=== PATIENT | male | born 1950 | race Caucasian/White ===

== ENCOUNTER 2019-11-06 06:43 | Outpatient (CLI) | payer OTHER, SELFPAY ==
--- NOTE | 2019-11-06 07:15 | USCV_ITS ---
Jerrell Love Age: 68 Gender: M : 1950 Exam Date: 11/06/2019 07:26 Ordering Phys: Jem Hook MD ([email or web address]) Technologist: Pilar Jordan [place] [facility] [place] AAA HISTORY: Diameter (cm) AP x Transverse x Length Velocity (cm/s) Waveform Prox Aorta: 2.26 x 1.93 x 2.38 26.30 Mid Aorta: 2.62 x 2.67 x 2.10 21.50 Distal Aorta: 3.41 x 3.29 x 3.49 20.80 Right Iliac Prox: 0.70 x x Left Iliac Prox: 0.58 x x Stent Prox Landing x x Aneurysmal Sac Max x x Lt Lat Sac Dim Rt Lat Sac Dim Stent Dist Landing x x Right Iliac Stent x x Left Iliac Stent x x Right Renal Art Left Renal Art FINDINGS: Fusiform dilatation of the distal abdominal aorta Moderate diffuse plaques in the abdominal aorta CONCLUSIONS Small fusiform aneurysm of the distal abdominal aorta measuring 3.41 x 3.29 cm Moderate diffuse plaques in the abdominal aorta Normal proximal common iliac artery dimensions, bilaterally Dr Gene Amin MD [facility] (Electronically Signed) Final Date: 07 November 2019 16:58 S
--- NOTE | 2019-11-06 08:00 | USCV_ITS ---
Jerrell Love Age: 68 Gender: M : 1950 Exam Date: 11/06/2019 07:42 Ordering Phys: Jem Hook MD ([email or web address]) Technologist: Pilar Jordan [place] [facility] [place] PAD Risk Factors: Previous Vascular Surgery: RIGHT LEFT BP: 151.0 / BP: 148.0/ 0 0 Waveform Velocity (cm/s) Velocity (cm/s) Waveform Triphasic 179.9 Iliac Prox 134.9 Biphasic Triphasic 158.3 Iliac Mid 129.5 Biphasic Triphasic 147.5 Iliac Distal 136.7 Biphasic Triphasic 127.7 DIRECTOR [employer]CTION[employer] AGENCY 95.3 Biphasic Biphasic 106.1 SFA Prox 91.7 Biphasic Biphasic 64.8 SFA Mid 108.8 Biphasic Biphasic SFA Dist Triphasic 95.3 88.1 Biphasic 37.8 POP 36.7 Biphasic Biphasic 26.5 HEALTH AND 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
--- NOTE | 2019-11-06 08:45 | USCV_ITS ---
Jerrell Love Age: 68 Gender: M : 1950 Exam Date: 11/06/2019 07:10 Ordering Phys: Jem Hook MD ([email or web address]) Technologist: Pilar Jordan [place] [facility] [place]: CAROTID DZ Risk Factors: Previous Vascular Surgery: Right Brachial BP: / Left Brachial BP: / Right Left Velocity (cm/s) Spectral Plaque Velocity (cm/s) Spectral Plaque Syst/Diast Broadening Syst/Diast Broadening 86.00/ 16.50 Prox CCA 77.60 / 26.30 99.20/ 24.30 Mid CCA 56.50 / 30.20 86.00/ 27.60 Distal CCA 54.70 / 21.40 133.40/44.10 Prox ICA 49.60 / 20.50 130.10/47.30 Mid ICA 46.10 / 22.20 132.80/42.10 Distal ICA 94.00 / 52.10 116.90 ECA 90.60 1.34 ICA/CCA 1.21 Antegrade Vertebral Antegrade 53.90/ 13.10 cm/s 85.40/ 20.50 cm/s Tri Subclavian Tri FINDINGS Moderate to heavy heterogeneous plaques of the right bifurcation and carotid artery Delayed peaking low velocity continuous waveforms in the left internal carotid artery and common carotid artery CONCLUSIONS Moderate to heavy heterogeneous plaques of the right bifurcation and carotid artery with velocity elevation consistent with 50- 79% stenosis. Abnormal Doppler waveforms on the left side, may suggest high- grade stenosis in the proximal artery. Consider CTA, to better evaluate the aortic arch vessels/proximal segment of the common carotid artery, if clinically indicated. Compared to the study from 09/27/2014, there are features of progression of disease on both sides Dr Gene Amin MD [facility] (Electronically Signed) Final Date: 06 November 2019 21:42 S
== END 2019-11-06 06:44 | disposition home or self-care (01) ==
PROVIDERS: PCP Emergency Medicine Emergency Medical Services; Visit Provider Internal Medicine Cardiovascular Disease
DX: I73.9 Peripheral vascular disease, unspecified (principal); I71.4 Abdominal aortic aneurysm, without rupture; I65.23 Occlusion and stenosis of bilateral carotid arteries
CPT/HCPCS: 93880; 93925; 93978

== ENCOUNTER 2019-11-19 13:04 | Outpatient (CLI) | payer OTHER, SELFPAY ==
--- NOTE | 2019-11-19 13:30 | CT_ITS ---
WS: [id number] CTA NECK TECHNIQUE: Contrast enhanced CTA of the neck with coronal and sagittal reformatted images and maximum intensity projection (MIP) images. NASCET criteria utilized. CLINICAL INFORMATION: FOLLOWUP TO [facility] CAROTID DUPLEX COMPARISON: Ultrasound November 06, 2019 DLP: 1176.[address] scans at [facility] use at least one of these dose optimization techniques: automat ed exposure control; mA and/or kV adjustment per patient size (includes targeted exams where dose is matched to clinical indication); or iterative reconstruction. FINDINGS: Moderate atheromatous disease involving the aortic arch with calcification. RIGHT: Right ICA stenosis 33%. Right common carotid artery is patent. Moderate calcified atheromatous disease right carotid bulb extending into the ICA. Right ICA is patent to the skull base. Moderate c avernous carotid calcification. LEFT: Severe high-grade stenosis of the left common carotid origin. Short segment near occlusion/occl usion. No definite residual visualized lumen. Common carotid artery is patent distal to the stenosis. This may be partially filling from the left ECA. Left ICA is patent to the skull base. Mild to moder ate atheromatous disease left carotid bulb extending into the ICA. Left ICA stenosis measures 30% Numerous prominent partially visualized anterior mediastinal lymph nodes. Advanced emphysematous harden ges in the lung apices. Mild mucosal thickening in the paranasal sinuses. CT/CT angio neck [id number] IMPRESSION: 1. Right ICA stenosis 33%. 2. Severe high-grade stenosis of the left common carotid artery origin with hi gh-grade stenosis and near occlusion. No definite visualized residual lumen. Co mmon carotid artery distal to this is patent and may be partially filling from the left ECA. 3. Left ICA stenosis measures 30% 4. Codominant and patent vertebral arteries bilaterally. 5. Proximal [place] is unremarkable. 6. Partially visualized prominent anterior mediastinal lymph nodes. These are nonspecific but may be reactive. This can be further evaluated with chest CT.
[2019-11-19 13:35] LABS: Blood Urea Nitrogen 15 mg/dL (8-23)
[2019-11-19] MEDS: iodixanol 320 mg/mL 100mL Btl IV (13:47)
== END 2019-11-19 13:05 | disposition home or self-care (01) ==
LOC: RADWPI 13:07
PROVIDERS: Family Provider Emergency Medicine Emergency Medical Services; PCP Emergency Medicine Emergency Medical Services; Visit Provider Internal Medicine Cardiovascular Disease
DX: R93.89 Abnormal findings on diagnostic imaging of other specified body structures (principal); I65.23 Occlusion and stenosis of bilateral carotid arteries
CPT/HCPCS: 70498; 82565; 84520; Q9967

== ENCOUNTER 2019-12-04 14:06 | Outpatient (CLI) | payer OTHER, SELFPAY ==
--- NOTE | 2019-12-04 14:00 | CT_ITS ---
WS: [id number] CTA THORACIC AORTA WITH AND WITHOUT CONTRAST HISTORY: COMMON ARTERY STENOSIS TECHNIQUE: CT imaging of the thorax is performed with and without contrast. After noncontrast imaging is performed, CT angiogram is performed during injection of Omnipaque 300; 95 mL IV.. Sagittal and c oronal reconstructions, sagittal and coronal MIP imaging is submitted. All CT scans at [facility] [place] use at least one of these dose optimization techniques: automated exposure control; mA and/o r kV adjustment per patient size (includes targeted exams where dose is matched to clinical indicatio n); or iterative reconstruction. DLP: 1142.63 mGy.cm COMPARISON: 11/19/2019 Moderate atherosclerosis thoracic aorta with no dilatation. Ascending aorta measures 3.5 cm. Descendi ng thoracic aorta is 2.8 cm. There is a moderate amount of calcified plaque and intimal thickening. A few of the plaques are irregular shaped with the largest near the GE junction. The largest ulceratio n measures 9 mm. Very high-grade stenosis involving the origin of the LEFT common carotid artery from the arch. Stenosis greater than 90%. This was described on a prior neck CTA. Moderate coronary arter y atherosclerosis. Normal size pulmonary artery. There are numerous mediastinal and hilar lymph nodes. Majority of these lymph nodes maintain their fatty hilum. The largest lymph node is 12 mm. Severe paraseptal and centrilobular emphysema. Mild interstitial thickening at the RIGHT lung base po steriorly. No suspicious mass or nodule. No osteoblastic or osteolytic disease. There is mild anterio r wedging of one of the lower vertebral bodies which may be T8. CT/CT angio chest [id number] IMPRESSION: 1. Moderate atherosclerosis thoracic aorta with no aneurysm. 2. Moderate coronary artery calcification. 3. High-grade proximal LEFT common carotid artery stenosis. 4. Severe centrilobular and paraseptal emphysema.
[2019-12-04] MEDS: iodixanol 320 mg/mL 100mL Btl IV (15:01)
== END 2019-12-04 14:07 | disposition home or self-care (01) ==
LOC: RAD 14:07
PROVIDERS: PCP Emergency Medicine Emergency Medical Services; Visit Provider Thoracic Surgery (Cardiothoracic Vascular Surgery)
DX: I65.22 Occlusion and stenosis of left carotid artery (principal); I70.0 Atherosclerosis of aorta; I25.10 Atherosclerotic heart disease of native coronary artery without angina pectoris; J43.8 Other emphysema
CPT/HCPCS: 71275

== ENCOUNTER → 2020-04-16 16:48 | Outpatient (BNVA) | payer OTHER, SELFPAY | PROVIDERS: PCP Emergency Medicine Emergency Medical Services; Visit Provider Nurse Practitioner | DX: Z11.59 Encounter for screening for other viral diseases (principal) | CPT/HCPCS: 87635 ==

== ENCOUNTER 2020-09-01 10:28 | Outpatient (CLI) | payer OTHER, SELFPAY ==
--- NOTE | 2020-09-01 10:32 | MR_ITS ---
WS: [id number] MRI CERVICAL SPINE NONCONTRAST TECHNIQUE: Sagittal T1, T2 and STIR imaging. Axial T2, gradient, and fiesta imaging. CLINICAL INFORMATION: RADICULOPATHY;CERVICALGIA COMPARISON: None. FINDINGS: Straightening of the normal cervical lordosis. Mild disc bulging C3-C4 and C4-C5. No high-grade centr al canal stenosis. Cord signal is normal. C2-C3: Normal. C3-C4: Minimal disc bulging with osteophytic ridging. Mild facet arthropathy. Mild left foraminal rody rowing. Spinal canal is patent. C4-C5: Mild disc bulging with osteophytic ridging. Slight effacement of ventral thecal sac. Osteophyt ic ridging. Mild bilateral bony foraminal narrowing. This is worse in the left. Mild facet arthropath y. C5-C6: Mild disc osteophyte complex with endplate ridging. Mild to moderate left and no significant r ight foraminal narrowing. Moderate facet arthropathy. Spinal canal is patent. C6-C7: Mild disc osteophytic ridging. Mild to moderate left and mild right bony foraminal narrowing. Moderate facet arthropathy. Spinal canal is patent. C7-T1: Mild osteophytic ridging. Spinal canal and foramen are patent. Mild facet arthropathy MR/MR cervical spin wo con* [id number] IMPRESSION: 1. Straightening of the normal cervical lordosis. No high-grade central canal stenosis. Cord signal is normal. 2. Mild bony foraminal narrowing mainly due to endplate osteophytic ridging wo rse at right C4-5, left C5-6, and left C6-7. 3. Mild to moderate facet arthropathy worse at C4-C5, C5-C6 and C6-C7.
== END 2020-09-01 10:29 | disposition home or self-care (01) ==
LOC: RADSHAW 10:29
PROVIDERS: PCP Emergency Medicine Emergency Medical Services; Visit Provider Emergency Medicine Emergency Medical Services
DX: M54.12 Radiculopathy, cervical region (principal); M47.812 Spondylosis without myelopathy or radiculopathy, cervical region; M25.78 Osteophyte, vertebrae
CPT/HCPCS: 72141

== ENCOUNTER → 2020-09-08 09:27 | Outpatient (BNVA) | payer OTHER, SELFPAY | PROVIDERS: PCP Emergency Medicine Emergency Medical Services; Referring Provider Emergency Medicine Emergency Medical Services; Visit Provider Specialist | DX: M25.512 Pain in left shoulder (principal); M75.02 Adhesive capsulitis of left shoulder; M54.2 Cervicalgia | CPT/HCPCS: 73030 ==

== ENCOUNTER → 2020-09-09 10:38 | Outpatient (BNVA) | payer OTHER, SELFPAY | PROVIDERS: PCP Emergency Medicine Emergency Medical Services; Visit Provider Psychiatry & Neurology Neurology | DX: M54.12 Radiculopathy, cervical region (principal); M75.02 Adhesive capsulitis of left shoulder; F17.210 Nicotine dependence, cigarettes, uncomplicated | CPT/HCPCS: 95886; 95910 ==

== ENCOUNTER → 2020-10-01 08:10 | Outpatient (BNVA) | payer OTHER, SELFPAY | PROVIDERS: PCP Emergency Medicine Emergency Medical Services; Referring Provider Emergency Medicine Emergency Medical Services; Visit Provider Anesthesiology Pain Medicine | DX: G89.29 Other chronic pain (principal); M54.2 Cervicalgia; J44.9 Chronic obstructive pulmonary disease, unspecified; Z79.899 Other long term (current) drug therapy | CPT/HCPCS: 99205 ==

== ENCOUNTER 2020-10-15 15:35 | Emergency (ER) | payer OTHER, SELFPAY ==
[2020-10-15 15:55] VITALS: BP 130/71; PULSE 94; RESP 24; TEMP 36.6; O2SAT 95; BMI 26.7
--- NOTE | 2020-10-15 17:53 | XRR_ITS ---
PROCEDURE INFORMATION: Exam: XR Chest Exam date and time: 10/15/2020 5:54 PM Age: 69 years old Clinical indication: Shortness of breath; Prior surgery; Surgery type: Stents; Patient HX: SOB, cough, ex smoker TECHNIQUE: Imaging protocol: XR of the chest. Views: 1 view. COMPARISON: CT angio chest [id number] 12/04/2019 2:45 PM FINDINGS: Lungs: Unremarkable. No consolidation. Unchanged scattered calcified pulmonary granulomas. Pleural spaces: Unremarkable. No pleural effusion. No pneumothorax. Heart/Mediastinum: Unremarkable. No cardiomegaly. Bones/joints: No acute abnormality. XR/XR chest 1V portable [id number] IMPRESSION: No acute findings. Unchanged exam.
--- NOTE | 2020-10-15 17:54 | ED_ITS ---
HPI - SOB/Dyspnea General: Chief Complaint: Shortness of Breath/Dyspnea Stated Complaint: SOB Time Seen by Provider: 10/15/20 17:34 Source: patient Mode of arrival: ambulatory Limitations: no limitations History of Present Illness: HPI Narrative: Patient is a 69-year-old male with a history of CAD, PVD, chronic smoker, COPD, AAA, dyslipidemia and carotid stenosis here for several complaints that he states have all been present ever since my surgery in March . Patient states he underwent what sounds like a left carotid endarterectomy and stenting in [place] in March. He tells me ever since the procedure he has been having issues with his bilateral upper extremities. He complains of left arm pain, right arm numbness, and intermittent coolness to bilateral upper extremities. He has been seen by Dr. Jefferson last month for the left arm pain and diagnosed with adhesive capsulitis of the left shoulder. He has seen Dr. Guillen with neurology as well as Dr. Jay santos with pain management. He has underwent MRI imaging of the cervical spine as well as nerve conduction studies. These results are listed below: MR/MR cervical spin wo con* [id number] IMPRESSION: 1. Straightening of the normal cervical lordosis. No high-grade central canal stenosis. Cord signal is normal. 2. Mild bony foraminal narrowing mainly due to endplate osteophytic ridging worse at right C4-5, left C5-6, and left C6-7. 3. Mild to moderate facet arthropathy worse at C4-C5, C5-C6 and C6-C7. Interpretation: 1. The study provides electrodiagnostic evidence for chronic left C56 radiculopathy based on chronic denervation in this myotome. 2. 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 Patient also has complaints of shortness of breath and severe fatigue with exercise again he states has been present since the surgery in March. He reports I just cannot get no air . Patient is a chronic smoker with a diagnosis of COPD. Patient has seen Dr. Hanson with cardiology for this and has a stress test scheduled for November 02. He also has a pulmonology appointment next week. Associated symptoms: Reports fever(s) (reports fever of 100.5 yesterday); Deny abdominal pain, chest congestion, chest pain, dizziness, hemoptysis, lightheadedness, nausea, palpitations, syncope or vomiting Review of Systems Const: Reports: fever(s) (reports fever of 100.5 yesterday) and fatigue; Denies: chills, body aches, change in appetite, change in weight or malaise Eyes: Denies: change in vision or blurry vision ENMT: Denies: throat pain or odynophagia Card: Reports: dyspnea on exertion; Denies: chest pain, palpitations, irregular heart rhythm, edema, swelling of feet/ankles, lightheadedness, syncope, pre-syncope, leg pain with exertion or acrocyanosis Resp: Reports: dyspnea; Denies: productive cough, non-productive cough, wheezing, stridor, pain on inspiration, change in phlegm color, hemoptysis or chest congestion GI: Denies: abdominal pain, nausea, vomiting or diarrhea Musc: Reports: neck pain; Denies: back pain, joint pain, joint swelling, joint redness, joint stiffness or limited range of motion Skin/Breast: Denies: rash Neuro: Reports: numbness in extremities (UEs) and weakness in extremities (UEs); Denies: headache(s), difficulty walking, frequent falls or dizziness PFSH ED PFSH: Medical History (Updated 10/15/20 @ 20:17 by LLUVIA Cedeno) AAA (abdominal aortic aneurysm) ASHD (arteriosclerotic heart disease) Carotid stenosis, bilateral COPD (chronic obstructive pulmonary disease) Dyslipidemia Myocardial infarction PAD (peripheral artery disease) Tobacco abuse Surgical History S/P angioplasty with stent Family History Father CHF (congestive heart failure) Social History (Updated 10/01/20 @ 08:44 by Padmaja Hsieh LPN) Smoking and tobacco status: former smoker Alcohol intake: current Alcohol intake frequency: holidays/special occasions only Lives independently: Yes Household members: spouse Marital status: History of recent travel: No Physical Exam Const: COMMON NORMALS: no acute distress, average body habitus, patient oriented x3, no limitations, healthy appearing and alert GENERAL APPEARANCE: cooperative ORIENTATION/CONSCIOUSNESS: Yes awake, Yes oriented to person, Yes oriented to place and Yes oriented to time HENMT: COMMON NORMALS: normocephalic and atraumatic HEAD & SCALP: normal to inspection, normocephalic and atraumatic FACE & SINUS: normal facial exam Neck/C-Spine: COMMON NORMALS: full ROM, no lymphadenopathy and no meningeal signs Resp: COMMON NORMALS: normal respiratory effort and clear to auscultation bilaterally EFFORT & INSPECTION: No labored, No retractions and No uses accessory muscles AUSCULTATION: clear to auscultation bilaterally Cardio: COMMON NORMALS: regular rate and regular rhythm RATE: regular rate RHYTHM: regular rhythm Extremity: COMMON NORMALS: normal to inspection, capillary refill normal, no clubbing, cyanosis or edema, no calf tenderness and no pedal edema Neuro: MI COMA SCALE: document GCS findings Mi coma scale eye opening: Spontaneous Mi coma scale verbal response: Orientated Mi coma scale motor response: Obey commands Mi coma scale total score: 15 COMMON NORMALS: patient oriented x3, CN's II-XII intact bilaterally, moves all extremities and no focal motor deficits SENSORIUM/ORIENTATION: Yes alert, Yes oriented to person, Yes oriented to place and Yes oriented to time MENINGEAL SIGNS: Yes no meningeal signs SPEECH: speech normal SENSORY EXAM: Yes other (reports decreased sensation throughout R UE when compared to L) MOTOR EXAM: 5/5 motor strength present throughout Skin: COMMON NORMALS: no rashes or lesions noted GENERAL SKIN EXAM: no ra shes or lesions noted TRAUMA: no lacerations or abrasions Course Vital Signs: Vital signs: Vital Signs Temperature 99 F 10/15/20 20:07 Pulse Rate 94 10/15/20 20:05 Respiratory Rate 22 H 10/15/20 20:05 Blood Pressure 147/85 10/15/20 19:11 Pulse Oximetry 99 10/15/20 20:05 MDM - SOB/Dyspnea MDM Narrative: Medical decision making narrative: Labs show a 17.6 white count. He did have an elevated D-dimer. CMP is non-concerning. BNP slightly elevated at 581. CTA imaging obtained which shows severe emphysema but no PE. He states he is not on any medications for the emphysema. I will place him on antibiotics, steroids, albuterol inhaler, and Spiriva. He has pulmonology appointment next week. According to patient the majority of his symptoms have been present since March. I do not feel patient meets inpatient criteria. He was ambulated around the ED and did feel short of breath however O2 sloane ntained at 95%. Strict return to ED precautions given. Lab Data: Labs: Lab Results 10/15/20 10/15/20 10/15/20 Range/Units 18:36 18:36 18:36 WBC 17.6 H (4.0-10.0) 10^3/ uL RBC 5.38 H (4.1-5.3) 10^6/u L Hgb 15.8 (11.7-16.6) g/dL Hct 47.5 (42.0-52.0) % MCV 88.3 (80-94) fL MCH 29.4 (28.0-34.0) pg MCHC 33.3 (30.0-36.0) g/dL RDW 12.5 (12.1-15.1) % Plt Count 288 (130-400) 10^3/c mm MPV 9.4 (7.4-10.4) fL Neut % (Auto) 73.3 % Lymph % (Auto) 15.9 % [place] % (Auto) 9.5 % Eos % (Auto) 0.3 % Baso % (Auto) 0.3 % Neut # (Auto) 12.92 H (1.8-7.7) 10^3/u L Lymph # (Auto) 2.8 (0.8-4.8) 10^3/u L [place] # (Auto) 1.7 H (0.2-0.9) 10^3/u L Eos # (Auto) 0.1 (0.0-0.8) 10^3/u L Baso # (Auto) 0.1 (0.0-0.1) 10^3/u L Nucleated RBC % (a uto) 0 % Nucleated RBCs # 0.0 /100WBC D-Dimer 2.00 H (0-0.59) ug/mIFE U Sodium 135 L (136-145) mmol/L Potassium 4.5 (3.5-5.1) mmol/L Chloride 97 L (98-107) mmol/L Carbon Dioxide 23 (22-29) mmol/L Anion Gap 19.5 H (5-19) BUN 19 (8-23) mg/dL Creatinine 1.4 H (0.7-1.2) mg/dL GFR Calculation Not Reportable Glucose 100 (65-115) mg/dL Calculated Osmolal ity 282 L (285-295) mOsm/k g Lactic Acid (0.5-2.2) mmol/L Calcium 9.2 (8.5-10.5) mg/dL Total Bilirubin 0.8 (0.15-1.2) mg/dL AST 13 (0-40) U/L ALT 11 (0-41) U/L Alkaline Phosphata se 88 (40-130) IU/L NT-Pro-B Natriuret Pep 581 H (0-125) pg/mL Total Protein 8.2 (6.6-8.7) g/dL Albumin 4.3 (3.5-5.2) g/dL Globulin 3.9 (1.3-4.6) g/dL 10/15/20 Range/Units 18:36 WBC (4.0-10.0) 10^3/ uL RBC (4.1-5.3) 10^6/u L Hgb (11.7-16.6) g/dL Hct (42.0-52.0) % MCV (80-94) fL MCH (28.0-34.0) pg MCHC (30.0-36.0) g/dL RDW (12.1-15.1) % Plt Count (130-400) 10^3/c mm MPV (7.4-10.4) fL Neut % (Auto) % Lymph % (Auto) % [place] % (Auto) % Eos % (Auto) % Baso % (Auto) % Neut # (Auto) (1.8-7.7) 10^3/u L Lymph # (Auto) (0.8-4.8) 10^3/u L [place] # (Auto) (0.2-0.9) 10^3/u L Eos # (Auto) (0.0-0.8) 10^3/u L Baso # (Auto) (0.0-0.1) 10^3/u L Nucleated RBC % (a uto) % Nucleated RBCs # /100WBC D-Dimer (0-0.59) ug/mIFE U Sodium (136-145) mmol/L Potassium (3.5-5.1) mmol/L Chloride (98-107) mmol/L Carbon Dioxide (22-29) mmol/L Anion Gap (5-19) BUN (8-23) mg/dL Creatinine (0.7-1.2) mg/dL GFR Calculation Glucose (65-115) mg/dL Calculated Osmolal ity (285-295) mOsm/k g Lactic Acid 1.3 (0.5-2.2) mmol/L Calcium (8.5-10.5) mg/dL Total Bilirubin (0.15-1.2) mg/dL AST (0-40) U/L ALT (0-41) U/L Alkaline Phosphata se (40-130) IU/L NT-Pro-B Natriuret Pep (0-125) pg/mL Total Protein (6.6-8.7) g/dL Albumin (3.5-5.2) g/dL Globulin (1.3-4.6) g/dL Imaging Data^: CXR: Radiologist's impression: [address] [address]JWyl ReportSigned Patient: Jerrell Love #: [id number]: 9Acct#:[id number]/Sex: 69 / MADM Date: 10/15/20Loc: [facility]/Bed:Attending Dr: Ordering Provider/Ordering MD: Windy Escobedo Date of Service: 10/15/20 Procedure(s): XR chest 1V portable [id number] Accession Number(s): [id number] Report Number: [id number] PROCEDURE INFORMATION: Exam: XR Chest Exam date and time: 10/15/2020 5:54 PM Age: 69 years old Clinical indication: Shortness of breath; Prior surgery; Surgery type: Stents; Patient HX: SOB, cough, ex smoker TECHNIQUE: Imaging protocol: XR of the chest. Views: 1 view. COMPARISON: CT angio chest [id number] 12/04/2019 2:45 PM FINDINGS: Lungs: Unremarkable. No consolidation. Unchanged scattered calcified pulmonary granulomas. Pleural spaces: Unremarkable. No pleural effusion. No pneumothorax. Heart/Mediastinum: Unremarkable. No cardiomegaly. Bones/joints: No acute abnormality. XR/XR chest 1V portable [id number] IMPRESSION: No acute findings. Unchanged exam. Dictated By:Wicho Silvaigned By:Nicole Silva Date/Time:10/15/201857DD/ 55 CTA Chest: Radiologist's impression: [address] [address] [address] Scan Report Signed Patient: Jerrell Love Unit #: [id number] : 1950 A cct#:[id number] Age/Sex: 69 / M ADM Date: 10/15/20 Loc: ER Room/Bed: Attending Dr: Ordering Provider/Ordering MD: Windy Escobedo Date of Service: 10/15/20 Procedure(s): CT angio chest [place] [facility] [place] [address] Accession Number(s): [id number] Report Number: [id number] PROCEDURE INFORMATION: Exam: CTA Chest With Contrast Exam date and time: 10/15/2020 7:31 PM Age: 69 years old Clinical indication: Dyspnea; Prior surgery; Surgery date: 6+ months; Surgery type: Stents; Additional info: SOB, arm numbness, weakness, intermittent coolness TECHNIQUE: Imaging protocol: Computed tomographic angiography of the chest with contrast. 3D rendering (Not supervised by radiologist): MIP and/or 3D reconstructed images were created by the technologist. Radiation optimization: All CT scans at this facility use at least one of these dose optimization techniques: automated exposure control; mA and/or kV adjustment per patient size (includes targeted exams where dose is matched to clinical indication); or iterative reconstruction. Contrast material: VISI 320; Contrast volume: 90 ml; Contrast route: INTRAVENOUS (IV); COMPARISON: CT angio chest 12612 12/04/2019 2:45 PM RADIATION DOSE METRICS: Total DLP (mGy-cm): 596.63 FINDINGS: Pulmonary arteries: There is no pulmonary embolus. Aorta: Moderate atherosclerotic changes are noted in the thoracic aorta. No aneurysm. Great vessels off aortic arch: There is a stent at the origin of the left carotid artery. Lungs: There are severe centrilobar and paraseptal emphysematous changes. Unchanged mild peripheral honeycomb fibrosis and mild ground-glass opacity in the posterior lower lobes that may reflect mild pneumonitis versus atelectasis. No new airspace opacity or infiltrate. Calcified granulomas are noted in the lungs. Pleural spaces: Unremarkable. No pneumothorax. No pleural effusion. Heart: Unremarkable. No cardiomegaly. No pericardial effusion. Mediastinal space: A small hiatal hernia is present. Lymph nodes: There is unchanged mediastinal adenopathy including the 1.8 cm short axis precarinal lymph node. Unchanged 1.7 cm short axis right hilar lymph node. No axillary adenopathy. Bones/joints: Unremarkable. No acute fracture. Soft tissues: Unremarkable. CT/CT angio chest PE protcl [id number] IMPRESSION: 1. There is no pulmonary embolus. 2. Unchanged severe emphysematous changes with mild honeycomb fibrosis and mild posterior lower lobe ground-glass opacity compatible with mild edema, pneumonitis versus dependent atelectasis. Radiation Dose CTDIVOL = (mGy): DLP = 596.63 (mGy-cm) Dictated By: Luna Silva Signed By: Luna Silva Signed Date/Time: 10/15/201957 DD/ 56 Discharge Plan Discharge Patient Disposition: Home Clinical Impression: Emphysema of lung Qualifiers: Emphysema type: centrilobular Qualified Code(s): J43.2 - Centrilobular emphysema Condition: Stable Prescriptions: New prednisone 10 mg tablet 60 mg PO DAILY 5 Days Qty: 30 RF: 0 doxycycline monohydrate 100 mg capsule 100 mg PO Q12H 10 Days Qty: 20 RF: 0 albuterol sulfate 90 mcg/actuation HFA aerosol inhaler 2 inh INHALATION Q4H PRN (Reason: shortness of breath or wheezing) Qty: 6.7 RF: 0 Spiriva Respimat 1.25 mcg/actuation mist 2 inh inhalation DAILY Qty: 4 RF: 0 No Action aspirin [Adult Low Dose Aspirin] 81 mg tablet,delayed release (DR/EC) 162 mg PO BID RF: 0 atorvastatin 20 mg tablet 20 mg PO DAILY RF: 0 Pain Reliever (acetam-aspirin) 250-250-65 mg Tablet 1 - 2 tab PO Q6H PRN (Reason: Pain) RF: 0 cholecalciferol (vitamin D3) 50 mcg (2,000 unit) Tablet 50 mcg PO DAILY RF: 0 Discharge Orders: Discharge ED (Routine); Ordered 10/15/20 Ordered By: Windy Escobedo Referrals: Jean Marie Spear DO [Primary Care Provider] - Patient Instructions: COPD - Emphysema, Emphysema (ED) Activity Restrictions/Additional Instructions: As we discussed please follow-up with your pulmonology appointment next week as scheduled. You also have an outpatient stress test scheduled. He may return to the emergency department for worsening shortness of breath, chest pain, difficulty breathing, fevers, or any other concerns you may have. 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
[2020-10-15 18:44] VITALS: BP 157/68; PULSE 100; RESP 20; O2SAT 100
[2020-10-15 18:51] LABS: Basophils # 0.1 10^3/uL (0.0-0.1); Basophils % 0.3 %; Eosinophils # 0.1 10^3/uL (0.0-0.8); Eosinophils % 0.3 %; Hematocrit 47.5 % (42.0-52.0); Hemoglobin 15.8 g/dL (11.7-16.6); Lymphocytes # 2.8 10^3/uL (0.8-4.8); Lymphocytes % 15.9 %; Mean Corpuscular HGB Conc 33.3 g/dL (30.0-36.0); Mean Corpuscular Hemoglobin 29.4 pg (28.0-34.0); Mean Corpuscular Volume 88.3 fL (80-94); Mean Platelet Volume 9.4 fL (7.4-10.4); Monocytes # 1.7 10^3/uL (0.2-0.9); Monocytes % 9.5 %; Neutrophils # 12.92 10^3/uL (1.8-7.7); Neutrophils % 73.3 %; Nucleated Red Blood Cells % 0 %; Platelet Count 288 10^3/cmm (130-400); Red Blood Count 5.38 10^6/uL (4.1-5.3); Red Cell Distribution Width 12.5 % (12.1-15.1); White Blood Count 17.6 10^3/uL (4.0-10.0)
[2020-10-15 19:08] LABS: Lactic Sepsis W/Reflex 1.3 mmol/L (0.5-2.2)
[2020-10-15 19:11] VITALS: BP 147/85; PULSE 95; RESP 20; O2SAT 100
[2020-10-15 19:17] LABS: Alanine Aminotransferase 11 U/L (0-41); Albumin Level 4.3 g/dL (3.5-5.2); Alkaline Phosphatase 88 IU/L (40-130); Anion Gap 19.5 (5-19); Aspartate Amino Transferase 13 U/L (0-40); Blood Urea Nitrogen 19 mg/dL (8-23); Calcium 9.2 mg/dL (8.5-10.5); Carbon Dioxide 23 mmol/L (22-29); Chloride 97 mmol/L (98-107); Globulin 3.9 g/dL (1.3-4.6); Glucose 100 mg/dL (65-115); NT Pro B Type Natriuretic Pept 581 pg/mL (0-125); Osmolality Calculated 282 mOsm/kg (285-295); Potassium 4.5 mmol/L (3.5-5.1); Sodium 135 mmol/L (136-145); Total Bilirubin 0.8 mg/dL (0.15-1.2); Total Protein 8.2 g/dL (6.6-8.7)
[2020-10-15] MEDS: iodixanol 320 mg/mL 100mL Btl IV (19:38)
[2020-10-15 20:05] VITALS: PULSE 94; RESP 22; O2SAT 99
--- NOTE | 2020-10-15 20:06 | PC.NURSE ---
patient ambulated for about 20 steps, c/o shortness of breath, had to take a rest. o2 sat between 95%-99%.
[2020-10-15 20:07] VITALS: TEMP 37.2
[2020-10-15 20:41] VITALS: BP 119/69; PULSE 92; RESP 20; O2SAT 99
== END 2020-10-15 20:42 | disposition home or self-care (01) ==
PROVIDERS: Emergency Provider Physician Assistant; PCP Emergency Medicine Emergency Medical Services
DX: J43.2 Centrilobular emphysema (principal); Z79.82 Long term (current) use of aspirin; E78.5 Hyperlipidemia, unspecified; I25.2 Old myocardial infarction; Z87.891 Personal history of nicotine dependence
CPT/HCPCS: 71045; 71275; 80053; 83605; 83880; 85025; 85378; 99283; Q9967

== ENCOUNTER 2020-10-21 10:25 | Outpatient (CLI) | payer OTHER, SELFPAY ==
[2020-10-21 10:56] LABS: Basophils # 0.1 10^3/uL (0.0-0.1); Basophils % 0.5 %; Eosinophils # 0.1 10^3/uL (0.0-0.8); Eosinophils % 0.7 %; Hematocrit 43.8 % (42.0-52.0); Hemoglobin 14.4 g/dL (11.7-16.6); Lymphocytes # 2.4 10^3/uL (0.8-4.8); Mean Corpuscular HGB Conc 32.9 g/dL (30.0-36.0); Mean Corpuscular Hemoglobin 29.4 pg (28.0-34.0); Mean Corpuscular Volume 89.4 fL (80-94); Mean Platelet Volume 8.8 fL (7.4-10.4); Monocytes # 0.7 10^3/uL (0.2-0.9); Monocytes % 4.8 %; Neutrophils # 9.88 10^3/uL (1.8-7.7); Neutrophils % 73.5 %; Nucleated Red Blood Cells % 0 %; Platelet Count 328 10^3/cmm (130-400); Red Cell Distribution Width 12.6 % (12.1-15.1); White Blood Count 13.5 10^3/uL (4.0-10.0)
[2020-10-22 15:43] LABS: Alternaria Alternata (M6) Ige <0.10 kU/L; Alternaria Class 0; Bermuda Class 0; Bermuda Grass (G2) Ige <0.10 kU/L; Cat Dander (E1) Ige <0.10 kU/L; Cat Dander Class 0; Common Ragweed (Short) (W1) Ig <0.10 kU/L; D. Farinae Class 0; Dermatophagoides Class 0; Dermatophagoides Farinae (D2) <0.10 kU/L; Dermatophagoides Pteronyssinus <0.10 kU/L; Dog Dander (E5) Ige <0.10 kU/L; Dog Dander Class 0; Elm (T8) Ige <0.10 kU/L; Elm Class 0; English Plantain (W9) Ige <0.10 kU/L; English Plantain Class 0; House Dust (Hollister- Stier) <0.10 kU/L; House Dust Class 0; House Dust Class 0/1; Immunoglobulin E 796 kU/L (<OR=114); Immunoglobulin E 881 kU/L (<OR=114); Johnson Grass (G10) Ige <0.10 kU/L; Johnson Grass Cl 0; June Grass Class 0; June Grass(Kentucky Blue) (G8) <0.10 kU/L; Lamb'S Quarters (Goose Foot) <0.10 kU/L; Lamb'S Quarters Class 0; Maple (Box Elder) (T1) Ige <0.10 kU/L; Maple Class 0; Meadow Fescue (G4) Ige <0.10 kU/L; Meadow Fescue Class 0; Mucor Racemosus Class 0; Oak (T7) Ige <0.10 kU/L; Oak Class 0; Orchard Grass (Cocksfoot) (G3) <0.10 kU/L; Penicillium Class 0; Penicillium Notatum (M1) Ige <0.10 kU/L; Perennial Rye Grass (G5) Ige <0.10 kU/L; Perennial Rye Grass Class 0; Ragweeed Class 0; Rough Marsh Elder (W16) Ige <0.10 kU/L; Rough Marsh Elder Class 0; Sweet Vernal Class 0; Sweet Vernal Grass (G1) Ige <0.10 kU/L; Timothy Grass (G6) Ige <0.10 kU/L; Timothy Grass Class 0
[2020-10-27 09:23] LABS: Aspergillus Fumigatus, Igg Ab, 26.3 mg/L (<=102)
== END 2020-10-21 10:26 | disposition home or self-care (01) ==
LOC: LAB 10:30
PROVIDERS: PCP Emergency Medicine Emergency Medical Services; Visit Provider Internal Medicine Pulmonary Disease
DX: J45.909 Unspecified asthma, uncomplicated (principal)
CPT/HCPCS: 36415; 82785; 85025; 86003

== ENCOUNTER 2020-11-02 11:19 | Outpatient (CLI) | payer OTHER, SELFPAY ==
[2020-11-02 11:39] VITALS: BMI 26.7
--- NOTE | 2020-11-02 11:40 | USCV_ITS ---
Jerrell Love Age: 69 Gender: M : 1950 Exam Date: 11/02/2020 11:54 Ordering Phys: Michael Mohamud M.D ([email or web address]) Technologist: Nimo Garcia [place] [facility] [place]: Rhythm: Sinus Patient History: AAA, HLD, CAD, [place], PVD, COPD, Carotid Stenosis, PCI, Cardiac Medications: Atorvastatin, Aspirin Medications in past 24 hours: None Contrast: Total Dose (mL): Stress Results Protocol: Pharmacologic Peak Dose (???g/kg/min): 40 Duration (min:sec): 9:18 Atropine:(mg) Target HR: 127 Double Product: 04917 Resting HR: 54 Resting BP: 140 / 70 Peak HR: 129 Peak BP: 224 / 92 Max Predicted HR: 149 87 % Max Predicted HR Stress Summary: The patient's target heart rate was achieved. BP Response: Normal Reason for Termination: The patients target heart rate was achieved Cardiac Symptoms: None ECG Analysis Resting EKG: Sinus bradycardia, no significant ST-T wave changes Stress EKG: Sinus tachycardia. No significant ST- wave changes noted Arrhythmia: None MEASUREMENTS (Male/Female) Normal Values FINDINGS Baseline echocardiogram shows: Normal LV systolic function with EF of 50-55%. No regional wall motion abnormalities noted. Target heart rate was 127 bpm. Patient achieved peak heart rate of 129 bpm with dobutamine infusion. Some of the images were obtained 1-2 beats below the target heart rate, which can reduce the sensitivity of the test, but overall no regional wall motion abnormalities noted on stress. LV became appropriately hyperdynamic. No evidence of ischemia CONCLUSIONS 1. Heart rate response was appropriate. 2. Blood pressure response was hypertensive 3. Symptoms not suggestive of ischemia. 4. At peak stress, LV became appropriately hyperdynamic with no regional wall motion abnormalities. No evidence of ischemia. Michael Mohamud MD (Electronically Signed) Final Date: 08 November 2020 12:04 S
--- NOTE | 2020-11-02 11:40 | ECG_ITS ---
[facility] Test Date: 2020-11-02 Pat Name: Jerrell Love Department: Room: Gender: Male Surgical Instruments Inspector: Suzan Murillo : 1950 Requested By: Michael Mohamud Order Number: [id number] Nery MD: Michael Mohamud M.D. Interpretive Statements NAME OF STUDY: DOBUTAMINE STRESS ECHOCARDIOGRAM INDICATION: [Chest Pain, ] PROCEDURE: Dobutamine stress echocardiogram At baseline patient's heart rate was 52 bpm with a blood pressure of 142/99 mmHg. Baseline EKG demonstrated normal sinus rhythm. Patient's target heart rate was 127 bpm. With dobutamine infusion maximum heart rate was 129 bpm which was 101% of the target heart rate. Maximum blood pressure achieved is 224/85mmhg. No evidence of ischemia on the EKG CONCLUSION: 1) No stress induced ischemia noted on EKG 2) For dobutamine stress echo, please refer to the imaging report Electronically Signed On 12-22-2020 13:13:39 CDT by Michael Mohamud M.D. [id number]
[2020-11-02] MEDS: DOBUTtamine 200 MG in sodium chloride 0.9% 34 ML IV ×2 (12:18→12:19)
[2020-11-02 12:20] VITALS: BP 172/92; PULSE 93
== END 2020-11-02 11:20 | disposition home or self-care (01) ==
PROVIDERS: PCP Emergency Medicine Emergency Medical Services; Visit Provider Internal Medicine
DX: R07.9 Chest pain, unspecified (principal)
CPT/HCPCS: 93017; 93350; J1250; J7050

== ENCOUNTER → 2020-11-12 08:55 | Outpatient (BNVA) | payer OTHER, SELFPAY | PROVIDERS: PCP Emergency Medicine Emergency Medical Services; Visit Provider Emergency Medicine Emergency Medical Services | DX: J43.2 Centrilobular emphysema (principal); Z20.822 Contact with and (suspected) exposure to COVID-19 | CPT/HCPCS: 87635 ==

== ENCOUNTER 2020-11-18 09:56 | Outpatient (CLI) | payer OTHER, SELFPAY ==
--- NOTE | 2020-11-18 10:32 | PFTS_ITS ---
Date of Study:11/18/20 Date of Dictation: MECHANICS: Forced vital capacity (FVC) is normal. Forced expiratory volume in one second (FEV1) is normal. FEV1/FVC is normal. FLOW VOLUME LOOP: Very mild scooping. LUNG VOLUMES: Total lung capacity (TLC) is normal. Residual volume (RV) is reduced. DIFFUSING CAPACITY FOR CARBON MONOXIDE: Moderately reduced. INTERPRETATION: The postbronchodilator spirometry is normal. There is no significant postbronchodilator response. The lung volumes show isolated reduction in residual volume. This could be suggestive of early interstitial lung disease. Gas exchange (DLCO) is moderately reduced. MTDD
== END 2020-11-18 09:57 | disposition home or self-care (01) ==
LOC: RT 09:57
PROVIDERS: PCP Emergency Medicine Emergency Medical Services; Visit Provider Internal Medicine Pulmonary Disease
DX: J44.9 Chronic obstructive pulmonary disease, unspecified (principal)
CPT/HCPCS: 94060; 94618; 94726; 94729; J7611

== ENCOUNTER → 2020-12-09 15:01 | Outpatient (BNVA) | payer OTHER, SELFPAY | PROVIDERS: PCP Emergency Medicine Emergency Medical Services; Visit Provider Internal Medicine | DX: R06.00 Dyspnea, unspecified (principal); R06.02 Shortness of breath; R07.9 Chest pain, unspecified | CPT/HCPCS: 80048; 83880 ==

== ENCOUNTER → 2021-06-01 10:10 | Outpatient (BNVA) | payer OTHER, SELFPAY | PROVIDERS: PCP Emergency Medicine Emergency Medical Services; Visit Provider Internal Medicine Pulmonary Disease | DX: Z01.812 Encounter for preprocedural laboratory examination (principal); Z20.822 Contact with and (suspected) exposure to COVID-19 | CPT/HCPCS: 87635 ==

== ENCOUNTER 2021-06-07 13:25 | Outpatient (CLI) | payer OTHER, SELFPAY ==
--- NOTE | 2021-06-07 14:17 | PFTS_ITS ---
Date of Study:06/07/21 Date of Dictation: MECHANICS: Forced vital capacity (FVC) is reduced. Forced expiratory volume in one second (FEV1) is reduced. FEV1/FVC is normal. FLOW VOLUME LOOP: Narrow. LUNG VOLUMES: Total lung capacity (TLC) is reduced. Residual volume (RV) is reduced. DIFFUSING CAPACITY FOR CARBON MONOXIDE: Severely reduced. INTERPRETATION: The prebronchodilator spirometry is consistent with mild restriction. No postbronchodilator spirometry was performed. Lung volumes are consistent with mild restriction. Gas exchange (DLCO) is disproportionately and severely reduced. MTDD
== END 2021-06-07 13:26 | disposition home or self-care (01) ==
LOC: RT 13:32
PROVIDERS: PCP Emergency Medicine Emergency Medical Services; Visit Provider Internal Medicine Pulmonary Disease
DX: J44.9 Chronic obstructive pulmonary disease, unspecified (principal)
CPT/HCPCS: 94010; 94618; 94726; 94729

== ENCOUNTER 2021-06-08 06:25 | Day surgery (SDC) | payer OTHER, SELFPAY ==
[2021-06-06 14:44] VITALS: BMI 27.2
[2021-06-08 06:40] VITALS: BP 123/73; PULSE 63; RESP 16; TEMP 36.5; O2SAT 96
--- NOTE | 2021-06-08 06:56 | ANES.PREANE2 ---
Pre-Anesthetic Assessment Pre-Anesthetic Assessment: Height/Weight: Height 1.83 m Weight 91.172 kg Temp Pulse Resp BP Pulse Ox 97.7 F 63 16 123/73 96 06/08/21 06:40 06/08/21 06:40 06/08/21 06:40 06/08/21 06:40 06/08/21 06:40 Preop Diagnosis: upper gi symptoms Proposed Procedure: Operation Date: 06/08/21 07:30 Proposed Procedures p EGD 55557 K21.9(Not Applicable) - Mariusz Brothers MD Was Beta Kin taken within 24 hours: N/A Was Clonidine taken within 24 hours: N/A Last intake: Intake Last Liquid Date 06/07/21 Last Solid Date 06/07/21 Last Intake: 18:30 Social: Social History: No alcohol and No tobacco Comment: quit in 2019, 3-4 ppd before quitting Exam: Pre-Anes Outpt Exam: alert and oriented x 3 Airway: Submandibular: WNL Cervical ROM: WNL MP: 1 Dentition: Full History/ROS: No significant history except as noted Pulmonary: Pulmonary: Asthma, COPD, GORDON and SOB CV/HEM: CV/HEM: DE ( stents) Comments: Left Carotid edarterectomy in march 2020 : : None reported Hepatic: Hepatic: None reported GI: GI: GERD Metabolic: Metabolic: Hyperlipidemia Musc/skel: Musc/skel: Lower Back Pain Neuropsych: Neuropsych: None reported Anesthetic Plan: ASA status: 3 Anesthesia: Anesthesia Evaluation and MAC Risk of > 500 ml blood loss (7ml/kg in children): No PFSH Anesthesia PFSH: Medical History AAA (abdominal aortic aneurysm) ASHD (arteriosclerotic heart disease) Carotid stenosis, bilateral COPD (chronic obstructive pulmonary disease) Dyslipidemia GERD (gastroesophageal reflux disease) Myocardial infarction PAD (peripheral artery disease) Surgical History H/O carotid endarterectomy History of colonoscopy History of coronary artery stent placement History of esophagogastroduodenoscopy Presence of internal carotid stent S/P angioplasty with stent Family History Father CHF (congestive heart failure) Social History Quit status (tobacco): has quit using tobacco Year quit tobacco: Apr 19, 2020 [id number] Second hand smoke exposure: No Smoking risk assessment/counseling performed?: Yes Alcohol intake: current Alcohol intake frequency: holidays/special occasions only Lives independently: Yes Household members: spouse Marital status: service: Yes Current occupational status: retired 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
[2021-06-08] MEDS: sodium chloride 0.9% 1,000 ML 30 ML IV (06:57)
--- NOTE | 2021-06-08 07:30 | W.PM.OPSFHP ---
Same Day Surgery H&P Indication for Procedure/HPI DATE OF PROCEDURE: June 08, 2021 CHIEF COMPLAINT/INDICATIONFOR SURGICAL PROCEDURE: EGD/colon PREOP DIAGNOSIS: upper gi symptoms PLANNED PROCEDRUE: Operation Date: 06/08/21 07:30 Proposed Procedures p EGD 22850 K21.9(Not Applicable) - Mariusz Brothers MD Medications/Allergies* Home Medications Medication Instructions Recorded Confirmed Type aspirin 81 mg tablet,delayed 162 mg PO BID tab 03/25/20 06/08/21 History release atorvastatin 20 mg tablet 20 mg PO DAILY 10/01/20 06/08/21 History cholecalciferol (vitamin D3) 50 mcg PO DAILY 10/15/20 06/08/21 History pantoprazole 40 mg PO DAILY 06/06/21 06/08/21 History Allergies/Adverse Reactions Allergy/AdvReac Type Severity Reaction Status Date / Time clopidogrel AdvReac Intermediate ADR-Gastrointestinal Verified 06/08/21 06:38 Upset Current Medications: Generic Name Dose Route Start Last Admin Trade Name Freq PRN Reason Stop Dose Admin Sodium Chloride 1,000 mls @ 30 mls/hr 06/08/21 06:30 06/08/21 06:57 Sodium Chloride 0.9% IV 06/09/21 06:29 30 mls/hr .Q24H HAYDEN Administration Pertinent History/Comorbid Conditions* Medical History (Updated 04/11/21 @ 08:32 by Mariusz Brothers MD) AAA (abdominal aortic aneurysm) ASHD (arteriosclerotic heart disease) Carotid stenosis, bilateral COPD (chronic obstructive pulmonary disease) Dyslipidemia GERD (gastroesophageal reflux disease) Myocardial infarction PAD (peripheral artery disease) Surgical History (Updated 04/11/21 @ 11:05 by Mariusz Brothers MD) H/O carotid endarterectomy History of colonoscopy History of coronary artery stent placement History of esophagogastroduodenoscopy Presence of internal carotid stent S/P angioplasty with stent Family History (Updated 06/25/19 @ 10:51 by Yoli Cortes RN) CHF (congestive heart failure) Father Social History Quit status (tobacco): has quit using tobacco Year quit tobacco: Apr 19, 2020 [id number] Second hand smoke exposure: No Smoking risk assessment/counseling performed?: Yes Alcohol intake: current Alcohol intake frequency: holidays/special occasions only Lives independently: Yes Household members: spouse Marital status: service: Yes Current occupational status: retired 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
[2021-06-08 07:47] VITALS: BP 122/73; PULSE 61; RESP 16; TEMP 36.2; O2SAT 93
[2021-06-08 07:58] VITALS: BP 126/82; PULSE 63; RESP 18; O2SAT 92
--- NOTE | 2021-06-08 13:50 | ANE.PACU2 ---
Inpatient post-anesthesia follow up: Airway intact: Yes Vital signs: Temperature 97.1 F Pulse Rate 63 Respiratory Rate 18 Blood Pressure 126/82 Pulse Oximetry 92 Oxygen Delivery Me thod Room Air Oxygen Flow Rate Fraction of Inspir ed Oxygen Hydration adequate: Yes Nausea and vomiting: No Pain level: 2 Mental status: Baseline
== END 2021-06-08 08:10 | disposition home or self-care (01) ==
PROVIDERS: PCP Emergency Medicine Emergency Medical Services; Visit Provider Surgery
PROC: 0DJ08ZZ Inspection of Upper Intestinal Tract, Via Natural or Artificial Opening Endoscopic (ICD-10-PCS; CPT 43235; principal; 2021-06-08 07:30)
DX: K21.9 Gastro-esophageal reflux disease without esophagitis (principal); R14.0 Abdominal distension (gaseous); K29.50 Unspecified chronic gastritis without bleeding; K44.9 Diaphragmatic hernia without obstruction or gangrene; Z79.82 Long term (current) use of aspirin; I25.10 Atherosclerotic heart disease of native coronary artery without angina pectoris; J44.9 Chronic obstructive pulmonary disease, unspecified; E78.5 Hyperlipidemia, unspecified; I25.2 Old myocardial infarction; Z95.5 Presence of coronary angioplasty implant and graft; Z82.49 Family history of ischemic heart disease and other diseases of the circulatory system; Z87.891 Personal history of nicotine dependence
CPT/HCPCS: 43239; 88305; 88342; J2704; J7030

== ENCOUNTER → 2021-08-22 14:11 | Outpatient (BNVA) | payer OTHER, SELFPAY | PROVIDERS: PCP Emergency Medicine Emergency Medical Services; Visit Provider Internal Medicine Cardiovascular Disease | DX: I71.4 Abdominal aortic aneurysm, without rupture (principal); R06.02 Shortness of breath; I73.9 Peripheral vascular disease, unspecified; Z87.891 Personal history of nicotine dependence | CPT/HCPCS: 99213 ==

== ENCOUNTER 2021-11-07 07:49 | Outpatient (CLI) | payer OTHER, SELFPAY ==
--- NOTE | 2021-11-07 08:30 | FL_ITS ---
WS: [id number] Excursion of the diaphragms. During imaging Sniff test with fluoroscopy. History: Difficulty breathing after carotid surgery. COMPARISON: None. Fluoroscopy time: 0.8 minutes. Fluoroscopy images, 3 spots. With patient upright significant Sniff imaging is performed. There is very slight elevation of the RI GHT hemidiaphragm. During inspiration and expiration there is equal excursion of the diaphragms. Duri ng sniff imaging there is also a normal movement of the diaphragm. Diaphragmatic movement is symmetri c. FL/FL sniff test [id number] IMPRESSION: Normal excursion of the diaphragms during sniff imaging.
== END 2021-11-07 07:50 | disposition home or self-care (01) ==
LOC: RAD 07:51
PROVIDERS: PCP Emergency Medicine Emergency Medical Services; Visit Provider Internal Medicine Pulmonary Disease
DX: R06.02 Shortness of breath (principal)
CPT/HCPCS: 76000

== ENCOUNTER → 2021-12-12 09:22 | Outpatient (BNVA) | payer OTHER, SELFPAY | PROVIDERS: PCP Emergency Medicine Emergency Medical Services; Visit Provider Internal Medicine Pulmonary Disease | DX: J43.2 Centrilobular emphysema (principal); I25.10 Atherosclerotic heart disease of native coronary artery without angina pectoris; I65.23 Occlusion and stenosis of bilateral carotid arteries; I71.4 Abdominal aortic aneurysm, without rupture; R06.00 Dyspnea, unspecified; Z87.891 Personal history of nicotine dependence | CPT/HCPCS: 99214 ==

== ENCOUNTER 2021-12-28 12:49 | Outpatient (CLI) | payer OTHER, SELFPAY ==
--- NOTE | 2021-12-28 12:45 | USCV_ITS ---
Jerrell Love Age: 71 Gender: M : 1950 Exam Date: 12/28/2021 13:15 Ordering Phys: Calin Somers MD Technologist: Jeremy Womack [place] [facility] [facility] [place]: assess pulmonary artery pressures BP: 142 / 72 HR: 48 Rhythm: Sinus Technical Quality: Suboptimal MEASUREMENTS (Male / Female) Normal Values 2D ECHO LV Diastolic Diameter PLAX 3.8 cm 4.2 - 5.9 / 3.9 - 5.3 cm LV Systolic Diameter PLAX 2.8 cm IVS Diastolic Thickness 1.1 cm 0.6 - 1.0 / 0.6 - 0.9 cm IVS Systolic Thickness 1.5 cm LVPW Diastolic Thickness 0.9 cm 0.6 - 1.0 / 0.6 - 0.9 cm LVPW Systolic Thickness 1.1 cm LVOT Diameter 2.0 cm LV Ejection Fraction 2D Teich 54.0 % LV Ejection Fraction MOD 2C 56.7 % LV Ejection Fraction 2C AL 59.9 % LA Diameter 3.3 cm LA Width 3.1 cm LA Height 4.6 cm RA Width 3.7 cm RA Height 5.0 cm Aorta at Sinotubular Diameter 2.2 cm IVC Diameter 1.9 cm M-MODE Aortic Annulus Diameter 3.1 cm LA Ao Ratio MM 1.1 MV E Point Septal Separation 0.6 cm DOPPLER AV Peak Velocity 99.7 cm/s LVOT Peak Velocity 81.0 cm/s AV Area Cont Eq vti 2.5 cm squared AV Area Cont Eq pk 2.6 cm squared MV Peak Velocity 95.0 cm/s MV Area PHT 3.0 cm squared Mitral E to A Ratio 0.6 MV E' Velocity 32.5 cm/s Mitral E to MV E' Ratio 4.7 Mitral E to LV E' Lateral Ratio 3.9 Mitral E to LV E' Septal Ratio 6.0 TR Peak Velocity 246.0 cm/s TR Peak Gradient 24.2 mmHg TR Mean Velocity 209.7 cm/s TR Mean Gradient 18.1 mmHg TR Velocity Time Integral 72.2 cm Right Atrial Pressure 3.0 mmHg Pulmonary Artery Systolic Pressu 27.2 mmHg RV Acceleration Time 0.1 s RV Ejection Time 0.3 s RV AcT/ET 0.3 FINDINGS Left Ventricle Left ventricular cavity not well visualized. Normal left ventricular size, systolic function and wall thickness, with no regional wall motion abnormalities. Grade I/IV diastolic dysfunction (abnormal relaxation filling pattern), normal to mildly elevated filling pressures. Left ventricular ejection fraction is estimated at 55-60 %. Right Ventricle Normal right ventricular size and systolic function. Normal right ventricular systolic pressure. Right Atrium The right atrium is normal in size. Left Atrium The left atrium is normal in size. Mitral Valve Structurally normal mitral valve. Trace mitral valve regurgitation. Aortic Valve Structurally normal aortic valve without significant sclerosis or stenosis. There is no aortic regurgitation. Tricuspid Valve Structurally normal tricuspid valve. Trace tricuspid valve regurgitation. Pulmonic Valve Structurally normal pulmonic valve. Pericardium Normal pericardium without effusion. Aorta Normal ascending aorta dimension. IVC The inferior vena cava pulmonary and hepatic veins appear normal. CONCLUSIONS Left ventricular cavity not well visualized. Normal left ventricular size, systolic function and wall thickness, with no regional wall motion abnormalities. Grade I/IV diastolic dysfunction (abnormal relaxation filling pattern), normal to mildly elevated filling pressures. Left ventricular ejection fraction is estimated at 55-60 %. Normal right ventricular size and systolic function. Normal right ventricular systolic pressure. Structurally normal mitral valve. Trace mitral valve regurgitation. Dr. Jem Hook MD (Electronically Signed) Final Date: 28 December 2021 15:22 S
--- NOTE | 2021-12-28 14:00 | CT_ITS ---
WS: [id number] CT CHEST CT-HIGH RESOLUTION, NONCONTRAST. HISTORY: Interstitial lung disease. Technique: High-resolution chest CT is performed in inspiration, expiration, supine and prone positio yoselyn. All CT scans at [facility] use at least one of these dose optimization techniques: automated exposure control; mA and/or kV adjustment per patient size (includes targeted exams where dose is mat ched to clinical indication); or iterative reconstruction. DLP: 2829.47 mGy.cm COMPARISON: 03/24/2021 and 10/15/2020 Findings: Marked pulmonary hyperexpansion. Severe centrilobular emphysema. Bulla and bleb disease thr oughout both lungs. There is mild interstitial thickening in the periphery. Very subtle changes of br onchiectasis in the RIGHT lower lobe. There are a few cystic areas superimposed in the RIGHT lower lo be suggesting early honeycombing. There is mild air trapping bilaterally in the superior segments of the lower lobes in particular. With prone positioning or honeycombing and interstitial thickening at the lung bases does not improve. No atelectasis. There are numerous small indeterminate lymph nodes in the mediastinum and hilum. The largest is infer ior RIGHT paratracheal measuring 15 mm in diameter. These lymph nodes were similar in size and number on the prior study from 2020. Heart size is normal. No pericardial or pleural effusion. Heavy calcif ication in the [place] coronary arteries. No adrenal mass. There are a few splenic and hepatic granulo matous. Heavy calcification at the origin of the celiac axis. Mild anterior wedging of T8. CT/CT chest wo con [id number] Impression: 1. Severe centrilobular emphysema. 2. There is very minimal equivocal honeycombing and traction bronchiectasis at the RIGHT lung base. These may be subpleural cystic changes associated with th e emphysema. Cannot confirm UIP at this time. Would prefer to see subpleural ho neycomb cysts in several contiguous layers noted to suggest the diagnosis of UI P. 3. Indeterminate mediastinal and hilar lymph nodes unchanged since 03/24/2021.
== END 2021-12-28 12:50 | disposition home or self-care (01) ==
LOC: RAD 12:50
PROVIDERS: PCP Emergency Medicine Emergency Medical Services; Visit Provider Internal Medicine Pulmonary Disease
DX: R06.02 Shortness of breath (principal); Z87.891 Personal history of nicotine dependence; I73.9 Peripheral vascular disease, unspecified; J43.2 Centrilobular emphysema; J47.9 Bronchiectasis, uncomplicated; I34.0 Nonrheumatic mitral (valve) insufficiency
CPT/HCPCS: 71250; 93306

== ENCOUNTER → 2022-01-02 09:55 | Outpatient (BNVA) | payer OTHER, SELFPAY | PROVIDERS: PCP Emergency Medicine Emergency Medical Services; Visit Provider Internal Medicine Pulmonary Disease | DX: J43.2 Centrilobular emphysema (principal); R06.00 Dyspnea, unspecified; I25.10 Atherosclerotic heart disease of native coronary artery without angina pectoris; I71.4 Abdominal aortic aneurysm, without rupture; Z87.891 Personal history of nicotine dependence; K44.9 Diaphragmatic hernia without obstruction or gangrene | CPT/HCPCS: 99214 ==

== ENCOUNTER 2022-01-19 10:11 | Outpatient (CLI) | payer OTHER, SELFPAY ==
[2022-01-19 10:54] LABS: Erythrocyte Sedimentation Rate 13 mm/hr (0-10)
[2022-01-19 11:12] LABS: C Reactive Protein 4.7 mg/L (0.0-4.9)
[2022-01-20 13:32] LABS: Cyclic Citrullinated Peptide <16 UNITS
[2022-01-23 16:43] LABS: Centromere B Antibody <1.0 NEG AI (<1.0 NEG); JO-1 Antibody <1.0 NEG AI (<1.0 NEG); SS A Ro Sjogrens Antibody <1.0 NEG AI (<1.0 NEG); SS-B/LA IGG <1.0 NEG AI (<1.0 NEG); Sm/RNP Antibody <1.0 NEG AI (<1.0 NEG); Smith Antibody <1.0 NEG AI (<1.0 NEG)
[2022-01-23 16:48] LABS: Anti-Double Strand DNA AB 1 IU/mL
[2022-01-25 12:07] LABS: COMPLEMENT COMPONENT C3C 160 mg/dL (82-185); COMPLEMENT COMPONENT C4C 31 mg/dL (15-53)
[2022-01-25 12:37] LABS: CENTROMERE B ANTIBODY <1.0 NEG AI (<1.0 NEG); JO-1 ANTIBODY <1.0 NEG AI (<1.0 NEG); RNP ANTIBODY <1.0 NEG AI (<1.0 NEG); SCL-70 ANTIBODY <1.0 NEG AI (<1.0 NEG); SJOGREN'S ANTIBODY (SS-A) <1.0 NEG AI (<1.0 NEG); SM ANTIBODY <1.0 NEG AI (<1.0 NEG); SS-B <1.0 NEG AI (<1.0 NEG)
[2022-01-25 15:27] LABS: THYROID PEROXIDASE ANTIBODIES <1 IU/mL (<9)
[2022-01-27 12:23] LABS: ANA SCREEN, IFA NEGATIVE (NEGATIVE)
[2022-01-27 14:33] LABS: COMPLEMENT, TOTAL (CH50) 32 U/mL (31-60)
[2022-01-28 09:53] LABS: DNA AB (DS) CRITHIDIA,IFA NEGATIVE (NEGATIVE)
== END 2022-01-19 10:12 | disposition home or self-care (01) ==
LOC: LAB 10:13
PROVIDERS: PCP Emergency Medicine Emergency Medical Services; Visit Provider Internal Medicine Pulmonary Disease
DX: J43.9 Emphysema, unspecified (principal); J84.10 Pulmonary fibrosis, unspecified
CPT/HCPCS: 36415; 85651; 86140; 86160; 86162; 86200; 86215; 86225; 86235; 86255; 86376; 86431

== ENCOUNTER → 2022-03-23 10:57 | Outpatient (BNVA) | payer OTHER, SELFPAY | PROVIDERS: PCP Emergency Medicine Emergency Medical Services; Visit Provider Internal Medicine Cardiovascular Disease | DX: R07.9 Chest pain, unspecified (principal); J43.2 Centrilobular emphysema; J84.10 Pulmonary fibrosis, unspecified; R06.00 Dyspnea, unspecified; Z87.891 Personal history of nicotine dependence; I65.29 Occlusion and stenosis of unspecified carotid artery; I25.10 Atherosclerotic heart disease of native coronary artery without angina pectoris; E78.5 Hyperlipidemia, unspecified; Z95.820 Peripheral vascular angioplasty status with implants and grafts; I25.2 Old myocardial infarction | CPT/HCPCS: 99213; 99214 ==

== ENCOUNTER 2022-06-02 09:05 | Outpatient (CLI) | payer OTHER, SELFPAY ==
--- NOTE | 2022-06-02 | ECG_ITS ---
[facility] Test Date: 2022-06-02 Pat Name: Jerrell Love Department: Room: Gender: Male Sort Manager: : 1950 Requested By: Jem Hook Order Number: [id number] Gabriel MD: Valerie Gillis M.D. Interpretive Statements NAME OF STUDY: LEXISCAN SESTAMIBI STRESS TEST INDICATION: Chest Pain, Central PROCEDURE: At the baseline, the blood pressure was 149/80 mm Hg with a heart rate of 54 bpm. The electrocardiogram showed sinus bradycardia, normal axis and with normal ST and T's. ??? The Lexiscan was infused over a period of 20 seconds. A total of 0.4 milligrams of Lexiscan was infused. The stress phase was continued for a total of 5 minutes. Heart rate at the end of the stress phase was 76 bpm with a blood pressure of 149/83 mm Hg. The EKG at the peak infusion revealed sinus rhythm with no significant ST and T wave changes. ??? Sestamibi was injected 20 seconds after the Lexiscan infusion. ??? Blood pressure at the end of the recovery phase was 156/77 mm Hg with a heart rate of 70 beats per minute. ??? CONCLUSION: 1. No significant EKG changes with the LexiScan infusion. 2. No LexiScan induced chest pain or cardiac arrhythmia. 3. Normal blood pressure and heart rate response. 4. Sestamibi/sestamibi perfusion scan pending; see separate report. Electronically Signed On 06-04-2022 10:38:52 NEWS PRODUCTION SUPERVISOR by Valerie Gillis M.D. [email or web address]
[2022-06-02 09:20] VITALS: BMI 22.4
--- NOTE | 2022-06-02 09:21 | NMCV_ITS ---
NM sterling perf SPECT r/s* [id number] Jerrell Love Age: 71 Gender: M : 1950 Exam Date: 06/02/2022 10:27 Ordering Phys: Jem Hook MD ([email or web address]) Technologist: BARRINGTON Muro Exam Location: [facility] Indications: CHEST PAIN; SHORTNESS OF BREATH STRESS TEST [facility] IMAGE PROTOCOL Rest/Stress 1 Lexiscan Day Radiopharmaceutical Dose (mCi) Administration Site Administered by Rest: Tc-99m 10.8 IV BARRINGTON Workman Sestamibi Stress:Tc-99m 32.8 IV BARRINGTON Workman Sestamibi Rest: 02-Jun-2022 60 Discovery 630 Stress: 02-Jun-2022 30 Discovery 630 0.4mg Lexiscan. Images obtained in supine and prone position. SPECT RESULTS Technical Quality: Excellent Raw Data Analysis: Normal Image Corrections: No attenuation or motion correction applied Summed Stress Score: 3 Summed Rest Score: 5 Summed Difference Score: 0 PERFUSION FINDINGS Small sized perfusion abnormality of moderate severity of basal lateral horner on rest and stress images. FUNCTIONAL RESULTS (calculated via Gated SPECT) Stress Image LV EF (%): 50 Stress EDV (mL):88 TID: 1.08 Stress ESV (mL):44 FUNCTIONAL FINDINGS: The left ventricle is normal in size. Transient Ischemia Dilatation of 1.1. The left ventricular ejection fraction is mildly reduced with a value of 50%. There is mild hypokinesis of basal lateral wall. IMPRESSIONS 1. Small sized perfusion abnormality of moderate severity of basal lateral wall. This may represent old myocardial infarction in circumflex artery territory or attenuation artifact. 2. The left ventricular ejection fraction is mildly reduced with a value of 50%. 3. There is mild hypokinesis of basal lateral wall. 4. No coronary ischemia based on this study. 5. EKG portion of the study will be reported separately. Valerie Gillis MD (Electronically Signed) Final Date: 06 June 2022 17:22 S
[2022-06-02] MEDS: regadenoson 0.4 Mg/5 ml Syringe IVP (11:08)
[2022-06-02 11:23] VITALS: BP 156/77; PULSE 68
== END 2022-06-02 09:06 | disposition home or self-care (01) ==
LOC: CDL 09:07
PROVIDERS: PCP Emergency Medicine Emergency Medical Services; Visit Provider Internal Medicine Cardiovascular Disease
DX: R07.9 Chest pain, unspecified (principal); R06.02 Shortness of breath; R94.39 Abnormal result of other cardiovascular function study
CPT/HCPCS: 36415; 78452; 93017; 96374; A9500; J2785

== ENCOUNTER → 2022-07-03 10:33 | Outpatient (BNVA) | payer OTHER, SELFPAY | PROVIDERS: PCP Emergency Medicine Emergency Medical Services; Visit Provider Internal Medicine Pulmonary Disease | DX: R06.00 Dyspnea, unspecified (principal); J43.2 Centrilobular emphysema; Z87.891 Personal history of nicotine dependence; I25.10 Atherosclerotic heart disease of native coronary artery without angina pectoris; J45.909 Unspecified asthma, uncomplicated; J84.10 Pulmonary fibrosis, unspecified; Z95.5 Presence of coronary angioplasty implant and graft; R14.0 Abdominal distension (gaseous); I71.30 Abdominal aortic aneurysm, ruptured, unspecified; K44.9 Diaphragmatic hernia without obstruction or gangrene | CPT/HCPCS: 99214 ==

== ENCOUNTER → 2022-07-04 10:50 | Outpatient (BNVA) | payer OTHER, SELFPAY | PROVIDERS: PCP Emergency Medicine Emergency Medical Services; Visit Provider Internal Medicine Cardiovascular Disease | DX: R06.02 Shortness of breath (principal); J43.9 Emphysema, unspecified; J84.10 Pulmonary fibrosis, unspecified; R14.0 Abdominal distension (gaseous); K21.9 Gastro-esophageal reflux disease without esophagitis; R06.00 Dyspnea, unspecified; R07.9 Chest pain, unspecified; Z87.891 Personal history of nicotine dependence; I65.29 Occlusion and stenosis of unspecified carotid artery; I25.10 Atherosclerotic heart disease of native coronary artery without angina pectoris; I73.9 Peripheral vascular disease, unspecified; E78.5 Hyperlipidemia, unspecified; Z95.820 Peripheral vascular angioplasty status with implants and grafts; I25.2 Old myocardial infarction | CPT/HCPCS: 99214 ==

== ENCOUNTER 2022-07-11 05:53 | Outpatient (CLI) | payer OTHER, SELFPAY ==
[2022-07-11] VITALS (8 sets, daily range): BP systolic 125–152; BP diastolic 70–77; PULSE 52–96; RESP 16–18; TEMP 36.6–36.8; O2SAT 92–98; BMI 27.2
--- NOTE | 2022-07-11 06:00 | XACV_ITS ---
Exam Room: 2 Ht: 183 cm Wt: 92 kg BSA: 2.17 m2 Gender: Male : 1950 Any Known Allergies: Plavix Exam Priority: Routine Procedure(s): Procedure Description: Diagnostic procedure Procedure Description: PCI procedure Procedure Description: Drug Eluting Coronary Stent Procedure Description: PTCA Procedure Description: Coronary Angiography Miladys BRAY; Diagnostic Cath Status: Elective Diagnostic Findings * Patient has known coronary artery disease with previously placed stents in the LAD and circumflex. He also has severe COPD. His complaint has been shortness of breath which has been disabling. Stress test did not reveal much. Because of his continued severe symptoms we elected for coronary angiography. 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 The LAD contains a previously placed stent in the proximal to midportion. There is a 50% stenosis in the proximal portion and moderate diffuse disease in the more distal portion. The LAD is small. Circumflex is an anomalous vessel and comes off the ostium of the right coronary artery. It has been stented. It is occluded. The right coronary artery is a very large dominant vessel and ends distally as the posterior descending artery and posterior left ventricular branch. There is a 90% eccentric stenosis in the midportion of the right coronary artery. More distally there is a 50% stenosis prior to the bifurcation. There is mild to moderate diffuse disease elsewhere. There is some collateral flow to the distal circumflex from the right coronary artery. PCI Status: Elective PCI LVEF Assessed: No PCI Indication: Other Interventional Findings * The lesion is very eccentric and so I predilated with a 4 mm balloon. I then placed a 4.5 mm drug-eluting stent. The angiographic result is excellent. Decision for PCI with Surgical Consult: No PCI for Multi-vessel Disease: No Conclusions 1. Significant stenosis of the mid right coronary artery which underwent angioplasty and stenting. Occluded anomalous circumflex previously stented. Patent LAD previously stented. Recommendations * Treat with Brilinta. Patient states he has a Plavix allergy. Interventional RX Recommendation: PCI w/o planned CABG Diagnostic RX Recommendation: PCI w/o planned CABG Anticoagulation: Heparin Pressures Phase:Rest AO : 158 / 75 ( 107 ) @ 7:23:00 AM 146 / 71 ( 102 ) @ 7:29:00 AM 157 / 62 ( 99 ) @ 7:34:00 AM 110 / 84 ( 98 ) @ 7:41:00 AM Clinical Evaluation EBL: 5mL-10mL Procedural Details Procedure Consent Obtained. Admit Source: Out Patient. Pre-Procedure Time Out. Identified patient by full name and date of as verbalized by the patient/guarantor. Does the consent match the physician's order: Yes. Accurate & Complete Informed Consent: Yes. Inpatient/Outpatient History & Physical on Chart: Yes. If H&P is completed, is and addenduem needed: No; If yes, is the addendum complete: N/A. Visualize and Verify Site with Patient/Guarantor: N/A. Relevant Radiology Images available: N/A. Pre-op teaching completed and patient verbalized understanding. The risks, benefits, and alternatives of sedation and/or procedure were discussed by physician. The patient agrees to continue. Procedure started. [facility] Clinical Fraility Score: 3: Managing Well. Final Inspector Movement Assembly Indications: Worsening Angina. Chest Pain Symptom Assessment: Typical Angina Symptoms. Correct patient, site and procedure confirmed by cath team. Current diagnosis: Chest Pain. PERRLA. Strong, equal hand director adult bilaterally. Lungs clear x 5 lobes. IV Site on Arrival: 20 gauge in the right wrist. A 18 gauge IV was started in the right forearm using aseptic technique. IV Fluids: 0.9% NaCl at KVO. 0 mL infused prior to livestock laborer. Pre Procedural Pulses: bilateral radial was 3+. Pre Procedural Pulses: bilateral dorsalis pedis was 2+. Oxygen started at 2liters/min via nasal canula. right groin was prepped with chloroprep then draped in the usual sterile fashion. right radial was prepped with chloroprep then draped in the usual sterile fashion. Baseline sample Acquired. HR: 52 BPM. Physician notified. Baseline sample Acquired. HR: 64 BPM. Physician arrived. Physician scrubbed in. Immediate Pre-Procedure Time Out. Correct Patient: Yes; Correct Procedure: Yes; Correct Site: Yes; Correct Patient Position: Yes; Correct Supplies: Yes; Dried Flammable Prep: Yes; Blood Products Available: N/A;. Lidocaine 1% infiltrated to the right radial. Arterial access obtained. Wire and needle out. Radial access aborted d/t difficult radial access. Femoral area prepped. Lidocaine 1% infiltrated to the right groin. A 6 beninese JL4 catheter in over wire. Multiple views taken of left coronary artery. Catheter removed over the exchange wire. Multiple views taken of right coronary artery. Catheter out. 6 beninese JL 4 guide catheter was inserted over the wire. VODECLIC guidewire was advanced through the guide catheter to lesion in the mid RCA. Balloon inserted to lesion in the mid RCA. Inflation number : 1 A AB TREK 4.00X12 RX BALLOON was prepped and advanced across the Mid RCA , then inflated to 8 DELILAH for 0:23 seconds. Balloon out. Stent inserted to lesion in the mid RCA. Inflation Number : 2 A FAN Jc JAKE 4.5X18 JORDAN -Lot Number# [id number] Exp 09/05/2022 was prepped and advanced across the Mid RCA. The stent was deployed at 0 DELILAH for 0:25 seconds. Results checked. Stent balloon out over wire. Guide catheter and wire out. A Suture was successful obtaining hemostatsis at the Right Femoral artery insertion site. Sheath(s) sutured into position with 2-0 silk and sterile 4x4's and Op-site applied over the site. No oozing or signs and symptoms of hematoma noted. Post Procedure: Pulses reassessed and unchanged. PERRLA. Strong, equal hand director adult bilaterally. No VTE prophylaxis required. Medication's Wasted: Heparin = 4000 u. Medication's Wasted: Other = Fentanyl 50 mcg. Medication's Wasted: Nitro = 50 mg. Total IV fluids: 64 mL. Post-op diagnosis: Obstructive CAD. Complications: none. Estimated blood loss: 5mL-10mL. Responsiveness - Normal response to verbal stimuli; alert and oriented, PERRLA. Airway - Unaffected, no intervention required; spontaneous ventilation. Circulation: W/N/L, pulses unchanged. Nausea/Vomiting: No. Procedure completed. Patient transferred by bed to CPRU. Vital chart was stopped. Access Site Site: Right Femoral artery Sheath Size: 6 Fr Hemostasis Method: Suture Hemostasis Success: Successful Procedure Medications Start: 6:59 AM Stop: 6:59 AM Medication: Versed Amount: 1 mg Route: I.V. Start: 6:59 AM Stop: 6:59 AM Medication: Fentanyl Amount: 50 mcg Route: I.V. Start: 7:08 AM Stop: 7:08 AM Medication: Versed Amount: 1 mg Route: I.V. Start: 7:33 AM Stop: 7:33 AM Medication: Heparin Amount: 5000 units Route: I.V. Start: 7:48 AM Stop: 7:48 AM Medication: Brilinta Amount: 180 mg Route: P.O. Start: 7:49 AM Stop: 7:49 AM Medication: Hydralazine Amount: mg Route: I.V. I, the attending physician, have reviewed and verified all procedure medications. Yes, all medications given per verbal order History/Risk Factors Hypertension: No Dyslipidemia: No Peripheral Arterial Disease (PAD): No Myocardial Infarction (GA): Yes Obesity: No Renal Disease: No Tobacco Use: Former Prior Interventions PCI: Yes CABG: No Valve Surgery: No Date of PCI: 09/28/2014 Report Signatures Finalized by Dr. Jem Hook MD on 07/11/2022 08:05 AM
[2022-07-11] MEDS: diphenhydrAMINE 50 mg Capsule PO (06:10)
[2022-07-11 06:28] LABS: Basophils % 0.6 %; Eosinophils # 0.3 10^3/uL (0.0-0.8); Eosinophils % 4.4 %; Hematocrit 44.9 % (42.0-52.0); Hemoglobin 15.2 g/dL (11.7-16.6); Lymphocytes % 31.9 %; Mean Corpuscular HGB Conc 33.9 g/dL (30.0-36.0); Mean Corpuscular Hemoglobin 29.2 pg (28.0-34.0); Mean Corpuscular Volume 86.3 fl (80-94); Mean Platelet Volume 9.3 fL (7.4-10.4); Monocytes # 0.7 10^3/uL (0.2-0.9); Monocytes % 10.5 %; Neutrophils # 3.29 10^3/uL (1.8-7.7); Neutrophils % 52.1 %; Nucleated Red Blood Cells % 0 %; Platelet Count 200 10^3/cmm (130-400); Red Cell Distribution Width 12.7 % (12.1-15.1); White Blood Count 6.3 10^3/uL (4.0-10.0)
[2022-07-11 06:47] LABS: Anion Gap 17.1 (5-19); Blood Urea Nitrogen 18 mg/dL (8-23); Calcium 9.4 mg/dL (8.5-10.5); Carbon Dioxide 21 mmol/L (22-29); Chloride 105 mmol/L (98-107); Glucose 102 mg/dL (65-115); Osmolality Calculated 290 mOsm/kg (285-295); Potassium 4.1 mmol/L (3.5-5.1); Sodium 139 mmol/L (136-145)
[2022-07-11] MEDS: sodium chloride 0.9% 1,000 ML 100 ML IV (09:40)
[2022-07-11 10:56] LABS: Partial Thromboplastin Time 32.4 SECONDS (23.9-36.7)
[2022-07-11] MEDS: albuterol 2.5 mg/3 mL Neb INHALATION ×3 (11:56→20:50)
[2022-07-11] MEDS: aspirin 81 mg EC Tablet 162 MG PO (18:36)
[2022-07-11] MEDS: atorvastatin 40 mg Tablet 20 MG PO (20:48)
[2022-07-11] MEDS: budesonide 0.5 mg/2 mL Neb INHALATION (20:50)
[2022-07-12 04:13] VITALS: BP 164/85; PULSE 87; RESP 19; TEMP 36.6; O2SAT 96
[2022-07-12 06:05] VITALS: PULSE 69
[2022-07-12 07:14] VITALS: BP 134/76; PULSE 70; RESP 14; TEMP 36.6; O2SAT 98
[2022-07-12] MEDS: budesonide 0.5 mg/2 mL Neb INHALATION (07:49)
[2022-07-12] MEDS: albuterol 2.5 mg/3 mL Neb INHALATION (07:50)
[2022-07-12 07:54] VITALS: PULSE 65; RESP 17; O2SAT 97
--- NOTE | 2022-07-12 08:16 | PM.DCS ---
Discharge Providers Date of Admission: July 11, 2022 Date of Discharge: July 12, 2022 Attending Provider at Admission: mraibel Attending Provider at Discharge: Jem Hook MD Primary Care Provider: Jean Marie Spear DO Diagnoses at Discharge Discharge Diagnosis (1) Asthma: Status: Acute (2) Pulmonary emphysema with fibrosis of lung: Status: Acute (3) Chronic shortness of breath: Status: Acute (4) Abdominal bloating: Status: Acute (5) Ex-smoker: Status: Acute (6) Exertional dyspnea: Status: Acute (7) GERD (gastroesophageal reflux disease): Status: Acute (8) Chest pain: Status: Acute (9) Common carotid artery stenosis: Status: Acute (10) ASHD (arteriosclerotic heart disease): Status: Acute (11) PAD (peripheral artery disease): Status: Acute (12) AAA (abdominal aortic aneurysm): Status: Acute (13) Myocardial infarction: Status: Acute (14) Dyslipidemia: Status: Acute (15) S/P angioplasty with stent: Status: Acute Reason for Visit Reason for Visit: R06.02 shortness of breath Brief History: Jerrell was admitted electively yesterday for purposes of coronary angiography. He has complained of disabling shortness of breath for months. Stress testing was relatively unremarkable. Despite that his shortness of breath has limited his ability to do much of anything. He does have severe underlying lung disease. He states that the inhalers have not helped him at all. He also complains of abdominal bloating. He wanted something else done. We decided to perform coronary angiography to see if the stress test had missed anything. Hospital Course Hospital Course Angiography reveals a patent stent in the LAD. He does not have a left main since his circumflex arises from the ostial right coronary artery. That circumflex artery has been stented previously but is now occluded. His LAD is patent. There is a 40% lesion in the proximal portion. There is no in-stent restenosis. The right coronary artery is an extremely large vessel and contains an 80 to 90% eccentric discrete stenosis in the midportion. It was stented with a 4.5 mm stent after predilatation. The procedure was unremarkable. No left ventriculogram was performed. I began the procedure from the right radial artery however the radial artery is closed at the elbow. I did not place a sheath after recognizing the artery is closed. The procedure was completed from the femoral artery. He does not have a right femoral pulse so I used ultrasound to locate the artery. There were no complications in either entry site. He feels he is a little better today and that his breathing is better. He states that Plavix upsets his stomach and he cannot take Plavix. He states he cannot take Brilinta because it takes away my air . We will have to use prasugrel however [facility] for about 10 days. We will have to give him a short prescription for that to go. He has been instructed not to lift anything over 5 pounds for 2 days. He will follow-up with us in 7 to 10 days. Physical Exam Narrative: GENERAL: In general he is comfortable at rest and mildly short of breath HEENT: Exam within normal limits. NECK: Supple without jugular vein distention. The carotid upstroke is normal without bruits. BACK: Exam normal. LUNGS: Clear. HEART: Regular rate and rhythm. ABDOMEN: Benign without organomegaly or tenderness. EXTREMITIES: No edema. The right radial artery area is flat, dry without hematoma or vascular anomaly. He does have a right radial pulse however it is 1+ only. The left radial pulse is 2-3+. The right groin is pulseless as it was yesterday. There is no bleeding, hematoma or other vascular anomaly. NEUROLOGIC: Exam normal. SKIN: Unremarkable. 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 request for service Routine Exams 07/11/22 06:00 Completed Laboratory Results WBC 6.3 10^3/uL (4.0-10.0) 07/11/22 06:15 RBC 5.20 10^6/uL (4.1-5.3) 07/11/22 06:15 Hgb 15.2 g/dL (11.7-16.6) 07/11/22 06:15 Hct 44.9 % (42.0-52.0) 07/11/22 06:15 MCV 86.3 fl (80-94) 07/11/22 06:15 MCH 29.2 pg (28.0-34.0) 07/11/22 06:15 MCHC 33.9 g/dL (30.0-36.0) 07/11/22 06:15 RDW 12.7 % (12.1-15.1) 07/11/22 06:15 Plt Count 200 10^3/cmm (130-400) 07/11/22 06:15 MPV 9.3 fL (7.4-10.4) 07/11/22 06:15 Neut % (Auto) 52.1 % 07/11/22 06:15 Lymph % (Auto) 31.9 % 07/11/22 06:15 Chambers % (Auto) 10.5 % 07/11/22 06:15 Eos % (Auto) 4.4 % 07/11/22 06:15 Baso % (Auto) 0.6 % 07/11/22 06:15 Neut # (Auto) 3.29 10^3/uL (1.8-7.7) 07/11/22 06:15 Lymph # (Auto) 2.0 10^3/uL (0.8-4.8) 07/11/22 06:15 Chambers # (Auto) 0.7 10^3/uL (0.2-0.9) 07/11/22 06:15 Eos # (Auto) 0.3 10^3/uL (0.0-0.8) 07/11/22 06:15 Baso # (Auto) 0.0 10^3/uL (0.0-0.1) 07/11/22 06:15 Nucleated RBC % (auto) 0 % 07/11/22 06:15 Nucleated RBCs # 0.0 /100WBC 07/11/22 06:15 APTT 32.4 SECONDS (23.9-36.7) 07/11/22 10:23 Sodium 139 mmol/L (136-145) 07/11/22 06:15 Potassium 4.1 mmol/L (3.5-5.1) 07/11/22 06:15 Chloride 105 mmol/L (98-107) 07/11/22 06:15 Carbon Dioxide 21 mmol/L (22-29) L 07/11/22 06:15 Anion Gap 17.1 (5-19) 07/11/22 06:15 BUN 18 mg/dL (8-23) 07/11/22 06:15 Creatinine 1.2 mg/dL (0.7-1.2) 07/11/22 06:15 GFR Calculation Not Reportable 07/11/22 06:15 Glucose 102 mg/dL (65-115) 07/11/22 06:15 Calculated Osmolality 290 mOsm/kg (285-295) 07/11/22 06:15 Calcium 9.4 mg/dL (8.5-10.5) 07/11/22 06:15 Procedures Performed Coronary angiography. Angioplasty and stent of the right coronary artery Vitals Last Vital Signs Temp 97.9 F 07/12/22 07:14 Pulse 65 07/12/22 07:54 Resp 17 07/12/22 07:54 BP 134/76 07/12/22 07:14 Pulse Ox 97 07/12/22 07:54 O2 Del Method 07/12/22 07:54 O2 Flow Rate 1 07/12/22 07:54 Discharge Plan Discharge Patient Disposition: Home Prescriptions: New aspirin 81 mg tablet,delayed release (DR/EC) 81 mg PO DAILY Qty: 100 5RF prasugrel 10 mg tablet 10 mg PO DAILY Qty: 30 5RF prasugrel 10 mg tablet 10 mg PO DAILY Qty: 10 0RF Continued atorvastatin 20 mg tablet 20 mg PO DAILY Rx Instructions: TAKE IN THE EVENING fluticasone propion-salmeterol [Wixela Inhub] 250-50 mcg/dose blister with device 1 inh inhalation BID Qty: 60 3RF cholecalciferol (vitamin D3) 50 mcg (2,000 unit) Tablet 50 mcg PO DAILY pantoprazole 40 mg tablet,delayed release (DR/EC) 40 mg PO DAILY Discontinued aspirin [Adult Low Dose Aspirin] 81 mg tablet,delayed release (DR/EC) 162 mg PO BID Discharge Orders: Discharge Order (Routine); Ordered 07/12/22 Ordered By: Jem Hook Referrals: Emily Pedro FNP [Nurse Practitioner] - 7-10 days (assess right wrist and right groin. chem panel) Diet: Cardiac Activity: Increase activity as tolerated and Limit activity as instructed Activity Restrictions/Additional Instructions: No lifting over 5 pounds for 2 days Discharge Attestations Time Spent in Discharge Care*: greater than 30 min Quality Metrics Clinical Quality Measures [ No reported AMI, CVA or VTE this stay] Coding Level of Care Code 62238 Total time (in minutes) for Discharge: 60 Diagnoses Asthma J45.909 Pulmonary emphysema with fibrosis of lung J43.9; J84.10 Chronic shortness of breath R06.02 Abdominal bloating R14.0 Ex-smoker Z87.891 Exertional dyspnea R06.00 GERD (gastroesophageal reflux disease) K21.9 Chest pain R07.9 Common carotid artery stenosis I65.29 ASHD (arteriosclerotic heart disease) I25.10 PAD (peripheral artery disease) I73.9 AAA (abdominal aortic aneurysm) I71.4 Myocardial infarction I21.9 Dyslipidemia E78.5 S/P angioplasty with stent Z95.820
--- NOTE | 2022-07-12 08:48 | PC.CHAP ---
Pastoral Care Encounter/Spiritual Assessment Type of Contact [] Declined taxation economist visit [] Patient/Family/Request visit [] Outpatient visit [] Follow-up visit [] Physician referral [] Code/Alert [x] Routine visit [] Staff referral [] Actively dying [] Patient sleeping [] Family support [] [] Out of room [] Palliative care [] [] Receiving care in room [] Pre-surgical visit [] Trauma [] Long length of stay [] ICU visit [] Other: Relational/Emotional Strength [x] Patient feels connected with others/family/visitors/staff [] Distress [] Loneliness/isolation [] Abandonment Spirituality of Patient [] Person of Karla [] Attends Yazidism of their Karla [] Believes in Prayer [] Reads Bible or Druze materials [x] There are Spiritual issues to be addressed Bankruptcy Processor Interventions [] Prayer [x] Active listening [x] Non-anxious presence [x] Spiritual/emotional support [] Crisis/trauma care [] Spiritual counseling [] Bereavement support [] Provided bereavement packet [] Provided Bible/devotional materials [] Provided toy/stuffed animal, coloring book to patient or family member [] Provided Communion [] Anointing/[place] [] Salvation [x] Completed spiritual assessment [] Other: Impact on Illness or Injury [] Angry [] Fearful [] Anxious [] Often cries [] Exhaustion [] Unable to work [] Unable to attend nondenominational [] Unable to walk/stand [] Unable to read [] Unable to drive [] Unable to eat/drink [] Unable to sleep [] Unable to be with family [] Patient intubated [] Other: Summary Pt preparing to be released from hospital. is coming to pick him up later today. Time spent with patient 5m
[2022-07-12] MEDS: atorvastatin 40 mg Tablet 20 MG PO (09:55)
[2022-07-12] MEDS: pantoprazole DR 40 mg Tablet PO (09:55)
[2022-07-12] MEDS: aspirin 81 mg EC Tablet 162 MG PO (09:55)
--- NOTE | 2022-07-31 17:18 | W.PM.OPSUD ---
Surgery/Procedure H&P Update DATE OF PROCEDURE: 07/11/22 DATE H&P PERFORMED: 07/04/21 CHANGES TO PREVIOUS DOCUMENTATION: None PREOP DIAGNOSIS: Known CAD with disabling SOB PLANNED PROCEDURE: Operation Date: 07/11/22 07:00 Proposed Procedures p [facility] w/-w/o [id number] R06.02(Left) - Jem Hook MD
== END 2022-07-12 10:44 | disposition home or self-care (01) ==
LOC: CCL 05:55 → CSU 08:13
PROVIDERS: PCP Emergency Medicine Emergency Medical Services; Visit Provider Internal Medicine Cardiovascular Disease
DX: I25.10 Atherosclerotic heart disease of native coronary artery without angina pectoris (principal); I10 Essential (primary) hypertension; E78.5 Hyperlipidemia, unspecified; I25.2 Old myocardial infarction; Z87.891 Personal history of nicotine dependence; J45.909 Unspecified asthma, uncomplicated; J43.9 Emphysema, unspecified; J84.10 Pulmonary fibrosis, unspecified; R06.02 Shortness of breath; R14.0 Abdominal distension (gaseous); R06.00 Dyspnea, unspecified; K21.9 Gastro-esophageal reflux disease without esophagitis; R07.9 Chest pain, unspecified; I65.23 Occlusion and stenosis of bilateral carotid arteries; R73.9 Hyperglycemia, unspecified; Z95.820 Peripheral vascular angioplasty status with implants and grafts
CPT/HCPCS: 36415; 80048; 85025; 85730; 93454; 94640; 96365; 99152; 99153; C1725; C1769; C1874; C1887; C1894; C9600; J0360; J1644; J2250; J3010; J3490; J7030; J7613; J7626; Q0163; Q9967

== ENCOUNTER → 2022-07-19 08:55 | Outpatient (BNVA) | payer OTHER, SELFPAY | PROVIDERS: PCP Emergency Medicine Emergency Medical Services; Visit Provider Nurse Practitioner Family | DX: I25.10 Atherosclerotic heart disease of native coronary artery without angina pectoris (principal); Z87.891 Personal history of nicotine dependence; I25.2 Old myocardial infarction | CPT/HCPCS: 80048; 99214 ==

== ENCOUNTER → 2022-08-01 13:12 | Outpatient (BNVA) | payer OTHER, SELFPAY | PROVIDERS: PCP Emergency Medicine Emergency Medical Services; Visit Provider Nurse Practitioner Family | DX: I25.10 Atherosclerotic heart disease of native coronary artery without angina pectoris (principal); Z87.891 Personal history of nicotine dependence; I25.2 Old myocardial infarction; Z79.82 Long term (current) use of aspirin | CPT/HCPCS: 93005; 99213 ==

== ENCOUNTER → 2022-08-21 10:34 | Outpatient (BNVA) | payer OTHER, SELFPAY | PROVIDERS: PCP Emergency Medicine Emergency Medical Services; Visit Provider Specialist | DX: I25.10 Atherosclerotic heart disease of native coronary artery without angina pectoris (principal); Z95.820 Peripheral vascular angioplasty status with implants and grafts; E78.5 Hyperlipidemia, unspecified; R06.00 Dyspnea, unspecified; R07.9 Chest pain, unspecified; Z87.891 Personal history of nicotine dependence; I25.2 Old myocardial infarction; Z79.82 Long term (current) use of aspirin | CPT/HCPCS: 93005; 99214 ==

== ENCOUNTER 2022-08-23 10:25 | Outpatient (CLI) | payer OTHER, SELFPAY ==
[2022-08-23 10:43] LABS: Basophils # 0.1 10^3/uL (0.0-0.1); Basophils % 0.7 %; Eosinophils # 0.5 10^3/uL (0.0-0.8); Eosinophils % 6.3 %; Hemoglobin 15.4 g/dL (11.7-16.6); Lymphocytes # 2.4 10^3/uL (0.8-4.8); Lymphocytes % 33.4 %; Mean Corpuscular HGB Conc 33.5 g/dL (30.0-36.0); Mean Corpuscular Hemoglobin 29.7 pg (28.0-34.0); Mean Corpuscular Volume 88.8 fl (80-94); Mean Platelet Volume 9.3 fL (7.4-10.4); Monocytes # 0.6 10^3/uL (0.2-0.9); Monocytes % 8.1 %; Neutrophils % 50.5 %; Nucleated Red Blood Cells % 0 %; Platelet Count 216 10^3/cmm (130-400); Red Blood Count 5.18 10^6/uL (4.1-5.3); Red Cell Distribution Width 12.7 % (12.1-15.1); White Blood Count 7.3 10^3/uL (4.0-10.0)
[2022-08-23 11:04] LABS: INR 0.87 (0.83-1.21); Prothrombin Time (Patient) 12.1 Seconds (12.0-15.1)
[2022-08-23 11:12] LABS: Anion Gap 17.2 (5-19); Blood Urea Nitrogen 20 mg/dL (8-23); Calcium 9.3 mg/dL (8.5-10.5); Carbon Dioxide 22 mmol/L (22-29); Chloride 105 mmol/L (98-107); Glucose 154 mg/dL (65-115); Osmolality Calculated 296 mOsm/kg (285-295); Potassium 4.2 mmol/L (3.5-5.1); Sodium 140 mmol/L (136-145)
== END 2022-08-23 10:26 | disposition home or self-care (01) ==
LOC: LAB 10:29
PROVIDERS: PCP Emergency Medicine Emergency Medical Services; Visit Provider Specialist
DX: R06.00 Dyspnea, unspecified (principal); R07.9 Chest pain, unspecified; Z95.820 Peripheral vascular angioplasty status with implants and grafts
CPT/HCPCS: 36415; 80048; 85025; 85610

== ENCOUNTER 2022-08-28 06:02 | Outpatient (CLI) | payer OTHER, SELFPAY ==
[2022-08-25 10:46] VITALS: BMI 27.2
[2022-08-28] VITALS (14 sets, daily range): BP systolic 105–158; BP diastolic 52–84; PULSE 52–94; RESP 13–20; TEMP 36.6–36.8; O2SAT 93–97; BMI 27.2
--- NOTE | 2022-08-28 06:00 | XACV_ITS ---
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 It has a proximal stent. Vessel is totally occluded. RCA supplies collaterals to left circumflex artery artery territory. * Proximal Right Coronary Artery: mild 40% stenosis, GRAY: 3 flow. Mid RCA has a patent stent. * Mid Left Anterior Descending: significant 80% stenosis, GRAY: 3 flow. * Distal Right Coronary Artery: moderate 50% stenosis, GRAY: 3 flow. * Coronary angiography shows right dominance. PCI Status: Elective PCI Indication: Other Interventional Findings * PROCEDURE DETAIL: We engaged LAD with CLS 3.5 guide catheter. IV heparin was administered to maintain anticoagulation. We used 0.014 run-through guidewire to cross mid LAD stenosis and was put in distal vessel. We predilated the stenosis with 2.5 x 12 mm semicompliant balloon. This was followed by placement of 2.5 x 15 mm resolute Jake drug-eluting stent. At this time final angiogram was performed that showed excellent stent expansion, GRAY-3 flow and no residual stenosis. Patient left the Special Forces Officer in a stable condition.. * Mid Left Anterior Descendin% stenosis treated with a AB TREK 2.50X12 RX BALLOON, and FAN Jc JAKE 2.5X15 JORDAN. 0% residual stenosis, GRAY: 3 flow. Conclusions 1. Severe mid LAD stenosis s/p successful revascularization with JORDAN x1.. 2. Mid Left Anterior Descending was treated with a Balloon, and Drug Eluting Stent. Recommendations * Dual antiplatelet therapy with aspirin and Prasugrel for atleast 1 year. * Statin therapy. * Outpatient cardiology follow up in 4 weeks. Interventional RX Recommendation: PCI w/o planned CABG Diagnostic RX Recommendation: PCI w/o planned CABG Anticoagulation: Heparin Pressures Phase:Rest AO : 152 / 80 ( 109 ) @ 8:49:00 AM 150 / 62 ( 97 ) @ 9:01:00 AM 152 / 63 ( 97 ) @ 9:01:00 AM 122 / 74 ( 96 ) @ 9:14:00 AM 109 / 61 ( 82 ) @ 9:17:00 AM LV : 158 / -10 / 8 @ 9:01:00 AM 153 / -9 / 8 @ 9:01:00 AM Valves Phase:DefaultPhase AV : 3.0 @ 8:36:32 AM 3.0 @ 8:36:32 AM AV Mean Gradient: 9.0 @ 8:36:32 AM 9.0 @ 8:36:32 AM Clinical Evaluation EBL: 5mL-10mL Procedural Details Procedure Consent Obtained. Pre-Procedure Time Out. Identified patient by full name and date of as verbalized by the patient/guarantor. Does the consent match the physician's order: Yes. Accurate & Complete Informed Consent: Yes. Inpatient/Outpatient History & Physical on Chart: Yes. If H&P is completed, is and addenduem needed: No. Visualize and Verify Site with Patient/Guarantor: N/A. Relevant Radiology Images available: Yes. The risks, benefits, and alternatives of sedation and/or procedure were discussed by physician. The patient agrees to continue. Procedure started. [facility] Clinical Fraility Score: 4: Vulnerable. Special Forces Officer Indications: Worsening Angina. Chest Pain Symptom Assessment: Typical Angina Symptoms. Cardiovascular Instability: No. Correct patient, site and procedure confirmed by cath team. PERRLA. Strong, equal hand check writing machine operator bilaterally. Lungs clear x 5 lobes. IV Site on Arrival: 20 gauge in the left anticubital. IV Fluids: 0.9% NaCl at KVO. 0 mL infused prior to chemical laboratory chief. Pre Procedural Pulses: bilateral dorsalis pedis was 1+. Pre Procedural Pulses: bilateral posterior tibial was 1+. Pre Procedural Pulses: bilateral radial was 1+. Oxygen started at 2liters/min via nasal canula. bilateral groins was prepped with chloroprep then draped in the usual sterile fashion. Physician notified. Baseline sample Acquired. HR: 58 BPM. Patient's spouse in CPRU room 3. Dr. Mohamud will update at the completion of the procedure. Equipment: 6F - Femoral. Cardiac Cath Pack. ACIST Manifold Kit Model BT 2000. Heparinized Saline (2 units/mL), 1000 mL bag. Kit, Micropuncture. Physician arrived. Physician scrubbed in. Immediate Pre-Procedure Time Out. Correct Patient: Yes; Correct Procedure: Yes; Correct Site: Yes; Correct Patient Position: Yes; Correct Supplies: Yes; Dried Flammable Prep: Yes; Blood Products Available: N/A;. Lidocaine 1% infiltrated to the right groin. Arterial access obtained with micropuncture set, unable to advance wire. 260cm Exchange J wire in. Wire and needle out. Arterial access obtained with micropuncture set, unable to advance wire. Wire and needle out. Manual pressure being held by Dr. Mohamud. Arterial access obtained with micropuncture set using ulltrasound guidance. A 5 uzbek JL4 catheter in over wire, unable to cannulate. Catheter removed over the standard wire. A 5 uzbek JR4 catheter in over wire. Multiple views taken of right coronary artery. Catheter removed over the standard wire. A 5 uzbek JR5 catheter in over wire. Multiple views taken of left coronary artery. Catheter removed over the standard wire. A 5 uzbek Angled Pig catheter in over wire. EDP Sample taken: LV 158/-11,8; HR: 70 BPM; SpO2: 94%. Pullback taken: LV 153/-10,8; AO 150/62(97); Mean: 9mmHg, Peak to Peak: 3mmHg, SEP: 18sec/min; HR: 70 BPM; SpO2: 94%. Catheter removed over the standard wire. 6 uzbek CLS 3.5 guide catheter was inserted over the standard wire. Runthrough guidewire was advanced through the guide catheter to lesion in the mid LAD. Inflation number : 1 A AB TREK 2.50X12 RX BALLOON was prepped and advanced across the Mid LAD , then inflated to 12 DELILAH for 0:15 seconds. Inflation number: 2 The AB TREK 2.50X12 RX BALLOON was reinflated across the Mid LAD, to 12 DELILAH for 0:15 seconds. Balloon out. Results checked. Inflation Number : 3 Viviana Jc JAKE 2.5X15 JORDAN -Lot Number# [id number] was prepped and advanced across the Mid LAD. The stent was deployed at 12 DELILAH for 0:17 seconds. Exp. 2024-02-01. Stent balloon out over wire. Results checked. Wire out. ACT drawn. Results Out of Range. Guide catheter out. Sheath upsized to a [address] Mohamud Scrubbed out and Spouse updated. ACT drawn. Results 339 seconds. Therapeutic limits - pre-heparin administration 90-150 seconds and monitoring heparin during a vascular procedure >250 seconds. A Suture was successful obtaining hemostatsis at the Right Femoral artery insertion site. Sheath(s) sutured into position with 2-0 silk and sterile 4x4's and Op-site applied over the site. No oozing or signs and symptoms of hematoma noted. Arterial sheath flushed and connected to tranducer and pressure bag with heparinized saline. Post Procedure: Pulses reassessed and unchanged. PERRLA. Strong, equal hand check writing machine operator bilaterally. No VTE prophylaxis required. Medication's Wasted: Nitro = 49.8 mg. Total IV fluids: 83 mL. Post-op diagnosis: Worsening Angina s/p PCI of the Mid LAD. Complications: none. Estimated blood loss: 5mL-10mL. Responsiveness - Normal response to verbal stimuli; alert and oriented, PERRLA. Airway - Unaffected, no intervention required; spontaneous ventilation. Circulation: W/N/L, pulses unchanged. Nausea/Vomiting: No. Procedure completed. Patient transferred by bed to CPRU. Vital chart was stopped. Access Site Site: Right Femoral artery Sheath Size: 6 Fr Hemostasis Method: Suture Hemostasis Success: Successful Procedure Medications Start: 7:30 AM Stop: 7:30 AM Medication: Effient Amount: 60 mg Route: P.O. Start: 7:32 AM Stop: 7:32 AM Medication: Versed Amount: 1 mg Route: I.V. Start: 7:32 AM Stop: 7:32 AM Medication: Fentanyl Amount: 25 mcg Route: I.V. Start: 7:55 AM Stop: 7:55 AM Medication: Versed Amount: 1 mg Route: I.V. Start: 7:55 AM Stop: 7:55 AM Medication: Fentanyl Amount: 25 mcg Route: I.V. Start: 8:09 AM Stop: 8:09 AM Medication: Heparin Amount: 9000 units Route: I.V. Start: 8:16 AM Stop: 8:16 AM Medication: Nitrogylcerin Amount: 200 mcg Route: I.C. Start: 8:19 AM Stop: 8:19 AM Medication: Fentanyl Amount: 50 mcg Route: I.V. I, the attending physician, have reviewed and verified all procedure medications. Yes, all medications given per verbal order History/Risk Factors Hypertension: No Dyslipidemia: Yes Peripheral Arterial Disease (PAD): Yes Myocardial Infarction (ID): Yes Obesity: No Renal Disease: No Tobacco Use: Former Prior Interventions PCI: Yes CABG: No Valve Surgery: No Date of PCI: 07/11/2022 Report Signatures Finalized by Michael Mohamud MD on 09/10/2022 10:05 AM
[2022-08-28] MEDS: diphenhydrAMINE 50 mg Capsule PO (06:50)
[2022-08-28] MEDS: aspirin 325 mg Tablet PO (06:50)
--- NOTE | 2022-08-28 07:20 | P.HPUD_ITS ---
Surgery/Procedure H&P Update DATE OF PROCEDURE: August 28, 2022 DATE H&P PERFORMED: 08/21/22 H&P UPDATE INFORMATION: I have reviewed H&P completed within last 30 days, I have examined patient prior to procedure and No changes to prior documentation PREOP DIAGNOSIS: Worsening angina PRIMARY INDICATION FOR PROCEDURE: Worsening angina PLANNED PROCEDURE: Operation Date: 08/28/22 07:[address] [facility] w/wo [id number],R06.00,I25.10,Z95.820(Left) - Michael Mohamud M.D Possible percutaneous coronary intervention PATIENT REASSESSED PRIOR TO SEDATION, WITH NO CHANGE NOTED: Yes PHYSICAL EXAM: alert, oriented x 3, clear to auscultation bilaterally and regular rate & rhythm AIRWAY EVAL/ANESTHESIA PLAN: normal airway, ASA IV, Local Anesthesia, Risks, benefits & alternatives of sedation and/or procedure discussed and Patient agrees to continue as planned ADDITIONAL INFORMATION: Moderate sedation
--- NOTE | 2022-08-28 08:30 | SUR.PHASEI ---
Recovery note Patient brought to propagator laborer for initial recovery. Status post cardiac catheterization via the right femoral approach. Pressure bag in place. Site is hemostatic with no hematoma formation noted. Verbal post cath instructions went over with the patient and the family. They understood well. Informed to call for needs. Call light in reach. Vitals and assessments per flowsheet.
[2022-08-28] MEDS: sodium chloride 0.9% 1,000 ML 100 ML IV (09:15)
[2022-08-29 03:43] VITALS: BP 126/69; PULSE 71; RESP 16; TEMP 36.6; O2SAT 98
[2022-08-29 04:14] LABS: Basophils # 0.1 10^3/uL (0.0-0.1); Basophils % 0.7 %; Eosinophils # 0.5 10^3/uL (0.0-0.8); Eosinophils % 5.7 %; Hematocrit 45.7 % (42.0-52.0); Hemoglobin 15.2 g/dL (11.7-16.6); Lymphocytes # 1.9 10^3/uL (0.8-4.8); Lymphocytes % 22.8 %; Mean Corpuscular HGB Conc 33.3 g/dL (30.0-36.0); Mean Corpuscular Hemoglobin 29.7 pg (28.0-34.0); Mean Corpuscular Volume 89.4 fl (80-94); Mean Platelet Volume 9.3 fL (7.4-10.4); Monocytes # 0.7 10^3/uL (0.2-0.9); Monocytes % 8.6 %; Neutrophils # 5.04 10^3/uL (1.8-7.7); Neutrophils % 61.3 %; Nucleated Red Blood Cells % 0 %; Platelet Count 199 10^3/cmm (130-400); Red Blood Count 5.11 10^6/uL (4.1-5.3); Red Cell Distribution Width 13.1 % (12.1-15.1); White Blood Count 8.2 10^3/uL (4.0-10.0)
[2022-08-29 04:32] LABS: Anion Gap 15.4 (5-19); Blood Urea Nitrogen 20 mg/dL (8-23); Calcium 8.9 mg/dL (8.5-10.5); Carbon Dioxide 21 mmol/L (22-29); Chloride 106 mmol/L (98-107); Glucose 101 mg/dL (65-115); Osmolality Calculated 289 mOsm/kg (285-295); Potassium 4.4 mmol/L (3.5-5.1); Sodium 138 mmol/L (136-145)
[2022-08-29 05:28] VITALS: PULSE 91
--- NOTE | 2022-08-29 06:59 | PM.DCS ---
Discharge Providers Date of Admission: 08/28/2022 Date of Discharge: August 29, 2022 Attending Provider at Admission: Michael Mohamud MD Attending Provider at Discharge: Michael Mohamud M.D Primary Care Provider: Jean Marie Spear DO Reason for Visit Reason for Visit: Worsening angina/ left heart cath w possible PCI Brief History: 71-year-old man with past medical history of CAD, hypertension has been having worsening shortness of breath and chest pain symptoms. He had recent PCI of RCA. Plan for coronary angiogram with possible PCI. Hospital Course Hospital Course Patient underwent coronary angiogram that showed severe mid LAD stenosis. S/p successful revascularization with JORDAN x1. Patient stayed overnight and was stable. He was discharged home in a stable condition. Physical Exam Narrative: GENERAL: Patient is alert, awake and oriented x3. [] NECK: No jugular vein distension. [] HEENT: No cyanosis. No icterus. No pallor. [] HEART: Regular S1 and S2. No murmur, rub or gallop. [] LUNGS: Clear to auscultate bilaterally. [] CENTRAL NERVOUS SYSTEM: Grossly nonfocal. [] EXTREMITIES: Lower extremities with 1+ edema bilaterally. 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 Routine Exams 08/28/22 06:00 Taken Laboratory Results WBC 8.2 10^3/uL (4.0-10.0) 08/29/22 03:39 RBC 5.11 10^6/uL (4.1-5.3) 08/29/22 03:39 Hgb 15.2 g/dL (11.7-16.6) 08/29/22 03:39 Hct 45.7 % (42.0-52.0) 08/29/22 03:39 MCV 89.4 fl (80-94) 08/29/22 03:39 MCH 29.7 pg (28.0-34.0) 08/29/22 03:39 MCHC 33.3 g/dL (30.0-36.0) 08/29/22 03:39 RDW 13.1 % (12.1-15.1) 08/29/22 03:39 Plt Count 199 10^3/cmm (130-400) 08/29/22 03:39 MPV 9.3 fL (7.4-10.4) 08/29/22 03:39 Neut % (Auto) 61.3 % 08/29/22 03:39 Lymph % (Auto) 22.8 % 08/29/22 03:39 Arthur % (Auto) 8.6 % 08/29/22 03:39 Eos % (Auto) 5.7 % 08/29/22 03:39 Baso % (Auto) 0.7 % 08/29/22 03:39 Neut # (Auto) 5.04 10^3/uL (1.8-7.7) 08/29/22 03:39 Lymph # (Auto) 1.9 10^3/uL (0.8-4.8) 08/29/22 03:39 Arthur # (Auto) 0.7 10^3/uL (0.2-0.9) 08/29/22 03:39 Eos # (Auto) 0.5 10^3/uL (0.0-0.8) 08/29/22 03:39 Baso # (Auto) 0.1 10^3/uL (0.0-0.1) 08/29/22 03:39 Nucleated RBC % (auto) 0 % 08/29/22 03:39 Nucleated RBCs # 0.0 /100WBC 08/29/22 03:39 APTT 35.0 SECONDS (23.9-36.7) D 08/28/22 13:12 Sodium 138 mmol/L (136-145) 08/29/22 03:39 Potassium 4.4 mmol/L (3.5-5.1) 08/29/22 03:39 Chloride 106 mmol/L (98-107) 08/29/22 03:39 Carbon Dioxide 21 mmol/L (22-29) L 08/29/22 03:39 Anion Gap 15.4 (5-19) 08/29/22 03:39 BUN 20 mg/dL (8-23) 08/29/22 03:39 Creatinine 1.3 mg/dL (0.7-1.2) H 08/29/22 03:39 GFR Calculation Not Reportable 08/29/22 03:39 Glucose 101 mg/dL (65-115) 08/29/22 03:39 Calculated Osmolality 289 mOsm/kg (285-295) 08/29/22 03:39 Calcium 8.9 mg/dL (8.5-10.5) 08/29/22 03:39 Vitals Last Vital Signs Temp 98 F 08/29/22 03:43 Pulse 91 08/29/22 05:28 Resp 16 08/29/22 03:43 BP 126/69 08/29/22 03:43 Pulse Ox 98 08/29/22 03:43 O2 Del Method 08/28/22 14:00 Discharge Plan Discharge Patient Disposition: Home Prescriptions: Continued atorvastatin 20 mg tablet 20 mg PO DAILY Rx Instructions: TAKE IN THE EVENING amlodipine 5 mg tablet 5 mg PO DAILY Qty: 90 1RF Rx Instructions: Hasn't started taking yet- new prescription cholecalciferol (vitamin D3) 50 mcg (2,000 unit) Tablet 50 mcg PO DAILY pantoprazole 40 mg tablet,delayed release (DR/EC) 40 mg PO DAILY PRN (Reason: Stomach Upset) aspirin 81 mg tablet,delayed release (DR/EC) 81 mg PO DAILY Qty: 100 5RF prasugrel 10 mg tablet 10 mg PO DAILY Qty: 30 5RF No Action valsartan 160 mg tablet 160 mg PO DAILY Qty: 90 3RF Discharge Orders: Discharge Order (Routine); Ordered 08/29/22 Ordered By: Michael Mohamud Referrals: Michael Mohamud M.D [Physician] - 2 months (During your appointment with Emily Pedro you will scheduled for an appointment with Dr. Mohamud within 2 months. ) Emily Pedro FNP [Nurse Practitioner] - 09/08/22 8:45 am (Please follow-up woth Emily Pedro on September 08 at 8:45A.M. If you have any questions or need to reschedule. Please call ) Diet: Cardiac Activity: Increase activity as tolerated Patient Instructions: Coronary Angioplasty (DC), Chest Pain Stoplight, Post Angiogram Home Care Instructions Discharge Date/Time: 08/29/22 10:30 Discharge Attestations Time Spent in Discharge Care*: less than 30 min Quality Metrics Clinical Quality Measures [ No reported AMI, CVA or VTE this stay] Coding Level of Care Code Acute Code for Chg Fwd Diagnoses
[2022-08-29 07:48] VITALS: BP 144/81; PULSE 68; RESP 18; TEMP 36.6; O2SAT 95
[2022-08-29] MEDS: pantoprazole DR 40 mg Tablet PO (09:57)
[2022-08-29] MEDS: atorvastatin 40 mg Tablet 20 MG PO (09:58)
[2022-08-29] MEDS: prasugrel 10 MG Tablet PO (09:58)
[2022-08-29] MEDS: aspirin 81 mg EC Tablet PO (09:59)
[2022-08-29] MEDS: amlodipine 5 mg Tablet PO (09:59)
== END 2022-08-29 10:30 | disposition home or self-care (01) ==
LOC: CCL 06:06 → CSU 08:35
PROVIDERS: PCP Emergency Medicine Emergency Medical Services; Visit Provider Internal Medicine
DX: I25.10 Atherosclerotic heart disease of native coronary artery without angina pectoris (principal); Z95.5 Presence of coronary angioplasty implant and graft; I10 Essential (primary) hypertension; Z79.82 Long term (current) use of aspirin; J44.9 Chronic obstructive pulmonary disease, unspecified; E78.5 Hyperlipidemia, unspecified; K21.9 Gastro-esophageal reflux disease without esophagitis; I73.9 Peripheral vascular disease, unspecified; Z87.891 Personal history of nicotine dependence
CPT/HCPCS: 36415; 80048; 85025; 85347; 85730; 93458; 96361; 96365; 96376; 99152; 99153; C1725; C1769; C1874; C1887; C1894; C9600; J1644; J2250; J3010; J3490; J7030; Q0163; Q9967

== ENCOUNTER → 2022-09-07 08:56 | Outpatient (BNVA) | payer OTHER, SELFPAY | PROVIDERS: PCP Emergency Medicine Emergency Medical Services; Visit Provider Nurse Practitioner Family | DX: I25.10 Atherosclerotic heart disease of native coronary artery without angina pectoris (principal); Z87.891 Personal history of nicotine dependence; Z79.82 Long term (current) use of aspirin | CPT/HCPCS: 36415; 80048; 99214 ==

== ENCOUNTER → 2022-09-22 10:31 | Outpatient (BNVA) | payer OTHER, SELFPAY | PROVIDERS: PCP Emergency Medicine Emergency Medical Services; Visit Provider Internal Medicine | DX: I65.29 Occlusion and stenosis of unspecified carotid artery (principal); I73.9 Peripheral vascular disease, unspecified; J43.2 Centrilobular emphysema; E78.5 Hyperlipidemia, unspecified; R07.9 Chest pain, unspecified; I25.2 Old myocardial infarction; Z87.891 Personal history of nicotine dependence | CPT/HCPCS: 99214 ==

== ENCOUNTER → 2022-11-16 13:36 | Outpatient (BNVA) | payer OTHER, SELFPAY | PROVIDERS: PCP Emergency Medicine Emergency Medical Services; Visit Provider Internal Medicine Pulmonary Disease | DX: R07.9 Chest pain, unspecified (principal); J43.2 Centrilobular emphysema; J45.909 Unspecified asthma, uncomplicated; Z87.891 Personal history of nicotine dependence; I25.10 Atherosclerotic heart disease of native coronary artery without angina pectoris; I71.40 Abdominal aortic aneurysm, without rupture, unspecified; R59.0 Localized enlarged lymph nodes; Z95.5 Presence of coronary angioplasty implant and graft | CPT/HCPCS: 71046; 99214 ==

== ENCOUNTER 2022-11-22 12:09 | Outpatient (CLI) | payer OTHER, SELFPAY ==
--- NOTE | 2022-11-22 12:30 | CTR_ITS ---
PROCEDURE INFORMATION: Exam: CT Chest Without Contrast; Diagnostic Exam date and time: 11/22/2022 12:26 PM Age: 71 years old Clinical indication: Patient HX: Right side chest pain, cough, shortness of breath; Additional info: Right side pain/ pleural thickening along the mid right lobe, pleural thickening along the mid right lateral pleura.No history of trauma or recent surgery is provided. TECHNIQUE: Imaging protocol: Diagnostic computed tomography of the chest without contrast. 255image(s) are provided. Radiation optimization: All CT scans at this facility use at least one of these dose optimization techniques: automated exposure control; mA and/or kV adjustment per patient size (includes targeted exams where dose is matched to clinical indication); or iterative reconstruction. Other technique: Axial images are available with sagittal and coronal reconstruction views. Automated dose exposure control is utilized. The DLP is 313.65 REPORTING DATA: Count of CT and Cardiac NM exams in prior 12 months: This patient has received 2 known CTs and 0 known cardiac nuclear medicine studies in the 12 months prior to the current study. COMPARISON: CT chest [facility] [id number] 12/28/2021 1:51 PM RADIATION DOSE METRICS: Total DLP (mGy-cm): 313.65 FINDINGS: Trachea: The central airways are patent. Lungs: There is some centrilobular emphysematous appearance along with some bullous and bleb related change similar overall.No lobar consolidation is appreciated. There are areas of subpleural reticular interstitial scarring with some bronchiolectasis and honeycombing type appearance with posterior predominance. There is some centrilobular ground-glass attenuation posterior segment of the right upper lobe. There is some associated bronchiolectasis. There is also some centrilobular attenuation of the left upper lobe and lingula margin. There are some hepatic and splenic granulomatous calcifications present. Pleural spaces: No pneumothorax or pleural effusion is appreciated. Heart: No significant pericardial fluid collection is appreciated. Coronary arteries: There are coronary arterial calcifications present. Lymph nodes: There are daisy granulomatous calcifications present with similar overall borderline and reactive appearance of the nodes. For example 1 of the mediastinal lymph nodes of the precarinal space measures approximately 2.2 x 1.3 cm similar overall. Vasculature: There are atherosclerotic calcifications present as well as some stent type material at the celiac trunk level. No interval thoracic aortic saccular aneurysmal dilatation is appreciated. There is also some stent type material at the left common carotid origin. Intraperitoneal space: There is a similar interval appearance of the included intraperitoneal space, upper abdominal structures. There are granulomatous calcified changes present. Bones/joints: Osseous alignment is maintained.No interval displaced fracture or dislocation is appreciated. There is slightly decreased bone mineralization overall. Soft tissues: No radiopaque foreign body or subcutaneous emphysema is appreciated. There is some chronic extrapleural fat proliferation indicative of chronic post inflammation or granulomatous related sequela. Other findings: There is some motion artifact present. No other significant interval changes are appreciated. CT/CT chest wo con [id number] IMPRESSION: There is some chronic air trapping emphysematous and heterogeneous appearance of the parenchyma along with some interstitial fibrotic scarring relatively similar posteriorly. There are some areas of interval centrilobular ground-glass attenuation for example about the lingular margin as well as the posterior segment right upper lobe. This could represent some interval progression versus superimposed early peribronchial inflammation with no lobar type consolidation appreciated. COMMENTS: In the absence of a history or active diagnosis of lung cancer, it is recommended that this patient with emphysema be evaluated for enrollment in a low dose CT lung cancer screening program.
== END 2022-11-22 12:10 | disposition home or self-care (01) ==
LOC: RAD 12:13
PROVIDERS: PCP Emergency Medicine Emergency Medical Services; Visit Provider Internal Medicine Pulmonary Disease
DX: J92.9 Pleural plaque without asbestos (principal); J43.9 Emphysema, unspecified; J84.10 Pulmonary fibrosis, unspecified; R06.02 Shortness of breath; R91.8 Other nonspecific abnormal finding of lung field
CPT/HCPCS: 71250

== ENCOUNTER 2022-12-04 06:56 | Outpatient (CLI) | payer OTHER, SELFPAY ==
--- NOTE | 2022-12-04 07:15 | US_ITS ---
WS: [id number] Complete ABDOMINAL ULTRASOUND HISTORY: Right sided pain COMPARISON: None available. Liver: 16.5 cm in length. Normal size liver and echogenicity. No bile duct dilatation or mass. Portal Vein: Normal hepatopetal flow with monophasic waveform. Gallbladder: Normally distended gallbladder with no stones or wall thickening. CBD: 0.3 cm Pancreas: Normal size and echogenicity. Right kidney: 10.7 cm x 5.1 x 4.9 cm. Cortex:1.2 cm. Normal size and echogenicity. No hydronephrosis or mass. Left kidney: 11.2 cm x 5.0 cm x 5.0 cm. Cortex: 1.2 cm. Normal size and echogenicity. No hydronephrosis or mass. Spleen: Normal. Aorta and IVC: Mild atherosclerosis. No aneurysm. US/US abdomen complete* [id number] Impression: 1. Negative gallbladder. 2. No hydronephrosis. 3. Negative liver. 4. Mild atherosclerosis aorta.
== END 2022-12-04 06:57 | disposition home or self-care (01) ==
PROVIDERS: PCP Emergency Medicine Emergency Medical Services; Visit Provider Internal Medicine Pulmonary Disease
DX: R07.89 Other chest pain (principal); I70.0 Atherosclerosis of aorta
CPT/HCPCS: 76700

== ENCOUNTER → 2023-03-19 13:32 | Outpatient (BNVA) | payer OTHER, SELFPAY | PROVIDERS: PCP Emergency Medicine Emergency Medical Services; Visit Provider Internal Medicine | DX: I65.29 Occlusion and stenosis of unspecified carotid artery (principal); I73.9 Peripheral vascular disease, unspecified; J43.2 Centrilobular emphysema; E78.5 Hyperlipidemia, unspecified; Z87.891 Personal history of nicotine dependence; I25.2 Old myocardial infarction | CPT/HCPCS: 99214 ==

== ENCOUNTER 2023-04-02 08:22 | Outpatient (CLI) | payer OTHER, SELFPAY ==
--- NOTE | 2023-04-02 09:00 | USCV_ITS ---
Jerrell Love Age: 72 Gender: M : 1950 Exam Date: 04/02/2023 09:01 Ordering Phys: Calin Somers MD Technologist: Jorge Figueroa Exam Location[place] [facility] [place]ication: CP, SOB BP: 130 / 80 HR: 50 Rhythm: Sinus Technical Quality: Good MEASUREMENTS (Male / Female) Normal Values 2D ECHO LV Diastolic Diameter PLAX 4.8 cm 4.2 - 5.9 / 3.9 - 5.3 cm LV Systolic Diameter PLAX 2.6 cm IVS Diastolic Thickness 1.3 cm 0.6 - 1.0 / 0.6 - 0.9 cm IVS Systolic Thickness 2.0 cm LVPW Diastolic Thickness 1.5 cm 0.6 - 1.0 / 0.6 - 0.9 cm LVPW Systolic Thickness 1.5 cm LVOT Diameter 2.0 cm LV Ejection Fraction 2D Teich 76.8 % LV Ejection Fraction MOD 2C 65.9 % LV Ejection Fraction 2C AL 66.4 % LA Diameter 4.1 cm M-MODE Aortic Annulus Diameter 3.8 cm LA Ao Ratio MM 1.1 DOPPLER AV Peak Velocity 120.0 cm/s LVOT Peak Velocity 83.0 cm/s AV Area Cont Eq vti 2.4 cm squared AV Area Cont Eq pk 2.2 cm squared MV Area PHT 2.2 cm squared Mitral E to A Ratio 0.8 MV E' Velocity 36.5 cm/s Mitral E to MV E' Ratio 6.7 Mitral E to LV E' Lateral Ratio 5.8 Mitral E to LV E' Septal Ratio 8.0 TR Peak Velocity 135.3 cm/s TR Peak Gradient 7.3 mmHg FINDINGS Left Ventricle Left ventricle is normal in size. LV systolic function is normal with EF of 60 to 65%. No regional wall motion abnormalities are seen. Moderate left ventricular hypertrophy seen. Grade 1 diastolic dysfunction Right Ventricle Normal in size and function Right Atrium Normal in size Left Atrium Normal in size Mitral Valve Structurally normal mitral valve. Mild mitral regurgitation. Aortic Valve Structurally normal aortic valve. No significant stenosis or regurgitation. Tricuspid Valve Mild tricuspid regurgitation. Insufficient TR jet to calculate RVSP. Pulmonic Valve Mild to moderate pulmonic regurgitation. Pericardium Normal Aorta Normal in size IVC Appears to be normal CONCLUSIONS LV systolic function is normal with EF of 60 to 65%. Moderate left ventricular hypertrophy. Grade 1 diastolic dysfunction. Mild mitral regurgitation Mild tricuspid regurgitation Mild to moderate pulmonic regurgitation Compared to prior echocardiogram from 2021, pulmonic regurgitation is noted. Michael Mohamud MD (Electronically Signed) Final Date: 02 April 2023 17:17 S
== END 2023-04-02 08:23 | disposition home or self-care (01) ==
LOC: RAD 08:22
PROVIDERS: PCP Emergency Medicine Emergency Medical Services; Visit Provider Internal Medicine Pulmonary Disease
DX: R07.9 Chest pain, unspecified (principal); R06.02 Shortness of breath; I08.8 Other rheumatic multiple valve diseases
CPT/HCPCS: 93306

== ENCOUNTER → 2023-05-10 12:42 | Outpatient (BNVA) | payer OTHER, SELFPAY | PROVIDERS: PCP Emergency Medicine Emergency Medical Services; Visit Provider Nurse Practitioner Family | DX: L23.9 Allergic contact dermatitis, unspecified cause (principal) | CPT/HCPCS: 99204 ==

== ENCOUNTER 2023-08-24 11:12 | Emergency (ER) | payer OTHER, SELFPAY ==
[2023-08-24 11:16] VITALS: BP 169/101; PULSE 51; RESP 15; TEMP 36.4; O2SAT 98; BMI 27.3
--- NOTE | 2023-08-24 11:58 | ECG_ITS ---
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 Measurements Intervals [place] Rate: 49 P: 49 OK: 176 QRS: -8 QRSD: 108 T: 61 QT: 468 QTc: 426 Interpretive Statements SINUS BRADYCARDIA Compared to ECG 09/27/2014 06:15:49 No significant changes Electronically Signed On 08-24-2023 12:29:41 CDT by Michael Mohamud M.D. [email or web address]
--- NOTE | 2023-08-24 11:58 | CTR_ITS ---
PROCEDURE INFORMATION: Exam: CT Head Without Contrast Exam date and time: 08/24/2023 12:27 PM Age: 72 years old Clinical indication: Numbness / parasthesia; Bilateral; Additional info: Numbness from neck down this am, now resolved TECHNIQUE: Imaging protocol: Computed tomography of the head without contrast. Radiation optimization: All CT scans at this facility use at least one of these dose optimization techniques: automated exposure control; mA and/or kV adjustment per patient size (includes targeted exams where dose is matched to clinical indication); or iterative reconstruction. COMPARISON: MR cervical spin wo con* [id number] 09/01/2020 10:48 AM RADIATION DOSE METRICS: Total DLP (mGy-cm): 1082.8 FINDINGS: Brain: No hemorrhage, mass effect or midline shift. No acute, major vascular distribution infarction identified. There are foci of decreased attenuation in the periventricular and subcortical white matter, likely representing chronic small vessel ischemic changes. Mild cerebral volume loss is present. No intra-axial or extra-axial fluid collection seen. Cerebral ventricles: No ventriculomegaly. Paranasal sinuses: Mild mucosal thickening of the maxillary sinuses noted. Other paranasal sinuses are well aerated. Mastoid air cells: Visualized mastoid air cells are well aerated. Bones/joints: Unremarkable. No acute fracture. Soft tissues: Unremarkable. CT/CT head wo con* [id number] IMPRESSION: No acute intracranial abnormality.
--- NOTE | 2023-08-24 11:58 | XR_ITS ---
WS: [id number] Exam: XR chest 1V portable [id number] Date/Time of Exam: 08/24/2023 11:58 AM Reason For Exam: weakness Lungs are fully expanded. No consolidated infiltrates are seen. Chronic interstitial changes identifi ed. No pleural effusions. Normal cardiomediastinal silhouette. Bony structures are unremarkable. IMPRESSION: 1. Chronic interstitial changes. No acute process noted.
--- NOTE | 2023-08-24 12:03 | ED_ITS ---
HPI - Weakness 2 General: Chief complaint: Weakness Stated complaint: [facility] Time Seen by Provider: 08/24/23 11:17 History of Present Illness: Patient sent from ID clinic with complaints of numbness from his neck down equally bilaterally. Patient stated that when he woke up this morning was lying in bed he felt good until he got up to try to get his pants on that he noticed he was had some numbness from the neck down. Patient said last about an hour and then went away. 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 Patient had a what sounds like a nerve conduction study assess his nerves on his right side was fine. Patient is noncompliant with medicine and the only medicine he is taking currently is on aspirin. Patient is currently all back to normal with no complaints. Review of Systems 2 General: Reports: 10 or more systems reviewed and unremarkable except in HPI and below PFSH ED 2 PFSH: Medical History Chronic shortness of breath Abdominal bloating GERD (gastroesophageal reflux disease) ASHD (arteriosclerotic heart disease) PAD (peripheral artery disease) COPD (chronic obstructive pulmonary disease) AAA (abdominal aortic aneurysm) Myocardial infarction Dyslipidemia Carotid stenosis, bilateral Surgical History Presence of internal carotid stent History of coronary artery stent placement H/O carotid endarterectomy History of colonoscopy History of esophagogastroduodenoscopy (06/08/21) S/P angioplasty with stent Family History Father Congestive heart failure (CHF) Social History Smoking and tobacco/nicotine status: former use of tobacco/nicotine Quit status (tobacco/nicotine): has quit using Year quit tobacco: Apr 19, 2020 [id number] Second hand smoke exposure: No Alcohol intake: current Alcohol intake frequency: holidays/special occasions only Substance/Drug Use: never Lives independently: Yes Household members: spouse Marital status: service: Yes Current occupational status: retired 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 Pets and animals: Yes Do you think of yourself as: Straight/Heterosexual Current gender identity: Male Physical Exam 2 Const: COMMON NORMALS: no acute distress, average body habitus, patient oriented x3, no limitations, healthy appearing, alert and well nourished HENMT: COMMON NORMALS: normocephalic, atraumatic, hearing grossly normal bilaterally, external ears normal, Normal external nose present, moist oral mucous membranes and oropharynx normal HEAD & SCALP: normocephalic and atraumatic NOSE: Normal external nose present EXTERNAL EAR: Yes external ears normal Eye: COMMON NORMALS: Equal, round and reactive pupils present, EOMs intact bilaterally, conjunctivae normal and no scleral icterus CONJUNCTIVA: Yes conjunctivae normal PUPIL: Yes Equal, round and reactive pupils present Neck/C-Spine: COMMON NORMALS: full ROM, no lymphadenopathy, supple, no meningeal signs, no JVD and Thyroid normal THYROID: Thyroid normal Lymph: LYMPHATIC: no lymphadenopathy noted Chest: COMMONS NORMALS: normal inspection of the chest and normal palpation of entire chest wall Resp: COMMON NORMALS: normal respiratory effort, No retractions, No use of accessory muscles and clear to auscultation bilaterally AUSCULTATION: clear to auscultation bilaterally Cardio: COMMON NORMALS: no JVD, regular rate, regular rhythm, S1 normal heart sound present, S2 normal heart sound present, No gallops present (Cardio), No clicks present (Cardio), No murmurs present (Cardio) and No rub (Cardio) R ATE: regular rate RHYTHM: regular rhythm HEART SOUNDS: S1 normal heart sound present and S2 normal heart sound present GI: COMMON NORMALS: Normal to inspection, nondistended, normoactive bowel sounds present, Soft to palpation, non-tender, No hepatosplenomegaly present and no masses PALPATION: Yes Soft to palpation and Yes No hepatosplenomegaly present Extremity: NARRATIVE EXTREMITY EXAM: Equal sensation and strength upper lower extremities bilaterally and lower extremities bilaterally, no focal neurologic deficits noted. Neuro: COMMON NORMALS: patient oriented x3 SENSORIUM/ORIENTATION: Yes alert MENINGEAL SIGNS: Yes no meningeal signs Course 2 Vital Signs: Vital signs: Vital Signs Temperature 97.5 F L 08/24/23 11:16 Pulse Rate 51 L 08/24/23 11:16 Respiratory Rate 15 08/24/23 11:16 Blood Pressure 169/101 08/24/23 11:16 Pulse Oximetry 98 08/24/23 11:16 Oxygen Delivery Me thod Room Air 08/24/23 11:16 MDM - Weakness Medical Decision Making She was worked up with physical exam and, head CT at work, EKG, all of which was essentially benign did not show any acute cause of numbness from the neck down. Results was discussed with patient and patient. Patient has see Dr. Joshua before for nerve related issues. I recommended that he follow back up with Dr. Joshua. The patient said see I told the this is always a time while talking to his family. Patient be discharged home Differential Diagnosis Unlikely acute myocardial infarction, anemia, hypoglycemia, hypothyroidism, rhabdomyolysis, sepsis or dehydration Medical Records I reviewed the patient's medical records. Lab Data I reviewed the patient's lab results. 08/24/23 12:18 08/24/23 12:[address] 08/24/23 11:58 IMPRESSION: No acute intracranial abnormality. Laboratory Results WBC 6.60 10^3/uL (3.29-11.43) 08/24/23 12:18 RBC 5.06 10^6/uL (3.85-5.65) 08/24/23 12:18 Hgb 15.00 g/dL (11.27-16.99) 08/24/23 12:18 Hct 44.7 % (37-53) 08/24/23 12:18 MCV 88.3 fl (82-101) 08/24/23 12:18 MCH 29.6 pg (27-33) 08/24/23 12:18 MCHC 33.6 g/dL (30-55) 08/24/23 12:18 RDW 12.9 % (12.1-15.1) 08/24/23 12:18 Plt Count 199 10^3/cmm (157-399) 08/24/23 12:18 MPV 9.5 fL (7.4-10.4) 08/24/23 12:18 Neut % (Auto) 49.5 % 08/24/23 12:18 Lymph % (Auto) 34.7 % 08/24/23 12:18 Dundy % (Auto) 10.0 % 08/24/23 12:18 Eos % (Auto) 3.8 % 08/24/23 12:18 Baso % (Auto) 0.8 % 08/24/23 12:18 Neut # (Auto) 3.27 10^3/uL (1.8-7.7) 08/24/23 12:18 Lymph # (Auto) 2.3 10^3/uL (0.8-4.8) 08/24/23 12:18 [place]undy # (Auto) 0.7 10^3/uL (0.2-0.9) 08/24/23 12:18 Eos # (Auto) 0.3 10^3/uL (0.0-0.8) 08/24/23 12:18 Baso # (Auto) 0.1 10^3/uL (0.0-0.1) 08/24/23 12:18 Nucleated RBC % (auto) 0 % 08/24/23 12:18 Nucleated RBCs # 0.0 /100WBC 08/24/23 12:18 PT 12.50 SECONDS (12.1-14.9) 08/24/23 12:18 INR 0.90 (0.8-1.2) 08/24/23 12:18 Sodium 141 mmol/L (136-145) 08/24/23 12:18 Potassium 4.4 mmol/L (3.5-5.1) 08/24/23 12:18 Chloride 108 mmol/L (98-107) H 08/24/23 12:18 Carbon Dioxide 22 mmol/L (22-29) 08/24/23 12:18 Anion Gap 15.4 (5-19) 08/24/23 12:18 BUN 18 mg/dL (8-23) 08/24/23 12:18 Creatinine 1.1 mg/dL (0.7-1.2) 08/24/23 12:18 GFR Calculation Not Reportable 08/24/23 12:18 Glucose 77 mg/dL (65-115) 08/24/23 12:18 Calculated Osmolality 293 mOsm/kg (285-295) 08/24/23 12:18 Calcium 9.3 mg/dL (8.5-10.5) 08/24/23 12:18 Magnesium 2.3 mg/dL (1.7-2.3) 08/24/23 12:18 Total Bilirubin 0.3 mg/dL (0.15-1.2) 08/24/23 12:18 AST 22 U/L (0-40) 08/24/23 12:18 ALT 21 U/L (0-41) 08/24/23 12:18 Alkaline Phosphatase 74 U/L (40-130) 08/24/23 12:18 Troponin T Baseline 16 ng/L (0-15) H 08/24/23 12:18 Troponin T 120 Minute 15.08 ng/L (0-15) H 08/24/23 14:02 Delta Troponin T -0.92 ABS# (0-10) L 08/24/23 14:02 C-Reactive Protein 4.7 mg/L (0.0-4.9) 08/24/23 12:18 Total Protein 7.1 g/dL (6.6-8.7) 08/24/23 12:18 Albumin 4.2 g/dL (3.5-5.2) 08/24/23 12:18 Globulin 2.9 g/dL (1.3-4.6) 08/24/23 12:18 TSH 3.32 uIU/mL (0.27-4.20) 08/24/23 12:18 Urine Color Yellow (Yellow) 08/24/23 14:10 Urine Appearance Clear (CLEAR) 08/24/23 14:10 Urine pH 5 (5-7) 08/24/23 14:10 Ur Specific [place] 1.020 (1.005-1.030) 08/24/23 14:10 Urine Protein Neg (Negative) 08/24/23 14:10 Urine Glucose (UA) Norm (Normal) 08/24/23 14:10 Urine Ketones 1+ (Negative) H 08/24/23 14:10 Urine Blood Neg (Negative) 08/24/23 14:10 Urine Nitrate Negative (Negative) 08/24/23 14:10 Urine Bilirubin 1+ (Negative) H 08/24/23 14:10 Urine Urobilinogen Neg mg/dL (Negative) 08/24/23 14:10 Ur Leukocyte Esterase Negative (Negative) 08/24/23 14:10 All radiology interpretation(s) finalized by discharge EKG Data EKG 1: I personally reviewed and interpreted this EKG as follows: EKG interpretation date: 08/24/23 EKG interpretation time: 12:04 Prior EKG tracings: not available for review Interpretation: Ventricular rate 49 bpm, NM interval 176, QRS duration 108, QTc of 439, sinus bradycardia EKG 2: I personally reviewed and interpreted this EKG as follows: EKG interpretation date: 08/24/23 EKG interpretation time: 15:08 Interpretation: Ventricular at 50 bpm, NM interval 184, QRS duration 131, QTc of 462, sinus bradycardia with intraventricular conduction delay Discharge Plan Discharge Patient Disposition: Home Clinical Impression: Medical non-compliance, Numbness Condition: Stable Prescriptions: No Action prasugrel 10 mg tablet 10 mg PO DAILY Qty: 90 3RF cholecalciferol (vitamin D3) 50 mcg (2,000 unit) Tablet 50 mcg PO DAILY PRN (Reason: unknown) omeprazole 40 mg Capsule,Delayed Release(Dr/Ec) 40 mg PO DAILY PRN (Reason: Heartburn) triamcinolone acetonide 0.1 % Cream See Rx Instructions .ROUTE .COMPLEX Rx Instructions: as directed as needed aspirin 81 mg tablet,delayed release (DR/EC) 162 mg PO BID ibuprofen 400 mg tablet 400 mg PO BID PRN (Reason: Pain) Discharge Orders: Discharge ED (Routine); Ordered 08/24/23 Ordered By: Serafin Sawyer Referrals: Jean Marie Spear, [Primary Care Provider] - Patient Instructions: Numbness and Tingling Activity Restrictions/Additional Instructions: Your evaluation in the ER that included lab work and CT scans did not show any acute cause of your intermittent numbness. Please follow-up with your family practice physician or an Dr. Joshua for further evaluation testing. 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
[2023-08-24 12:34] LABS: Basophils # 0.1 10^3/uL (0.0-0.1); Basophils % 0.8 %; Eosinophils # 0.3 10^3/uL (0.0-0.8); Eosinophils % 3.8 %; Hematocrit 44.7 % (37-53); Lymphocytes # 2.3 10^3/uL (0.8-4.8); Lymphocytes % 34.7 %; Mean Corpuscular HGB Conc 33.6 g/dL (30-55); Mean Corpuscular Hemoglobin 29.6 pg (27-33); Mean Corpuscular Volume 88.3 fl (82-101); Mean Platelet Volume 9.5 fL (7.4-10.4); Monocytes # 0.7 10^3/uL (0.2-0.9); Neutrophils # 3.27 10^3/uL (1.8-7.7); Neutrophils % 49.5 %; Nucleated Red Blood Cells % 0 %; Platelet Count 199 10^3/cmm (157-399); Red Blood Count 5.06 10^6/uL (3.85-5.65); Red Cell Distribution Width 12.9 % (12.1-15.1)
--- NOTE | 2023-08-24 12:55 | PC.PHAR ---
Addendum entered by Becki Cuadra 08/24/23 13:30: pt states he has lots of inhalers but they dont work and he does not use Original Note: pt states he takes care of his own medications-per er states to take out meds pt hasnt taken for a year-meds [facility] that pt states he hasnt taken for a year are amlodipine 5mg daily-lipitor 20mg daily-and valsartan 160m daily-pt states he ran out of his prasugrel 10mg daily 2 weeks ago pt states he is suppose to stop taking in august -
[2023-08-24 12:59] LABS: Troponin(5th) Baseline 16 ng/L (0-15)
[2023-08-24 13:06] LABS: Alanine Aminotransferase 21 U/L (0-41); Albumin Level 4.2 g/dL (3.5-5.2); Alkaline Phosphatase 74 U/L (40-130); Anion Gap 15.4 (5-19); Aspartate Amino Transferase 22 U/L (0-40); Blood Urea Nitrogen 18 mg/dL (8-23); C Reactive Protein 4.7 mg/L (0.0-4.9); Calcium 9.3 mg/dL (8.5-10.5); Carbon Dioxide 22 mmol/L (22-29); Chloride 108 mmol/L (98-107); Globulin 2.9 g/dL (1.3-4.6); Glucose 77 mg/dL (65-115); Magnesium 2.3 mg/dL (1.7-2.3); Osmolality Calculated 293 mOsm/kg (285-295); Potassium 4.4 mmol/L (3.5-5.1); Sodium 141 mmol/L (136-145); Thyroid Stimulating Hormone 3.32 uIU/mL (0.27-4.20); Total Bilirubin 0.3 mg/dL (0.15-1.2); Total Protein 7.1 g/dL (6.6-8.7)
--- NOTE | 2023-08-24 13:58 | ECG_ITS ---
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 Measurements Intervals [place] Rate: 50 P: 40 DE: 184 QRS: -2 QRSD: 131 T: 64 QT: 487 QTc: 448 Interpretive Statements SINUS BRADYCARDIA INTRAVENTRICULAR CONDUCTION DELAY [130+ ms QRS DURATION] Compared to ECG 08/24/2023 12:04:10 Intraventricular conduction delay now present Electronically Signed On 08-24-2023 22:53:37 CDT by Michael Mohamud M.D. [id number]
[2023-08-24 14:14] LABS: Add Urine Microscopic? NO; Charge for UA Resulting for Rev
[2023-08-24 14:21] LABS: Blood Urine Neg (Negative); Glucose Urine UA Norm (Normal); Ketones Urine 1+ (Negative); Nitrate Urine Negative (Negative); Protein Urine Neg (Negative); Urine Appearance Clear (CLEAR); Urine Color Yellow (Yellow); pH Urine 5 (5-7)
[2023-08-24 14:22] LABS: Bilirubin Urine 1+ (Negative); Leukocyte Esterase Urine Negative (Negative); Urobilinogen Urine Neg (Negative)
[2023-08-24 14:28] LABS: Troponin 5 2HR 15.08 ng/L (0-15)
[2023-08-24 14:29] LABS: Troponin 5 2HR Delta -0.92 ABS# (0-10)
--- NOTE | 2023-08-27 09:15 | PC.SOCIAL ---
[facility]- [facility] fax[facility] to [facility].
== END 2023-08-24 16:15 | disposition home or self-care (01) ==
PROVIDERS: Emergency Provider Emergency Medicine; PCP Emergency Medicine Emergency Medical Services
DX: R20.0 Anesthesia of skin (principal); Z91.148 Patient's other noncompliance with medication regimen for other reason; Z79.82 Long term (current) use of aspirin; J44.9 Chronic obstructive pulmonary disease, unspecified; I25.2 Old myocardial infarction; E78.5 Hyperlipidemia, unspecified; Z87.891 Personal history of nicotine dependence
CPT/HCPCS: 36415; 70450; 71045; 80053; 81003; 83735; 84443; 84484; 85025; 85610; 86140; 93005; 99285

== ENCOUNTER → 2023-08-27 10:07 | Outpatient (BNVA) | payer OTHER, SELFPAY | PROVIDERS: PCP Emergency Medicine Emergency Medical Services; Visit Provider Nurse Practitioner Family | DX: L23.9 Allergic contact dermatitis, unspecified cause (principal); L57.0 Actinic keratosis; L57.8 Other skin changes due to chronic exposure to nonionizing radiation; D22.61 Melanocytic nevi of right upper limb, including shoulder; L81.4 Other melanin hyperpigmentation | CPT/HCPCS: 17000; 99214 ==

== ENCOUNTER → 2023-09-17 08:50 | Outpatient (BNVA) | payer OTHER, SELFPAY | PROVIDERS: PCP Emergency Medicine Emergency Medical Services; Visit Provider Nurse Practitioner Family | DX: I25.10 Atherosclerotic heart disease of native coronary artery without angina pectoris (principal); Z87.891 Personal history of nicotine dependence | CPT/HCPCS: 99213 ==

== ENCOUNTER → 2023-12-21 09:45 | Outpatient (BNVA) | payer OTHER, SELFPAY | PROVIDERS: PCP Emergency Medicine Emergency Medical Services; Referring Provider Emergency Medicine Emergency Medical Services; Visit Provider Specialist | DX: M54.12 Radiculopathy, cervical region (principal); G62.9 Polyneuropathy, unspecified; R06.02 Shortness of breath | CPT/HCPCS: 99204; 99205 ==

== ENCOUNTER → 2024-02-12 09:49 | Outpatient (BNVA) | payer OTHER, SELFPAY | PROVIDERS: PCP Emergency Medicine Emergency Medical Services; Visit Provider Internal Medicine | DX: E78.5 Hyperlipidemia, unspecified (principal); I73.9 Peripheral vascular disease, unspecified; I65.29 Occlusion and stenosis of unspecified carotid artery; J43.2 Centrilobular emphysema; I25.2 Old myocardial infarction; Z87.891 Personal history of nicotine dependence | CPT/HCPCS: 99214 ==

== ENCOUNTER 2024-02-15 07:58 | Outpatient (CLI) | payer OTHER, SELFPAY ==
[2024-02-15 08:38] LABS: Chol HDL Ratio 6.67 mg/dL (1.0-5.00); Cholesterol 200 mg/dL (0-200); HDL Cholesterol 30 mg/dL (60-100); LDL Cholesterol Calculated 138 mg/dL (50-129); Triglycerides 158 mg/dL (0-150)
== END 2024-02-15 07:59 | disposition home or self-care (01) ==
LOC: LAB 07:59
PROVIDERS: PCP Emergency Medicine Emergency Medical Services; Visit Provider Internal Medicine
DX: E78.5 Hyperlipidemia, unspecified (principal)
CPT/HCPCS: 36415; 80061

== ENCOUNTER 2024-03-31 20:00 | Outpatient (CLI) | payer OTHER, SELFPAY | END 2024-03-31 20:01 | disposition home or self-care (01) | LOC: SLEEP 22:18 | PROVIDERS: PCP Emergency Medicine Emergency Medical Services; Visit Provider Family Medicine | DX: G47.36 Sleep related hypoventilation in conditions classified elsewhere (principal); G47.61 Periodic limb movement disorder | CPT/HCPCS: 95810 ==

== ENCOUNTER 2024-04-07 11:15 | Outpatient (RCR) | payer OTHER, SELFPAY | END 2024-04-26 23:59 | disposition home or self-care (01) | LOC: PULRHB 11:15 | PROVIDERS: PCP Emergency Medicine Emergency Medical Services; Referring Provider Emergency Medicine Emergency Medical Services; Visit Provider Emergency Medicine Emergency Medical Services | DX: J44.9 Chronic obstructive pulmonary disease, unspecified (principal) | CPT/HCPCS: 93798; 94626 ==

== ENCOUNTER 2024-04-28 08:38 | Outpatient (RCR) | payer OTHER, SELFPAY | END 2024-05-27 23:59 | disposition home or self-care (01) | LOC: PULRHB 08:38 | PROVIDERS: PCP Emergency Medicine Emergency Medical Services; Referring Provider Emergency Medicine Emergency Medical Services; Visit Provider Emergency Medicine Emergency Medical Services | DX: J44.9 Chronic obstructive pulmonary disease, unspecified (principal) | CPT/HCPCS: 94626 ==

== ENCOUNTER 2024-05-28 08:17 | Outpatient (RCR) | payer OTHER, SELFPAY | END 2024-06-27 23:59 | disposition home or self-care (01) | LOC: PULRHB 08:17 | PROVIDERS: PCP Emergency Medicine Emergency Medical Services; Referring Provider Emergency Medicine Emergency Medical Services; Visit Provider Emergency Medicine Emergency Medical Services | DX: J44.9 Chronic obstructive pulmonary disease, unspecified (principal) | CPT/HCPCS: 94626 ==

== ENCOUNTER 2024-06-30 13:10 | Outpatient (RCR) | payer OTHER, SELFPAY | END 2024-07-25 23:59 | disposition home or self-care (01) | LOC: PULRHB 13:10 | PROVIDERS: PCP Emergency Medicine Emergency Medical Services; Referring Provider Emergency Medicine Emergency Medical Services; Visit Provider Emergency Medicine Emergency Medical Services | DX: J44.9 Chronic obstructive pulmonary disease, unspecified (principal) | CPT/HCPCS: 94626 ==

== ENCOUNTER 2024-07-26 10:40 | Outpatient (RCR) | payer OTHER, SELFPAY | END 2024-08-25 23:59 | disposition home or self-care (01) | LOC: PULRHB 10:40 | PROVIDERS: PCP Emergency Medicine Emergency Medical Services; Referring Provider Emergency Medicine Emergency Medical Services; Visit Provider Emergency Medicine Emergency Medical Services | DX: J44.9 Chronic obstructive pulmonary disease, unspecified (principal) | CPT/HCPCS: 94626 ==

== ENCOUNTER → 2024-09-11 13:13 | Outpatient (BNVA) | payer OTHER, SELFPAY | PROVIDERS: PCP Emergency Medicine Emergency Medical Services; Visit Provider Internal Medicine | DX: I65.29 Occlusion and stenosis of unspecified carotid artery (principal); I73.9 Peripheral vascular disease, unspecified; J43.2 Centrilobular emphysema; E78.5 Hyperlipidemia, unspecified; Z79.82 Long term (current) use of aspirin; Z87.891 Personal history of nicotine dependence; I25.2 Old myocardial infarction | CPT/HCPCS: 99214 ==

== ENCOUNTER 2024-12-06 07:29 | Inpatient (IN) | payer OTHER, SELFPAY ==
--- OUTSIDE RECORDS SUMMARY | 2023-12-31 05:00 | XMS_ITS | Encounter Summary ---
Author Name [facility] [place] [facility] [place] Address [address] [place] [id number] Care Team Providers Care Administrative Support Coordinator Name Role Phone GLENYSYAMILA MELTON Primary Care Provider Unavailabl e Insurance Providers: All historical and current Section Date Range: From patient's date of to the date document was created. This section includes the names of all active insurance providers for the patient. Insurance Provider Type of Coverage Plan Name Start of Policy Coverage End of Policy Coverage Group Number Member ID Insurance Provider's Telephone Number Policy Vincent's Name Patient's Relationship to Policy Vincent MEDICARE (WNR) MEDICARE (M) PART A Nov 25, 2013 PART A [id number] TIERRADALEEDUARD TYRELL PATIENT MEDICARE (WNR) MEDICARE (M) PART A Nov 25, 2013 PART A [id number] [phone] TIERRADALEEDUARD SANTILLAN PATIENT Selected Encounter This section includes the information on record at [place] for the Encounter. Date/Time Encounter Type Encounter Description Reason Provider Source Dec 31, 2023 10:00 AM OFF/OP EST SEPTEMBER X REQ PHY/QHP PRIMARY CARE/MEDICINE ICD-10-CM R05.8 Other specified cough CUSTRED,MELANIA J IHE Encounter Template Text not used by [facility] Assessments - Encounter Diagnoses This section includes the primary and secondary diagnoses documented for the Encounter. Date/Time Primary/Secondary Diagnosis Diagnosis Name Provider Source Dec 31, 2023 03:57 PM PRIMARY Other specified cough CUSTRED,MELANIA J [facility] Plan of Treatment: Future Appointments (+ 6 months) and Future Tests (+/- 45 days) The Plan of Treatment section includes future care activities for the patient from [facility] [place] [facility]. This section includes future appointments and future orders which are active, pending or scheduled. Future Appointments This section includes appointments that were scheduled to occur 6 months from the date of the Encounter, up to a maximum of 20 appointments. The data comes from all [facility]. Appointment Date/Time Appointment Type Appointme nt Facility Name Feb 12, 2024 11:00 AM AMBULATORY - MEDICINE [facility] Feb 29, 2024 09:45 AM AM[facility]UL[facility] - MEDIC[facility] Mar 06, 2024 10:30 AM AMBUL[facility]ORY - MEDIC[facility] Mar 31, 2024 08:00 PM AMBULATORY - MEDICINE [facility] Apr 01, 2024 10:00 AM AMBULATORY - NONE [facility] Apr 01, 2024 10:15 AM AMBULATORY - NONE [facility] Apr 09, 2024 11:00 AM AMBULATORY - NONE [facility] Apr 21, 2024 10:45 AM AMBULATORY - MEDICINE [facility] Apr 22, 2024 11:00 AM AMBULATORY - NONE [facility] Apr 30, 2024 01:30 PM AMBULATORY - MEDICINE [facility] Apr 30, 2024 01:32 PM AMBULATORY - MEDICINE [facility] May 08, 2024 10:45 AM AMBULATORY - MEDICINE [facility] May 30, 2024 02:00 PM AM[facility]ULATORY - MEDICINE [facility] Active, Pending, and Scheduled Orders This section includes a listing of several types of active, pending, and scheduled orders, including clinic medications orders, diagnostic test orders, procedure orders and consult orders; where the start date of the order is 45 days before the date of the Encounter or 45 days after the date of theEncounter. The data comes from all [facility]. Test Date/Time Test Type Test Details Facility Name Dec 03, 2023 03:22 PM Consult Order [id number] Coordinator's Choice [facility] Vital Signs: All taken on the encounter date This section contains inpatient and outpatient Vital Signs collected on the date of the Encounter. Date/Time Temperature Pulse Blood Pressure Respiratory Rate SP02 Pain Height Weight Body Mass Index Source Dec 31, 2023 10:24 AM 98.1 80 129/65 18 [facility] Dec 31, 2023 10:21 AM 82 129/65 97 [facility] Social History: Smoking Status (Most current) and Tobacco Use (All prior to encounter date) This section includes the most current, and the historical, smoking and tobacco- related health factors from the [place] facility where the Encounter took place. Current Smoking Status This section includes the most current smoking, or tobacco-related health factor, from the [place] facility where the Encounter took place. Date/Time Current Smoking Status Comment Facil ity Apr 27, 2022 08:30 AM VA-TOBACCO FORMER USER [facility] Tobacco Use History This section includes a history of the smoking, or tobacco-related health factors, that were collected on or before the date of the Encounter. The data comes from the [place] facility where the Encounter took place. 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 [facility] Nov 07, 2018 08:42 AM VA-TOBACCO USE MED NO [facility] Nov 07, 2018 08:42 AM VA-TOBACCO USE WI 30 MIN OF WAKE UP [facility] Nov 07, 2018 08:42 AM VA-TOBACCO USER EVERY DAY [facility] Nov 08, 2017 12:59 PM CURRENT TOBACCO USER [facility] Nov 08, 2017 12:59 PM CURRENT TOBACCO US ER (NOT READY TO QUIT) [facility] Nov 08, 2017 12:59 PM TOBACCO CESSATION REFERRAL DECLI GURDEEP [facility] Nov 08, 2017 12:59 PM TOBACCO MEDS OFFERED BUT DECLINE D [facility] Nov 08, 2017 12:59 PM TOBACCO USER OFFERED MEDS [facility] May 02, 2017 07:17 AM CURRENT TOBACCO USER [facility] May 02, 2017 07:17 AM CURRENT TOBACCO US ER (NOT READY TO QUIT) [facility] May 02, 2017 07:17 AM TOBACCO CESSATION REFERRAL DECLI GURDEEP [facility] May 02, 2017 07:17 AM TOBACCO MEDS OFFERED BUT DECLINE D [facility] May 02, 2017 07:17 AM TOBACCO USER OFFERED MEDS [facility] Nov 08, 2016 07:23 AM CURRENT TOBACCO USER [facility] Nov 08, 2016 07:23 AM CURRENT TOBACCO US ER (NOT READY TO QUIT) [facility] Nov 08, 2016 07:23 AM TOBACCO CESSATION REFERRAL DECLI GURDEEP [facility] Nov 08, 2016 07:23 AM TOBACCO CESSATION REFERRAL OFFER ED [facility] Nov 08, 2016 07:23 AM TOBACCO MEDS OFFERED BUT DECLINE D [facility] Nov 08, 2016 07:23 AM TOBACCO USER OFFERED MEDS [facility] Nov 08, 2015 07:34 AM CURRENT TOBACCO USER [facility] Nov 08, 2015 07:34 AM TOBACCO OFFERED STOP SMOKING CLI PARKER [facility] May 10, 2015 08:04 AM TOBACCO MEDS OFFERED BUT DECLINE D [facility] May 10, 2015 08:04 AM TOBACCO OFFERED PT MEDS (PROVIDE R) [facility] May 10, 2015 08:04 AM TOBACCO OFFERED STOP SMOKING CLI PARKER [facility] Jan 20, 2014 10:43 AM CURRENT TOBACCO USER [facility] Jan 20, 2014 10:43 AM TOBACCO OFFERED STOP SMOKING CLI PARKER [facility] Jun 19, 2012 01:13 PM CURRENT TOBACCO USER [facility] Jun 19, 2012 01:13 PM TOBACCO OFFERED STOP SMOKING CLI PARKER [facility] Sep 21, 2011 11:10 AM TOBACCO MEDS OFFERED BUT DECLINE D [facility] Sep 21, 2011 11:10 AM TOBACCO OFFERED PT MEDS (PROVIDE R) [facility] Sep 21, 2011 11:10 AM TOBACCO OFFERED STOP SMOKING CLI PARKER [facility] Nov 21, 2010 01:01 PM CURRENT TOBACCO USER [facility] Nov 21, 2010 01:01 PM TOBACCO OFFERED PT MEDS (PROVIDE R) [facility] Nov 21, 2010 01:01 PM TOBACCO OFFERED STOP SMOKING CLI PARKER [facility] Nov 21, 2010 01:01 PM TOBACCO OFFERRED PT MEDS (PROVID ER) [facility] May 24, 2010 10:18 AM TOBACCO MEDS OFFERED BUT DECLINE D [facility] May 24, 2010 10:18 AM TOBACCO OFFERED PT MEDS (PROVIDE R) [facility] May 24, 2010 10:18 AM TOBACCO OFFERED STOP SMOKING CLI PARKER [facility] Feb 23, 2010 02:50 PM TOBACCO MEDS OFFERED BUT DECLINE D [facility] Feb 23, 2010 02:50 PM TOBACCO OFFERED PT MEDS (PROVIDE R) [facility] Feb 23, 2010 02:50 PM TOBACCO OFFERED STOP SMOKING CLI PARKER [facility] Nov 23, 2009 02:57 PM TOBACCO MEDS OFFERED BUT DECLINE D [facility] Nov 23, 2009 02:57 PM TOBACCO OFFERED PT MEDS (PROVIDE R) [facility] Nov 23, 2009 02:57 PM TOBACCO OFFERED STOP SMOKING CLI PARKER [facility] Sep 07, 2009 02:06 PM CURRENT TOBACCO USER [facility] Sep 07, 2009 02:06 PM TOBACCO MEDS OFFERED BUT DECLINE D [facility] Sep 07, 2009 02:06 PM TOBACCO OFFERED PT MEDS (PROVIDE R) [facility] Sep 07, 2009 02:06 PM TOBACCO OFFERED STOP SMOKING CLI PARKER [facility] Advance Directives: All historical and current Section Date Range: From patient's date of to the date document was created. This section includes ALL of a patient's completed or amended [facility] Advance and Rescinded Directives. The entries below indicate that a directive exists for the patient, but an actual copy is not included with this document. The data comes from all [place] facilities. Date Advance Directives Provider Source Nov 21, 2010 ADVANCE DIRECTIVE DISCUSSION ANITRA KRAUS [facility] Encounter Notes: All associated encounter notes This section contains the clinical notes associated to the Encounter. Date/Time Encounter Note(s) Provider Source Dec 31, 2023 10:24 AM NURSING PROGRESS N OTE: LOCAL TITLE: NURSING NOTE PB STANDARD TITLE: NURSING PROGRESS NOTE DATE OF NOTE: DEC 31, 2023@10:24 ENTRY DATE: DEC 31, 2023@:24:29 AUTHOR: MELANIA SHEN EXP COSIGNER: URGENCY: STATUS: COMPLETED Blood Pressure: 129/65 Pulse: 80 Respiratory Rate: 18 Temperature: 98.1 F (36.7 C) Pulse Oximetry: 96% Active Outpatient Medications: Active Outpatient Medications (including Supplies): Active Outpatient Medications Status 1) CLOBETASOL PROPIONATE 0.05% CREAM APPLY TO AFFECTED ACTIVE AREA(S) TWICE A DAY FOR 2 WEEKS APPLY TO RASH OF ARMS. ALTERNATE USING WITH TRIAMCINOLONE. DO NOT USE MORE THAN 2 WEEKS OF THE MONTH. NOT FOR USE ON FACE, GROIN, OR SKIN FOLDS. 2) HYDROXYZINE HCL 25MG TAB TAKE ONE TABLET BY MOUTH AT ACTIVE BEDTIME FOR ITCHING 3) OMEPRAZOLE 40MG EC CAP TAKE ONE CAPSULE BY MOUTH ACTIVE EVERY MORNING BEFORE A MEAL FOR GASTROESOPHAGEAL REFLUX DISEASE TAKE 30 MINUTES PRIOR TO FOOD. 4) PRASUGREL HCL 10MG TAB TAKE ONE TABLET BY MOUTH ONCE ACTIVE A DAY 5) TRIAMCINOLONE ACETONIDE 0.1% CREAM APPLY TO ACTIVE AFFECTED AREA(S) TWICE A DAY APPLY TO RASH ON ARMS AND HANDS. NO MORE THAN 2 WEEKS A MONTH. NOT FOR SKIN FOLDS, FACE, OR GROIN. CC: [place] presents to clinic with cough. Subjective: states he has nasal congestion and harsh cough x 3 weeks. Has been taking OTC cold medication with no relief. Denies any fever, chills, body aches, or malaise. O/A: is alert and oriented. Respirations easy at rest. Nasal congestion appreciated with stated white mucousy discharge. Denies sore throat, visualized to be mildly redenned with no pustules or swelling. No lymph node swelling in neck. Lung sounds auscultated, expiratory wheezes upper airway. Cough harsh in nature and non-productive. Abdomen soft with bowel sounds audible throughout. No nausea, vomiting, or diarrhea. Plan/ Intervention: Discussed with PACT PCP. Educated to continue OTC cold medication to help with symptoms. Take all medications as prescribed even if feeling better. New RX for antibiotics to be sent to from [place] pharmacy. Include flonase nasal spray daily. educated that if symptoms worsen or he develops shortness of breath he should be re-evaluated. States understanding. RTC: As scheduled and as needed. Per [facility] Directive 1605.06, wristband documentation: Patient wristband was removed and destroyed by (staff name) Melania Shen RN and placed in the designated [employer] bin. /es/ MELANIA SHEN BSNicolas, [facility] Signed: 12/31/2023 15:56 Receipt Acknowledged By: 01/11/2024 13:32 /es/ MELANIA KAHN MD [facility]
--- OUTSIDE RECORDS SUMMARY | 2024-02-12 06:00 | XMS_ITS | Encounter Summary ---
Author Name [facility] [place] Organization [facility] [place] [facility] [place] Address [address] [place] [id number] Care Team Providers Care Crate Maker Name Role Phone GLENYSYAMILA MELTON Primary Care [...] PART A Nov 25, 2013 PART A [id number] EDUARD DAUGHERTY TYRELL PATIENT MEDICARE (WNR) MEDICARE (M) PART A Nov 25, 2013 PART A [id number] EDUARD DAUGHERTY TYRELL PATIENT Selected Encounter This section includes the information on record at [place] for the Encounter. Date/Time Encounter Type Encounter Description Reason Provider Source Feb 12, 2024 11:00 AM OFF/OP EST SEPTEMBER X REQ PHY/QHP PRIMARY CARE/MEDICINE ICD-10-CM R06.00 Dyspnea, unspecified CUSTRED,MELANIA J [facility] Encounter Template Text not used by [facility] Assessments - Encounter Diagnoses This section includes the primary and secondary diagnoses documented for the Encounter. Date/Time Primary/Secondary Diagnosis Diagnosis Name Provider Source Feb 12, 2024 04:58 PM PRIMARY Dyspnea, unspecified CUSTRED,MELANIA J [facility] Plan of Treatment: Future Appointments (+ 6 months) and Future Tests (+/- 45 days) The Plan of Treatment section includes future care activities for the patient from all [place] [facility]. This section includes future appointments and future orders which are active, pending or scheduled. Future Appointments This section includes appointments that were scheduled to occur 6 months from the date of the Encounter, up to a maximum of 20 appointments. The data comes from all [place] treatment facilities. Appointment Date/Time Appointment Type Appointme nt Facility Name Feb 29, 2024 09:45 AM AMBULATORY - MEDICINE [facility] Mar 06, 2024 10:30 AM AMBULATORY - MEDICINE [facility] Mar 31, 2024 08:00 PM AMBULATORY - MEDICINE [facility] Apr 01, 2024 10:00 AM AMBULATORY - NONE [facility] Apr 01, 2024 10:15 AM AMBULATORY - NONE [facility] Apr 09, 2024 11:00 AM AMBULATORY - NONE [facility] Apr 21, 2024 10:45 AM AMBULATORY - MEDICINE [facility] Apr 22, 2024 11:00 AM AMBULATORY - NONE [facility] Apr 30, 2024 01:30 PM AMBULATORY - MEDICINE [facility] Apr 30, 2024 01:32 PM AMBULATORY - MEDICINE [facility] May 08, 2024 10:45 AM AMBULATORY - MEDICINE [facility] May 30, 2024 02:00 PM AMBULATORY - MEDICINE [facility] Aug 07, 2024 01:00 PM AMBULATORY - MEDICINE [facility] Social History: Smoking Status (Most current) and Tobacco Use (All prior to encounter date) This section includes the most current, and the historical, smoking and tobacco- related health factors from the [place] facility where the Encounter took place. Current Smoking Status This section includes the most current smoking, or tobacco-related health factor, from the [place] facility where the Encounter took place. Date/Time Current Smoking Status Comment Ketan noriega Apr 27, 2022 08:30 AM VA-TOBACCO FORMER USER [facility] Tobacco Use History This section includes a history of the smoking, or tobacco-related health factors, that were collected on or before the date of the Encounter. The data comes from the [place] facility where the Encounter took place. 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 NO [place] [facility] Nov 07, 2018 08:42 AM VA-TOBACCO USE MED NO [facility] Nov 07, 2018 08:42 AM VA-TOBACCO USE WI 30 MIN OF WAKE UP [facility] Nov 07, 2018 08:42 AM VA-TOBACCO USER EVERY DAY [facility] Nov 08, 2017 12:59 PM CURRENT TOBACCO USER [facility] Nov 08, 2017 12:59 PM CURRENT TOBACCO US ER (NOT READY TO QUIT) [facility] Nov 08, 2017 12:59 PM TOBACCO CESSATION REFERRAL DECLI GURDEEP [facility] Nov 08, 2017 12:59 PM TOBACCO MEDS OFFERED BUT DECLINE D [facility] Nov 08, 2017 12:59 PM TOBACCO USER OFFERED MEDS [facility] May 02, 2017 07:17 AM CURRENT TOBACCO USER [facility] May 02, 2017 07:17 AM CURRENT TOBACCO US ER (NOT READY TO QUIT) [facility] May 02, 2017 07:17 AM TOBACCO CESSATION REFERRAL DECLI GURDEEP [facility] May 02, 2017 07:17 AM TOBACCO MEDS OFFERED BUT DECLINE D [facility] May 02, 2017 07:17 AM TOBACCO USER OFFERED MEDS [facility] Nov 08, 2016 07:23 AM CURRENT TOBACCO USER [facility] Nov 08, 2016 07:23 AM CURRENT TOBACCO US ER (NOT READY TO QUIT) [facility] Nov 08, 2016 07:23 AM TOBACCO CESSATION REFERRAL DECLI GURDEEP [facility] Nov 08, 2016 07:23 AM TOBACCO CESSATION REFERRAL OFFER [place] [facility] Nov 08, 2016 07:23 AM TOBACCO MEDS OFFERED BUT DECLINE D [facility] Nov 08, 2016 07:23 AM TOBACCO USER OFFERED MEDS [facility] Nov 08, 2015 07:34 AM CURRENT TOBACCO USER [facility] Nov 08, 2015 07:34 AM TOBACCO OFFERED STOP SMOKING CLI PARKER [facility] May 10, 2015 08:04 AM TOBACCO MEDS OFFERED BUT DECLINE D [facility] May 10, 2015 08:04 AM TOBACCO OFFERED PT MEDS (PROVIDE R) [facility] May 10, 2015 08:04 AM TOBACCO OFFERED STOP SMOKING CLI PARKER [facility] Jan 20, 2014 10:43 AM CURRENT TOBACCO USER [facility] Jan 20, 2014 10:43 AM TOBACCO OFFERED STOP SMOKING CLI PARKER [facility] Jun 19, 2012 01:13 PM CURRENT TOBACCO USER [facility] Jun 19, 2012 01:13 PM TOBACCO OFFERED STOP SMOKING CLI PARKER [facility] Sep 21, 2011 11:10 AM TOBACCO MEDS OFFERED BUT DECLINE D [facility] Sep 21, 2011 11:10 AM TOBACCO OFFERED PT MEDS (PROVIDE R) [facility] Sep 21, 2011 11:10 AM TOBACCO OFFERED STOP SMOKING CLI PARKER [facility] Nov 21, 2010 01:01 PM CURRENT TOBACCO USER [facility] Nov 21, 2010 01:01 PM TOBACCO OFFERED PT MEDS (PROVIDE R) [facility] Nov 21, 2010 01:01 PM TOBACCO OFFERED STOP SMOKING CLI PARKER [facility] Nov 21, 2010 01:01 PM TOBACCO OFFERRED PT MEDS (PROVID ER) [facility] May 24, 2010 10:18 AM TOBACCO MEDS OFFERED BUT DECLINE D [facility] May 24, 2010 10:18 AM TOBACCO OFFERED PT MEDS (PROVIDE R) [facility] May 24, 2010 10:18 AM TOBACCO OFFERED STOP SMOKING CLI PARKER [facility] Feb 23, 2010 02:50 PM TOBACCO MEDS OFFERED BUT DECLINE D [facility] Feb 23, 2010 02:50 PM TOBACCO OFFERED PT MEDS (PROVIDE R) [facility] Feb 23, 2010 02:50 PM TOBACCO OFFERED STOP SMOKING CLI PARKER [facility] Nov 23, 2009 02:57 PM TOBACCO MEDS OFFERED BUT DECLINE D [facility] Nov 23, 2009 02:57 PM TOBACCO OFFERED PT MEDS (PROVIDE R) [facility] Nov 23, 2009 02:57 PM TOBACCO OFFERED STOP SMOKING CLI PARKER [facility] Sep 07, 2009 02:06 PM CURRENT TOBACCO USER [facility] Sep 07, 2009 02:06 PM TOBACCO MEDS OFFERED BUT DECLINE D [facility] Sep 07, 2009 02:06 PM TOBACCO OFFERED PT MEDS (PROVIDE R) [facility] Sep 07, 2009 02:06 PM TOBACCO OFFERED STOP SMOKING CLI PARKER [facility] Advance Directives: All historical and current Section Date Range: From patient's date of to the date document was created. This section includes ALL of a patient's completed or amended [place] Advance and Rescinded Directives. The entries below indicate that a directive exists for the patient, but an actual copy is not included with this document. The data comes from all [place] facilities. Date Advance Directives Provider Source Nov 21, 2010 ADVANCE DIRECTIVE DISCUSSION ANITRA KRAUS [facility] Radiology Reports: +/- 30 days of the encounter Radiology Reports For cases when an order for radiology services may have been completed prior to the date of the Encounter, the report list includes the Radiology Reports that were completed up to 30 days before dateof the Encounter. For cases when an order for radiology services may have been completed after the date of the Encounter, the report list also includes the Radiology Reports that were completed up to30 days after date of the Encounter. The data comes from all [place] treatment facilities. Date/Time Radiology Report Provider Source Feb 12, 2024 10:52 AM CHEST X-RAY, 2 VIE WS: TIERRADALEALEXEY PAUL [id number] -[id number] M Exm Date: FEB 12, 2024@10:52 Req Phys: YAMILA TRUJILLO Pat Loc: PB-KENNEDY PACT DELTA PEGGY (Req'g L Img Loc: PB-XRAY [place] Service: [place] [address] (Case [id number] COMPLETE) CHEST X-RAY, 2 VIEWS (RAD Detailed) CPT:36607 Reason for Study: dypsnea Clinical History: Report Status: Verified Date Reported: FEB 12, 2024 Date Verified: FEB 12, 2024 [place] E-Sig: Report: Chest 2 views. Emphysematous changes. Bilateral pleural thickening more significant on the right. Calcification left lung base similar previous studies dating back to 05/02/2017 from old granulomatous disease. There are no acute infiltrates or effusions. Heart normal size. Mild widening of the mediastinum at the level aortic arch similar previous studies. Exact etiology is uncertain. Degenerative changes thoracic spine. Impression: 1. COPD with bilateral pleural thickening more significant on the right 2. Changes from old granulomatous disease similar previous studies dating back to 05/02/2017 3. Mild widening of the mediastinum at the level of the aortic arch similar previous studies. Exact etiology uncertain Primary Interpreting Staff: ZACHARY LANDRY, RADIOLOGIST ([place], no e-sig) /ZACHARY Lobato [facility] Encounter Notes: All associated encounter notes This section contains the clinical notes associated to the Encounter. Date/Time Encounter Note(s) Provider Source Feb 12, 2024 04:51 PM NURSING PROGRESS N OTE: LOCAL TITLE: NURSING NOTE PB STANDARD TITLE: NURSING PROGRESS NOTE DATE OF NOTE: FEB 12, 2024@16:51 ENTRY DATE: FEB 12, 2024@16:51:07 AUTHOR: MELANIA DEL ROSARIO COSIGNER: URGENCY: STATUS: COMPLETED CC: presents to walk in clinic today stating he needs oxygen. Subjective: states he has been short of breath for months and he feels it is getting worse and feels he needs oxygen. Denies any fevers, chills, or any other symptoms. O/A: is alert and oriented. Respirations easy at rest with some dypsnea with exertion. Sao2 on RA at rest 97%. Heart rate regular with no edema. denies chest pains or palpitations. Plan/ Intervention: Oxygen certification walk completed. [place] ambulated in halls for 6+ minutes at brisk pace. [place] had mild dypsnea but Sao2 levels remained above 92% on room air. Discussed findings with PACT PCP follow up with Cardiology and pulmonology. Also new inhaler for albuterol coming from [place] pharmacy. Aerochamber ordered and dispensed from supply. Education for use provided. PFT and Pulmonary rehab consult placed. Chest xray obtained with results: (Case [id number] COMPLETE) CHEST X-RAY, 2 VIEWS (RAD Detailed) CPT:28662 Reason for Study: dypsnea Clinical History: Report Status: Verified Date Reported: FEB 12, 2024 Date Verified: FEB 12, 2024 [place] E-Sig: Report: Chest 2 views. Emphysematous changes. Bilateral pleural thickening more significant on the right. Calcification left lung base similar previous studies dating back to 05/02/2017 from old granulomatous disease. There are no acute infiltrates or effusions. Heart normal size. Mild widening of the mediastinum at the level aortic arch similar previous studies. Exact etiology is uncertain. Degenerative changes thoracic spine. Impression: 1. COPD with bilateral pleural thickening more significant on the right 2. Changes from old granulomatous disease similar previous studies dating back to 05/02/2017 3. Mild widening of the mediastinum at the level of the aortic arch similar previous studies. Exact etiology uncertain Primary Interpreting Staff: ZACHARY LANDRY, RADIOLOGIST ([place], no e-sig) /shazia RTC:As scheduled and as needed. /sandy/ MELANIA MATTHEW, RN [facility] Signed: 02/12/2024 16:58 Receipt Acknowledged By: 02/15/2024 09:35 /sandy/ YAMILA DEL ROSARIO,MELANIA Saucedo [facility]
--- OUTSIDE RECORDS SUMMARY | 2024-02-16 10:57 | XMS_ITS | Encounter Summary ---
Author Name [facility] [place] [facility] [place] Address [address] [place] [id number] Care Team Providers Care Slackman Name Role Phone GLENYSYAMILA MELTON Primary Care [...] PART A Nov 25, 2013 PART A [id number] TIERRADALEEDUARD TYRELL PATIENT MEDICARE (WNR) MEDICARE (M) PART A Nov 25, 2013 PART A [id number] [phone] TIERRADALEEDUARD TYRELL PATIENT Selected Encounter This section includes the information on record at [place] for the Encounter. Date/Time Encounter Type Encounter Description Reason Provider Source Feb 16, 2024 03:57 PM QNHP OL DIG ASSMT&MGMT 5-10 CLINICAL PHARMACY ICD-10-CM I10 Essential (primary) hypertension GENET TROTTER Encounter Template Text not used by [place] Assessments - Encounter Diagnoses This section includes the primary and secondary diagnoses documented for the Encounter. Date/Time Primary/Secondary Diagnosis Diagnosis Name Provider Source Feb 16, 2024 04:01 PM PRIMARY Essential (primary) hypertension SERGO,GENET V [facility] Plan of Treatment: Future Appointments (+ 6 months) and Future Tests (+/- 45 days) The Plan of Treatment section includes future care activities for the patient [facility] [place] [facility]. This section includes future appointments and future orders which are active, pending or scheduled. Future Appointments This section includes appointments that were scheduled to occur 6 months from the date of the Encounter, up to a maximum of 20 appointments. The data comes from all [place] treatment facilities. Appointment Date/Time Appointment Type Appointme nt Facility Name Feb 29, 2024 09:45 AM AMBULATORY - MEDICINE [facility] Mar 06, 2024 10:30 AM AMBULATORY - MEDICINE [facility] Mar 31, 2024 08:00 PM AMBULATORY - MEDICINE [facility] Apr 01, 2024 10:00 AM AMBULATORY - NONE [facility] Apr 01, 2024 10:15 AM AMBULATORY - NONE [facility] Apr 09, 2024 11:00 AM AMBULATORY - NONE [facility] Apr 21, 2024 10:45 AM AMBULATORY - MEDICINE [facility] Apr 22, 2024 11:00 AM AMBULATORY - NONE [facility] Apr 30, 2024 01:30 PM AMBULATORY - MEDICINE [facility] Apr 30, 2024 01:32 PM AMBULATORY - MEDICINE [facility] May 08, 2024 10:45 AM AMBULATORY - MEDICINE [facility] May 30, 2024 02:00 PM AMBULATORY - MEDICINE [facility] Aug 07, 2024 01:00 PM AMBULATORY - MEDICINE [facility] Social History: Smoking Status (Most current) and Tobacco Use (All prior to encounter date) This section includes the most current, and the historical, smoking and tobacco- related health factors from the [place] facility where the Encounter took place. Current Smoking Status This section includes the most current smoking, or tobacco-related health factor, from the [place] facility where the Encounter took place. Date/Time Current Smoking Status Comment Ketan noriega Jul 14, 2021 03:40 PM PREVIOUS SMOKER [facility] Advance Directives: All historical and current Section Date Range: From patient's date of to the date document was created. This section includes ALL of a patient's completed or amended [place] Advance and Rescinded Directives. The entries below indicate that a directive exists for the patient, but an actual copy is not included with this document. The data comes from all [place] facilities. Date Advance Directives Provider Source Nov 21, 2010 ADVANCE DIRECTIVE DISCUSSION ANITRA KRAUS [facility] Radiology Reports: +/- 30 days of [...] the Encounter. The data comes from all [place] treatment facilities. Date/Time Radiology Report Provider Source Feb 12, 2024 10:52 AM CHEST X-RAY, 2 VIE WS: ALEXEY DAUGHERTY [id number] -[id number] M Ex Date: FEB 12, 2024@10:52 Req Phys: YAMILA TRUJILLO Pat Loc: PB-KENNEDY PACT DELTA PEGGY (Req'g L Img Loc: PB-XRAY [place] Service: [place] [address] (Case [id number] COMPLETE) CHEST X-RAY, 2 VIEWS (RAD Detailed) CPT:75504 Reason for Study: dypsnea Clinical History: Report Status: Verified Date Reported: FEB 12, 2024 Date Verified: FEB 12, 2024 [place] E-Sig: Report: Chest 2 views. Emphysematous changes. [...] uncertain Primary Interpreting Staff: ZACHARY LANDRY, RADIOLOGIST (Dial [place]er, no e-sig) /ZACHARY Lobato [facility] Encounter Notes: All associated encounter notes This section contains the clinical notes associated to the Encounter. Date/Time Encounter Note(s) Provider Source Feb 16, 2024 03:57 PM PHARMACY CONSULT: LOCAL TITLE: NON FORMULARY CONSULT PB STANDARD TITLE: PHARMACY CONSULT DATE OF NOTE: FEB 16, 2024@15:57 ENTRY DATE: FEB 16, 2024@15:57:30 AUTHOR: GENET TROTTER COSIGNER: URGENCY: STATUS: COMPLETED NON FORMULARY CONSULT PB Has ADDENDA The medical record has been reviewed with regard to this prior authorization drug request. This prior authorization drug request originated with a [facility] provider. Medication requested: REPATHA EVOLOCUMAB 140MG/ML INJ 1ML PEN Medication indication: Hyperlipidemia Medical history relevant to this request: Hyperlipidemia. CAD.[employer] formulary high potency statins such as rosuvastatin or atorvastatin + ezetimibe before PCSK9 inh The request does not meet criteria - The preferred alternative therapeutic option(s) have not been exhausted Comment: atorva or rosuvastatin + ezetimibe /anant TROTTER CLINICAL PROGRAM DIRECTOR GROUP WORK Signed: 02/16/2024 16:01 Receipt Acknowledged By: 02/18/2024 11:36 /sandy/ ELLI DEE CLINICAL PHARMACIST 02/18/2024 ADDENDUM STATUS: COMPLETED Faxing prescriber's office to notify of the non-formulary agent not being approved and to recommend the above /anant DEE CLINICAL PHARMACIST Signed: 02/18/2024 11:36 GENET TROTTER [facility]
--- OUTSIDE RECORDS SUMMARY | 2024-03-06 05:30 | XMS_ITS | Encounter Summary ---
Author Name [facility] [place] [facility] [place] [address] [place] [id number] Care Team Providers Care Snaker Tractor Driver Name Role Phone GLENYSJULIUS MELTONE Primary Care Provider Unavailabl e Insurance Providers: [...] PART A Nov 25, 2013 PART A [id number] [phone] EDUARD DAUGHERTY COLEENEileen PATIENT MEDICARE (WNR) MEDICARE (M) PART A Nov 25, 2013 PART A [id number] EDUARD DAUGHERTY COLEENEileen PATIENT Selected Encounter This section includes the information on record at [place] for the Encounter. Date/Time Encounter Type Encounter Description Reason Provider Source Mar 06, 2024 10:30 AM MEASURE BLOOD OXYGEN LEVEL PULMONARY FUNCTION ICD-10-CM J98.9 Respiratory disorder, unspecified GINI STEVENSON Encounter Template Text not used by [place] Assessments - Encounter Diagnoses This section includes the primary and secondary diagnoses documented for the Encounter. Date/Time Primary/Secondary Diagnosis Diagnosis Name Provider Source Mar 06, 2024 11:21 AM PRIMARY Respiratory disorder, unspecified GINI STEVENSON [facility] Plan of Treatment: Future Appointments (+ 6 months) and Future Tests (+/- 45 days) The Plan of Treatment section includes future care activities for the patient [facility] [place] [facility] This section includes future appointments and future orders which are active, pending or scheduled. Future Appointments This section includes appointments that were scheduled to occur 6 months from the date of the Encounter, up to a maximum of 20 appointments. The data comes from all [facility]. Appointment Date/Time Appointment Type Appointme nt Facility Name Mar 31, 2024 08:00 PM AMBULATORY - [place]ICINE [place] [facility] Apr 01, 2024 10:00 AM AMBULATORY - NONE [place] [facility] Apr 01, 2024 10:15 AM AMBULATORY - NONE [place] [facility] Apr 09, 2024 11:00 AM AMBULATORY - NONE [place] [facility] Apr 21, 2024 10:45 AM AMBULATORY - MEDICINE [facility] Apr 22, 2024 11:00 AM AMBULATORY - NONE [place] [facility] Apr 30, 2024 01:30 PM AMBULATORY - MEDICINE [facility] Apr 30, 2024 01:32 PM AMBULATORY - MEDICINE [facility] May 08, 2024 10:45 AM AMBULATORY - MEDICINE [facility] May 30, 2024 02:00 PM AMBULATORY - MEDICINE [place] [facility] Aug 07, 2024 01:00 PM AMBULATORY - MEDICINE [place] [facility] Aug 19, 2024 03:15 PM AMBULATORY - MEDICINE [place] [facility] Social History: Smoking Status (Most current) and Tobacco Use (All prior to encounter date) This section includes the most current, and the historical, smoking and tobacco- related health factors from the [place] facility where the Encounter took place. Current Smoking Status This section includes the most current smoking, or tobacco-related health factor, from the [place] facility where the Encounter took place. Date/Time Current Smoking Status Leandro noriega Jul 14, 2021 03:40 PM PREVIOUS SMOKER [place] [facility] Advance Directives: All historical and current Section Date Range: From patient's date of to the date document was created. This section includes ALL of a patient's completed or amended [place] Advance and Rescinded Directives. The entries below indicate that a directive exists for the patient, but an actual copy is not included with this document. The data comes from all [place] facilities. Date Advance Directives Provider Source Nov 21, 2010 ADVANCE DIRECTIVE DISCUSSION ANITRA KRAUS [facility] Radiology Reports: +/- 30 days [...] the Encounter. The data comes from all [place] treatment facilities. Date/Time Radiology Report Provider Source Feb 12, 2024 10:52 AM CHEST X-RAY, 2 VIE WS: DATALEXEYJILLIAN MILLER [id number] -[id number] M Exm Date: FEB 12, 2024@10:52 Req Phys: YAMILA TRUJILLO Pat Loc: PB-[facility] PACT [facility] (Req'g L Img Loc: PB-XRAY [place] Service: [place] [address] (Case [id number] COMPLETE) CHEST X-RAY, 2 VIEWS (RAD Detailed) CPT:87424 Reason for Study: dypsnea Clinical History: Report Status: Verified Date Reported: FEB 12, 2024 Date Verified: FEB 12, 2024 Count Team Clerk E-Sig: Report: Chest 2 views. Emphysematous changes. [...] uncertain Primary Interpreting Staff: ZACHARY LANDRY, RADIOLOGIST (Count Team Clerk, no e-sig) /ZACHARY Lobato [facility] Encounter Notes: All associated encounter notes This section contains the clinical notes associated to the Encounter. Date/Time Encounter Note(s) Provider Source Aug 14, 2024 12:57 PM PULMONARY DIAGNOST IC STUDY REPORT: LOCAL TITLE: CP PFT RESULTS PB STANDARD TITLE: PULMONARY DIAGNOSTIC STUDY REPORT DATE OF NOTE: AUG 14, 2024@12:57 ENTRY DATE: AUG 14, 2024@12:57:38 AUTHOR: MARC SAMS EXP COSIGNER: URGENCY: STATUS: COMPLETED PROCEDURE SUMMARY CODE: DATE/TIME PERFORMED: PULMONARY FUNCTION TEST Chief Complaint: Shortness of breath. Provisional Diagnosis: COPD. IMPRESSION: No obstruction. Per ATS/ERS criteria, there is no bronchodilator response. Less than 10% change in the FEV1 or FVC after a single breath of albuterol. Flow volume loop is consistent with obstructive pattern. Total lung capacity is preserved. Diffusion capacity with z score of -4.64 is severely decreased. This did not corrects when adjusted to volume. /sandy/ MARC SAMS MD PULMONARY Signed: 08/14/2024 13:01 MARC SAMS MD [facility] Mar 06, 2024 11:19 AM PULMONARY DIAGNOST IC STUDY NOTE: LOCAL TITLE: PULMONARY FUNCTION TEST NOTE PB STANDARD TITLE: PULMONARY DIAGNOSTIC STUDY NOTE DATE OF NOTE: MAR 06, 2024@11:19 ENTRY DATE: MAR 06, 2024@11:19:04 AUTHOR: GINI STEVENSON EXP COSIGNER: URGENCY: STATUS: COMPLETED (Note: Only items marked with x are applicable) [] Spirometry completed [X] Pre/Post Bronchodilator Challenge completed [] Gas-dilution determination of Functional [place] Capacity completed [X] Volume of Thoracic Gas determination by whole-body plethysmography completed [X] DLCO completed [X] Tolerated procedure well. Effort: GOOD [] Unable to tolerate Comments:3 puffs albuterol Outpatient Education MDI/Spacer Patient Educated/Demonstration regarding: Instruction handout provided SaO2 HR Resting RA: 97% 70 Exercise RA: 88% 139 Exercise 2L/m CONSERVER:93% 121 Pt meet qualification for O2 with exercise today. /sandy/ GINI STEVENSON REGISTERED RESPIRATORY THERAPIST Signed: 03/06/2024 11:23 Receipt Acknowledged By: 03/06/2024 16:07 /sandy/ YAMILA TRUJILLO MD 03/06/2024 16:10 /sandy/ GINI AMAYA LPN [facility] Mar 06, 2024 10:44 AM PULMONARY PROCEDUR E CONSULT: LOCAL TITLE: CP PFT PB STANDARD TITLE: PULMONARY PROCEDURE CONSULT DATE OF NOTE: MAR 06, 2024@10:44:35 ENTRY DATE: MAR 06, 2024@10:44:35 AUTHOR: CLINICAL,DEVICE PRO EXP COSIGNER: URGENCY: STATUS: COMPLETED PROCEDURE SUMMARY CODE: Machine Resulted DATE/TIME PERFORMED: MAR 06, 2024@10:20:0 DOCUMENT IN VISTA IMAGING SEE FULL REPORT IN VISTA IMAGING SIGNATURE NOT REQUIRED SEE SIGNATURE IN VISTA IMAGING (VYAIRE PFT PB) AUTO-INSTRUMENT DIAGNOSIS Procedure: PFT PFT Administrative Closure: 03/06/2024 by: CLINICAL,DEVICE PROXY SERVICE CLINICAL,DEVICE PROXY SERVICE [facility]
--- OUTSIDE RECORDS SUMMARY | 2024-04-21 05:45 | XMS_ITS | Encounter Summary ---
Author Name [facility] Address [address] [place] [address] Care Team Providers Care Voucher Examiner Name Role Phone GLENYSLEATHA MELTON Primary Care Provider Unavailabl e Insurance [...] PART A Nov 25, 2013 PART A [id number] TIERRADALEEDUARD TYRELL PATIENT MEDICARE (WNR) MEDICARE (M) PART A Nov 25, 2013 PART A [id number] [phone] TIERRADALEEDUARD SANTILLAN PATIENT Selected Encounter This section includes the information on record at [place] for the Encounter. Date/Time Encounter Type Encounter Description Reason Provider Source Apr 21, 2024 10:45 AM OFF/OP EST SEPTEMBER X REQ PHY/QHP PRIMARY CARE/MEDICINE ICD-10-CM Z71.89 Other specified counseling MELANIA DEL ROSARIO Encounter Template Text not used by [facility] Assessments - Encounter Diagnoses This section includes the primary and secondary diagnoses documented for the Encounter. Date/Time Primary/Secondary Diagnosis Diagnosis Name Provider Source Apr 21, 2024 02:13 PM PRIMARY Other specified counseling MELANIA DEL ROSARIO [facility] Plan of Treatment: Future Appointments (+ 6 months) and Future Tests (+/- 45 days) The Plan of Treatment section includes future care activities for the [facility] This section includes future appointments and future orders which are active, pending or scheduled. Future Appointments This section includes appointments that were scheduled to occur 6 months from the date of the Encounter, up to a maximum of 20 appointments. The data comes from all [facility]. Appointment Date/Time Appointment Type Appointme nt Facility Name Apr 22, 2024 11:00 AM AMBULATORY - NONE [place] [facility] Apr 30, 2024 01:30 PM [facility] Apr 30, 2024 01:32 PM AMBULATORY - MEDICINE [facility] May 08, 2024 10:45 AM AMBULATORY - MEDICINE [facility] May 30, 2024 02:00 PM AMBULATORY - MEDICINE [place] [facility] Aug 07, 2024 01:00 PM AMBULATORY - MEDICINE [place] [facility] Aug 19, 2024 03:15 PM [facility] - [facility]IC[facility] [facility] Active, Pending, and Scheduled Orders This section includes a listing of several types of active, pending, and scheduled orders, including clinic medications orders, diagnostic test orders, procedure orders and consult orders; where the start date of the order is 45 days before the date of the Encounter or 45 days after the date of theEncounter. The data comes from all [facility]. Test Date/Time Test Type Test Details Facility Name Apr 30, 2024 02:35 PM Consult Order COMMUNITY [id number] Cons Special Inspector's Choice [facility] Apr 30, 2024 02:43 PM Consult Order [facility]-NEPHROLOGY [id number] Cons Special Inspector's [facility] Lab Results: +/- 30 days of the encounter This section includes the Chemistry and Hematology Lab Results on record with [place] for the patient. Radiology Reports and Pathology Reports are provided separately, in subsequent sections. Lab Results This section contains the Chemistry/Hematology Results that were resulted 30 days before or 30 daysafter the date of the Encounter. Date/Time Source Result Type Result - Unit Interpretation Reference Range Specimen Type Comment Apr 21, 2024 02:06 PM [facility] FOLATE (PB) SERUM Specimen Type: SERUM No comment entered. Ordering Provider: LEATHA TRUJILLO Report Released Date/Time: Apr 21, 2024 02:04 PM Reporting Lab: [place] [facility] [address] [place] [address] Performing Lab: [place] [facility] [address] [place] [address] FOLATE (PB) 6.7 ng/mL L 7-20 Apr 21, 2024 02:06 PM [place] [facility] B12 SERUM Specimen Type: SERUM No comment entered. Ordering Provider: LEATHA TRUJILLO Report Released Date/Time: Apr 21, 2024 02:04 PM Reporting Lab: [place] [facility] [address] [place] [address] Performing Lab: [place] [facility] [address] [place] [address] B12 474 pg/mL 213-816 Apr 21, 2024 02:06 PM [facility] HGA1C BLOOD Specimen Type: BLOOD No comment entered. Ordering Provider: LEATHA TRUJILLO Report Released Date/Time: Apr 21, 2024 02:04 PM Reporting Lab: [place] [facility] [address] [place] [address] Performing Lab: [place] [facility] [address] [place] [address] HGA1C 6.0 4.0-6.0 Apr 21, 2024 02:06 PM [facility] URINE ALBUMIN PROFILE-ih (PB) URINE Specimen Type: URINE No comment entered. Ordering Provider: LEATHA TRUJILLO Report Released Date/Time: Apr 21, 2024 02:04 PM Reporting Lab: [place] [facility] [address] [place] [address] Performing Lab: [place] [facility] [address] [place] [address] URINE ALBUMIN (PB-STL) 11.30 mg/L 0-30 uACR (PB-MA) 7.55 ug/mg CREATININE URINE/OTHERS 149.74 mg/dL Apr 21, 2024 02:06 PM [facility] VITAMIN D, 25-HYDROXY SERUM Specimen Type: SE RUM No comment entered. Ordering Provider: LEATHA TRUJILLO Report Released Date/Time: Apr 21, 2024 02:04 PM Reporting Lab: [place] [facility] [address] [place] [address] Performing Lab: [place] [facility] [address] [place] [address] VITAMIN D, 25-HYDROXY 58.8 ng/mL 30-96 Apr 21, 2024 02:06 PM [facility] TSH (MA-PB) SERUM Specimen Typ e: SERUM No comment entered. Ordering Provider: LEATHA TRUJILLO Report Released Date/Time: Apr 21, 2024 02:04 PM Reporting Lab: [place] [facility] [address] [place] [address] Performing Lab: [place] [facility] [address] [place] [address] TSH 2.844 u[IU]/mL 0.47-5 Apr 21, 2024 02:06 PM [facility] CHOLESTEROL PANEL (PB) PLASMA Specimen Type: P LASMA No comment entered. Ordering Provider: LEATHA TRUJILLO Report Released Date/Time: Apr 21, 2024 02:04 PM Reporting Lab: [place] [facility] [address] [place] [address] Performing Lab: [place] [facility] [address] [place] [address] CHOLESTEROL 157 mg/dL 0-200 TRIGLYCERIDE 211 mg/dL H 0-150 CALCULATED LDL 82.6 mg/dL HDL(New) 32.2 mg/dL L >40 HDL % OF TOTAL CHOLESTEROL (PB) 20.5 >25 Apr 21, 2024 02:06 PM [facility] COMPREHENSIVE METABOLIC PANEL PLASMA Specimen Type: PLASMA No comment entered. Ordering Provider: LEATHA TRUJILLO Report Released Date/Time: Apr 21, 2024 02:04 PM Reporting Lab: [place] [facility] [address] [place] [address] Performing Lab: [place] [facility] [address] [place] [address] CREATININE 1.65 mg/dL H 0.7-1.3 UREA NITROGEN 22 mg/dL 9-25 GLUCOSE 83 mg/dL 72-99 SODIUM 140 meq/L 136-145 POTASSIUM 4.4 meq/L 3.5-5 CHLORIDE 107 meq/L 98-107 CARBON DIOXIDE 25 meq/L 22-31 CALCIUM 9.6 mg/dL 8.4-10.4 PROTEIN 7.3 g/dL 6-8.6 ALBUMIN 4.4 g/dL 3.4-5 TOTAL BILIRUBIN 0.3 mg/dL 0.2-1.2 ALKALINE PHOSPHATASE 72 U/L 40-150 AST/SGOT 26 U/L 5-34 ALT/SGPT 22 U/L 8-40 EGFR (CKD-EPI 2020) 43 Social History: Smoking Status (Most current) and [...] 27, 2022 08:30 AM VA-TOBACCO FORMER USER [facility] Tobacco Use History This section includes a history of the smoking, or tobacco-related health factors, that were collected on or before the date of the Encounter. The data comes from the [place] facility where the Encounter took place. 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 [facility] Nov 07, 2018 08:42 AM VA-TOBACCO USE MED NO [facility] Nov 07, 2018 08:42 AM VA-TOBACCO USE WI 30 MIN OF WAKE UP [facility] Nov 07, 2018 08:42 AM VA-TOBACCO USER EVERY DAY [facility] Nov 08, 2017 12:59 PM CURRENT TOBACCO USER [place] [facility] Nov 08, 2017 12:59 PM CURRENT TOBACCO US ER (NOT READY TO QUIT) [place] [facility] Nov 08, 2017 12:59 PM TOBACCO CESSATION REFERRAL DECLI GURDEEP [place] [facility] Nov 08, 2017 12:59 PM TOBACCO MEDS OFFERED BUT DECLINE D [place] [place] [facility] Nov 08, 2017 12:59 PM TOBACCO USER OFFERED MEDS [place] [facility] May 02, 2017 07:17 AM CURRENT TOBACCO USER [place] [place] [facility] May 02, 2017 07:17 AM CURRENT TOBACCO US ER (NOT READY TO QUIT) [place] [facility] May 02, 2017 07:17 AM TOBACCO CESSATION REFERRAL DECLI [facility]UR[facility]EP [place] [facility] May 02, 2017 07:17 AM TOBACCO MEDS OFFERED BUT DECLINE D [place] [facility] May 02, 2017 07:17 AM TOBACCO USER OFFERED MEDS [place] [facility] Nov 08, 2016 07:23 AM CURRENT TOBACCO USER [place] [place] [facility] Nov 08, 2016 07:23 AM CURRENT TOBACCO US ER (NOT READY TO QUIT) [place] [facility] Nov 08, 2016 07:23 AM TOBACCO CESSATION REFERRAL DECLI [facility] [place] [facility] Nov 08, 2016 07:23 AM TOBACCO CESSATION REFERRAL OFFER ED [place] [facility] Nov 08, 2016 07:23 AM TOBACCO MEDS OFFERED BUT DECLINE D [place] [facility] Nov 08, 2016 07:23 AM TOBACCO USER OFFERED MEDS [place] [facility] Nov 08, 2015 07:34 AM CURRENT TOBACCO USER [place] [facility] Nov 08, 2015 07:34 AM TOBACCO OFFERED STOP SMOKING CLI PARKER [place] [facility] May 10, 2015 08:04 AM TOBACCO MEDS OFFERED BUT DECLINE D [place] [facility] May 10, 2015 08:04 AM TOBACCO OFFERED PT MEDS (PROVIDE R) [place] [facility] May 10, 2015 08:04 AM TOBACCO OFFERED STOP SMOKING CLI PARKER [place] [facility] Jan 20, 2014 10:43 AM CURRENT TOBACCO USER [place] [facility] Jan 20, 2014 10:43 AM TOBACCO OFFERED STOP SMOKING CLI PARKER [place] [facility] Jun 19, 2012 01:13 PM CURRENT TOBACCO USER [place] [facility] Jun 19, 2012 01:13 PM TOBACCO OFFERED STOP SMOKING CLI PARKER [place] [facility] Sep 21, 2011 11:10 AM TOBACCO MEDS OFFERED BUT DECLINE D [facility] Sep 21, 2011 11:10 AM TOBACCO OFFERED PT MEDS (PROVIDE R) [facility] Sep 21, 2011 11:10 AM TOBACCO OFFERED STOP SMOKING CLI PARKER [facility] Nov 21, 2010 01:01 PM CURRENT TOBACCO USER [facility] Nov 21, 2010 01:01 PM TOBACCO OFFERED PT MEDS (PROVIDE R) [facility] Nov 21, 2010 01:01 PM TOBACCO OFFERED STOP SMOKING CLI PARKER [facility] Nov 21, 2010 01:01 PM TOBACCO OFFERRED PT MEDS (PROVID ER) [facility] May 24, 2010 10:18 AM TOBACCO MEDS OFFERED BUT DECLINE D [facility] May 24, 2010 10:18 AM TOBACCO OFFERED PT MEDS (PROVIDE R) [facility] May 24, 2010 10:18 AM TOBACCO OFFERED STOP SMOKING CLI PARKER [facility] Feb 23, 2010 02:50 PM TOBACCO MEDS OFFERED BUT DECLINE D [facility] Feb 23, 2010 02:50 PM TOBACCO OFFERED PT MEDS (PROVIDE R) [facility] Feb 23, 2010 02:50 PM TOBACCO OFFERED STOP SMOKING CLI PARKER [facility] Nov 23, 2009 02:57 PM TOBACCO MEDS OFFERED BUT DECLINE D [facility] Nov 23, 2009 02:57 PM TOBACCO OFFERED PT MEDS (PROVIDE R) [facility] Nov 23, 2009 02:57 PM TOBACCO OFFERED STOP SMOKING CLI PARKER [facility] Sep 07, 2009 02:06 PM CURRENT TOBACCO USER [facility] Sep 07, 2009 02:06 PM TOBACCO MEDS OFFERED BUT DECLINE D [facility] Sep 07, 2009 02:06 PM TOBACCO OFFERED PT MEDS (PROVIDE R) [facility] Sep 07, 2009 02:06 PM TOBACCO OFFERED STOP SMOKING CLI PARKER [facility] Advance Directives: All historical and current Section [...] Source Nov 21, 2010 ADVANCE DIRECTIVE DISCUSSION GARDENIASHA HARMONDON Hernandes [facility] Radiology Reports: +/- 30 days of the [...] treatment facilities. Date/Time Radiology Report Provider Source Apr 22, 2024 10:22 AM LDCT LUNG CANCER S CREENING: ALEXEY DAUGHERTY [id number] -[id number] M Exm Date: APR 22, 2024@10:22 Req Phys: LEATHA TRUJILLO Pat Loc: PB-PHONE LUNG SCREEN (Req'g Lo Img Loc: PB-CT IMAGING Service: [place] [address] (Case [id number] COMPLETE) LDCT LUNG CANCER SCREENING (CT Detailed) CPT:75629 Reason for Study: LCS Repeat Annual F/U LDCT d/t Incomplete Clinical History: Attending: Leatha Trujillo Contact Number: [phone] 04/09/2024: LRADS 0 Smoking history: 2 ppd x 50 yrs, former smoker, quit 03/28/2020. Report Status: Verified Date Reported: APR 23, 2024 Date Verified: APR 23, 2024 Ivf Embryologist E-Sig:/ES/FITZ PORTER Report: EXAM: LDCT LUNG CANCER SCREENING ADDITIONAL HISTORY: N/A COMPARISON: April 09, 2024 PROTOCOL: Screening protocol, low dose, non-contrast CT chest was performed at the local [place] facility in accordance with Lung-Rads 2021. Additional coronal and sagittal reconstructions. MIP reconstructions were reviewed. Secondary computer-aided detection post-processing used. RADIATION DOSE: CTDI(vol): 2.8 mGy DLP: 112.2 mGy*cm INDEX NODULE: 7.6 mm nodule with volume estimated at 139.93 mm, located in the right posterior costophrenic sulcus and best seen on lung window settings on series #8 image #561 OTHER NODULES: 5.6 mm nodule with volume estimated at 64.8 mm, located adjacent to the pleural surface in the posterior infrahilar left lung and best seen on lung window settings on series #8 image #365. LUNG/AIRWAY FINDINGS: Moderate bilateral bullous change. Occasional interstitial scar. No pleural effusion. No airway lesion. EMPHYSEMA: Moderate HEART, MEDIASTINUM AND LYMPH NODES: Granulomatous calcifications. 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 Multiple somewhat enlarged and mediastinal lymph nodes of undetermined significance. VISUAL CORONARY ARTERY CALCIFICATIONS: Moderate UPPER ABDOMEN: Unremarkable. BONES, SOFT TISSUES, AND ADDITIONAL FINDINGS: Degenerative skeletal changes with multilevel mild disc disease. Mild scoliosis. No acute osseous abnormality. Impression: 1. Chronic findings as noted 2. No acute intrathoracic process 3. Lung nodules as annotated 4. LUNG-RADS 3 LUNG-RADS: 3: Probably Benign. RECOMMENDATION: 6 months follow-up low-dose CT LUNG-RADS MODIFIER: N/A. Primary Interpreting Staff: FITZ PORTER RADIOLOGIST (Ivf Embryologist) /FITZ Montelongo [facility] Apr 09, 2024 10:40 AM LDCT LUNG CANCER S CREENING: TIERRADALEALEXEYJILLIAN MILLER [id number] -[id number] M Ex Date: APR 09, 2024@10:40 Req Phys: IFEOMA VEGA Loc: PB-ADMIN LUNG SCREENING (Req'g Img Loc: PB-CT IMAGING Service: Unknown TIMOTEO PRADO [facility] [place] [address] (Case [id number] COMPLETE) LDCT LUNG CANCER SCREENING (CT Detailed) CPT:09269 Reason for Study: annual LCS Clinical History: Responsible Attending: KALYN Vega Attending Contact Number: . Resident Contact Number: Patient is age 50-80? True Patient has 20+ pack-year smoking history? True; 1-4 ppd x 50+ yrs; quit Mar 2020 Patient is current smoker, or has quit within the past 15 years. True Patient does not have a health problem the substantially limits life expectancy, or the ability or willingness to have curative treatment. True Shared decision-making has occurred regarding the benefits and risks of a screening program. True Report Status: Verified Date Reported: APR 10, 2024 Date Verified: APR 10, 2024 Ivf Embryologist E-Sig: Report: EXAM: LDCT LUNG CANCER SCREENING ADDITIONAL HISTORY: N/A COMPARISON: CT chest 04/09/2023 and 03/27/2022 PROTOCOL: Screening protocol, low dose, non-contrast CT chest was performed at the local [place] facility in accordance with Lung-Rads 2021. Additional coronal and sagittal reconstructions. MIP reconstructions were reviewed. Secondary computer-aided detection post-processing used. 2378 images were received by the [place] National Teleradiology Program (NTP) for interpretation. RADIATION DOSE: CTDI(vol): 2.8 mGy DLP: 104.2 mGy*cm EVALUATION IS LIMITED BY RESPIRATORY MOTION INDEX NODULE: Indeterminate OTHER NODULES: Pulmonary nodules are not significantly changed compared with March 2023, including left upper lobe 3 mm solid nodule (series 3 image 86), right lower lobe 8 mm solid nodule (image 130), and lingular 4 mm paramediastinal nodule (image 157). Few calcified granulomas. LUNG/AIRWAY FINDINGS: Minimal secretions in the trachea. Dependent atelectasis in the upper and lower lobes. EMPHYSEMA: Moderate HEART, MEDIASTINUM AND LYMPH NODES: The cardiac chambers are normal in size. No pericardial effusion. The aorta and main pulmonary artery are normal in caliber. Atherosclerotic changes of the aorta and arch vessels. Stent present in the left common carotid artery origin. Numerous prominent mediastinal lymph nodes are not definitely changed compared with February 2022, including right lower paratracheal 1.4 cm lymph node (series 3 image 101) and subcarinal 1.3 cm lymph node (image 136). VISUAL CORONARY ARTERY CALCIFICATIONS: Stenting UPPER ABDOMEN: Evaluation is limited by low-dose technique. Partially imaged stent in the superior mesenteric artery. BONES, SOFT TISSUES, AND ADDITIONAL FINDINGS: Mild degenerative changes of the spine. Impression: LUNG-RADS: 0: Incomplete. Evaluation is limited by respiratory motion and dependent atelectasis in the upper and lower lobes. RECOMMENDATION: Evaluation of breath holding capacity and repeat low-dose CT of the chest. LUNG-RADS MODIFIER: N/A. READING PHYSICIAN: Timoteo Lima M.D. -[phone] 04/10/2024 13:48 EST [facility] National Teleradiology Program [phone] (For Medical Practitioner Use Only) Attention Patients / Veterans: If you have questions or concerns about these test results, please contact your ordering provider or primary care team. Primary Interpreting Staff: RADIOLOGY,OUTSIDE SERVICE, Staff Physician / RADIOLOGY,OUTSIDE SERVICE ARELI CARRION [facility] Encounter Notes: All associated encounter notes This section contains the clinical notes associated to the Encounter. Date/Time Encounter Note(s) Provider Source Apr 21, 2024 02:08 PM NURSING PROGRESS N OTE: LOCAL TITLE: NURSING NOTE PB STANDARD TITLE: NURSING PROGRESS NOTE DATE OF NOTE: APR 21, 2024@14:08 ENTRY DATE: APR 21, 2024@14:08:05 AUTHOR: MELANIA DEL ROSARIO EXP COSIGNER: URGENCY: STATUS: COMPLETED [place] will need to have LDCT done 04/22/24. He has come into clinic to be sure he has ability to hold breath for short period of time. [place] educated that he will need to hold breath for good visualization of lung proctor. [place] able to hold breath for 20-30 seconds as needed. Sao2 remains within normal range between 93-95%. No signs of distress with exercises. Reports understanding of education. /sandy/ MELANIA MATTHEW, RN [place] [facility] Signed: 04/21/2024 14:12 Receipt Acknowledged By: 04/23/2024 11:57 /sandy/ MELANIA KAHN MD [facility]
--- OUTSIDE RECORDS SUMMARY | 2024-04-28 08:52 | XMS_ITS ---
Author Name [facility] [place] [facility] [place] [facility] [place] Address [address] [place] [id number] Care Team Providers Care Break Up Worker Name Role Phone MARIOLEATHA Horvath Primary Care Provider Unavailrj e Insurance Providers: All historical and current [...] PART A Nov 25, 2013 PART A [id number] TIERRAEDUARD HUNTER PATIENT MEDICARE (WNR) MEDICARE (M) PART A Nov 25, 2013 PART A [id number] [phone] EDUARD LOVE PATIENT Selected Encounter This section includes the information on record at [place] for the Encounter. Date/Time Encounter Type Encounter Description Reason Provider Source Apr 28, 2024 01:52 PM Outpatient Encounter ADMIN PAT ACTIVTIES (MASNONCT) ROJAS ROBLES Encounter Template Text not used by [place] Plan of Treatment: Future Appointments (+ 6 months) and Future Tests (+/- 45 days) The Plan of Treatment section includes future care activities for the patient from all [facility] treatment[facility]ilities. This section includes future appointments and future orders which are active, pending or scheduled. Future Appointments This section includes appointments that were scheduled to occur 6 months from the date of the Encounter, up to a maximum of 20 appointments. The data comes from all [facility]. Appointment Date/Time Appointment Type Appointme nt Facility Name Apr 30, 2024 01:30 PM AMBULATORY - MEDICINE [facility] Apr 30, 2024 01:32 PM AMBULATORY - MEDICINE [facility] May 08, 2024 10:45 AM [facility] May 30, 2024 02:00 PM AM[facility] [place]IC[place] [facility] Aug 07, 2024 01:00 PM AMBULATORY - MEDICINE [place] [facility] Aug 19, 2024 03:15 PM AMBULATORY - MEDICINE [place] [facility] Active, Pending, and Scheduled Orders This section includes a listing of several types of active, pending, and scheduled orders, including clinic medications orders, diagnostic test orders, procedure orders and consult orders; where the start date of the order is 45 days before the date of the Encounter or 45 days after the date of theEncounter. The data comes from all [facility]. Test Date/Time Test Type Test Details Facility Name Apr 30, 2024 02:35 PM Consult Order [facility] [id number] Cons Manager [facility] Apr 30, 2024 02:43 PM Consult Order [facility]NE[facility]OLOG[facility] [id number] [facility] Manager [facility] Lab Results: +/- 30 days of the encounter This section includes the Chemistry and Hematology Lab Results on record with [place] for the patient. Radiology Reports and Pathology Reports are provided separately, in subsequent sections. Lab Results This section contains the Chemistry/Hematology Results that were resulted 30 days before or 30 daysafter the date of the Encounter. Date/Time Source Result Type Result - Unit Interpretation Reference Range Specimen Type Comment Apr 21, 2024 02:06 PM [facility] FOLATE (PB) SERUM Specimen Type: SERUM No comment entered. Ordering Provider: LEATHA TRUJILLO Report Released Date/Time: Apr 21, 2024 02:04 PM Reporting Lab: [place] [facility] [address] [place] [address] Performing Lab: [place] [facility] [address] [place] [address] FOLATE (PB) 6.7 ng/mL L 7-20 Apr 21, 2024 02:06 PM [facility] B12 SERUM Specimen Type: SERUM No comment entered. Ordering Provider: LEATHA TRUJILLO Report Released Date/Time: Apr 21, 2024 02:04 PM Reporting Lab: [place] [facility] [address] [place] [address] Performing Lab: [place] [facility] [address] [place] [address] B12 474 pg/mL 213-816 Apr 21, 2024 02:06 PM [facility] HGA1C BLOOD Specimen Type: BLOOD No comment entered. Ordering Provider: LEATHA TRUJILLO Report Released Date/Time: Apr 21, 2024 02:04 PM Reporting Lab: [place] [facility] [address] [place] [address] Performing Lab: [place] [facility] [address] [place] [address] HGA1C 6.0 4.0-6.0 Apr 21, 2024 02:06 PM [facility] URINE ALBUMIN PROFILE-ih (PB) URINE Specimen Type: URINE No comment entered. Ordering Provider: LEATHA TRUJILLO Report Released Date/Time: Apr 21, 2024 02:04 PM Reporting Lab: [place] [facility] [address] [place] [address] Performing Lab: [place] [facility] [address] [place] [address] URINE ALBUMIN (PB-STL) 11.30 mg/L 0-30 uACR (PB-MA) 7.55 ug/mg CREATININE URINE/OTHERS 149.74 mg/dL Apr 21, 2024 02:06 PM [facility] VITAMIN D, 25-HYDROXY SERUM Specimen Type: SE RUM No comment entered. Ordering Provider: LEATHA TRUJILLO Report Released Date/Time: Apr 21, 2024 02:04 PM Reporting Lab: [place] [facility] [address] [place] [address] Performing Lab: [place] [facility] [address] [place] [address] VITAMIN D, 25-HYDROXY 58.8 ng/mL 30-96 Apr 21, 2024 02:06 PM [facility] CHOLESTEROL PANEL (PB) PLASMA Specimen Type: P LASMA No comment entered. Ordering Provider: LEATHA TRUJILLO Report Released Date/Time: Apr 21, 2024 02:04 PM Reporting Lab: [place] [facility] [address] [place] [address] Performing Lab: [place] [facility] [address] [place] [address] CHOLESTEROL 157 mg/dL 0-200 TRIGLYCERIDE 211 mg/dL H 0-150 CALCULATED LDL 82.6 mg/dL HDL(New) 32.2 mg/dL L >40 HDL % OF TOTAL CHOLESTEROL (PB) 20.5 >25 Apr 21, 2024 02:06 PM [facility] TSH (MA-PB) SERUM Specimen Typ e: SERUM No comment entered. Ordering Provider: LEATHA TRUJILLO Report Released Date/Time: Apr 21, 2024 02:04 PM Reporting Lab: [place] [facility] [address] [place] [facility] Performing Lab: [place] [facility] [address] [place] [facility] TSH 2.844 u[IU]/mL 0.47-5 Apr 21, 2024 02:06 PM [facility] COMPREHENSIVE METABOLIC PANEL PLASMA Specimen Type: PLASMA No comment entered. Ordering Provider: LEATHA TRUJILLO Report Released Date/Time: Apr 21, 2024 02:04 PM Reporting Lab: [place] [facility] [address] [place] [facility] Performing Lab: [place] [facility] [address] [place] [facility] CREATININE 1.65 mg/dL H 0.7-1.3 UREA NITROGEN [...] and tobacco- related health factors from the [place] facility where the Encounter took place. Current Smoking Status This section includes the most current smoking, or tobacco-related health factor, from the [place] facility where the Encounter took place. Date/Time Current Smoking Status Comment Ketan vivary Jul 14, 2021 03:40 PM PREVIOUS SMOKER SHASHI ALLAN TIMO CARRION [facility] Advance Directives: All historical and current Section Date Range: From patient's date of to the date document was created. This section includes ALL of a patient's completed or amended [place] Advance and Rescinded Directives. The entries below indicate that a directive exists for the patient, but an actual copy is not included with this document. The data comes from all [place] facilities. Date Advance Directives Provider Source Nov 21, 2010 ADVANCE DIRECTIVE DISCUSSION ANITRA KRAUS [facility] Radiology Reports: +/- 30 days [...] the Encounter. The data comes from all [place] treatment facilities. Date/Time Radiology Report Provider Source Apr 22, 2024 10:22 AM LDCT LUNG CANCER S CREENING: ALEXEY LOVE PAUL [id number] -[id number] M Exm Date: APR 22, 2024@10:22 Req Phys: LEATHA TRUJILLO Loc: PB-PHONE LUNG SCREEN (Req'g Lo Img Loc: PB-CT IMAGING Service: Unknown TIMOTEO PRADO [facility] SHEYLA GUERRA [id number] (Case [id number] COMPLETE) LDCT LUNG CANCER SCREENING (CT Detailed) CPT:05962 Reason for Study: LCS Repeat Annual F/U LDCT d/t Incomplete Clinical History: Attending: Leatha Trujillo Contact Number: [phone] 04/09/2024: LRADS 0 Smoking history: 2 ppd x 50 yrs, former smoker, quit 03/28/2020. Report Status: Verified Date Reported: APR 23, 2024 Date Verified: APR 23, 2024 Personal Care Assistant E-Sig:/ES/FITZ PORTER Report: EXAM: LDCT LUNG CANCER SCREENING ADDITIONAL HISTORY: N/A COMPARISON: April 09, 2024 PROTOCOL: Screening protocol, low dose, non-contrast CT chest was performed at the local [place] facility in accordance with Lung-Rads 2021. Additional [...] LUNG-RADS MODIFIER: N/A. Primary Interpreting Staff: FITZ PORTER, RADIOLOGIST (Personal Care Assistant) /FITZ Montelongo [facility] Apr 09, 2024 10:40 AM LDCT LUNG CANCER S CREENING: ALEXEY LOVE [id number] -[id number] M Exm Date: APR 09, 2024@10:40 Req Phys: IFEOMA VEGA Loc: PB-ADMIN LUNG SCREENING (Req'g Img Loc: PB-CT IMAGING Service: Unknown TIMOTEO PRADO [facility] [place]ERRA [id number] (Case [id number] COMPLETE) LDCT LUNG CANCER SCREENING (CT Detailed) CPT:79357 Reason for Study: annual LCS Clinical History: Responsible Attending: PCP Rainer Attending Contact Number: . Resident Contact Number: [...] 10, 2024 Date Verified: APR 10, 2024 Personal Care Assistant E-Sig: Report: EXAM: LDCT LUNG CANCER SCREENING ADDITIONAL HISTORY: N/A COMPARISON: CT chest 04/09/2023 and 03/27/2022 PROTOCOL: Screening protocol, low dose, non-contrast CT chest was performed at the local [place] facility in accordance with Lung-Rads 2. Additional coronal and sagittal reconstructions. MIP reconstructions were reviewed. Secondary computer-aided detection post-processing used. 2378 images were received by the [place] National Teleradiology Program (NTP) for interpretation. RADIATION [...] MODIFIER: N/A. READING PHYSICIAN: Timoteo Lima M.D. -[id number] 04/10/2024 13:48 EST [facility] National Teleradiology Program [phone] (For Medical Practitioner Use Only) Attention Patients / Veterans: If you have questions or concerns about these test results, please contact your ordering provider or primary care team. Primary Interpreting Staff: RADIOLOGY,OUTSIDE SERVICE, Staff Physician / RADIOLOGY,OUTSIDE SERVICE [facility] Encounter Notes: All associated encounter notes This section contains the clinical notes associated to the Encounter. Date/Time Encounter Note(s) Provider Source Apr 28, 2024 02:44 PM PRIMARY CARE LETTE RS: LOCAL TITLE: TEST RESULT LETTER PB STANDARD TITLE: PRIMARY CARE LETTERS DATE OF NOTE: APR 28, 2024@14:44 ENTRY DATE: APR 28, 2024@14:44:07 AUTHOR: ROJAS ROBLES COSIGNER: URGENCY: STATUS: COMPLETED [facility] [address] [place], [place] [address] APR 28, 2024 ALEXEY LOVE [id number] [place], [place] [address] Dear Man Love, Thank you for completing your Lung Cancer Screening Imaging. You are very important to us. Lung cancer is treatable, and patients do better if it is found early. The national recommendation for Lung Cancer Screening is to continue through age 80 and/or until you have been cigarette free for 15 years. RADIOLOGY(NON-INVASIVE TEST RESULTS):Low Dose CT for Lung Cancer Screening DATE of EXAM: 04/22/24 Lung-RADS category 3: Probably benign. Probably benign findings - short term follow-up suggested; includes nodules with a low likelihood of becoming a clinically active cancer. MANAGEMENT RECOMMENDATION: Continue annual screening with low-dose CT in 6 months. You will be due for your next Lung Cancer Screen imaging September 2024. If you have a cold or any lung congestion when you are due for your next screen, it is best to reschedule for 3-4 weeks to allow time for potential mucous to clear. Lung cancer screening can detect lung cancer, but it does not prevent it. Rarely, a CT scan can miss a small lung cancer. Contact your primary care provider if you develop new symptoms like worsening shortness of breath, change in a cough, or coughing up blood. Should you have any questions, and/or need assistance to stop if remain smoking, please contact your Primary Care provider. Please continue to refrain from smoking as our records indicate you had quit. Great work! We understand that quitting cigarette smoking is difficult, but it is the best way to improve your health. FUTURE APPOINTMENTS: 04/30/2024 13:30 PB-KENNEDY CVT PACT DELTA(PAT 04/30/2024 13:32 PB-KENNEDY CVT PACT DELTA(PRO 08/06/2024 15:00 COM CARE-VASCULAR [id number] ROJAS ROBLES [facility] Apr 28, 2024 02:00 PM PRIMARY CARE ANA M RS: LOCAL TITLE: TEST RESULT LETTER PB STANDARD TITLE: PRIMARY CARE LETTERS DATE OF NOTE: APR 28, 2024@14:00 ENTRY DATE: APR 28, 2024@14:00:41 AUTHOR: ROJAS RBOLES EXP COSIGNER: URGENCY: STATUS: COMPLETED TEST RESULT LETTER PB Has ADDENDA [facility] [address] [place], [place] [address] APR 28, 2024 ALEXEY LOVE [id number] [place], [place] [address] Dear Man Love, Thank you for completing your Lung Cancer Screening Imaging. You are very important to us. Lung cancer is treatable, and patients do better if it is found early. The national recommendation for Lung Cancer Screening is to continue through age 80 and/or until you have been cigarette free for 15 years. RADIOLOGY(NON-INVASIVE TEST RESULTS):Low Dose CT for Lung Cancer Screening DATE of EXAM: 04/22/24 Lung-RADS category 3: Probably benign. Probably benign findings - short term follow-up suggested; includes nodules with a low likelihood of becoming a clinically active cancer. MANAGEMENT RECOMMENDATION: Continue annual screening with low-dose CT in 12 months. You will be due for your next Lung Cancer Screen imaging March 2025. If you have a cold or any lung congestion when you are due for your next screen, it is best to reschedule for 3-4 weeks to allow time for potential mucous to clear. Lung cancer screening can detect lung cancer, but it does not prevent it. Rarely, a CT scan can miss a small lung cancer. Contact your primary care provider if you develop new symptoms like worsening shortness of breath, change in a cough, or coughing up blood. Should you have any questions, and/or need assistance to stop if remain smoking, please contact your Primary Care provider. Please continue to refrain from smoking as our records indicate you had quit. Great work! We understand that quitting cigarette smoking is difficult, but it is the best way to improve your health. FUTURE APPOINTMENTS: 04/30/2024 13:30 PB-KENNEDY CVT PACT DELTA(PAT 04/30/2024 13:32 PB-KENNEDY CVT PACT DELTA(PRO 08/06/2024 15:00 COM CARE-VASCULAR [id number] 04/28/2024 ADDENDUM STATUS: COMPLETED Please disregard this note. Needs corrected information. /sandy/ Rojas Robles RN [facility] Signed: 04/28/2024 14:41 ROJAS ROBLES [facility] Apr 28, 2024 01:52 PM PRIMARY CARE DIAGN OSTIC STUDY NOTE: LOCAL TITLE: LDCT FOLLOW-UP NOTE PB STANDARD TITLE: PRIMARY CARE DIAGNOSTIC STUDY NOTE DATE OF NOTE: APR 28, 2024@13:52 ENTRY DATE: APR 28, 2024@13:53:16 AUTHOR: ROJAS ROBLES COSIGNER: URGENCY: STATUS: COMPLETED TRACKING OF NODULE INDICATED: Date of current image: Date: April 22, 2024 Lung RADS Score: 3 Incidental Findings: No incidental findings were noted. Plan: Interval until next LDCT scan is due: 6 months Patient Notification of results: Results letter sent to patient. Comment: 2ppd x 50yrs. Quit in . /es/ Rojas Robles RN [facility] Signed: 04/28/2024 14:13 ROJAS ROBLES [facility]
--- OUTSIDE RECORDS SUMMARY | 2024-04-30 08:30 | XMS_ITS | Encounter Summary ---
Author Name [facility] Organization [facility] [place] Address [address] [place] [address] Care Team Providers Care Temper Mill Operator Name Role Phone MARIOJULIUS HorvathE Primary Care Provider Unavailabl e Insurance Providers: [...] PART A Nov 25, 2013 PART A [id number] EDUARD DAUGHERTY PATIENT MEDICARE (WNR) MEDICARE (M) PART A Nov 25, 2013 PART A [id number] EDUARD DAUGHERTY PATIENT Selected Encounter This section includes the information on record at [place] for the Encounter. 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 Date/Time Primary/Secondary Diagnosis Diagnosis Name Provider Source Apr 30, 2024 04:38 PM PRIMARY Athscl heart disease of [place] coronary artery w/o ang pctrs IVIS SHEN [facility] Apr 30, 2024 04:38 PM SECONDARY Encounter for immunization IVIS SHEN [facility] Plan of Treatment: Future Appointments (+ 6 months) and Future Tests (+/- 45 days) The Plan of Treatment section includes future care activities for the patient [facility] This section includes future appointments and future orders which are active, pending or scheduled. Future Appointments This section includes appointments that were scheduled to occur 6 months from the date of the Encounter, up to a maximum of 20 appointments. The data comes from all [facility]. Appointment Date/Time Appointment Type Appointme nt Facility Name May 08, 2024 10:45 AM AMBULATORY - MEDICINE [facility] May 30, 2024 02:00 PM AMBULATORY - MEDICINE [place] [facility] Aug 07, 2024 01:00 PM AMBULATORY - MEDICINE [place] [facility] Aug 19, 2024 03:15 PM AMBULATORY - MEDICINE [place] [facility] Oct 29, 2024 11:00 AM AMBULATORY - MEDICINE [place] [facility] Oct 29, 2024 11:30 AM AMBULATORY - NONE [place] [facility] Active, Pending, and Scheduled Orders This section [...] 30, 2024 02:35 PM Consult Order COMMUNITY [id number] Cons Senior Technical Analyst's Choice [facility] Apr 30, 2024 02:43 PM Consult Order COMMUNITY CARE-NEPHROLOGY [id number] Cons Senior Technical Analyst's [facility] Lab Results: +/- 30 days of the encounter This section includes the Chemistry and Hematology Lab Results on record with [place] for the patient. Radiology Reports and Pathology Reports are provided separately, in subsequent sections. Lab Results This section contains the Chemistry/Hematology Results that were resulted 30 days before or 30 daysafter the date of the Encounter. Date/Time Source Result Type Result - Unit Interpretation Reference Range Specimen Type Comment Apr 21, 2024 02:06 PM [facility] B12 SERUM Specimen Type: SERUM No comment entered. Ordering Provider: LEATHA TRUJILLO Report Released Date/Time: Apr 21, 2024 02:04 PM Reporting Lab: [place] [facility] [address] [place] [address] Performing Lab: [place] [facility] [address] [place] [address] B12 474 pg/mL 213-816 Apr 21, 2024 02:06 PM [facility] FOLATE (PB) SERUM Specimen Typ e: SERUM No comment entered. Ordering Provider: LEATHA TRUJILLO Report Released Date/Time: Apr 21, 2024 02:04 PM Reporting Lab: [place] [facility] [address] [place] [address] Performing Lab: [place] [facility] [address] [place] [id number] FOLATE (PB) 6.7 ng/mL L 7-20 Apr 21, 2024 02:06 PM [facility] HGA1C BLOOD Specimen Type: BLOOD No comment entered. Ordering Provider: LEATHA TRUJILLO Report Released Date/Time: Apr 21, 2024 02:04 PM Reporting Lab: [place] [facility] [address] [place] [address] Performing Lab: [place] [facility] [address] [place] [address] HGA1C 6.0 4.0-6.0 Apr 21, 2024 02:06 PM [facility] URINE ALBUMIN PROFILE-ih (PB) URINE Specimen Type: URINE No comment entered. Ordering Provider: LEATHA TRUJILLO Report Released Date/Time: Apr 21, 2024 02:04 PM Reporting Lab: [place] [facility] [address] [place] [address] Performing Lab: [place] [facility] [address] [place] [address] URINE ALBUMIN (PB-STL) 11.30 mg/L 0-30 uACR (PB-MA) 7.55 ug/mg CREATININE URINE/OTHERS 149.74 mg/dL Apr 21, 2024 02:06 PM [facility] VITAMIN D, 25-HYDROXY SERUM Specimen Type: SE RUM No comment entered. Ordering Provider: LEATHA TRUJILLO Report Released Date/Time: Apr 21, 2024 02:04 PM Reporting Lab: [place] [facility] [address] [place] [address] Performing Lab: [place] [facility] [address] [place] [address] VITAMIN D, 25-HYDROXY 58.8 ng/mL 30-96 Apr 21, 2024 02:06 PM [facility] CHOLESTEROL PANEL (PB) PLASMA Specimen Type: P LASMA No comment entered. Ordering Provider: LEATHA TRUJILLO Report Released Date/Time: Apr 21, 2024 02:04 PM Reporting Lab: [place] [facility] [address] [place] [address] Performing Lab: [place] [facility] [address] [place] [address] CHOLESTEROL 157 mg/dL 0-200 TRIGLYCERIDE 211 mg/dL H 0-150 CALCULATED LDL 82.6 mg/dL HDL(New) 32.2 mg/dL L >40 HDL % OF TOTAL CHOLESTEROL (PB) 20.5 >25 Apr 21, 2024 02:06 PM [facility] TSH (MA-PB) SERUM Specimen Typ e: SERUM No comment entered. Ordering Provider: LEATHA TRUJILLO Report Released Date/Time: Apr 21, 2024 02:04 PM Reporting Lab: [place] [facility] [address] [place] [address] Performing Lab: [place] [facility] [address] [place] [address] TSH 2.844 u[IU]/mL 0.47-5 Apr 21, 2024 02:06 PM [facility] COMPREHENSIVE METABOLIC PANEL PLASMA Specimen Type: PLASMA No comment entered. Ordering Provider: LEATHA TRUJILLO Report Released Date/Time: Apr 21, 2024 02:04 PM Reporting Lab: [place] [facility] [address] [place] [address] Performing Lab: [place] [facility] [address] [place] [address] CREATININE 1.65 mg/dL H 0.7-1.3 UREA NITROGEN [...] 22 U/L 8-40 EGFR (CKD-EPI 2020) 43 Vital Signs: All taken on the encounter date This section contains inpatient and outpatient Vital Signs collected on the date of the Encounter. Date/Time Temperature Pulse Blood Pressure Respiratory Rate SP02 Pain Height Weight Body Mass Index Source Apr 30, 2024 01:46 PM 97.4 76 152/71 18 94 207.7 28 [facility] Immunizations: All administered on the encounter date This section contains immunizations associated to the Encounter. Immunization Series Date Issued Administered By Site Reaction Lot Number CVX Code Drug Red Mud Thickener Operator Comment(s) Source COVID-19 (MODERNA), MRNA, LNP-S, PF, 50 MCG/0.5 ML (AGES 12+ YEARS) Apr 30, 2024 MIGUEL ÁNGELIVIS Saucedo LEFT DELTO ID [id number] [employer] [facility] INFLUENZA, HIGH-DOSE, TRIVALENT, PF Apr 30, 2024 IVIS SHEN LEFT DELTO ID [id number] [employer] PASTE[employer] ADMINISTERE D AT [facility] TDAP Apr 30, 2024 IVIS SHEN RIGHT DELTO ID [id number] GLAXOS[address]ITHK[employer] NE ADMINISTERE D AT [facility] Social History: Smoking Status (Most current) and Tobacco Use (All prior to encounter date) This section includes the most current, and the historical, smoking and tobacco- related health factors from the [place] facility where the Encounter took place. Current Smoking Status This section includes the most current smoking, or tobacco-related health factor, from the [place] facility where the Encounter took place. Date/Time Current Smoking Status Comment Facil ity Apr 30, 2024 01:30 PM VA-TOBACCO USE FORMER CIGARETTES [facility] Tobacco Use History This section includes a history of the smoking, or tobacco-related health factors, that were collected on or before the date of the Encounter. The data comes from the [place] facility where the Encounter took place. Date/Time Smoking Status/Tobacco Use Comment F acility Apr 30, 2024 01:30 PM VA-TOBACCO USE FORMER CIGARETTES [facility] [place] [facility] Apr 27, 2022 08:30 AM VA-TOBACCO FORMER USER [facility] Apr 27, 2022 08:30 AM VA-TOBACCO QUIT 1 TO < 5 YRS [facility] [place] [facility] Jul 27, 2020 10:30 AM VA-TOBACCO FORMER USER [facility] Jul 27, 2020 10:30 AM VA-TOBACCO QUIT < 1 YEAR [facility] Nov 07, 2018 08:42 AM VA-TOBACCO USE 30 YEARS OR MORE [facility] Nov 07, 2018 08:42 AM VA-TOBACCO USE ADVICE [facility] Nov 07, 2018 08:42 AM VA-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 USE 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 [facility] Nov 07, 2018 08:42 AM VA-TOBACCO USE MED NO [facility] Nov 07, 2018 08:42 AM VA-TOBACCO USE WI 30 MIN OF WAKE UP [facility] Nov 07, 2018 08:42 AM VA-TOBACCO USER EVERY DAY [facility] Nov 08, 2017 12:59 PM CURRENT TOBACCO USER [facility] Nov 08, 2017 12:59 PM CURRENT TOBACCO US ER (NOT READY TO QUIT) [facility] Nov 08, 2017 12:59 PM TOBACCO CESSATION REFERRAL DECLI GURDEEP [facility] Nov 08, 2017 12:59 PM TOBACCO MEDS OFFERED BUT DECLINE D [facility] Nov 08, 2017 12:59 PM TOBACCO USER OFFERED MEDS [facility] May 02, 2017 07:17 AM CURRENT TOBACCO USER [facility] May 02, 2017 07:17 AM CURRENT TOBACCO US ER (NOT READY TO QUIT) [facility] May 02, 2017 07:17 AM TOBACCO CESSATION REFERRAL DECLI GURDEEP [facility] [place] [facility] May 02, 2017 07:17 AM TOBACCO MEDS OFFERED BUT DECLINE D [facility] May 02, 2017 07:17 AM TOBACCO USER OFFERED MEDS [facility] [facility] Nov 08, 2016 07:23 AM CURRENT TOBACCO USER [facility] [facility] Nov 08, 2016 07:23 AM CURRENT TOBACCO US ER (NOT READY TO QUIT) [facility] Nov 08, 2016 07:23 AM TOBACCO CESSATION REFERRAL DECLI GURDEEP [facility] [place] [facility] Nov 08, 2016 07:23 AM TOBACCO CESSATION REFERRAL OFFER ED [facility] Nov 08, 2016 07:23 AM TOBACCO MEDS OFFERED BUT DECLINE D [facility] [place] [facility] Nov 08, 2016 07:23 AM TOBACCO USER OFFERED MEDS [facility] [place] [facility] Nov 08, 2015 07:34 AM CURRENT TOBACCO USER [facility] [place] [facility] Nov 08, 2015 07:34 AM TOBACCO OFFERED STOP SMOKING CLI PARKER [facility] [place] [facility] May 10, 2015 08:04 AM TOBACCO MEDS OFFERED BUT DECLINE D [facility] [place] [facility] May 10, 2015 08:04 AM TOBACCO OFFERED PT MEDS (PROVIDE R) [facility] [facility] May 10, 2015 08:04 AM TOBACCO OFFERED STOP SMOKING CLI PARKER [facility] [place] [facility] Jan 20, 2014 10:43 AM CURRENT TOBACCO USER [facility] [place] [facility] Jan 20, 2014 10:43 AM TOBACCO OFFERED STOP SMOKING CLI PARKER [facility] [place] [facility] Jun 19, 2012 01:13 PM CURRENT TOBACCO USER [facility] [place] [facility] Jun 19, 2012 01:13 PM TOBACCO OFFERED STOP SMOKING CLI PARKER [facility] [place] [facility] Sep 21, 2011 11:10 AM TOBACCO MEDS OFFERED BUT DECLINE D [facility] [place] [facility] Sep 21, 2011 11:10 AM TOBACCO OFFERED PT MEDS (PROVIDE R) [facility] [place] Sep 21, 2011 11:10 AM TOBACCO OFFERED STOP SMOKING CLI PARKER [facility] [place] Nov 21, 2010 01:01 PM CURRENT TOBACCO USER [facility] [place] [facility] Nov 21, 2010 01:01 PM TOBACCO OFFERED PT MEDS (PROVIDE R) [facility] [place] Nov 21, 2010 01:01 PM TOBACCO OFFERED STOP SMOKING CLI PARKER [facility] Nov 21, 2010 01:01 PM TOBACCO OFFERRED PT MEDS (PROVID ER) [facility] [place] May 24, 2010 10:18 AM TOBACCO MEDS OFFERED BUT DECLINE D [facility] [place] [place] [facility] May 24, 2010 10:18 AM TOBACCO OFFERED PT MEDS (PROVIDE R) [facility] [place] [facility] May 24, 2010 10:18 AM TOBACCO OFFERED STOP SMOKING CLI PARKER [facility] Feb 23, 2010 02:50 PM TOBACCO MEDS OFFERED BUT DECLINE D [facility] [place] [facility] Feb 23, 2010 02:50 PM TOBACCO OFFERED PT MEDS (PROVIDE R) [facility] Feb 23, 2010 02:50 PM TOBACCO OFFERED STOP SMOKING CLI PARKER [facility] Nov 23, 2009 02:57 PM TOBACCO MEDS OFFERED BUT DECLINE D [facility] Nov 23, 2009 02:57 PM TOBACCO OFFERED PT MEDS (PROVIDE R) [facility] Nov 23, 2009 02:57 PM TOBACCO OFFERED STOP SMOKING CLI PARKER [facility] Sep 07, 2009 02:06 PM [facility] Sep 07, 2009 02:06 PM TOBACCO MEDS OFFERED BUT DECLINE D [facility] Sep 07, 2009 02:06 PM TOBACCO OFFERED PT MEDS (PROVIDE R) [facility] Sep 07, 2009 02:06 PM TOBACCO OFFERED STOP SMOKING CLI PARKER [facility] Advance Directives: All historical and current Section Date Range: From patient's date of to the date document was created. This section includes ALL of a patient's completed or amended [place] Advance and Rescinded Directives. The entries below indicate that a directive exists for the patient, but an actual copy is not included with this document. The data comes from all [place] facilities. Date Advance Directives Provider Source Nov 21, 2010 ADVANCE DIRECTIVE DISCUSSION ANITRA KRAUS [facility] Radiology Reports: +/- 30 days of [...] the Encounter. The data comes from all [place] treatment facilities. Date/Time Radiology Report Provider Source Apr 22, 2024 10:22 AM LDCT LUNG CANCER S CREENING: ALEXEY DAUGHERTY [id number] -[id number] M Exm Date: APR 22, 2024@10:22 Req Phys: LEATHA TRUJILLO R Pat Loc: PB-PHONE LUNG SCREEN (Req'g Lo Img Loc: PB-CT IMAGING Service: Unknown TIMOTEO PRADO [facility] SHEYLA GUERRA [id number] (Case [id number] COMPLETE) LDCT LUNG CANCER SCREENING (CT Detailed) CPT:80905 Reason for Study: LCS Repeat Annual F/U LDCT d/t Incomplete Clinical History: Attending: Leatha Trujillo Contact Number: [id number] 04/09/2024: LRADS 0 Smoking history: 2 ppd x 50 yrs, former smoker, quit 03/28/2020. Report Status: Verified Date Reported: APR 23, 2024 Date Verified: APR 23, 2024 Prototyper E-Sig:/ES/FITZ PORTER Report: EXAM: LDCT LUNG CANCER SCREENING ADDITIONAL HISTORY: N/A COMPARISON: April 09, 2024 PROTOCOL: Screening protocol, low dose, non-contrast CT chest was performed at the local [place] facility in accordance with Lung-Rads 2. Additional [...] N/A. Primary Interpreting Staff: FITZ PORTER, RADIOLOGIST (Prototyper) /FITZ Montelongo [facility] Apr 09, 2024 10:40 AM LDCT LUNG CANCER S CREENING: ALEXEY DAUGHERTY [id number] -[id number] M Exm Date: APR 09, 2024@10:40 Req Phys: IFEOMA VEGA Loc: PB-ADMIN LUNG SCREENING (Req'g Img Loc: PB-CT IMAGING Service: Unknown TIMOTEO PRADO [facility] [place] [address] (Case [id number] COMPLETE) LDCT LUNG CANCER SCREENING (CT Detailed) CPT:26939 Reason for Study: annual LCS Clinical History: [...] 10, 2024 Date Verified: APR 10, 2024 Prototyper E-Sig: Report: EXAM: LDCT LUNG CANCER SCREENING ADDITIONAL HISTORY: N/A COMPARISON: CT chest 04/09/2023 and 03/27/2022 PROTOCOL: Screening protocol, low dose, non-contrast CT chest was performed at the local [place] facility in accordance with Lung-Rads 2021. Additional coronal and sagittal reconstructions. MIP reconstructions were reviewed. Secondary computer-aided detection post-processing used. 2378 images were received by the [place] National Teleradiology Program (NTP) for interpretation. RADIATION [...] MODIFIER: N/A. READING PHYSICIAN: Timoteo Lima M.D. -[id number] 04/10/2024 13:48 EST [facility] National Teleradiology Program [phone] (For Medical Practitioner Use Only) Attention Patients / Veterans: If you have questions or concerns about these test results, please contact your ordering provider or primary care team. Primary Interpreting Staff: RADIOLOGY,OUTSIDE SERVICE, Staff Physician / RADIOLOGY,OUTSIDE SERVICE [facility] Encounter Notes: All associated encounter notes This section contains the clinical notes associated to the Encounter. Date/Time Encounter Note(s) Provider Source Apr 30, 2024 01:30 PM PRIMARY CARE [place] [facility] NOTE: LOCAL TITLE: PRIMARY CARE NURSING PROGRESS NOTE (TEXT) NURSING P STANDARD TITLE: PRIMARY CARE NURSING NOTE DATE OF NOTE: APR 30, 2024@13:30 ENTRY DATE: APR 30, 2024@13:31:14 AUTHOR: IVIS SHEN COSIGNER: URGENCY: STATUS: COMPLETED PRIMARY CARE NURSING PROGRESS NOTE (TEXT) NURSING PB Has ADDENDA Established Patient ALEXEY DAUGHETRY IS A 73 YEAR OLD MALE BEING SEEN IN CLINIC APR 30, 2024. REASON FOR VISIT: annual, lab review Are you receiving care any where other than the [facility]? Yes, List: cardiology HEALTH AND SURGICAL HISTORY: sleep apnea Does patient report using home oxygen? Yes; Current Oxygen Flow Rate: 2l at HS CURRENT ACTIVE MEDICATIONS FOR REVIEW: Allergies/ADRs (Tool #5) FACILITY ALLERGY/ADR -------- No Remote Allergy/ADR Data available for this patient [facility] ASPIRIN RELATED MEDICATIONS [facility] PLAVIX 75MG TAB [facility] POISON SHAHEEN Med. Reconciliation (Tool #1) INCLUDED IN THIS LIST: Alphabetical list of active outpatient prescriptions dispensed from this [place] (local) and dispensed from another MI or DoD facility (remote) as well as inpatient orders (local pending and active), local clinic medications, locally documented non-VA medications, and local prescriptions that have or been discontinued in the past 90 days. Non-VA Meds Last Documented On: Nov 07, 2018 NOTE The display of VA prescriptions dispensed from another MI or DoD facility (remote) is limited to active outpatient prescription entries matched to National Drug File at the originating site and may not include some items such as investigational drugs, compounds, etc. NOT INCLUDED IN THIS LIST: Medications self-entered by the patient into personal health records (i.e. [employer]) are NOT included in this list. Non-VA medications documented outside this MI, remote inpatient orders (regardless of status) and remote clinic medications are NOT included in this list. The patient and provider must always discuss medications the patient is taking, regardless of where the medication was dispensed or obtained. OUTPT ALBUTEROL 90MCG (CFC-F) 200D ORAL INHL (Status = Active) INHALE 1 PUFF BY ORAL INHALATION FOUR TIMES A DAY NEEDED FOR COPD SHAKE WELL. RINSE MOUTHPIECE FREQUENTLY TO PREVENT CLOGGING. Rx# [id number] Last Released: 02/15/24 Qty/Days Supply: Rx Expiration Date: 02/12/25 Refills Remainin Indication: FOR COPD OUTPT CLOBETASOL PROPIONATE 0.05% CREAM (Status = Active) APPLY TO AFFECTED AREA(S) TWICE A DAY FOR 2 WEEKS APPLY TO RASH OF ARMS. ALTERNATE USING WITH TRIAMCINOLONE. DO NOT USE MORE THAN 2 WEEKS OF THE MONTH. NOT FOR USE ON FACE, GROIN, OR SKIN FOLDS. Rx# [id number] Last Released: 08/29/23 Qty/Days Supply: Rx Expiration Date: 08/27/24 Refills Remainin OUTPT FLUTICASONE PROP 50MCG 120D NASAL INHL (Status = Active) INSTILL 1 SPRAY IN NOSTRIL(S) ONCE A DAY FOR CHRONIC RHINOSINUSITIS (MUST BE USED DIRECTED FOR MINIMUM OF 21 DAYS TO PROVIDE ADEQUATE BENEFITS) Rx# [id number] Last Released: 01/04/24 Qty/Days Supply: Rx Expiration Date: 12/31/24 Refills Remainin Indication: FOR CHRONIC RHINOSINUSITIS OUTPT HYDROXYZINE HCL 25MG TAB (Status = Active) TAKE ONE TABLET BY MOUTH AT BEDTIME FOR ITCHING Rx# [id number] Last Released: 08/29/23 Qty/Days Supply: Rx Expiration Date: 08/27/24 Refills Remainin OUTPT LORATADINE 10MG TAB (Status = Active) TAKE ONE TABLET BY MOUTH ONCE A DAY FOR ALLERGIC RHINITIS ON EMPTY STOMACH Rx# [id number] Last Released: 01/04/24 Qty/Days Supply: Rx Expiration Date: 12/31/24 Refills Remainin Indication: FOR ALLERGIC RHINITIS OUTPT OMEPRAZOLE 40MG EC CAP (Status = Active) TAKE ONE CAPSULE BY MOUTH EVERY MORNING BEFORE A MEAL FOR GASTROESOPHAGEAL REFLUX DISEASE TAKE 30 MINUTES PRIOR TO FOOD. Rx# [id number] Last Released: 08/17/23 Qty/Days Supply: Rx Expiration Date: 08/16/24 Refills Remainin Indication: FOR GASTROESOPHAGEAL REFLUX DISEASE OUTPT PRASUGREL HCL 10MG TAB (Status = ) TAKE ONE TABLET BY MOUTH ONCE A DAY Rx# [id number] Last Released: 03/21/23 Qty/Days Supply: Rx Expiration Date: 03/19/24 Refills Remainin OUTPT ROSUVASTATIN CA 40MG TAB (Status = Active) TAKE ONE TABLET BY MOUTH ONCE A DAY FOR HIGH CHOLESTEROL Rx# [id number] Last Released: 03/08/24 Qty/Days Supply: Rx Expiration Date: 03/06/25 Refills Remainin Indication: FOR HIGH CHOLESTEROL OUTPT TRIAMCINOLONE ACETONIDE 0.1% CREAM (Status = Active) APPLY TO AFFECTED AREA(S) TWICE A DAY APPLY TO RASH ON ARMS AND HANDS. NO MORE THAN 2 WEEKS A MONTH. NOT FOR SKIN FOLDS, FACE, OR GROIN. Rx# [id number] Last Released: 08/29/23 Qty/Days Supply: Rx Expiration Date: 08/27/24 Refills Remainin SUPPLIES PHARMACY TERMS AND POSSIBLE PATIENT ACTIONS INPT = [place] inpatient order IV = [place] intravenous medication OUTPT = [place] outpatient prescription PHARMACY POSSIBLE PATIENT TERMS EXPLANATION ACTIONS -------- --- ACTIVE A prescription that can be If you have refills, filled at the local [place] pharmacy. you may request a refill of this prescription from your VA pharmacy. CLINIC A medication you received during If you have questions a visit to a [place] clinic or about this medication emergency department. contact your [place] healthcare team. DISCONTINUED A prescription your provider has Contact your VA stopped. It is no longer healthcare team if you available to be sent to you or need more of this picked up at the [place] pharmacy medication. window. A prescription which is too old Contact your VA to fill. This does not refer to healthcare team if you the expiration date of the need more of this medication in the container. medication. NON-VA A medication that came from If this medication someplace other than a VA information is pharmacy. This may be a incorrect or out of prescription from either the VA date, please tell your or non VA providers that was VA healthcare team. filled outside the VA. Or, it may be an ekgi-[id number] (OTC), herbal, dietary supplements or sample medication. ON HOLD An active prescription that will Contact your VA not be filled until pharmacy pharmacy when you need resolves the issue. more of this medication. PARKED An active prescription that will Contact your VA not be filled until the patient pharmacy when you need requests it. this medication. PENDING This prescription order has been If you have been sent to the pharmacy for review instructed to start and is not ready yet. this medication now, contact your VA pharmacy. SUSPENDED An active prescription that is Contact your [place] not scheduled to be filled yet. pharmacy if you need You should receive it before this medication now. you run out. ======== Patient reports taking meds other than as , directed/ordered: no longer taking hydroxyzine, amoxicillin, or prasurgel IS PATIENT TAKING ANY OVER THE COUNTER MEDICATIONS, SUCH VITAMINS OR HERBAL SUPPLEMENTS, INCLUDING ANY MEDICATIONS PRESCRIBED BY ANOTHER PHYSICIAN? No ALLERGIES/ADVERSE REACTIONS: POISON SHAHEEN, PLAVIX 75MG TAB, ASPIRIN RELATED MEDICATIONS Does patient have any new allergies to report since last visit? NO VITALS: TEMPERATURE: 98.1 F [36.7 C] (12/31/2023 10:24) BP: 129/65 (12/31/2023 10:24) RESP: 18 (12/31/2023 10:24) PULSE: 80 (12/31/2023 10:24) HT: 72 in [182.9 cm] (11/07/2018 08:41) WT: 204.3 lb [92.67 kg] (11/16/2023 11:00) BMI: 27.8 PAIN ASSESSMENT: (Most Recent Pain Score in Vitals Package: 1 (05/01/2023 13:06) ) The patient indicated that they and their close contacts have not traveled outside of the [place] in the past 21 days. The patient reports the following symptoms: No symptoms present The patient is not immunocompromised. The patient does not report having a history of Multi Drug Resistant Organism (MDRO) within the last five years. The patient does not report having been exposed to measles, chickenpox, or zoster in last 30 days. Patient reports no pain at this visit. Pain Score = 0. STRESS: Thank you for your service. Now let us serve you. At the [facility], we strive to provide you with exceptional health care that improves your health and well-being. Are you feeling sad, empty, or depressed? No Do you need to talk about things in your life that worry you or cause you stress? No Do you need to talk about personal problems, family problems, alcohol use, drug use, or mental or emotional illness? No SUICIDE SCREENING: The patient was asked, Over the past two weeks, how often have you been bothered by thoughts that you would be better off or of hurting yourself in some way? Not At All SPIRITUAL ASSESSMENT: Are there worship practices or spiritual concerns you want the medication coordinator, your physician, and other health care team members to immediately know about? No Patient advised to call the clinic for any concerns, questions, or symptoms. Patient and/or caregiver verbalized understanding of plan of care. Frail/Elderly Screen: ADL Screen - Mccarthy Index of [place] in Activities of Daily Living Bathing: (3 Points) Receives no assistance (gets in and out of tub by self, if tub is usual means of bathing) Dressing: (3 Points) Gets clothes and gets completely dressed without assistance. Toileting: (3 Points) Goes to toilet room , cleans self, and arranges clothes without assistance (may use object for support such as cane, walker, or wheelchair, and may manage own night bedpan or commode, emptying same next morning) Transferring: (3 Points) Moves in and out of bed and in and out of chair without assistance (may be using object for support, such as cane or walker) Continence: (3 Points) Controls urination and bowel movement completely by self Feeding: (3 Points) Feeds self without assistance Total Score: 18 Points 18 = High (patient independent) 6 = Low (patient very dependent) IADL Screen - Juancarlos Instrumental Activities of Daily Living Scale Ability to use telephone: (1 point) Operates Telephone on own initiative; looks up and dials numbers. Shopping: (1 point) Takes care of all shopping needs independently. Food preparation: (1 point) Plans, prepares, and serves adequate meals independently. Housekeeping: (1 point) Maintains house alone with occasional assistance (heavy work). Laundry: (1 point) Does personal laundry completely. Mode of transportation: (1 point) Travels independently on public transportation or drives own car. Responsibility for own medications: (1 point) Is responsible for taking medications in correct dosages at correct times. Ability to handle finances: (1 point) Manages financial matters independently (budgets, writes checks, pays rent and bills, goes to bank); collects and keeps track of income. Total score: 8 points 8 = High function, independent 0 = Low function, dependent Falls Screen: No falls within the past 12 months. Incontinence Screen: No incontinence. Suicide Screen - V: C-SSRS Screening [place] Suicide Severity Rating Scale (C-SSRS) screener 1. Over the past month, have you wished you were or wished you could go to sleep and not wake up? No 2. Over the past month, have you had any actual thoughts of killing yourself? No 3. Over the past month, have you been thinking about how you might do this? Response not required due to responses to other questions. 4. Over the past month, have you had these thoughts and had some intention of acting on them? Response not required due to responses to other questions. 5. Over the past month, have you started to work out or worked out the details of how to kill yourself? Response not required due to responses to other questions. 6. If yes, at any time in the past month did you intend to carry out this plan? Response not required due to responses to other questions. 7. In your lifetime, have you ever done anything, started to do anything, or prepared to do anything to end your life (for example, collected pills, obtained a gun, gave away valuables, went to the roof but didn't jump)? No 8. If YES, was this within the past 3 months? Response not required due to responses to other questions. FALL RISK OP PB: [place] FALL RISK ASSESSMENT Have you experienced any falls within the last 12 months: 0 = No Secondary Dx: 0 = No Ambulatory Aid: 0 = No Gait/Transferrin = Normal/Bedrest/Immobile Mental status: 0 = Oriented to own ability Medications: 0 = No high risk meds TOTAL SCORE: 0 Score <30 - patient IS NOT at risk for falls. No action at this time. Reassess annually or if needed. Fall Documentation No - Patient did not experience a fall within the last year Sexual Orientation - CP,L,N,P,PH,PS,S,U: The patient thinks of their sexual orientation as: Straight or Heterosexual CCHT: Patient declines participation in CCHT Program at this time. Alcohol Use Screen (AUDIT-C) - V: Alcohol Screen: SCREEN FOR ALCOHOL (AUDIT-C) An alcohol screening test (AUDIT-C) was negative (score=1). 1. How often did you have a drink containing alcohol in the past year? Consider a drink to be a 12 ounce can or bottle of regular beer, 8 ounces of malt liquor, a 5 ounce glass of table wine, or a 1.5 ounce shot of liquor (like scotch, gin, or vodka). Monthly or less 2. How many drinks containing alcohol did you have on a typical day when you were drinking in the past year? One or two drinks 3. How often did you have six or more drinks on one occasion in the past year? Never Tobacco Use Screening - U,L,N,S,PS,M,DE,PH,P: The patient is a former cigarette smoker. The patient has never used other types of tobacco. Depression Screening - V: Perform PHQ-2 A PHQ-2 screen was performed. The score was 0 which is a negative screen for depression. Over the past two weeks, how often have you been bothered by the following problems? 1. Little interest or pleasure in doing things Not at all 2. Feeling down, depressed, or hopeless Not at all Advanced Directive Screen/Teaching Pastor: ADVANCE DIRECTIVE SCREENING: I asked if the patient has an advance directive, and determined that: Patient does not have an Advance Directive. Patient was given form to update and return when completed. ADVANCE DIRECTIVE NOTIFICATION I provided the patient with written notification about advance directives. Level of understanding: Pain Assessment: - PAIN ASSESSMENT: .. Patient reports no pain at this visit. Pain Score = 0. Patient's self identified pain goal: 0 Weight Control/Nutrition Counseling: * Patient declined nutrition and weight screen counseling at this encounter. Patient/Nurse Interview: * * Patient states that questions were answered in a way that was easily understood. * Patient stated that adequate information was received regarding the condition and/or treatment. 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 Narr. - Coronary artery disease ([facility] [id number]) Action: Referral Ordered: Tele-Eye Screening /sandy/ IVIS MATTHEW RN [facility] Signed: 04/30/2024 13:45 04/30/2024 ADDENDUM STATUS: COMPLETED COVID-19 Immunization - L,N,P,PH,U: Moderna Monovalent (Spikevax) Administered: COVID-19 (MODERNA), MRNA, LNP-S, PF, 50 MCG/0.5 ML (AGES 12+ YEARS) Date Administered: Apr 30, 2024 13:30 Red Mud Thickener Operator: MODERNA Meddik. Lot: [id number] Exp Date: Nov 12, 2024 NDC: [id number] Admin Route/Site: INTRAMUSCULAR/LEFT DELTOID Dosage: 0.5mL Vaccine Information Statement(s): COVID-19 MRNA VACCINE (12+ YRS) VACCINE VIS Mar 13, 2024 ([place]) Order By: Policy Administered By: Ivis Shen Vaccine administered without complications. Influenza Immunization - L,N,P,PH,U: Influenza, High-Dose, Trivalent, Preservative Free (Fluzone-Syringe) Administered: INFLUENZA, HIGH-DOSE, TRIVALENT, PF Date Administered: Apr 30, 2024 13:30 Red Mud Thickener Operator: SANOFI PASTEUR Lot: [id number] Exp Date: Nov 24, 2024 NDC: [id number] Admin Route/Site: INTRAMUSCULAR/LEFT DELTOID Dosage: 0.5mL Vaccine Information Statement(s): INFLUENZA(FLU) VACC(INACTIVATED OR RECOMBINANT)VIS Dec 31, 2020 ([place]) Order By: Policy Administered By: Ivis Shen The Influenza Vaccine Information Statement (VIS) was reviewed with the patient/caregiver which lists the benefits and risks of the vaccine and the risks of not receiving the Influenza vaccine. The patient/caregiver denied any prior severe reaction to this vaccine or its components or a severe allergic reaction, such as anaphylaxis, to any vaccine or any injectable therapy. The patient/caregiver gave verbal consent to receive the vaccine. Td / Tdap Immunization - L,N,P,PH,U: Administered: TDAP Date Administered: Apr 30, 2024 13:30 Red Mud Thickener Operator: [employer] Lot: [id number] Exp Date: Feb 22, 2025 [facility]: [id number] Admin Route/Site: INTRAMUSCULAR/RIGHT DELTOID Dosage: 0.5mL Vaccine Information Statement(s): TDAP (TETANUS, DIPHTHERIA, PERTUSSIS) VACCINE VIS Dec 31, 2020 ([place]) Order By: Policy Administered By: Ivis Shen Vaccine Information Sheet (VIS) was given to the patient/caregiver, education regarding adverse reactions was discussed, as well as barriers to learning, if any, were acknowledged. /sandy/ IVIS MATTHEW, PATTIE [place] Signed: 04/30/2024 16:37 IVIS SHEN [facility]
--- OUTSIDE RECORDS SUMMARY | 2024-04-30 08:32 | XMS_ITS | Encounter Summary ---
Author Name [facility] [place] [facility] [place] Address [address] [place] [id number] Care Team Providers Care Rn Staff Name Role Phone LEATHA TRUJILLO Primary Care Provider Unavailabl e Insurance Providers: [...] PART A Nov 25, 2013 PART A [id number] EDUARD DAUGHERTY PATIENT MEDICARE (WNR) MEDICARE (M) PART A Nov 25, 2013 PART A [id number] [phone] EDUARD DAUGHERTY PATIENT Selected Encounter This section includes the information on record at [place] for the Encounter. Date/Time Encounter Type Encounter Description Reason Provider Source Apr 30, 2024 01:32 PM OFFICE O/P EST MOD 30 MIN PRIMARY CARE/MEDICINE ICD-10-CM I25.10 Athscl heart disease of [place] coronary artery w/o ang pctLEATHA Guy IHBonnie Encounter Template Text not used by [place] Assessments - Encounter Diagnoses This section includes the primary and secondary diagnoses documented for the Encounter. Date/Time Primary/Secondary Diagnosis Diagnosis Name Provider Source Apr 30, 2024 02:45 PM PRIMARY Athscl heart disease of [place] coronary artery w/o ang pctrs LEATHA TRUJILLO [place] [facility] Apr 30, 2024 02:45 PM SECONDARY Abdominal aortic aneurysm, without rupture, unspecified LEATHA TRUJILLO [facility] Apr 30, 2024 02:45 PM SECONDARY Chronic obstructive pulmonary disease, unspecified LEATHA TRUJILLO [facility] Apr 30, 2024 02:45 PM SECONDARY Disorder of kidney and ureter, unspecified LEATHA TRUJILLO [facility] Apr 30, 2024 02:45 PM SECONDARY Essential (primary) hypertension LEATHA TRUJILLO [place] [facility] Apr 30, 2024 02:45 PM SECONDARY Occlusion and stenosis of unspecified carotid artery LEATHA TRUJILLO [facility] Apr 30, 2024 02:45 PM SECONDARY Peripheral vascular disease, unspecified LEATHA TRUJILLO [facility] Apr 30, 2024 02:45 PM SECONDARY Prediabetes LEATHA TRUJILLO [facility] Plan of Treatment: Future Appointments (+ 6 months) and Future Tests (+/- 45 days) The Plan of Treatment section includes future care activities for the patient from all [facility]. This section includes future appointments and future orders which are active, pending or scheduled. Future Appointments This section includes appointments that were scheduled to occur 6 months from the date of the Encounter, up to a maximum of 20 appointments. The data comes from all [facility]. Appointment Date/Time Appointment Type Appointme nt Facility Name May 08, 2024 10:45 AM AMBULATORY - MEDICINE [facility] May 30, 2024 02:00 PM AMBULATORY - MEDICINE [place] [facility] Aug 07, 2024 01:00 PM AMBULATORY - MEDICINE [place] [facility] Aug 19, 2024 03:15 PM AMBULATORY - MEDICINE [place] [facility] Oct 29, 2024 11:00 AM AMBULATORY - MEDICINE [place] [facility] Oct 29, 2024 11:30 AM AMBULATORY - NONE [place] [facility] Active, Pending, and Scheduled Orders This section includes a listing of several types of active, pending, and scheduled orders, including clinic medications orders, diagnostic test orders, procedure orders and consult orders; where the start date of the order is 45 days before the date of the Encounter or 45 days after the date of theEncounter. The data comes from all [place] treatment facilities. Test Date/Time Test Type Test Details Facility Name Apr 30, 2024 02:35 PM Consult [id number] Cons Business Practices Supervisor's Choice [facility] [place] [facility] Apr 30, 2024 02:43 PM Consult Order [facility]-NEPHROLOGY [id number] Cons Business Practices Supervisor's [facility] [place] [facility] Lab Results: +/- 30 days of the encounter This section includes the Chemistry and Hematology Lab Results on record with [place] for the patient. Radiology Reports and Pathology Reports are provided separately, in subsequent sections. Lab Results This section contains the Chemistry/Hematology Results that were resulted 30 days before or 30 daysafter the date of the Encounter. Date/Time Source Result Type Result - Unit Interpretation Reference Range Specimen Type Comment Apr 21, 2024 02:06 PM [facility] FOLATE (PB) SERUM Specimen Type: SERUM No comment entered. Ordering Provider: LEATHA TRUJILLO Report Released Date/Time: Apr 21, 2024 02:04 PM Reporting Lab: [place] [facility] [address] [place] [address] Performing Lab: [place] [facility] [address] [place] [address] FOLATE (PB) 6.7 ng/mL L 7-20 Apr 21, 2024 02:06 PM [facility] B12 SERUM Specimen Type: SERUM No comment entered. Ordering Provider: LEATHA TRUJILLO Report Released Date/Time: Apr 21, 2024 02:04 PM Reporting Lab: [place] [facility] [address] [place] [address] Performing Lab: [place] [facility] [address] [place] [address] B12 474 pg/mL 213-816 Apr 21, 2024 02:06 PM [facility] HGA1C BLOOD Specimen Type: BLOOD No comment entered. Ordering Provider: LEATHA TRUJILLO Report Released Date/Time: Apr 21, 2024 02:04 PM Reporting Lab: [place] [facility] [address] [place] [address] Performing Lab: [place] [facility] [address] [place] [address] HGA1C 6.0 4.0-6.0 Apr 21, 2024 02:06 PM [facility] URINE ALBUMIN PROFILE-ih (PB) URINE Specimen Type: URINE No comment entered. Ordering Provider: LEATHA TRUJILLO Report Released Date/Time: Apr 21, 2024 02:04 PM Reporting Lab: [place] [facility] [address] [place] [address] Performing Lab: [place] [facility] [address] [place] [id number] URINE ALBUMIN (PB-STL) 11.30 mg/L 0-30 uACR (PB-MA) 7.55 ug/mg CREATININE URINE/OTHERS 149.74 mg/dL Apr 21, 2024 02:06 PM [facility] VITAMIN D, 25-HYDROXY SERUM Specimen Type: SE RUM No comment entered. Ordering Provider: LEATHA TRUJILLO Report Released Date/Time: Apr 21, 2024 02:04 PM Reporting Lab: [place] [facility] [address] [place] [address] Performing Lab: [place] [facility] [address] [place] [address] VITAMIN D, 25-HYDROXY 58.8 ng/mL 30-96 Apr 21, 2024 02:06 PM [facility] CHOLESTEROL PANEL (PB) PLASMA Specimen Type: P LASMA No comment entered. Ordering Provider: LEATHA TRUJILLO Report Released Date/Time: Apr 21, 2024 02:04 PM Reporting Lab: [place] [facility] [address] [place] [address] Performing Lab: [place] [facility] [address] [place] [address] CHOLESTEROL 157 mg/dL 0-200 TRIGLYCERIDE 211 mg/dL H 0-150 CALCULATED LDL 82.6 mg/dL HDL(New) 32.2 mg/dL L >40 HDL % OF TOTAL CHOLESTEROL (PB) 20.5 >25 Apr 21, 2024 02:06 PM [facility] TSH (MA-PB) SERUM Specimen Typ e: SERUM No comment entered. Ordering Provider: LEATHA TRUJILLO Report Released Date/Time: Apr 21, 2024 02:04 PM Reporting Lab: [place] [facility] [address] [place] [address] Performing Lab: [place] [facility] [address] [place] [facility] TSH 2.844 u[IU]/mL 0.47-5 Apr 21, 2024 02:06 PM [facility] COMPREHENSIVE METABOLIC PANEL PLASMA Specimen Type: PLASMA No comment entered. Ordering Provider: LEATHA TRUJILLO Report Released Date/Time: Apr 21, 2024 02:04 PM Reporting Lab: [place] [facility] [address] [place] [address] Performing Lab: [place] [facility] [address] [place] [facility] CREATININE 1.65 mg/dL H 0.7-1.3 UREA NITROGEN [...] 97.4 76 152/71 18 94 207.7 28 [facility] Social History: Smoking Status (Most current) and Tobacco Use (All prior to encounter date) This section includes the most current, and the historical, smoking and tobacco- related health factors from the [place] facility where the Encounter took place. Current Smoking Status This section includes the most current smoking, or tobacco-related health factor, from the [place] facility where the Encounter took place. Date/Time Current Smoking Status Comment Facil ity Apr 30, 2024 01:30 PM VA-TOBACCO USE FORMER CIGARETTES [facility] Tobacco Use History This section includes a history of the smoking, or tobacco-related health factors, that were collected on or before the date of the Encounter. The data comes from the [place] facility where the Encounter took place. Date/Time Smoking Status/Tobacco Use Comment F acility Apr 30, 2024 01:30 PM VA-TOBACCO USE FORMER CIGARETTES [facility] Apr 27, 2022 08:30 AM VA-TOBACCO FORMER USER [facility] Apr 27, 2022 08:30 AM VA-TOBACCO QUIT 1 TO < 5 YRS [facility] [place] [facility] Jul 27, 2020 10:30 AM VA-TOBACCO FORMER USER [facility] Jul 27, 2020 10:30 AM VA-TOBACCO QUIT < 1 YEAR [facility] Nov 07, 2018 08:42 AM VA-TOBACCO USE 30 YEARS OR MORE [facility] Nov 07, 2018 08:42 AM VA-TOBACCO USE ADVICE [facility] Nov 07, 2018 08:42 AM 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 [facility] Nov 07, 2018 08:42 AM VA-TOBACCO USE MED NO [facility] Nov 07, 2018 08:42 AM VA-TOBACCO USE WI 30 MIN OF WAKE UP [facility] Nov 07, 2018 08:42 AM VA-TOBACCO USER EVERY DAY [facility] Nov 08, 2017 12:59 PM CURRENT TOBACCO USER [facility] Nov 08, 2017 12:59 PM CURRENT TOBACCO US ER (NOT READY TO QUIT) [facility] Nov 08, 2017 12:59 PM TOBACCO CESSATION REFERRAL DECLI GURDEEP [facility] Nov 08, 2017 12:59 PM TOBACCO MEDS OFFERED BUT DECLINE D [facility] Nov 08, 2017 12:59 PM TOBACCO USER OFFERED MEDS [facility] May 02, 2017 07:17 AM CURRENT TOBACCO USER [facility] May 02, 2017 07:17 AM CURRENT TOBACCO US ER (NOT READY TO QUIT) [facility] May 02, 2017 07:17 AM TOBACCO CESSATION REFERRAL DECLI GURDEEP [facility] [place] [facility] May 02, 2017 07:17 AM [...] DECLINE D [place] [facility] May 24, 2010 10:18 AM TOBACCO OFFERED PT MEDS (PROVIDE R) [facility] May 24, 2010 10:18 AM TOBACCO OFFERED STOP SMOKING CLI PARKER [facility] Feb 23, 2010 02:50 PM TOBACCO MEDS OFFERED BUT DECLINE D [facility] Feb 23, 2010 02:50 PM TOBACCO OFFERED PT MEDS (PROVIDE R) [facility] Feb 23, 2010 02:50 PM TOBACCO OFFERED STOP SMOKING CLI PARKER [facility] Nov 23, 2009 02:57 PM TOBACCO MEDS OFFERED BUT DECLINE D [facility] Nov 23, 2009 02:57 PM TOBACCO OFFERED PT MEDS (PROVIDE R) [facility] Nov 23, 2009 02:57 PM TOBACCO OFFERED STOP SMOKING CLI PARKER [facility] Sep 07, 2009 02:06 PM [facility] Sep 07, 2009 02:06 PM TOBACCO MEDS OFFERED BUT DECLINE D [facility] Sep 07, 2009 02:06 PM TOBACCO OFFERED PT MEDS (PROVIDE R) [facility] Sep 07, 2009 02:06 PM TOBACCO OFFERED STOP SMOKING CLI PARKER [facility] Advance Directives: All historical and current Section Date Range: From patient's date of to the date document was created. This section includes ALL of a patient's completed or amended [place] Advance and Rescinded Directives. The entries below indicate that a directive exists for the patient, but an actual copy is not included with this document. The data comes from all [place] facilities. Date Advance Directives Provider Source Nov 21, 2010 ADVANCE DIRECTIVE DISCUSSION ANITRA KRAUS [facility] Radiology Reports: +/- 30 days of [...] the Encounter. The data comes from all [place] treatment facilities. Date/Time Radiology Report Provider Source Apr 22, 2024 10:22 AM LDCT LUNG CANCER S CREENING: ALEXEY DAUGHERTY [id number] -[id number] M Exm Date: APR 22, 2024@10:22 Req Phys: LEATHA TRUJILLO Pat Loc: PB-PHONE LUNG SCREEN (Req'g Lo Img Loc: PB-CT IMAGING Service: Unknown TIMOTEO PRADO [facility] SHEYLA GUERRA [id number] (Case [id number] COMPLETE) LDCT LUNG CANCER SCREENING (CT Detailed) CPT:84128 Reason for Study: LCS Repeat Annual F/U LDCT d/t Incomplete Clinical History: Attending: Leatha Trujillo Contact Number: [phone] 04/09/2024: LRADS 0 Smoking history: 2 ppd x 50 yrs, former smoker, quit 03/28/2020. Report Status: Verified Date Reported: APR 23, 2024 Date Verified: APR 23, 2024 Leasing Machine Tender E-Sig:/ES/FITZ PORTER Report: EXAM: LDCT LUNG CANCER SCREENING ADDITIONAL HISTORY: N/A COMPARISON: April 09, 2024 PROTOCOL: Screening protocol, low dose, non-contrast CT chest was performed at the local [place] facility in accordance with Lung-Rads 2. Additional [...] N/A. Primary Interpreting Staff: FITZ PORTER, RADIOLOGIST (Leasing Machine Tender) /FITZ Montelongo [facility] Apr 09, 2024 10:40 AM LDCT LUNG CANCER S CREENING: ALEXEY DAUGHERTY [id number] -1950 M Exm Date: APR 09, 2024@10:40 Req Phys: IFEOMA VEGA Loc: PB-ADMIN LUNG SCREENING (Req'g Img Loc: PB-CT IMAGING Service: Unknown TIMOTEO PRADO [facility] [place] [place] [address] (Case [id number] COMPLETE) LDCT LUNG CANCER SCREENING (CT Detailed) CPT:52776 Reason for Study: annual LCS Clinical History: [...] 10, 2024 Date Verified: APR 10, 2024 Leasing Machine Tender E-Sig: Report: EXAM: LDCT LUNG CANCER SCREENING ADDITIONAL HISTORY: N/A COMPARISON: CT chest 04/09/2023 and 03/27/2022 PROTOCOL: Screening protocol, low dose, non-contrast CT chest was performed at the local [place] facility in accordance with Lung-Rads 2021. Additional coronal and sagittal reconstructions. MIP reconstructions were reviewed. Secondary computer-aided detection post-processing used. 2378 images were received by the [place] National Teleradiology Program (NTP) for interpretation. RADIATION [...] MODIFIER: N/A. READING PHYSICIAN: Timoteo Lima M.D. -[id number] 04/10/2024 13:48 EST [facility] National Teleradiology Program [phone] (For Medical Practitioner Use Only) Attention Patients / Veterans: If you have questions or concerns about these test results, please contact your ordering provider or primary care team. Primary Interpreting Staff: RADIOLOGY,OUTSIDE SERVICE, Staff Physician / RADIOLOGY,OUTSIDE SERVICE [facility] Encounter Notes: All associated encounter notes This section contains the clinical notes associated to the Encounter. Date/Time Encounter Note(s) Provider Source Apr 30, 2024 01:47 PM PRIMARY CARE PROGR ESS NOTE: LOCAL TITLE: PRIMARY CARE CLINIC PROGRESS NOTE PB STANDARD TITLE: PRIMARY CARE PROGRESS NOTE DATE OF NOTE: APR 30, 2024@13:47 ENTRY DATE: APR 30, 2024@13:47:34 AUTHOR: LEATHA TRUJILLO COSIGNER: URGENCY: STATUS: COMPLETED Berkley is presenting to the clinic today for his/her Telehealth appointment as scheduled. was assured that the Telehealth visit is a private, confidential clinical encounter and will not be recorded. The Telehealth process, procedures and expectations were explained to the patient, allowing time to voice any concerns. Berkley voiced understanding and consented to the Clinic visit. The visit proceeded without difficulty. DATE & TIME:Apr@13:47 CHIEF COMPLAINT: annual exam, review labs transfering from [facility] to my team DELTA HISTORY OF PRESENT ILLNESS: tri exam today no falls negative alcohol positive tobbco 2 ppd for 50 yrs, quit in 2019, did breath hilodmg excersog had fu ct scan needs refills not taking hydroxizyo prastugrel wanst covid flu and tdap today had sleep study, no evidence of cuca,does no toneed cpap but had sleep hypoxia, increasing oxygen to 2 liters nc at bedtime PAST MEDICAL HISTORY: 1) Coronary artery disease (SNOMED CT 45007451) 2) Gastroesophageal reflux disease (SNOMED CT 205140612) 3) HLD - Hyperlipidemia (SNOMED CT 37593865) 4) Moderate chronic obstructive pulmonary disease (SNOMED CT 992316635) 5) HLD - Hyperlipidemia 6) AAA - Abdominal aortic aneurysm 7) Renal Impairment (SCT 307583661) 8) Carotid artery stenosis - had surgery left carotid 2019 9) Prediabetes 10) Hiatal hernia 11) lumbago w scaitica 12) aortoiliac occlussive disease 13) peripheral vascualr disease 14) Arthritis of hip 15) Chronic Rhinitis (SCT 45132928) 16) COPD - Chronic Obstructive Pulmonary Disease (SCT 28032581) 17) Dyspnea 18) Home oxygen supply started 19) ldct SOCIAL HISTORY: lives with Pets: outside dog Tobacco: tobacco ex user, 2 ppd for 50 yrs, quit in 2019, Alcohol: beer once a month 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 RINSE MOUTHPIECE FREQUENTLY TO PREVENT CLOGGING. 2) CLOBETASOL PROPIONATE 0.05% CREAM APPLY TO AFFECTED ACTIVE AREA(S) TWICE A DAY FOR 2 WEEKS APPLY TO RASH OF ARMS. ALTERNATE USING WITH TRIAMCINOLONE. DO NOT USE MORE THAN 2 WEEKS OF THE MONTH. NOT FOR USE ON FACE, GROIN, OR SKIN FOLDS. 3) FLUTICASONE PROP 50MCG 120D NASAL INHL INSTILL 1 ACTIVE SPRAY IN NOSTRIL(S) ONCE A DAY FOR CHRONIC RHINOSINUSITIS (MUST BE USED DIRECTED FOR MINIMUM OF 21 DAYS TO PROVIDE ADEQUATE BENEFITS) 4) HYDROXYZINE HCL 25MG TAB TAKE ONE TABLET BY MOUTH AT ACTIVE BEDTIME FOR ITCHING 5) LORATADINE 10MG TAB TAKE ONE TABLET BY MOUTH ONCE A ACTIVE DAY FOR ALLERGIC RHINITIS ON EMPTY STOMACH 6) OMEPRAZOLE 40MG EC CAP TAKE ONE CAPSULE BY MOUTH ACTIVE EVERY MORNING BEFORE A MEAL FOR GASTROESOPHAGEAL REFLUX DISEASE TAKE 30 MINUTES PRIOR TO FOOD. 7) ROSUVASTATIN CA 40MG TAB TAKE ONE TABLET BY MOUTH ACTIVE ONCE A DAY FOR HIGH CHOLESTEROL 8) TRIAMCINOLONE ACETONIDE 0.1% CREAM APPLY TO ACTIVE AFFECTED AREA(S) TWICE A DAY APPLY TO RASH ON ARMS AND HANDS. NO MORE THAN 2 WEEKS A MONTH. NOT FOR SKIN FOLDS, FACE, OR GROIN. REVIEW OF SYSTEMS: Review of Systems Systemic: Denies fatique, fever, chills, or weight loss CV: Denies chest pain, palpitations Pulm: Denies hemoptysis, wheezing GI: Denies constipation, bloody stools. Musculoskeletal: Denies swelling Neuro: Denies slurred speech Skin: Denies abnormal lesions, denies any new rashes PSYCH: Denies SI/HI PHYSICAL ASSESSMENT: VITAL SIGNS Pulse: 76 (04/30/2024 13:46) Blood Pressure: 152/71 (04/30/2024 13:46) Respiratory Rate: 18 (04/30/2024 13:46) Temperature: 97.4 F [36.3 C] (04/30/2024 13:46) Weight: 207.7 lb [94.21 kg] (04/30/2024 13:46) Height: 72 in [182.9 cm] (11/07/2018 08:41) Pain: 1 (05/01/2023 13:06) GENERAL: Appears in no acute distress. HEENT: Conjunctiva are clear without exudate or gross hemorrhage. Sclera nonicteric. EOM are intact. Ear canals without discharge, Tympanic membrane is without acute changes. Oropharynx is normal in appearance and without swelling or exudate NECK: appearance is normal and without gross masses CARDIAC: Regular rate and rhythm. No JVD RESPIRATORY: CTA bilaterally no rhonchi wheezing or rails. Nonlabored respirations GI: Abdomen normal bowel sounds MUSCULOSKELETAL: No joint effusions, moving extremiteis without difficulty SKIN: Appropriate color for ethnicity. NEUROLOGICAL: The is alert and oriented without distress. Gait is at baseline PSYCHOLOGICAL: Appropriate mood and affect. No suicidal or homicidal ideation. A/P: ASSESSMENT and PLAN 1) Coronary artery disease (SNOMED CT 28400285) 2) Gastroesophageal reflux disease (SNOMED CT 806252998) 3) HLD - Hyperlipidemia (SNOMED CT 39392646) 4) Moderate chronic obstructive pulmonary disease (SNOMED CT 515609899) 5) HLD - Hyperlipidemia 6) AAA - Abdominal aortic aneurysm 7) Renal Impairment (SCT 555886919) 8) Carotid artery stenosis 9) Prediabetes 10) Hiatal hernia 11) lumbago w scaitica 12) aortoiliac occlussive disease 13) peripheral vascualr disease 14) Arthritis of hip 15) Chronic Rhinitis (SCT 85837885) 16) COPD - Chronic Obstructive Pulmonary Disease (SCT 03233814) 17) Dyspnea 18) Home oxygen supply started, 2 liters nc at bedtime / NO CUCA on sleep study, but had nocturnal hypoxia 19) ldct 03/2024 = nodules, needs fu in 6 months tri exam today no falls negative alcohol tobbaco 2 ppd for 50 yrs, quit in 2019 did breath holding excersing and had fu ct scan needs refills not taking hydroxizyo prastugrel wants covid flu and tdap today had sleep study, no evidence of cuca,does no toneed cpap but had sleep hypoxia, increasing oxygen to 2 liters nc at bedtime 136/[address] [facility] 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 Stable. Discussed medications with patient; med rec completed. Continue current regimen as prescribed by PCP and specialists. RTC as needed if developing any new or worsening symptoms. Please notify PACT with medication changes or for orders coordination as needed if seen by a specialist in the future. Discussed with patient that in the event of community imaging / testing being ordered in the future, once the imaging / testing has been completed, please notify PACT of completion at outside facility if not called with results within 1 week by a [facility] member; this is due to intermittent lapses in notification of imaging completion within [facility]. -Follow-up with me every April for annual labs and annual exam -Follow up -Follow-up with me as needed. All questions answered; agrees to plan of care. Follow up as listed above, annually, and as needed. Keep all appointments. Medications Reconciled. HTN Assess for Elevated BP>=140/90 - N,P,PH: The patient's medication regimen was adjusted to improve blood pressure control. Comment: adding metoprolol Initial Lung Cancer Screen (Provider): No clinical exclusions, patient is a current candidate for the lung cancer screening program. Patient agrees to lung cancer screening. Lung cancer screening information provided and low dose CT will be ordered. /sandy/ LEATHA TRUJILLO MD Signed: 04/30/2024 14:38 [facility]
--- OUTSIDE RECORDS SUMMARY | 2024-05-08 05:45 | XMS_ITS | Encounter Summary ---
Author Name [facility] [place] [facility] [place] [facility] [place] Address [address] [place] [id number] Care Team Providers Care Professional Fee Coder Name Role Phone MARIOJULIUS HorvathE Primary Care [...] PART A Nov 25, 2013 PART A [id number] [phone] EDUARD DAUGHERTY TYRELL PATIENT MEDICARE (WNR) MEDICARE (M) PART A Nov 25, 2013 PART A [id number] EDUARD DAUGHERTY TYRELL PATIENT Selected Encounter This section includes the information on record at [place] for the Encounter. Date/Time Encounter Type Encounter Description Reason Provider Source May 08, 2024 10:45 AM OFF/OP EST SEPTEMBER X REQ PHY/QHP PRIMARY CARE/MEDICINE ICD-10-CM J44.9 Chronic obstructive pulmonary disease, unspecified CUSTREDMELANIA Encounter Template Text not used by VA Assessments - Encounter Diagnoses This section includes the primary and secondary diagnoses documented for the Encounter. Date/Time Primary/Secondary Diagnosis Diagnosis Name Provider Source May 08, 2024 06:28 PM PRIMARY Chronic obstructive pulmonary disease, unspecified CUSTRED,MELANIA Saucedo [facility] Plan of Treatment: Future Appointments (+ 6 months) and Future Tests (+/- 45 days) The Plan of Treatment section includes future care activities for the patient from [facility] This section includes future appointments and future orders which are active, pending or scheduled. Future Appointments This section includes appointments that were scheduled to occur 6 months from the date of the Encounter, up to a maximum of 20 appointments. The data comes from all [facility]. Appointment Date/Time Appointment Type Appointme nt Facility Name May 30, 2024 02:00 PM AMBULATORY [place] [facility] Aug 07, 2024 01:00 PM AMBULATORY - [place]IC[place] [facility] Aug 19, 2024 03:15 PM AMBULATORY - MEDICINE [place] [facility] Oct 29, 2024 11:00 AM AMBULATORY - MEDICINE [place] [facility] Oct 29, 2024 11:30 AM AMBULATORY - NONE [place] [facility] Active, Pending, and Scheduled Orders This section includes a listing of several types of active, pending, and scheduled orders, including clinic medications orders, diagnostic test orders, procedure orders and consult orders; where the start date of the order is 45 days before the date of the Encounter or 45 days after the date of theEncounter. The data comes from all [facility]. Test Date/Time Test Type Test Details Facility Name Apr 30, 2024 02:35 PM Consult Order COMMUNITY [id number] [facility] [employer] Apr 30, 2024 02:43 PM Consult Order COMMUNITY [facility]-NEPHROLOGY [id number] [facility] [employer] [facility] Lab Results: +/- 30 days of the encounter This section includes the Chemistry and Hematology Lab Results on record with [place] for the patient. Radiology Reports and Pathology Reports are provided separately, in subsequent sections. Lab Results This section contains the Chemistry/Hematology Results that were resulted 30 days before or 30 daysafter the date of the Encounter. Date/Time Source Result Type Result - Unit Interpretation Reference Range Specimen Type Comment Apr 21, 2024 02:06 PM [facility] FOLATE (PB) SERUM Specimen Type: SERUM No comment entered. Ordering Provider: LEATHA TRUJILLO Report Released Date/Time: Apr 21, 2024 02:04 PM Reporting Lab: [place] [facility] [address] [place] [address] Performing Lab: [place] [facility] [address] [place] [address] FOLATE (PB) 6.7 ng/mL L 7-20 Apr 21, 2024 02:06 PM [facility] B12 SERUM Specimen Type: SERUM No comment entered. Ordering Provider: LEATHA TRUJILLO Report Released Date/Time: Apr 21, 2024 02:04 PM Reporting Lab: [place] [facility] [address] [place] [address] Performing Lab: [place] [facility] [address] [place] [address] B12 474 pg/mL 213-816 Apr 21, 2024 02:06 PM [facility] HGA1C BLOOD Specimen Type: BLOOD No comment entered. Ordering Provider: LEATHA TRUJILLO Report Released Date/Time: Apr 21, 2024 02:04 PM Reporting Lab: [place] [facility] [address] [place] [address] Performing Lab: [place] [facility] [address] [place] [address] HGA1C 6.0 4.0-6.0 Apr 21, 2024 02:06 PM [facility] URINE ALBUMIN PROFILE-ih (PB) URINE Specimen Type: URINE No comment entered. Ordering Provider: LEATHA TRUJILLO Report Released Date/Time: Apr 21, 2024 02:04 PM Reporting Lab: [place] [facility] [address] [place] [address] Performing Lab: [place] [facility] [address] [place] [address] URINE ALBUMIN (PB-STL) 11.30 mg/L 0-30 uACR (PB-MA) 7.55 ug/mg CREATININE URINE/OTHERS 149.74 mg/dL Apr 21, 2024 02:06 PM [facility] CHOLESTEROL PANEL (PB) PLASMA Specimen Type: P LASMA No comment entered. Ordering Provider: LEATHA TRUJILLO Report Released Date/Time: Apr 21, 2024 02:04 PM Reporting Lab: [place] [facility] [address] [place] [address] Performing Lab: [place] [facility] [address] [place] [address] CHOLESTEROL 157 mg/dL 0-200 TRIGLYCERIDE 211 mg/dL H 0-150 CALCULATED LDL 82.6 mg/dL HDL(New) 32.2 mg/dL L >40 HDL % OF TOTAL CHOLESTEROL (PB) 20.5 >25 Apr 21, 2024 02:06 PM [facility] VITAMIN D, 25-HYDROXY SERUM Specimen Type: SE RUM No comment entered. Ordering Provider: LEATHA TRUJILLO Report Released Date/Time: Apr 21, 2024 02:04 PM Reporting Lab: [place] [facility] [address] [place] [facility] Performing Lab: [place] [facility] [address] [place] [facility] VITAMIN D, 25-HYDROXY 58.8 ng/mL 30-96 Apr 21, 2024 02:06 PM [facility] TSH (MA-PB) SERUM Specimen Typ e: SERUM No comment entered. Ordering Provider: LEATHA TRUJILLO Report Released Date/Time: Apr 21, 2024 02:04 PM Reporting Lab: [place] [facility] [address] [place] [address] Performing Lab: [place] [facility] [address] [place] [address] TSH 2.844 u[IU]/mL 0.47-5 Apr 21, 2024 02:06 PM [facility] COMPREHENSIVE METABOLIC PANEL PLASMA Specimen Type: PLASMA No comment entered. Ordering Provider: LEATHA TRUJILLO Report Released Date/Time: Apr 21, 2024 02:04 PM Reporting Lab: [place] [facility] [address] [place] [address] Performing Lab: [place] [facility] [address] [place] [address] CREATININE 1.65 mg/dL H 0.7-1.3 UREA NITROGEN [...] and tobacco- related health factors from the [place] facility where the Encounter took place. Current Smoking Status This section includes the most current smoking, or tobacco-related health factor, from the [place] facility where the Encounter took place. Date/Time Current Smoking Status Comment Facil ity Apr 30, 2024 01:30 PM VA-TOBACCO USE FORMER CIGARETTES [facility] Tobacco Use History This section includes a history of the smoking, or tobacco-related health factors, that were collected on or before the date of the Encounter. The data comes from the [place] facility where the Encounter took place. Date/Time Smoking Status/Tobacco Use Comment F acility Apr 30, 2024 01:30 PM VA-TOBACCO USE FORMER CIGARETTES [facility] Apr 27, 2022 08:30 AM VA-TOBACCO FORMER USER [facility] Apr 27, 2022 08:30 AM VA-TOBACCO QUIT 1 TO < 5 YRS [facility] Jul 27, 2020 10:30 AM VA-TOBACCO FORMER USER [facility] Jul 27, 2020 10:30 AM VA-TOBACCO QUIT < 1 YEAR [facility] Nov 07, 2018 08:42 AM VA-TOBACCO USE 30 YEARS OR MORE [facility] Nov 07, 2018 08:42 AM VA-TOBACCO USE ADVICE [facility] Nov 07, 2018 08:42 AM VA-TOBACCO USE 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 [facility] Nov 07, 2018 08:42 AM VA-TOBACCO USE MED NO [facility] Nov 07, 2018 08:42 AM VA-TOBACCO USE WI 30 MIN OF WAKE UP [facility] Nov 07, 2018 08:42 AM VA-TOBACCO USER EVERY DAY [place] [facility] Nov 08, 2017 [...] 2017 07:17 AM TOBACCO USER OFFERED MEDS [place] [facility] Nov 08, 2016 07:23 AM CURRENT TOBACCO USER [facility] Nov 08, 2016 07:23 AM CURRENT TOBACCO US ER (NOT READY TO QUIT) [place] [facility] Nov 08, 2016 07:23 AM TOBACCO CESSATION REFERRAL DECLI GURDEEP [place] [facility] Nov 08, 2016 07:23 AM TOBACCO CESSATION REFERRAL OFFER ED [place] [facility] Nov 08, 2016 07:23 AM TOBACCO MEDS OFFERED BUT DECLINE D [place] [facility] Nov 08, 2016 07:23 AM TOBACCO USER OFFERED MEDS [place] [facility] Nov 08, 2015 07:34 AM CURRENT TOBACCO USER [facility] Nov 08, 2015 07:34 AM TOBACCO OFFERED STOP SMOKING CLI [facility] [place] [facility] May 10, 2015 08:04 AM TOBACCO MEDS OFFERED BUT DECLINE D [place] [facility] May 10, 2015 08:04 AM TOBACCO OFFERED PT MEDS (PROVIDE R) [facility] May 10, 2015 08:04 AM TOBACCO OFFERED STOP SMOKING CLI [facility] [place] [facility] Jan 20, 2014 10:43 AM CURRENT TOBACCO USER [place] [facility] Jan 20, 2014 10:43 AM TOBACCO OFFERED STOP SMOKING CLI [facility] [place] [facility] Jun 19, 2012 01:13 PM CURRENT TOBACCO USER [place] [facility] Jun 19, 2012 01:13 PM TOBACCO OFFERED STOP SMOKING CLI PARKER [facility] [place] [facility] Sep 21, 2011 11:10 AM TOBACCO MEDS OFFERED BUT DECLINE D [facility] Sep 21, 2011 11:10 AM TOBACCO OFFERED PT MEDS (PROVIDE R) [facility] Sep 21, 2011 11:10 AM TOBACCO OFFERED STOP SMOKING CLI [facility] [place] [facility] Nov 21, 2010 01:01 PM CURRENT TOBACCO USER [facility] Nov 21, 2010 01:01 PM TOBACCO OFFERED PT MEDS (PROVIDE R) [facility] Nov 21, 2010 01:01 PM TOBACCO OFFERED STOP SMOKING CLI PARKER [facility] Nov 21, 2010 01:01 PM TOBACCO OFFERRED PT MEDS (PROVID ER) [facility] May 24, 2010 10:18 AM TOBACCO MEDS OFFERED BUT DECLINE D [facility] May 24, 2010 10:18 AM TOBACCO OFFERED PT MEDS (PROVIDE R) [facility] May 24, 2010 10:18 AM TOBACCO OFFERED STOP SMOKING CLI PARKER [facility] Feb 23, 2010 02:50 PM TOBACCO MEDS OFFERED BUT DECLINE D [facility] Feb 23, 2010 02:50 PM TOBACCO OFFERED PT MEDS (PROVIDE R) [facility] Feb 23, 2010 02:50 PM TOBACCO OFFERED STOP SMOKING CLI PARKER [facility] Nov 23, 2009 02:57 PM TOBACCO MEDS OFFERED BUT DECLINE D [facility] Nov 23, 2009 02:57 PM TOBACCO OFFERED PT MEDS (PROVIDE R) [facility] Nov 23, 2009 02:57 PM TOBACCO OFFERED STOP SMOKING CLI PARKER [facility] Sep 07, 2009 02:06 PM CURRENT TOBACCO USER [facility] Sep 07, 2009 02:06 PM TOBACCO MEDS OFFERED BUT DECLINE D [facility] Sep 07, 2009 02:06 PM TOBACCO OFFERED PT MEDS (PROVIDE R) [facility] Sep 07, 2009 02:06 PM TOBACCO OFFERED STOP SMOKING CLI PARKER [facility] Advance Directives: All historical and current Section Date Range: From patient's date of to the date document was created. This section includes ALL of a patient's completed or amended VA Advance and Rescinded Directives. The entries below indicate that a directive exists for the patient, but an actual copy is not included with this document. The data comes from all [place] facilities. Date Advance Directives Provider Source Nov 21, 2010 ADVANCE DIRECTIVE DISCUSSION ANITRA KRAUS [facility] Radiology Reports: +/- 30 days of [...] the Encounter. The data comes from all [place] treatment facilities. Date/Time Radiology Report Provider Source Apr 22, 2024 10:22 AM LDCT LUNG CANCER S CREENING: ALEXEY DAUGHERTY [id number] -1950 M Exm Date: APR 22, 2024@10:22 Req Phys: LEATHA TRUJILLO Pat Loc: PB-PHONE LUNG SCREEN (Req'g Lo Img Loc: PB-CT IMAGING Service: Unknown [place] [address] (Case [id number] COMPLETE) LDCT LUNG CANCER SCREENING (CT Detailed) CPT:71285 Reason for Study: LCS Repeat Annual F/U LDCT d/t Incomplete Clinical History: Attending: Leatha Trujillo Contact Number: [id number] 04/09/2024: LRADS 0 Smoking history: 2 ppd x 50 yrs, former smoker, quit 03/28/2020. Report Status: Verified Date Reported: APR 23, 2024 Date Verified: APR 23, 2024 Regulatory Scientist E-Sig:/ES/FITZ PORTER Report: EXAM: LDCT LUNG CANCER SCREENING ADDITIONAL HISTORY: N/A COMPARISON: April 09, 2024 PROTOCOL: Screening protocol, low dose, non-contrast CT chest was performed at the local [place] facility in accordance with Lung-Rads 2. Additional [...] N/A. Primary Interpreting Staff: FITZ PORTER RADIOLOGIST (Regulatory Scientist) /FITZ Montelongo [facility] Apr 09, 2024 10:40 AM LDCT LUNG CANCER S CREENING: TIERRADALEALEXEY PAUL [id number] -1950 M Exm Date: APR 09, 2024@10:40 Req Phys: IFEOMA VEGA Loc: PB-ADMIN LUNG SCREENING (Req'g Img Loc: PB-CT IMAGING Service: Unknown TIMOTEO PRADO [facility] [place] [address] (Case [id number] COMPLETE) LDCT LUNG CANCER SCREENING (CT Detailed) CPT:36033 Reason for Study: annual LCS Clinical History: [...] 10, 2024 Date Verified: APR 10, 2024 Regulatory Scientist E-Sig: Report: EXAM: LDCT LUNG CANCER SCREENING ADDITIONAL HISTORY: N/A COMPARISON: CT chest 04/09/2023 and 03/27/2022 PROTOCOL: Screening protocol, low dose, non-contrast CT chest was performed at the local [place] facility in accordance with Lung-Rads 2021. Additional coronal and sagittal reconstructions. MIP reconstructions were reviewed. Secondary computer-aided detection post-processing used. 2378 images were received by the [place] National Teleradiology Program (NTP) for interpretation. RADIATION [...] MODIFIER: N/A. READING PHYSICIAN: Timoteo Lima M.D. -[phone] 04/10/2024 13:48 EST [facility] National Teleradiology Program [phone] (For Medical Practitioner Use Only) Attention Patients / Veterans: If you have questions or concerns about these test results, please contact your ordering provider or primary care team. Primary Interpreting Staff: RADIOLOGY,OUTSIDE SERVICE, Staff Physician / RADIOLOGY,OUTSIDE SERVICE ARELI CARRION [facility] Encounter Notes: All associated encounter notes This section contains the clinical notes associated to the Encounter. Date/Time Encounter Note(s) Provider Source May 08, 2024 11:45 AM NURSING PROGRESS N OTE: LOCAL TITLE: NURSING NOTE PB STANDARD TITLE: NURSING PROGRESS NOTE DATE OF NOTE: MAY 08, 2024@11:45 ENTRY DATE: MAY 08, 2024@18:20:59 AUTHOR: MELANIA DEL ROSARIO EXP COSIGNER: URGENCY: STATUS: COMPLETED Irwin presents to clinic today for oxygen retesting. is alert and oriented with dypsnea on exertion. Allowed to rest prior to testing. Oxygen saturation at rest on room air 94%. With exercise oxygen declined to 87% but recovered to 94% with 2L nasal cannula. Sleep study also indicates sleep hypoxia requesting 2L at HS also. Will place comment on oxygen consult and alert respiratory department. VS today 97.8, HR 56, RR 20, BP 140/65. /sandy/ MELANIA MATTHEW, RN [facility] Signed: 05/08/2024 18:27 MELANIA DEL ROSARIO [facility]
--- OUTSIDE RECORDS SUMMARY | 2024-10-28 05:35 | XMS_ITS ---
Author Name [facility] [place] [facility] [place] Address [address] [place] [address] Care Team Providers Care Telemarketing Fundraiser Name Role Phone GLENYSYAMILA MELTON Primary Care [...] PART A Nov 25, 2013 PART A [id number] TIERRADALEEDUARD TYRELL PATIENT MEDICARE (WNR) MEDICARE (M) PART A Nov 25, 2013 PART A [id number] EDUARD DAUGHERTY PATIENT Selected Encounter This section includes the information on record at [place] for the Encounter. Date/Time Encounter Type Encounter Description Reason Pro vider Source Oct 28, 2024 10:35 AM Outpatient Encounter ADMIN PAT ACTIVTIES (MASNONCT) IHE Encounter Template Text not used by [place] Plan of Treatment: Future Appointments (+ 6 [...] 20 appointments. The data comes from all [facility]. Appointment Date/Time Appointment Type Appointme nayely Facility Name Oct 29, 2024 11:00 AM AMBULATORY - MEDICINE [place] [facility] Oct 29, 2024 11:30 AM AMBULATORY - NONE [place] [facility] Jan 06, 2025 10:40 AM AMBULATORY - MEDICINE [place] [facility] Apr 29, 2025 12:45 PM AMBULATORY - MEDICINE [facility] Apr 29, 2025 12:47 PM AMBULATORY - MEDICINE [facility] Social History: Smoking Status (Most current) [...] 2021 03:40 PM PREVIOUS SMOKER [place] [facility] Advance Directives: All historical and current Section Date Range: From patient's date of to the date document was created. This section includes ALL of a patient's completed or amended [place] Advance and Rescinded Directives. The entries below indicate that a directive exists for the patient, but an actual copy is not included with this document. The data comes from all [facility]. Date Advance Directives Provider Source Nov 21, 2010 ADVANCE DIRECTIVE DISCUSSION ANITRA KRAUS [facility] Radiology Reports: +/- 30 days of [...] the Encounter. The data comes from all [facility]. Date/Time Radiology Report Provider Source Oct 29, 2024 09:46 AM LDCT LCS 1, 3 OR 6 MONTH FOLLOW UP: ALEXEY DAUGHERTY [id number] -1950 M Exm Date: OCT 29, 2024@09:46 Req Phys: YAMILA TRUJILLO Pat Loc: PB-ADMIN LUNG SCREENING (Req'g Img Loc: PB-CT IMAGING Service: Unknown TIMOTEO PRADO [facility] [place] [address] (Case [id number] COMPLETE) LDCT LCS 1, 3 OR 6 MONTH FOLLOW U(CT Detailed) CPT:68002 Reason for Study: LCS 6 Month F/U LDCT LRADS 3 Clinical History: Smoking Hx: 2ppd x 50yrs. Quit in . Report Status: Verified Date Reported: OCT 29, 2024 Date Verified: OCT 29, 2024 Laboratory Associate E-Sig: Report: EXAM: LDCT LCS 1, 3 OR 6 MONTH FOLLOW UP ADDITIONAL HISTORY: N/A COMPARISON: April 22, 2024 PROTOCOL: Screening protocol, low dose, non-contrast CT chest was performed at the local [place] facility in accordance with Lung-Rads 2021. Additional coronal and sagittal reconstructions. MIP reconstructions were reviewed. 2007 images were received by the [place] National Teleradiology Program (NTP) for interpretation. RADIATION DOSE: DLP: 104 mGy*cm INDEX NODULE: No suspicious pulmonary nodule. Unremarkable thyroid. Left common carotid artery stent in situ. Coronary artery disease status post stenting. No pericardial effusion. No pleural effusion. No axillary adenopathy. Stable nonspecific borderline left supraclavicular node. Mild mediastinal and hilar adenopathy, nonspecific, not significantly changed. Severe emphysema. 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 Scattered subcentimeter nodules are stable. Incidentally imaged upper abdomen demonstrates dense vascular calcifications likely status post stenting, of aortic branch vessels. No aggressive osseous lesion Impression: LUNG-RADS: 2: Benign. Scattered subcentimeter nodules are stable. RECOMMENDATION: [address] follow-up, if patient meets screening criteria. LUNG-RADS MODIFIER: S: Findings unrelated to lung cancer. Severe emphysema. 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 Stable nonspecific mediastinal and hilar adenopathy, suspect reactive given the extent of parenchymal chronic disease, may be followed on routine screening READING PHYSICIAN: Kel Lopes -[phone] 10/29/2024 14:56 EDT [facility] National Teleradiology Program [phone] (For Medical Practitioner Use Only) Attention Patients / Veterans: If you have questions or concerns about these test results, please contact your ordering provider or primary care team. Primary Interpreting Staff: RADIOLOGY,OUTSIDE SERVICE, Staff Physician / RADIOLOGY,OUTSIDE SERVICE [facility] Encounter Notes: All associated encounter notes This section contains the clinical notes associated to the Encounter. Date/Time Encounter Note(s) Provider Source Oct 28, 2024 10:35 AM ADMINISTRATIVE NOT E: LOCAL TITLE: ADMINISTRATIVE NOTE PB STANDARD TITLE: ADMINISTRATIVE NOTE DATE OF NOTE: OCT 28, 2024@10:35 ENTRY DATE: OCT 28, 2024@10:35:34 AUTHOR: ROBBIE DELGADO COSIGNER: URGENCY: STATUS: COMPLETED ADMINISTRATIVE NOTE PB Has ADDENDA 1st attempt to contact patient for Tele Eye Care at risk Screening. left message to return call. /sandy/ ROBBIE DELGADO TCT Signed: 10/28/2024 10:35 10/28/2024 ADDENDUM STATUS: COMPLETED patient retrned call to schedule Eye Care at-Risk Screening for tomorrow. patient understood & stated he would be here. /anant DELGADO TCT Signed: 10/28/2024 11:30 ROBBIE DELGADO MART[facility]
--- OUTSIDE RECORDS SUMMARY | 2024-10-30 07:24 | XMS_ITS | Encounter Summary ---
Author Name [facility] [place] [facility] [place] Address [address] [place] [id number] Care Team Providers Care Patient Consumer Marketer Name Role Phone GLENYSYAMILA MELTON Primary Care [...] PART A Nov 25, 2013 PART A [id number] [phone] TIERRAEDUARD HUNTER PATIENT MEDICARE (WNR) MEDICARE (M) PART A Nov 25, 2013 PART A [id number] EDUARD DAUGHERTY PATIENT Selected Encounter This section includes the information on record at [place] for the Encounter. Date/Time Encounter Type Encounter Description Reason Provider Source Oct 30, 2024 12:24 PM Outpatient Encounter ADMIN PAT ACTIVTIES (MASNONCT) GEE SCHMIDT Encounter Template Text not used by [place] Plan of Treatment: Future Appointments (+ 6 [...] 20 appointments. The data comes from all [place] treatment facilities. Appointment Date/Time Appointment Type Appointme nt Facility Name Jan 06, 2025 10:40 AM AMBULATORY - MEDICINE [facility] [facility] Apr 29, 2025 12:45 PM AMBULATORY - MEDICINE [facility] Apr 29, 2025 12:47 PM AMBULATORY - MEDICINE [facility] Social History: Smoking Status (Most current) and Tobacco Use (All prior to encounter date) This section includes the most current, and the historical, smoking and tobacco- related health factors from the [place] facility where the Encounter took place. Current Smoking Status This section includes the most current smoking, or tobacco-related health factor, from the [place] facility where the Encounter took place. Date/Time Current Smoking Status Leandro noriega Jul 14, 2021 03:40 PM PREVIOUS SMOKER [facility] Advance Directives: All historical and current Section Date Range: From patient's date of to the date document was created. This section includes ALL of a patient's completed or amended [place] Advance and Rescinded Directives. The entries below indicate that a directive exists for the patient, but an actual copy is not included with this document. The data comes from all [place] facilities. Date Advance Directives Provider Source Nov 21, 2010 ADVANCE DIRECTIVE DISCUSSION ANITRA KRAUS [facility] Radiology Reports: +/- 30 days [...] the Encounter. The data comes from all [place] treatment facilities. Date/Time Radiology Report Provider Source Oct 29, 2024 09:46 AM LDCT LCS 1, 3 OR 6 MONTH FOLLOW UP: ALEXEY DAUGHERTY [id number] -[id number] M Exm Date: OCT 29, 2024@09:46 Req Phys: YAMILA TRUJILLO Loc: PB-ADMIN LUNG SCREENING (Req'g Img Loc: PB-CT IMAGING Service: Unknown TIM[facility] PRADO [facility] [place], [place] [id number] (Case [id number] COMPLETE) LDCT LCS 1, 3 OR 6 MONTH FOLLOW U(CT Detailed) CPT:21250 Reason for Study: LCS 6 Month F/U LDCT LRADS 3 Clinical History: Smoking Hx: 2ppd x 50yrs. Quit in '20. Report Status: Verified Date Reported: OCT 29, 2024 Date Verified: OCT 29, 2024 Schedule Planning Manager E-Sig: Report: EXAM: LDCT LCS 1, 3 OR 6 MONTH FOLLOW UP ADDITIONAL HISTORY: N/A COMPARISON: April 22, 2024 PROTOCOL: Screening protocol, low dose, non-contrast CT chest was performed at the local [place] facility in accordance with Lung-Rads 2021. Additional coronal and sagittal reconstructions. MIP reconstructions were reviewed. 2007 images were received by the [place] National Teler[facility] (NTP) for interpretation. RADIATION [...] on routine screening READING PHYSICIAN: Kel Lopes -[id number] 10/29/2024 14:[address] [facility] National Teleradiology Program [phone] (For Medical Practitioner Use Only) Attention Patients / Veterans: If you have questions or concerns about these test results, please contact your ordering provider or primary care team. Primary Interpreting Staff: RADIOLOGY,OUTSIDE SERVICE, Staff Physician / RADIOLOGY,OUTSIDE SERVICE ARELI CARRION [facility] Encounter Notes: All associated encounter notes This section contains the clinical notes associated to the Encounter. Date/Time Encounter Note(s) Provider Source Nov 10, 2024 04:24 PM ADDENDUM: LOCAL TITLE: Addendum STANDARD TITLE: ADDENDUM DATE OF NOTE: NOV 10, 2024@16:24:16 ENTRY DATE: NOV 10, 2024@16:24:17 AUTHOR: YAMILA TRUJILLO COSIGNER: URGENCY: STATUS: COMPLETED Please call the patient and let him know that because of his severe emphysema on his LDCT scan which was an incidental finding and we know that he has COPD. I would like to make sure that he is taking his inhalers it appears that some of them have fallen off the list since he has stopped seeing Dr. Barrios the early childhood assistant who left from [facility]. I am ordering them again. Please educate he needs to take 2 inhalers all the time as prescribed and the albuterol is to be used as needed. /es/ YAMILA TRUJILLO MD Signed: 11/10/2024 16:30 Receipt Acknowledged By: 11/11/2024 11:24 /es/ ANN DELEON LPN [facility] --- Original Document --- 10/30/24 LDCT FOLLOW-UP NOTE PB: completed LCS LDCT on 10/29/2024, LRADS 2. LCS RN will notify [facility] with results and radiology recommendations for 12 month f/u. PCP to review incidental findings and address as necessary: LUNG-RADS MODIFIER: S: Findings unrelated to lung cancer. Severe emphysema. 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 Stable nonspecific mediastinal and hilar adenopathy, suspect reactive given the extent of parenchymal chronic disease, may be followed on routine screening. If there are any questions, please contact the PB LCS Wellness Assistant, Mono Reyes APRN, at extension [phone]. Thank you Phone contact to [facility] at . Verified by name/. Informed LDCT results completed 10/29/2024, LRADS 2, and radiology recommendation of 12 month f/u LDCT. [facility] is former smoker, 2 ppd x 50 years, quit March 2020 and has remained smoke-free since that date. Congratulated on quitting and encouraged to remain smoke free as is best for overall health. Voiced understanding, agrees with 12 month f/u plan, denies any questions or concerns. Informed to f/u with PCP for any interval questions or concerns. Appreciation expressed for call. TRACKING OF NODULE INDICATED: Date of current image: Date: October 29, 2024 Lung RADS Score: 2 Incidental Findings: The following *INCIDENTAL FINDINGS* were noted: Other: As noted above. I am notifying the Primary Care Provider for information, and for follow-up of incidental findings, if indicated. Plan: Interval until next LDCT scan is due: 12 months Patient Notification of results: Patient contacted by telephone. /sandy/ VIPUL Akhtar, RN LCS Program Signed: 10/30/2024 12:35 Receipt Acknowledged By: 11/11/2024 08:37 /sandy/ YAMILA BEVERLY MD [facility] Oct 30, 2024 12:24 PM PRIMARY CARE DIAGN OSTIC STUDY NOTE: LOCAL TITLE: LDCT FOLLOW-UP NOTE PB STANDARD TITLE: PRIMARY CARE DIAGNOSTIC STUDY NOTE DATE OF NOTE: OCT 30, 2024@12:24 ENTRY DATE: OCT 30, 2024@12:24:36 AUTHOR: GEE SCHMIDT EXP COSIGNER: URGENCY: STATUS: COMPLETED LDCT FOLLOW-UP NOTE PB Has ADDENDA Man completed LCS LDCT on 10/29/2024, LRADS 2. LCS RN will notify [facility] with results and radiology recommendations for 12 month f/u. PCP to review incidental findings and address as necessary: LUNG-RADS MODIFIER: S: Findings unrelated to lung cancer. Severe emphysema. 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 Stable nonspecific mediastinal and hilar adenopathy, suspect reactive given the extent of parenchymal chronic disease, may be followed on routine screening. If there are any questions, please contact the LCS Wellness Assistant, Mono Reyes APRN, at extension [phone]. Thank you Phone contact to Man at . Verified by name/. Informed LDCT results completed 10/29/2024, LRADS 2, and radiology recommendation of 12 month f/u LDCT. [place] is former smoker, 2 ppd x 50 years, quit March 2020 and has remained smoke-free since that date. Congratulated on quitting and encouraged to remain smoke free as is best for overall health. Voiced understanding, agrees with 12 month f/u plan, denies any questions or concerns. Informed to f/u with PCP for any interval questions or concerns. Appreciation expressed for call. TRACKING OF NODULE INDICATED: Date of current image: Date: October 29, 2024 Lung RADS Score: 2 Incidental Findings: The following *INCIDENTAL FINDINGS* were noted: Other: As noted above. I am notifying the Primary Care Provider for information, and for follow-up of incidental findings, if indicated. Plan: Interval until next LDCT scan is due: 12 months Patient Notification of results: Patient contacted by telephone. /sandy/ VIPUL Akhtar, RN LCS Program Signed: 10/30/2024 12:35 Receipt Acknowledged By: 11/11/2024 08:37 /sandy/ YAMILA TRUJILLO MD 11/10/2024 ADDENDUM STATUS: COMPLETED Please call the patient and let him know that because of his severe emphysema on his LDCT scan which was an incidental finding and we know that he has COPD. I would like to make sure that he is taking his inhalers it appears that some of them have fallen off the list since he has stopped seeing Dr. Barrios the early childhood assistant who left from [facility]. I am ordering them again. Please educate he needs to take 2 inhalers all the time as prescribed and the albuterol is to be used as needed. /sandy/ YAMILA TRUJILLO MD Signed: 11/10/2024 16:30 Receipt Acknowledged By: * AWAITING SIGNATURE * MELANIA DEL ROSARIO * AWAITING SIGNATURE * ANN DELEON SONJIA [place] [facility]
[2024-12-06] VITALS (128 sets, daily range): BP systolic 115–168; BP diastolic 59–106; PULSE 57–101; RESP 13–27; TEMP 36.7–36.9; O2SAT 81–98; BMI 27.1; BMI 25.3
--- OUTSIDE RECORDS SUMMARY | 2024-12-06 02:39 | XMS_ITS | Continuity of Care Document ---
Author Name [facility] Organization [facility] Care Team Providers Care Flexible Nanny Name Role Phone [facility] Unavailable Unavailable Problems Combined list of problems from Department of Defense and Veterans Affairs facilities. It does not include entries that were removed or entered in error. Problem Status Onset Date Problem Type Date of Resolution Comments Source AAA - Abdominal aortic aneurysm Active Condition Mar 24, 2021 Entered By: MELONY VEGA Comment: 3.7cm by CT 02/2021.May 01, 2023 Entered By: MELONY VEGA Comment: 2022...pt. says checked by Vascular surgeon and had not changed much .Apr 30, 2024 Entered By: YAMILA TRUJILLO Comment: vascular stents, arterial occlusion mesenteric [place] [facility] Aneurysm of descending thoracic aorta Active Condition Apr 30, 2024 Entered By: YAMILA TRUJILLO Comment: 03/2024 ldct 3.2 cm [place] [facility] aortoiliac occlussive disease Active Condition Dec 02 Entered By: YAMILA TRUJILLO Comment: sees Dr aHrris at [facility] for carotids, aortoiliac, AAA, pvd [place] [facility] Arthritis of hip Active Condition [place] [facility] Carotid artery stenosis Active Condition Jul 28, 2020 Entered By: MELONY VEGA Comment: Stent Procedure of Left Carotid, 2019. [place] [facility] Chronic Rhinitis (SCT 75838817) Active Condition [place] [facility] COPD - Chronic Obstructive Pulmonary Disease (SCT 20805359) Active Condition Nov 10, 2024 Entered By: YAMILA TRUJILLO Comment: severe emphysema on ldct [place] [facility] Coronary artery disease (SNOMED CT 17001463) Active Condition Nov 07, 2018 Entered By: MELONY VEGA Comment: Multiple StentsDe2023 Entered By: YAMILA TRUJILLO Comment: hx of IN [place] [facility] Dyspnea Active Condition [place] [facility] Gastroesophageal reflux disease (SNOMED CT 365558734) Active Condition [place] [facility] Hiatal hernia Active Condition Jun Entered By: MELONY VEGA Comment: Small by EGD 05/2021. [place] [facility] HLD - Hyperlipidemia Active Condition [place] [facility] HLD - Hyperlipidemia (SNOMED CT 81431561) Active Condition [place] [facility] Home oxygen supply started Active Condition [place] [facility] ldct Active Condition Apr 16 Entered By: YAMILA TRUJILLO Comment: ldct 03/2024 = motion artifact , needs repeatDec 2023 Entered By: YAMILA TRUJILLO Comment: fu in 6 mos 10/2023Jun 2024 Entered By: YAMILA TRUJILLO Comment: ldct due 10/27-Jun 2024 Entered By: YAMILA TRUJILLO Comment: due 1 yr = 10/2025 [place] [facility] lumbago w scaitica Active Condition [place] [facility] Moderate chronic obstructive pulmonary disease (SNOMED CT 065731524) Active Condition [place] [facility] Peripheral vascular disease (SNOMED CT 646287223) Active Condition [place] [facility] Prediabetes Active Condition [place] [facility] Renal Impairment (SCT 208603793) Active Condition [place] [facility] Abdominal Pain Inactive Condition 05/01/2023 [place] [facility] Insomnia * (ICD-9-CM 780.52) Inactive Condition 05/01/2023 [place] [facility] 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) Inactive Condition 05/01/2023 [place] [facility] Tobacco Use Disorder * (ICD-9-CM 305.1) Inactive Condition 05/01/2023 [place] [facility] Diagnosis: ICD-10-CM Z13.5 Encounter for screening for eye and ear disorders Active Diagnosis [place] [facility] Diagnosis: ICD-10-CM J44.9 Chronic obstructive pulmonary disease, unspecified Active Diagnosis [facility] Diagnosis: ICD-10-CM I25.10 Athscl heart disease of poarch coronary artery w/o ang pctrs Active Diagnosis [place] [facility] Diagnosis: ICD-10-CM Z71.89 Other specified counseling Active Diagnosis [facility] Diagnosis: ICD-10-CM Z12.2 Encntr screen for malignant neoplasm of respiratory organs Active Diagnosis [facility] Diagnosis: ICD-10-CM J98.9 Respiratory disorder, unspecified Active Diagnosis [facility] Diagnosis: ICD-10-CM I10 Essential (primary) hypertension Active Diagnosis [facility] Diagnosis: ICD-10-CM R06.00 Dyspnea, unspecified Active Diagnosis [facility] Diagnosis: ICD-10-CM R05.8 Other specified cough Active Diagnosis [facility] Diagnosis: ICD-10-CM M54.50 Low back pain, unspecified Active Diagnosis [facility] Diagnosis: ICD-10-CM M62.81 Muscle weakness (generalized) Active Diagnosis [facility] Diagnosis: ICD-10-CM Z23 Encounter for immunization Active Diagnosis [facility] Medications Combined list of outpatient medications from Department of Defense and Veterans Affairs facilities.Medications provided include 1) outpatient medications from the last 15 months, and 2) patient-reported medications. Medication Details Route Status Patient Instructions Prescription Expires Prescription Number Last Dispense Date Ordering Provider Order Date Order Qty Source ALBUTEROL SO4 90MCG/ACTUA T (CFC-F) INHL,ORAL,8 .5GM INHALE 1 PUFF BY ORAL INHALATI ON FOUR TIMES A DAY NEEDED FOR COPD SHAKE WELL. RINSE MOUTHPIE CE FREQUENT LY TO PREVENT CLOGGING . RESPIR ATORY (INHAL ATION) ACTIVE 02/12/2025 [id number] JULIUS TRUJILLO 2023 3 [facility] AMOX[facility] TRIHYDRATE 875MG/CLAVU LANATE K 125MG TAB TAKE 1 TABLET BY MOUTH TWICE A DAY FOR SINUS INFECTIO N TAKE WITH FOOD. TAKE UNTIL GONE UNLESS OTHERWIS E DIRECTED . TAKE WITH FOOD. TAKE UNTIL GONE UNLESS OTHERWIS E DIRECTED . ORAL 01/30/2024 [id number] JULIUS TRUJILLO 2023 14 [facility] FLUTICASONE 250MCG/SALM ETEROL 50MCG INHL,ORAL,D ISKUS,60 INHALE 1 INHALATI ON BY ORAL INHALATI ON TWICE A DAY FOR COPD (OPEN DISKUS; CLICK ONLY ONCE; MAY INHALE TWICE TO COMPLETE DOSE; CLOSE WHEN FINISHED ) RINSE MOUTH AND SPIT AFTER EACH USE. RESPIR ATORY (INHAL ATION) ACTIVE 11/11/2025 [id number] 5 JULIUS TRUJILLO 2024 3 [place] [facility] FLUTICASONE PROPIONATE 50MCG/SPRAY SOLN,NASAL, 16GM INSTILL 1 SPRAY IN NOSTRIL( S) ONCE A DAY FOR CHRONIC RHINOSIN USITIS (MUST BE USED DIRECTED FOR MINIMUM OF 21 DAYS TO PROVIDE ADEQUATE BENEFITS ) NASAL ACTIVE 12/31/2024 [id number] 4 JULIUS TRUJILLO 2023 3 [facility] IPRATROPIUM BR 17MCG/SPRAY AEROSOL,INH L INHALE 2 PUFFS BY ORAL INHALATI ON FOUR TIMES A DAY FOR COPD SHAKE WELL BEFORE USE. RINSE MOUTH WITH WATER AND SPIT AFTER EACH USE. RESPIR ATORY (INHAL ATION) ACTIVE 11/11/2025 [id number] JULIUS TRUJILLO 2024 3 [place] [facility] LORATADINE 10MG TAB TAKE ONE TABLET BY MOUTH ONCE A DAY FOR ALLERGIC RHINITIS ON EMPTY STOMACH ORAL ACTIVE 12/31/2024 [id number] JULIUS TRUJILLO 2023 90 [facility] METOPROLOL SUCCINATE 25MG TAB,SA TAKE ONE-HALF TABLET BY MOUTH ONCE A DAY FOR HIGH BLOOD PRESSURE SWALLOW WHOLE, DO NOT CRUSH OR CHEW (TABLETS MAY BE CUT IN HALF). ORAL ACTIVE 05/01/2025 [id number] JULIUS TRUJILLO 2023 45 [facility] PRASUGREL HCL 10MG TAB TAKE ONE TABLET BY MOUTH ONCE A DAY FOR CORONARY ARTERY DISEASE ORAL ACTIVE 05/01/2025 [id number] 5 JULIUS TRUJILLO 2023 90 [facility] ROSUVASTATI N CA 40MG TAB TAKE ONE TABLET BY MOUTH ONCE A DAY FOR HIGH CHOLESTE ROL ORAL ACTIVE 03/06/2025 [id number] MILLARD,H USSAIN 2023 90 [place] [facility] Allergies, Adverse Reactions, Alerts Combined list of allergies from [facility] and Veterans Affairs facilities. It does not include entries that were removed or entered in error. Substance Category Reaction Severity Reaction type Status Date Reported Comments Source ASPIRIN RELATED MEDICATIONS Propensity to adverse reactions to drug (finding) Nausea and vomiting active 4 [facility] PLAVIX 75MG TAB Propensity to adverse reactions to drug (finding) Gastrointes tinal hemorrhage, Abdominal pain active 4 [facility] POISON SHAHEEN Propensity to adverse reaction (finding) Itching of eye, Eruption active 0 [facility] Immunizations Combined list of available immunizations from the [facility] and [facility] facilities. Immunization Series Date Given Administered By Site Reaction Lot Number CVX Code Drug Script Writer Status Comments Source COVID-19 (MODERNA), MRNA, LNP-S, PF, 50 MCG/0.5 ML (AGES 12+ YEARS) 2023 MELANIA DEL ROSARIO LEFT DELTO ID [id number] 312 complet ed [facility] INFLUENZA, HIGH-DOSE, TRIVALENT, PF 2023 MELANIA DEL ROSARIO LEFT DELTO ID [id number] 135 complet ed [facility] TDAP 2023 MELANIA DEL ROSARIO RIGHT DELTO ID [id number] 115 complet ed [facility] ZOSTER RECOMBINANT 2023 BENTON SANDHU LEFT DELTO ID [id number] 187 complet ed [facility] COVID-19 (MODERNA), MRNA, LNP-S, PF, 50 MCG/0.5 ML (AGES 12+ YEARS) 1 2022 AARON ARTIS RIGHT DELTO ID [id number] 312 complet ed [facility] ZOSTER RECOMBINANT 1 2022 AARON ARTIS LEFT DELTO ID [id number] 187 complet ed [facility] [place], advised to return between Jul 02 and October 302023 for second dose. Oral and written dates given [facility] INFLUENZA, HIGH-DOSE, QUADRIVALENT 2022 MELANIA DEL ROSARIO LEFT DELTO ID [id number] 197 complet ed [facility] COVID-19 (MODERNA), MRNA, LNP-S, BIVALENT BOOSTER, PF, 50 MCG/0.5 ML OR 25MCG/0.25 ML DOSE 2021 BENTON SANHDU LEFT DELTO ID [id number] 229 complet ed Booster for Series, [facility] INFLUENZA, INJECTABLE, QUADRIVALENT, PRESERVATIVE FREE 2021 150 complet ed [facility] COVID-19 (DAVID), VECTOR-NR, [id number], PF, 0.5 ML 2 2020 212 complet ed JSN; [id number]; 2 [facility] INFLUENZA, INJECTABLE, QUADRIVALENT, PRESERVATIVE FREE 2020 150 complet ed [facility] COVID-19 (DAVID), VECTOR-NR, [id number], PF, 0.5 ML 1 2020 212 complet ed JSN; [id number]; 1 [facility] INFLUENZA, UNSPECIFIED FORMULATION 2019 88 complet ed [facility] PNEUMOCOCCAL CONJUGATE PCV 13 2019 133 complet ed on hospital form he brought in, will have scanned in [facility] PNEUMOCOCCAL POLYSACCHARID E [id number] 2016 33 complet ed [facility] PNEUMOCOCCAL CONJUGATE PCV 13 2014 133 complet ed [facility] TDAP 2012 115 complet ed Right Deltoid [facility] INFLUENZA, UNSPECIFIED FORMULATION 2012 88 complet ed [facility] PNEUMOCOCCAL, UNSPECIFIED FORMULATION 2011 109 complet ed [facility] Results Combined list of recent chemistry, hematology and other laboratory results from Department of Defense and Veterans Affairs, ranging from 15 months to all on record, depending upon the facility. Order Name Results Value Reference Range Date Interpretation Specimen Comments Source FOLATE (PB) FOLATE [MASS/VOLUME] IN SERUM OR PLASMA 6.7 ng/mL 7 - 20 04/21 L Specimen Type: SERUM No comment entered. Ordering Provider: JULIUS TRUJILLO Report Released Date/Time : Apr 21, 2024 02:04 PM Reporting Lab: [place] [facility] [address] [place] [address] Performin g Lab: [place] [facility] [address] [place] [address] [facility] B12 COBALAMIN (VITAMIN B12) [MASS/VOLUME] IN SERUM OR PLASMA 474 pg/mL 213 - 816 04/21 Specimen Type: SERUM No comment entered. Ordering Provider: JULIUS TRUJILLO Report Released Date/Time : Apr 21, 2024 02:04 PM Reporting Lab: [place] [facility] [address] [place] [address] Performin g Lab: [place] [facility] [address] [place] [address] [facility] HGA1C HEMOGLOBIN A1C/HEMOGLOBI N.TOTAL IN BLOOD 6.0 4.0 - 6.0 04/21 Specimen Type: BLOOD No comment entered. Ordering Provider: JULIUS TRUJILLO Report Released Date/Time : Apr 21, 2024 02:04 PM Reporting Lab: [place] [facility] [address] [place] [address] Performin g Lab: [place] [facility] [address] [place] [address] [facility] URINE ALBUMIN PROFILE-ih (PB) ALBUMIN [MASS/VOLUME] IN URINE 11.30 mg/L 0 - 30 04/21 Specimen Type: URINE No comment entered. Ordering Provider: JULIUS TRUJILLO Report Released Date/Time : Apr 21, 2024 02:04 PM Reporting Lab: [place] [facility] [address] [place] [address] Performin g Lab: [place] [facility] [address] [place] [address] [facility] URINE ALBUMIN PROFILE-ih (PB) ALBUMIN/CREAT ININE [MASS RATIO] IN URINE 7.55 ug/mg 04/21 Specimen Type: URINE No comment entered. Ordering Provider: JULIUS TRUJILLO Report Released Date/Time : Apr 21, 2024 02:04 PM Reporting Lab: [place] [facility] [address] [place] [address] Performin g Lab: [place] [facility] [address] [place] [address] [facility] URINE ALBUMIN PROFILE-ih (PB) CREATININE [MASS/VOLUME] IN URINE 149.74 mg/dL 04/21 Specimen Type: URINE No comment entered. Ordering Provider: JULIUS TRUJILLO Report Released Date/Time : Apr 21, 2024 02:04 PM Reporting Lab: [place] [facility] [address] [place] [address] Performin g Lab: [place] [facility] [address] [place] [address] [facility] VITAMIN D, 25-HYDROXY 25-HYDROXYVIT TAY D3 [MASS/VOLUME] IN SERUM OR PLASMA 58.8 ng/mL 30 - 96 04/21 Specimen Type: SERUM No comment entered. Ordering Provider: JULIUS TRUJILLO Report Released Date/Time : Apr 21, 2024 02:04 PM Reporting Lab: [place] [facility] [address] [place] [address] Performin g Lab: [place] [facility] [address] [place] [address] [facility] CHOLESTEROL PANEL (PB) CHOLESTEROL [MASS/VOLUME] IN SERUM OR PLASMA 157 mg/dL 0 - 200 04/21 Specimen Type: PLASMA No comment entered. Ordering Provider: JULIUS TRUJILLO Report Released Date/Time : Apr 21, 2024 02:04 PM Reporting Lab: [place] [facility] [address] [place] [address] Performin g Lab: [place] [facility] [address] [place] [address] [facility] CHOLESTEROL PANEL (PB) TRIGLYCERIDE [MASS/VOLUME] IN SERUM OR PLASMA 211 mg/dL 0 - 150 04/21 H Specimen Type: PLASMA No comment entered. Ordering Provider: JULIUS TRUJILLO Report Released Date/Time : Apr 21, 2024 02:04 PM Reporting Lab: [place] [facility] [address] [place] [address] Performin g Lab: [place] [facility] [address] [place] [address] [facility] CHOLESTEROL PANEL (PB) CHOLESTEROL IN LDL [MASS/VOLUME] IN SERUM OR PLASMA BY CALCULATION 82.6 mg/dL 04/21 Specimen Type: PLASMA No comment entered. Ordering Provider: JULIUS TRUJILLO Report Released Date/Time : Apr 21, 2024 02:04 PM Reporting Lab: [place] [facility] [address] [place] [address] Performin g Lab: [place] [facility] [address] [place] [address] [facility] CHOLESTEROL PANEL (PB) CHOLESTEROL IN HDL [MASS/VOLUME] IN SERUM OR PLASMA 32.2 mg/dL 40 04/21 L Specimen Type: PLASMA No comment entered. Ordering Provider: JULIUS TRUJILLO Report Released Date/Time : Apr 21, 2024 02:04 PM Reporting Lab: [place] [facility] [address] [place] [address] Performin g Lab: [place] [facility] [address] [place] [address] [facility] CHOLESTEROL PANEL (PB) CHOLESTEROL IN HDL/CHOLESTER OL.TOTAL [MASS RATIO] IN SERUM OR PLASMA 20.5 25 04/21 Specimen Type: PLASMA No comment entered. Ordering Provider: JULIUS TRUJILLO Report Released Date/Time : Apr 21, 2024 02:04 PM Reporting Lab: [place] [facility] [address] [place] [address] Performin g Lab: [place] [facility] [address] [place] [address] [facility] TSH (MA-PB) THYROTROPIN [UNITS/VOLUME ] IN SERUM OR PLASMA 2.844 u[IU]/ mL 0.47 - 5 04/21 Specimen Type: SERUM No comment entered. Ordering Provider: JULIUS TRUJILLO Report Released Date/Time : Apr 21, 2024 02:04 PM Reporting Lab: [place] [facility] [address] [place] [address] Performin g Lab: [place] [facility] [address] [place] [address] [facility] COMPREHENSI VE METABOLIC PANEL CREATININE [MASS/VOLUME] IN SERUM OR PLASMA 1.65 mg/dL 0.7 - 1.3 04/21 H Specimen Type: PLASMA No comment entered. Ordering Provider: JULIUS TRUJILLO Report Released Date/Time : Apr 21, 2024 02:04 PM Reporting Lab: [place] [facility] [address] [place] [address] Performin g Lab: [place] [facility] [address] [place] [address] [facility] COMPREHENSI VE METABOLIC PANEL UREA NITROGEN [MASS/VOLUME] IN SERUM OR PLASMA 22 mg/dL - 04/21 Specimen Type: PLASMA No comment entered. Ordering Provider: JULIUS TRUJILLO Report Released Date/Time : Apr 21, 2024 02:04 PM Reporting Lab: [place] [facility] [address] [place] [address] Performin g Lab: [place] [facility] [address] [place] [address] [facility] COMPREHENSI VE METABOLIC PANEL GLUCOSE [MASS/VOLUME] IN SERUM OR PLASMA 83 mg/dL 72 - 99 04/21 Specimen Type: PLASMA No comment entered. Ordering Provider: JULIUS TRUJILLO Report Released Date/Time : Apr 21, 2024 02:04 PM Reporting Lab: [place] [facility] [address] [place] [address] Performin g Lab: [place] [facility] [address] [place] [address] [place] [facility] COMPREHENSI VE METABOLIC PANEL SODIUM [MOLES/VOLUME ] IN SERUM OR PLASMA 140 meq/L 136 - 145 04/21 Specimen Type: PLASMA No comment entered. Ordering Provider: JULIUS TRUJILLO Report Released Date/Time : Apr 21, 2024 02:04 PM Reporting Lab: [place] [facility] [address] [place] [address] Performin g Lab: [place] [facility] [address] [place] [address] [facility] COMPREHENSI VE METABOLIC PANEL POTASSIUM [MOLES/VOLUME ] IN SERUM OR PLASMA 4.4 meq/L 3.5 - 5 04/21 Specimen Type: PLASMA No comment entered. Ordering Provider: JULIUS TRUJILLO Report Released Date/Time : Apr 21, 2024 02:04 PM Reporting Lab: [place] [facility] [address] [place] [address] Performin g Lab: [place] [facility] [address] [place] [address] [facility] COMPREHENSI VE METABOLIC PANEL CHLORIDE [MOLES/VOLUME ] IN SERUM OR PLASMA 107 meq/L 98 - 107 04/21 Specimen Type: PLASMA No comment entered. Ordering Provider: UJLIUS TRUJILLO Report Released Date/Time : Apr 21, 2024 02:04 PM Reporting Lab: [place] [facility] [address] [place] [address] Performin g Lab: [place] [facility] [address] [place] [address] [facility] COMPREHENSI VE METABOLIC PANEL CARBON DIOXIDE, TOTAL [MOLES/VOLUME ] IN SERUM OR PLASMA 25 meq/L 22 - 31 04/21 Specimen Type: PLASMA No comment entered. Ordering Provider: JULIUS TRUJILLO Report Released Date/Time : Apr 21, 2024 02:04 PM Reporting Lab: [place] [facility] [address] [place] [address] Performin g Lab: [place] [facility] [address] [place] [address] [facility] COMPREHENSI VE METABOLIC PANEL CALCIUM [MASS/VOLUME] IN SERUM OR PLASMA 9.6 mg/dL 8.4 - 10.4 04/21 Specimen Type: PLASMA No comment entered. Ordering Provider: JULIUS TRUJILLO Report Released Date/Time : Apr 21, 2024 02:04 PM Reporting Lab: [place] [facility] [address] [place] [address] Performin g Lab: [place] [facility] [address] [place] [address] [facility] COMPREHENSI VE METABOLIC PANEL PROTEIN [MASS/VOLUME] IN SERUM OR PLASMA 7.3 g/dL 6 - 8.6 04/21 Specimen Type: PLASMA No comment entered. Ordering Provider: JULIUS TRUJILLO Report Released Date/Time : Apr 21, 2024 02:04 PM Reporting Lab: [place] [facility] [address] [place] [address] Performin g Lab: [place] [facility] [address] [place] [address] [facility] COMPREHENSI VE METABOLIC PANEL ALBUMIN [MASS/VOLUME] IN SERUM OR PLASMA 4.4 g/dL 3.4 - 5 04/21 Specimen Type: PLASMA No comment entered. Ordering Provider: JULIUS TRUJILLO Report Released Date/Time : Apr 21, 2024 02:04 PM Reporting Lab: [place] [facility] [address] [place] [address] Performin g Lab: [place] [facility] [address] [place] [address] [facility] COMPREHENSI VE METABOLIC PANEL BILIRUBIN.TOT AL [MASS/VOLUME] IN SERUM OR PLASMA 0.3 mg/dL 0.2 - 1.2 04/21 Specimen Type: PLASMA No comment entered. Ordering Provider: JULIUS TRUJILLO Report Released Date/Time : Apr 21, 2024 02:04 PM Reporting Lab: [place] [facility] [address] [place] [address] Performin g Lab: [place] [facility] [address] [place] [address] [facility] COMPREHENSI VE METABOLIC PANEL ALKALINE PHOSPHATASE [ENZYMATIC ACTIVITY/VOLU ME] IN SERUM OR PLASMA 72 U/L 40 - 150 04/21 Specimen Type: PLASMA No comment entered. Ordering Provider: JULIUS TRUJILLO Report Released Date/Time : Apr 21, 2024 02:04 PM Reporting Lab: [place] [facility] [address] [place] [address] Performin g Lab: [place] [facility] [address] [place] [address] [facility] COMPREHENSI VE METABOLIC PANEL ASPARTATE AMINOTRANSFER ASE [ENZYMATIC ACTIVITY/VOLU ME] IN SERUM OR PLASMA 26 U/L 5 - 34 04/21 Specimen Type: PLASMA No comment entered. Ordering Provider: JULIUS TRUJILLO Report Released Date/Time : Apr 21, 2024 02:04 PM Reporting Lab: [place] [facility] [address] [place] [address] Performin g Lab: [place] [facility] [address] [place] [address] [facility] COMPREHENSI VE METABOLIC PANEL ALANINE AMINOTRANSFER ASE [ENZYMATIC ACTIVITY/VOLU ME] IN SERUM OR PLASMA 22 U/L 8 - 40 04/21 Specimen Type: PLASMA No comment entered. Ordering Provider: JULIUS TRUJILLO Report Released Date/Time : Apr 21, 2024 02:04 PM Reporting Lab: [place] [facility] [address] [place] [address] Performin g Lab: [place] [facility] [address] [place] [address] [facility] COMPREHENSI VE METABOLIC PANEL GLOMERULAR FILTRATION RATE/1.73 SQ M.PREDICTED [VOLUME RATE/AREA] IN SERUM, PLASMA OR BLOOD BY CREATININE-BA SED FORMULA (CKD-EPI 2020) 43 04/21 Specimen Type: PLASMA No comment entered. Ordering Provider: JULIUS TRUJILLO Report Released Date/Time : Apr 21, 2024 02:04 PM Reporting Lab: [place] [facility] [address] [place] [address] Performin g Lab: [place] [facility] [address] [place] [address] [place] [facility] VITAMIN D, 25-HYDROXY 25-HYDROXYVIT TAY D3 [MASS/VOLUME] IN SERUM OR PLASMA 38.1 ng/mL 30 - 96 05/01 Specimen Type: SERUM No comment entered. Ordering Provider: IFEOMA VEGA Report Released Date/Time : Apr 30, 2023 11:03 AM Reporting Lab: [place] [facility] [address] [place] [address] Performin g Lab: [place] [facility] [address] [place] [address] [place] [facility] TSH (MA-PB-STL) THYROTROPIN [UNITS/VOLUME ] IN SERUM OR PLASMA 3.038 u[IU]/ mL 0.47 - 5 05/01 Specimen Type: SERUM No comment entered. Ordering Provider: IFEOMA VEGA Report Released Date/Time : Apr 30, 2023 11:03 AM Reporting Lab: [place] [facility] [address] [place] [address] Performin g Lab: [place] [facility] [address] [place] [address] [place] [facility] Vital Signs Combined list of inpatient and outpatient Vital Signs from Department of Defense and Veterans Affairs, ranging from 12 months to all on record, depending upon the facility. Vital Sign Value Date Comments Source SYSTOLIC BLOOD PRESSURE 152 04/30/2024 13:46:26 [facility] DIASTOLIC BLOOD PRESSURE 71 04/30/2024 13:46:26 [facility] PULSE OXIMETRY 94 04/30/2024 13:46:26 [facility] WEIGHT 207.7 04/30/2024 13:46:26 [facility] BMI 28 kg/m2 04/30/2024 13:46:26 [facility] TEMPERATURE 97.4 04/30/2024 13:46:26 [facility] PULSE 76 04/30/2024 13:46:26 [facility] RESPIRATION 18 04/30/2024 13:46:26 [facility] SYSTOLIC BLOOD PRESSURE 129 12/31/2023 10:21:00 [facility] DIASTOLIC BLOOD PRESSURE 65 12/31/2023 10:21:00 [facility] PULSE OXIMETRY 97 12/31/2023 10:21:00 [facility] 82 12/31/2023 10:21:00 [facility] Encounters Combined list of: 1) Encounters from Department of Veterans Affairs facilities going backup to the last 18 months, not all VA inpatient encounters are included; 2) Encounters from the Department of Defense facilities going backup to 280 months. Location Location Details Encounter Type Encounter Number Reason For Visit Attending Provider ADM Date DC Date Status Disposition Source [facility] OFF/OP EST SEPTEMBER X REQ PHY/QHP [id number] Diagnos is: ICD-10- CM Z23 Encount er for immuniz shanique MILLICENT SANDHU 07/26 [facility] Outpatient Encounter [id number] 08/14 [facility] OFF/OP EST SEPTEMBER X REQ PHY/QHP [id number] Diagnos is: ICD-10- CM J44.9 Chronic obstruc tive pulmona ry disease , unspeci fiSheryl Collier 08/14 [facility] OFFICE O/P EST MOD 30 MIN [id number] Diagnos is: ICD-10- CM J44.9 Chronic obstruc tive pulmona ry disease , unspeci BROCK Knox 08/14 [facility] Outpatient Encounter [id number] 08/16 [facility] Outpatient Encounter [id number] 08/23 [facility]OP EST MAY X REQ PHY/QHP [id number] Diagnos is: ICD-10- CM M62.81 Muscle weaknes s (genera lized) Sheryl YUEN 08/23 [facility] Outpatient Encounter [id number] NICOL BARRAZA 08/26 [facility] Outpatient Encounter [id number] 09/10 [facility] Outpatient Encounter [id number] 09/11 [facility] Outpatient Encounter [id number] 09/16 [facility] OFF/OP EST MAY X REQ PHY/QHP [id number] Diagnos is: ICD-10- CM M54.50 Low back pain, unspeci fied EDSONMILLICENT Michelle 11/15 [facility] Outpatient Encounter [id number] 11/25 [facility] Outpatient Encounter [id number] 12/20 [facility] OFF/OP EST MAY X REQ PHY/QHP [id number] Diagnos is: ICD-10- CM R05.8 Other specifi ed cough CUSTRED,TO RRI J 12/30 [facility] Outpatient Encounter [id number] 01/08 [facility] Outpatient Encounter [id number] 02/11 [facility] OFF/OP EST SEPTEMBER X REQ PHY/QHP [id number] Diagnos is: ICD-10- CM R06.00 Dyspnea , unspeci fied CUSTRED,TO RRI J 02/11 [facility] [place] [facility] QNHP OL DIG ASSMT&MGMT 5-10 [id number] Diagnos is: ICD-10- CM I10 Essenti al (primar y) hyperte nsion SERGO,GENET V 02/15 [place] Outpatient Encounter [id number] 02/20 [place] [facility] Outpatient Encounter [id number] 02/28 [facility] N [facility] Outpatient Encounter [id number] 02/28 [facility] Outpatient Encounter [id number] 03/05 [facility] MEASURE BLOOD OXYGEN LEVEL [id number] Diagnos is: ICD-10- CM J98.9 Respira tory disorde r, unspeci BRUCE Stack 03/06 [place] [facility] [place] [facility] POS AIRWAY PRESSURE CPAP [id number] Diagnos is: ICD-10- CM J98.9 Respira tory disorde r, unspeci fiBRUCE Betancourt 03/07 [place] [facility] Outpatient Encounter [id number] 03/13 [facility] Outpatient Encounter [id number] 03/13 [facility] Outpatient Encounter [id number] 03/14 [facility] Outpatient Encounter [id number] [id number] 03/31 [facility] En[facility] [id number] 04/01 [facility] En[facility] [id number] 04/01 [facility] Outpatient Encounter [id number] 04/09 [facility] N [place] [facility] HC PRO PHONE CALL 5-10 MIN [id number] Diagnos is: ICD-10- CM Z12.2 Encntr screen for maligna nt neoplas m of respira tory organs SCHMIDT,SONJ IA 04/[address] [place] 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 CUSTRED,TO RRI J 04/30 [facility] Outpatient Encounter [id number] 04/30 [facility] OFFICE O/P EST MOD 30 MIN [id number] Diagnos is: ICD-10- CM I25.10 Athscl heart disease of [place] coronar y artery w/o ang pctrs YAMILA TRUJILLO 04/30 [facility] [place] [facility] Q[facility]P OL DIG ASSMT&MGMT 5-10 [id number] Diagnos is: ICD-10- CM I25.10 Athscl heart disease of [place] coronar y artery w/o ang pctrs GENET TROTTER V 04/30 [facility] Outpatient Encounter [id number] 05/07 [place] [facility] Outpatient Encounter [id number] 05/08 [facility] OFF/OP EST MAY X REQ PHY/QHP [id number] Diagnos is: ICD-10- CM J44.9 Chronic obstruc tive pulmona ry disease , unspeci fied CUSTRED,TO RRI J 05/08 [facility] Outpatient Encounter [id number] 06/02 [facility] Outpatient Encounter [id number] 06/12 [facility] Outpatient Encounter [id number] 06/24 [facility] Outpatient Encounter [id number] 08/14 [facility] Outpatient Encounter [id number] 08/25 [facility] Outpatient Encounter [id number] 10/03 [facility] [place] [facility] Outpatient Encounter [id number] 10/28 [place] [facility] Outpatient Encounter [id number] 10/29 [facility] Outpatient Encounter [id number] Diagnos is: ICD-10- CM Z13.5 Encount er for screeni ng for eye and ear disorde rs MARQUEZ ALVARADO 10/29 [place] [facility] [place] [facility] FUNDUS PHOTOGRAPH Y W/I&R [id number] Diagnos is: ICD-10- CM Z13.5 Encount er for screeni ng for eye and ear disorde MISHA Young 10/29 [place] [facility] [place] [facility] Outpatient Encounter [id number] BILLY SCHMIDT 10/30 [place] [facility] Social History Combined list of available smoking, tobacco, and other social history from Department of Defense and Veterans Affairs facilities. Social History Type Response Date Comment Sourc e Tobacco smoking status NHIS VA-TOBACCO USE FORMER CIGARETTES 04/30/2024 [facility] History of tobacco use VA-TOBACCO NEVER USED OTHER TYPE 04/30/2024 [facility] History of tobacco use VA-TOBACCO FORMER USER 04/27/2022 [facility] History of tobacco use PREVIOUS SMOKER 07/14/2021 [place] [facility] History of tobacco use [place]-TOBACCO FORMER USER 07/27/2020 [facility] History of tobacco use VA-TOBACCO USE SUPERVISOR SCREEN MAKING NO 11/07/2018 [facility] History of tobacco use TOBACCO USER OFFERED MEDS 11/08/2017 [facility] History of tobacco use TOBACCO USER OFFERED MEDS 05/02/2017 [facility] History of tobacco use TOBACCO USER OFFERED MEDS 11/08/2016 [facility] History of tobacco use TOBACCO OFFERED STOP SMOKING CLINIC 11/08/2015 [facility] History of tobacco use TOBACCO OFFERED PT MEDS (PROVIDER) 05/10/2015 [facility] History of tobacco use TOBACCO OFFERED STOP SMOKING CLINIC 01/20/2014 [facility] History of tobacco use TOBACCO OFFERED STOP SMOKING CLINIC 12/31/2012 [facility] History of tobacco use TOBACCO OFFERED STOP SMOKING CLINIC 06/19/2012 [facility] History of tobacco use TOBACCO OFFERED PT MEDS (PROVIDER) 09/21/2011 [facility] History of tobacco use TOBACCO OFFERED PT MEDS (PROVIDER) 11/21/2010 [facility] History of tobacco use TOBACCO OFFERED PT MEDS (PROVIDER) 05/24/2010 [facility] History of tobacco use TOBACCO OFFERED PT MEDS (PROVIDER) 02/23/2010 [facility] History of tobacco use TOBACCO OFFERED PT MEDS (PROVIDER) 11/23/2009 [facility] History of tobacco use TOBACCO OFFERED PT MEDS (PROVIDER) 09/07/2009 [facility] Plan of Care List of future care activities from Department of Veterans Affairs facilities. Additional future care activities may be listed in the Assessment and Plan section. Date/Time Care Activity Care Activity Detail Facili ty 01/06/2025 AMBULATORY - MEDICINE AMBULATORY - MEDICI NE [place] [facility] Advance Directives List of completed, amended, or rescinded Advance Directives on record at Department of Veterans Affairs facilities. An actual copy of the Directive is not included. Date Advance Directive Provider Source 11/21/2010 ADVANCE DIRECTIVE DISCUSSION [facility]
--- NOTE | 2024-12-06 07:35 | ECG_ITS ---
[facility]: 2024-12-06 Pat Name: Jerrell Love Department: Room: ICU03 Gender: Male Quality Head: : 1950 Requested By: Darren Leija Order Number: [id number] Nery MD: Gene Amin M.D. Measurements Intervals [place] Rate: 84 P: 85 AL: 152 QRS: 22 QRSD: 110 T: 93 QT: 378 QTc: 448 Interpretive Statements SINUS RHYTHM SEPTAL MYOCARDIAL INFARCTION , OF INDETERMINATE AGE [40+ ms Q WAVE IN V1/V2] Compared to ECG 08/24/2023 15:08:16 Myocardial infarct finding now present Sinus bradycardia no longer present Intraventricular conduction delay no longer present Electronically Signed On 12-10-2024 00:34:23 CDT by Gene Amin M.D. [email or web address]
--- OUTSIDE RECORDS SUMMARY | 2024-12-06 07:41 | XMS_ITS | Clinical Summary ---
Author Organization [facility] de Address [address] [place] [address] Phone Care Team Providers Care Sewer Inspector Name Role Phone Jean Marie Spear MD Primary Care Provider [phone] Allergies Active Allergy Reactions Criticality Noted Date Comments Aspirin Nausea and Vomiting Low 01/29/2014 Clopidogrel Nausea and Vomiting Low 03/04/2020 Medications pantoprazole (PROTONIX) 40 mg Tablet, Delayed Release (E.C.) TAKE ONE TABLET BY MOUTH EVERY MORNING BEFORE A MEAL TO LOWER STOMACH ACID - TAKE 30 MINUTES BEFORE MEAL(S) 03/15/2021 Active aspirin (MARY CHEWABLE) 81 mg Tablet, Chewable Take 81 mg by mouth daily. 03/04/2020 Active Active Problems Problem Noted Date Diagnosed Date Left carotid stenosis 03/04/2020 Tobacco abuse 03/04/2020 Encounters Date Type Department Care Team Description 11/25/2024 External Device Data [facility] ABSTRACTION Provider, Abstract 10/14/2024 External Device Data [facility] ABSTRACTION Provider, Abstract from Last 3 Months Immunizations Immunization Administration Dates Next Due (PREVNAR 13)(6 WKS UP) PNEUM OCOCCAL CONJUGATE (PCV13) 0.5 ML, IM 04/21/2020 INFLUENZA VACCINE HIGH DOSE QUADRIVALENT 65 YR U P PF IM 04/21/2020 Social History Tobacco Use Types Packs/Day Years Used Date Smoking Tobacco: Former Cigarettes Q uit: 04/19/2020 Smokeless Tobacco: Never Tobacco Cessation:Counseling Given: Not Answered Alcohol Use Standard Drinks/Week Comments Yes 0 (1 standard drink = 0.6 oz pur e alcohol) Sex and Gender Information Value Date Recorded Sex Assigned at Not on file Legal Sex Male 8:47 PM IS ARCHITECT Gender Identity Not on file Sexual Orientation Not on file Last Filed Vital Signs Vital Sign Reading Time Taken Comments Blood Pressure 136/76 08/07/2024 1:04 PM CDT Pulse 58 08/07/2024 1:04 PM CDT Temperature 36.2 C (97.2 F) 05/31/2020 9:36 AM IS ARCHITECT Respiratory Rate 18 08/07/2024 1:04 PM CDT Oxygen Saturation 97% 08/07/2024 1:04 PM CDT Inhaled Oxygen Concentration - - Weight 92.5 kg (204 lb) 08/07/2024 1:04 PM CDT Height 182.9 cm (6') 08/07/2024 1:04 PM CDT Body Mass Index 27.67 08/07/2024 1:04 PM CDT Plan of Treatment Health Maintenance Due Date Last Done Comments COLORECTAL SCREENING 1993 Colorectal Cancer Screening 1993 FIT-DNA Q 3 years 1993 FIT/FOBT Q 1 year 1993 Flex Sig/CT Colonography Q 5 years 1993 RSV VACCINE (60+ or ) (1 - 1-dose 75+ series) 12/09/2023 COVID-19 Vaccine (2023-2 5 season) 2024 04/30/2024, 05/01/2023, 05/03/2022, Additional history exists INFLUENZA VACCINE (#1) 2024 , 02/28/2023, 03/10/2022, Additional history exists DTAP/TDAP/TD VACCINES (3 - T d or Tdap) 04/30/2034 04/30/2024, 06/19/2012 PNEUMOCOCCAL VACCINE 50+ YEARS Completed 1 06/21/2019, 11/08/2016, 05/10/2015, Additional history exists Abdominal Aortic Aneurysm (A AA) Screening Completed 04/04/2023, 04/05/2022 ZOSTER VACCINE Completed 07/27/2023, 05/01/2023 Medical Devices Implanted Type Area [employer] Business Analyst Device Identifier Shelf Expiration Date Model / Serial / Lot Closure Perclose Proglide 25924 - [id number] Implanted:Qt y: 1 on 05/31/2020 by Carlos Bryant MD Closure Device Left: Groin [employer]HETA- VASC DEVICE 02/24/2022 [id number] / / [id number] Hemostatic Surgiflo 8ml W/Thrombin 2994 - [id number] Implanted:Qt y: 1 on 04/20/2020 by Carlos Bryant MD Hemostatic Left: Neck [employer] [id number] 05/27/2021 [id number] / / [id number] Stent Viabahn Vbx [id number] - [id number] Implanted:Qt y: 1 on 04/20/2020 by Carlos Bryant MD Stent Left: Neck [employer] 10/28/2022 [id number] / / [id number] Stent Omnlnk 8x39mm [id number] - [id number] Implanted:Qt y: 1 on 05/31/2020 by Carlos Bryant MD Stent Left: Arterial [employer]HE[employer]- VASC DEVICE 05/27/2023 [id number] / / [id number] Patch Vascu-Guard [id number] - [id number] Implanted:Qt y: 1 on 04/20/2020 by Carlos Bryant MD Tissue Left: Neck [employer] [id number] 12/09/2024 [id number] / / [id number] Procedures Procedure Name Priority Date/Time Associated Diagnosis Comments US AORTA Routine 04/04/2023 9:50 AM IS ARCHITECT Abdominal aortic aneurysm 30 to 34 mm in diameter from Last 3 Months or Most Recently Relevant to Health Maintenance Results * US AORTA (04/04/2023 9:50 AM IS ARCHITECT) Anatomical Region Laterality Modality Abdomen Ultrasound 04/04/2023 9:07 AM IS ARCHITECT Narrative 04/04/2023 10:01 AM IS ARCHITECT [facility] [address] [place] [id number] Noninvasive Vascular Lab Limited Abdominal Ultrasound Evaluation Patient: Jerrell Love Study ID: US AORTA Gender: M : 1950 Age: 72 Room: Height: 183cm Weight: 89.4kg BSA: 2.14m^2 Pt status: Outpatient Study Date: 04/04/2023 Study Time: 09:07:44 AM BSA: 2.14m^2 Ordering: Manolo Omer Interpreting:Manolo Omer Medical Office Coordinator: Alexandria Holly Indications: Known disease. AAA withour rupture. History: Risk factors: The patient is a past tobacco user. Dyslipidemia. Coronary artery disease. Summary Impression: 1. Study demonstratesa known aneurysm, involving the infrarenal aorta. Prior measurement of 03/2022 exam was 3.33 x 3.71 cm. 2. Moderate diffuse stenosis, involving the abdominal aorta, the right common iliac artery, and the left common iliac artery. Study data: Limited abdominal ultrasound evaluation. Duplex scan. Height: 183cm. Height: 72in. Weight: 89.4kg. Weight: 197.1lb. BMI: 26.7kg/m^2. BSA: 2.14m^2. Location: Vascular laboratory. Patient status: Outpatient. Study status: Routine. Procedure: A vascular evaluation was performed. The study was technically limited due to bowel gas and acoustic shadowing. Aorta and systemic arteries: Abdominal aorta: The vessel is well visualized. Arterial flow: - Abdominal aorta proximal: Abdominal aorta proximal 0.57m/sec 2.24 x 2.35 cm. - Abdominal aorta mid: Abdominal aorta mid 0.38m/sec 3.24 x 3.46 cm. - Abdominal aorta distal: Abdominal aorta distal 0.29m/sec 3.75 x 3.93 cm. - Right common iliac proximal: Right common iliac proximal 1.19m/sec 1.04 x 1.14 cm. - Left common iliac proximal: Left common iliac proximal 1.54m/sec 1.11 x 1.21 cm. [facility] is accredited with the Intersocietal Commission for the Accreditation of Vascular Laboratories (ICAVL) Prepared and Electronically Authenticated Manolo Omer Confirmed 04/04/2023 10:01 Procedure Note Manolo Omer MD - 04/04/2023 [facility] [address] [place] [id number] Noninvasive Vascular Lab Limited Abdominal Ultrasound Evaluation Patient: Jerrell Love Study ID: US AORTA Gender: M : 1950 Age: 72 Room: Height: 183cm Weight: 89.4kg BSA: 2.14m^2 Pt status: Outpatient Study Date: 04/04/2023 Study Time: 09:07:44 AM BSA: 2.14m^2 Ordering: Manolo Omer Interpreting:Manolo Omer Medical Office Coordinator: Alexandria Holly Indications: Known disease. AAA withour rupture. History: Risk factors: The patient is a past tobacco user.Dyslipidemia. Coronary artery disease. Summary Impression: 1. Study demonstratesa known aneurysm, involving the infrarenal aorta.Prior measurement of 03/2022 exam was 3.33 x 3.71 cm. 2. Moderate diffuse stenosis, involving the abdominal aorta, the rightcommon iliac artery, and the left common iliac artery. Study data: Limited abdominal ultrasound evaluation. Duplex scan. Height: 183cm. Height: 72in. Weight: 89.4kg. Weight: 197.1lb. BMI: 26.7kg/m^2. BSA: 2.14m^2. Location: Vascular laboratory. Patient status: Outpatient. Study status: Routine. Procedure: A vascular evaluation was performed. The study was technically limited due to bowelgas and acoustic shadowing. Aorta and systemic arteries: Abdominal aorta: The vessel is well visualized. Arterial flow: - Abdominal aorta proximal: Abdominal aorta proximal 0.57m/sec 2.24 x 2.35cm. - Abdominal aorta mid: Abdominal aorta mid 0.38m/sec 3.24 x 3.46 cm. - Abdominal aorta distal: Abdominal aorta distal 0.29m/sec 3.75 x 3.93cm. - Right common iliac proximal: Right common iliac proximal 1.19m/sec 1.04x 1.14 cm. - Left common iliac proximal: Left common iliac proximal 1.54m/sec 1.11 x1.21 cm. [facility] is accredited withthe [facility] Commission for the Accreditation of Vascular Laboratories (ICAVL) Prepared and Electronically Authenticated Manolo Omer Confirmed 04/04/2023 10:01 Manolo Omer MD ORDERABLES Babita l Result from Last 3 Months or Most Recently Relevant to Health Maintenance Insurance MEDICARE PART A HOSPITAL ONLY * Guarantor: [employer]C) Account Type Relation to Patient Date of Phone Billing Address Corporate Other DEFAULT ADDRESS [address] [place] * Guarantor: [employer]) Account Type Relation to Patient Date of Phone Billing Address Corporate Other DEFAULT ADDRESS [address] [place] * Guarantor: [employer]) Account Type Relation to Patient Date of Phone Billing Address Corporate Other DEFAULT ADDRESS [address] [employer] [employer] Care Teams Sewer Inspector Relationship Specialty Start Date End Date Jean Marie Spear MD PCP - General 09/01/20
--- OUTSIDE RECORDS SUMMARY | 2024-12-06 07:41 | XMS_ITS | Encounter Summary ---
Author Organization [facility] Address [address] [place] [address] Care Team Providers Care International Sourcing Manager Name Role Phone Jean Marie Spear MD Primary Care Provider + [phone] Reason for Referral * Radiology Services (Routine) - Closed Specialty Diagnoses / Procedures Referred By Nicole partida Referred To Contact Diagnoses Carotid artery disease, unspecified laterality, unspecified type Procedures IR FLUORO OR OTHER Carlos Bryant MD Phone: tel: fax: Referral ID Status Reason Start Date Expiration Date Visits Re quested Visits Authorized [id number] Closed 04/20/2020 05/21/2021 1 1 OLL AND BENEFITS ASSISTANT Encounter Details Date Type Department Care Team (Late st Contact Info) Description 04/20/2020 Ancillary Orders [facility] Interventional Radiology OR [address] [place] [id number] Carlos Bryant MD [address] [facility] [address] [place] [id number] Carotid artery disease, unspecified laterality, unspecified type Social History Tobacco Use Types Packs/Day Years Used Date Smoking Tobacco: Every Day Cigarettes 2 50 Smokeless Tobacco: Never Comments:Currently smokes 2- 3 ppd - 03/04/20 Alcohol Use Standard Drinks/Week Comments Yes 0 (1 standard drink = 0.6 oz pur e alcohol) rare Sex and Gender Information Value Date Recorded Sex Assigned at Not on file Legal Sex Male 9:34 AM CDT Gender Identity Not on file Sexual Orientation Not on file COVID-19 Exposure Response Date Recorded In the last month, have you been in contact with someone who was confirmed or suspected to have Coronavirus / COVID-19? No / Unsure 04/20/2020 10:57 AM PAYROLL AND BENEFITS ASSISTANT documented as of this encounter Plan of Treatment Not on file documented as of this encounter Results * IR FLUORO OR OTHER (04/20/2020 3:53 PM PAYROLL AND BENEFITS ASSISTANT) Narrative 04/20/2020 3:53 PM PAYROLL AND BENEFITS ASSISTANT Order Auto Finalized. Please see associated Operative Report/Progress Note from the same date. Carlos Bryant MD IR ORDERABLES Fin al Result documented in this encounter Visit Diagnoses Diagnosis Carotid artery disease, unspecified laterality, unspecified type Carotid artery disease, unspecified laterality, unspecified type documented in this encounter Care Teams International Sourcing Manager Relationship Specialty Start Date End Date Jean Marie Spear MD PCP - General Emergency Medicine 05/06/20 documented as of this encounter
--- OUTSIDE RECORDS SUMMARY | 2024-12-06 07:41 | XMS_ITS | Clinical Summary ---
Author Organization [facility] Address [address] [place] [address] Phone Care Team Providers Care Community Health Advisor Name Role Phone Jean Marie Spear MD Primary Care Provider [phone] Allergies Active Allergy Reactions Criticality Noted Date Comments Clopidogrel Nausea and Vomiting Low 03/04/2020 Medications aspirin (MARY CHEWABLE) 81 mg Tablet, Chewable Take 81 mg by mouth daily. Active acetaminophen-codei ne (Tylenol-Codeine #3) 300-30 mg tabletIndications:S /P carotid endarterectomy Take 1 Tablet by mouth every 4 hours as needed for Pain. 10 Tablet 1 Active docusate sodium (COLACE) 100 mg capsule Take 1 Capsule (100 mg) by mouth 2 times daily. 20 Capsule 1 Active ticagrelor (Brilinta) 60 mg Tablet Take 1 Tablet (60 mg) by mouth 2 times daily. 60 Tablet 2 1 Active Active Problems Problem Noted Date Diagnosed Date Left carotid stenosis 03/04/2020 Tobacco abuse 03/04/2020 Immunizations Immunization Administration Dates Next Due (PREVNAR 13)(6 WKS UP) PNEUM OCOCCAL CONJUGATE (PCV13) 0.5 ML, IM 04/21/2020 INFLUENZA VACCINE HIGH DOSE QUADRIVALENT 65 YR U P PF IM 04/21/2020 Social History Tobacco Use Types Packs/Day Years Used Date Smoking Tobacco: Former Cigarettes 2 50 1 06/19/1969 - 04/19/2020 Smokeless Tobacco: Never Alcohol Use Standard Drinks/Week Comments Yes 0 (1 standard drink = 0.6 oz pur e alcohol) rare Sex and Gender Information Value Date Recorded Sex Assigned at Not on file Legal Sex Male 9:34 AM CDT Gender Identity Not on file Sexual Orientation Not on file Last Filed Vital Signs Vital Sign Reading Time Taken Comments Blood Pressure 110/64 07/21/2020 11:44 AM WRESTLING COACH Pulse 70 07/21/2020 11:44 AM WRESTLING COACH Temperature 36.2 C (97.2 F) 05/31/2020 9:36 AM WRESTLING COACH Respiratory Rate 20 05/31/2020 9:36 AM WRESTLING COACH Oxygen Saturation 96% 07/21/2020 11:44 AM WRESTLING COACH Inhaled Oxygen Concentration - - Weight 90.3 kg (199 lb) 07/21/2020 11:44 AM WRESTLING COACH Height 182.9 cm (6') 05/31/2020 9:36 AM WRESTLING COACH Body Mass Index 26.99 05/31/2020 9:36 AM WRESTLING COACH Plan of Treatment Health Maintenance Due Date Last Done Comments COLORECTAL SCREENING 1993 Colorectal Cancer Screening 1993 FIT-DNA Q 3 years 1993 FIT/FOBT Q 1 year 1993 Flex Sig/CT Colonography Q 5 years 1993 ZOSTER VACCINE (1 of 2) 1998 DTAP/TDAP/TD VACCINES (2 - T d or Tdap) 06/19/2022 06/19/2012 RSV VACCINE (60+ or ) (1 - 1-dose 75+ series) 12/09/2023 INFLUENZA VACCINE (#1) 2024 04/21/2020 PNEUMOCOCCAL VACCINE 50+ YEARS Completed 1 06/21/2019, 11/08/2016, 05/10/2015 Medical Devices Implanted Type Area Towboat Operator Device Identifier Shelf Expiration Date Model / Serial / Lot Closure Perclose Proglide [id number] - [id number] Implanted:Qty : 1 on 05/31/2020 by Carlos Bryant MD at [facility] Closure Device Left: Groin [employer]HETA- VASC DEVICE 02/24/2022 [id number] / / [id number] Hemostatic Surgiflo 8ml W/Thrombin 2994 - [id number] Implanted:Qty : 1 on 04/20/2020 by Carlos Bryant MD at [facility] Hemostatic Left: Neck [employer] [id number] 05/27/2021 [id number] / / [id number] Stent Viabahn Vbx [id number] - [id number] Implanted:Qty : 1 on 04/20/2020 by Carlos Bryant MD at [facility] Stent Left: Neck [employer] 10/28/2022 [id number] / / [id number] Stent Omnlnk 8x39mm [id number] - [id number] Implanted:Qty : 1 on 05/31/2020 by Carlos Bryant MD at [facility] Stent Left: Arterial [employer]HE[employer]- VASC DEVICE 05/27/2023 [id number] / / [id number] Vascu-Guard [id number] - [id number] Implanted:Qty : 1 on 04/20/2020 by Carlos Bryant MD at [facility] Tissue Left: Neck [employer] [id number] 12/09/2024 [id number] / / [id number] Insurance Advance Directives For more information, please contact: [phone] * Full Code (Latest Code Status on File) Date Activated Date Inactivated Comments 04/20/2020 5:47 PM 04/21/2020 12:17 PM * Full Code Date Activated Date Inactivated Comments 04/20/2020 10:32 AM 04/20/2020 5:47 PM Care Teams Community Health Advisor Relationship Specialty Start Date End Date Jean Marie Spear MD PCP - General Emergency Medicine 05/06/20
--- NOTE | 2024-12-06 07:42 | ED_ITS ---
HPI - General Adult 2 General: Chief complaint: Shortness of Breath/Dyspnea Stated complaint: chest congestion, trouble breathing Time Seen by Provider: 12/06/24 07:41 History of Present Illness: 73-year-old white male presents emergenc y room with sudden onset of chest pain about 2 nights ago. He usually wears oxygen at night. He has a history of coronary artery disease and initially arrives he is at 80% on room air improved to the mid to mid 80s with 2 L and upper 80s at 4 L. Patient is short of breath. He denies fever sweats chills or productive cough he is a former smoker. He does have a history of COPD and pulmonary fibrosis. Associated symptoms: Reports chest pain and dyspnea; Deny rash Related Data Home Medications ?Medication ?Instructions ?Recorded ?Confirmed cholecalciferol (vitamin D3) 50 50 mcg PO DAILY unknow n 10/15/20 12/06/24 mcg (2,000 unit) tablet aspirin 81 mg tablet,delayed 162 mg PO BID 08/24/23 release omeprazole 40 mg capsule,delayed 40 mg PO DAILY PRN He artburn 08/24/23 12/06/24 release triamcinolone acetonide 0.1 % 1 applic topical PRN PRN Skin 08/24/23 12/06/24 topical cream Irritation fluticasone 250 mcg-salmeterol 50 1 inh inhalation BID 12/06/24 12/06/24 mcg/dose blistr powdr for inhalation (Wixela Inhub) ipratropium bromide 17 2 puff inhalation QID 12/06/24 mcg/actuation HFA aerosol inhaler prasugrel HCl 10 mg tablet 10 mg PO DAILY 12/06/2405/21 Previous Rx's ?Medication ?Instructions ?Recorded rosuvastatin 40 mg tablet 40 mg PO DAILY #90 tabs 100 02/18 Allergies Allergy/AdvReac Type Severity Reaction Status Date / Time clopidogrel AdvReac Intermediate ADR-Gastrointestinal Verified 09/11/24 13:28 Upset Review of Systems 2 Const: Denies: fever(s) or chills Card: Reports: chest pain Resp: Reports: dyspnea GI: Denies: abdominal pain : Denies: dysuria, urinary frequency or urinary urgency Musc: Denies: neck pain or back pain Skin/Breast: Denies: rash [facility] 2 PFSH: Medical History Chronic shortness of breath Abdominal bloating GERD (gastroesophageal reflux disease) ASHD (arteriosclerotic heart disease) PAD (peripheral artery disease) COPD (chronic obstructive pulmonary disease) AAA (abdominal aortic aneurysm) Myocardial infarction Dyslipidemia Carotid stenosis, bilateral Surgical History Presence of internal carotid stent History of coronary artery stent placement H/O carotid endarterectomy History of colonoscopy History of esophagogastroduodenoscopy (06/08/21) S/P angioplasty with stent Family History Father Congestive heart failure (CHF) Social History Smoking and tobacco/nicotine status: former use of tobacco/nicotine (quit 4+ years) Quit status (tobacco/nicotine): has quit using Year quit tobacco: Apr 19, 2020 [id number] Second hand smoke exposure: No Alcohol intake: current Alcohol intake frequency: holidays/special occasions only Substance/Drug Use: never Lives independently: Yes Household members: spouse Marital status: service: Yes Current occupational status: retired 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 Pets and animals: Yes Do you think of yourself as: Straight/Heterosexual Current gender identity: Male Physical Exam 2 Const: COMMON NORMALS: no acute distress GENERAL APPEARANCE: cooperative and comfortable ORIENTATION/CONSCIOUSNESS: Yes awake, Yes oriented to person, Yes oriented to place and Yes oriented to time HENMT: COMMON NORMALS: normocephalic, atraumatic and hearing grossly normal bilaterally HEAD & SCALP: normocephalic and atraumatic Resp: AUSCULTATION: wheezes and breath sounds absent on the right Cardio: COMMON NORMALS: regular rate, regular rhythm and No murmurs present (Cardio) RATE: regular rate RHYTHM: regular rhythm GI: COMMON NORMALS: Soft to palpation and No hepatosplenomegaly present A USCULTATION: Yes normoactive bowel sounds PALPATION: Yes Soft to palpation, No Tenderness to palpation present (GI), No Guarding due to palpation present (GI) and Yes No hepatosplenomegaly present Extremity: COMMON NORMALS: normal to inspection, capillary refill normal, no clubbing, cyanosis or edema, no calf tenderness and no pedal edema Neuro: SENSORIUM/ORIENTATION: Yes oriented to person, Yes oriented to place and Yes oriented to time Skin: COMMON NORMALS: no rashes or lesions noted GENERAL SKIN EXAM: no rashes or lesions noted Procedures Chest Tube Chest Tube 1: Chest Tube Location: right, anterior axillary line and fourth interspace Size of Tube (cm): 28 Chest Tube Prep: Yes betadine prep and sterile drapes applied Local Anesthetic: lidocaine 1% Amount of anesthesia used (mL): 10 Incision Made With: #10 blade Post Procedure: sutured to skin and sterile dressing applied Tube Drainage: none Post Procedure CXR?: Yes Patient Tolerated Procedure: Yes Procedural Sedation Indication: other (Chest tube placement) ASA Class: I Preparation: middle school sports coach applied, pulse oximeter, supplemental O2 applied, suction/airway equipment at bedside and IV secured Fentanyl: IV Fentanyl dose (mcg): 75 Midazolam: IV Midazolam dose (mg): 5 Course 2 Vital Signs: Vital signs: Vital Signs Temperature 98.1 F 12/06/24 07:32 Pulse Rate 65 12/06/24 13:55 Respiratory Rate 18 12/06/24 13:47 Blood Pressure 115/79 12/06/24 13:05 Pulse Oximetry 95 12/06/24 13:47 Oxygen Delivery Me thod Nasal Cannula 12/06/24 13:47 Oxygen Flow Rate 3 12/06/24 13:47 [facility] - General Adult Medical Decision Making Patient arrives complaining of chest discomfort and shortness of breath progressively worsening for the last day and. Began on night while he was asleep progressively worsening. Initial chest x-ray shows large right-sided pneumothorax with mediastinal shift. Patient taken to the procedure room. Informed consent obtained from the patient. Patient given procedural sedation with fentanyl Versed and fentanyl titrated to effective doses and results. Areas prepped and draped in sterile manner and the skin anesthetized with lidocaine MSK to intercostal spaces superiorly with lidocaine down to the pleura. 28 [place] chest tube placed appropriately into the apex did withdraw slightly after initial x-ray. There is excellent reduction of the pneumothorax patient tolerated well. Discussed with Dr. Hensley. He will follow patient in the ICU admit to hospitalist service. Medical Records I reviewed the patient's medical records. Lab Data I reviewed the patient's lab results. 12/06/24 07:41 12/06/24 07:41 Radiology Impressions Chest X-Ray 12/06/24 07:59 IMPRESSION: As above. Chest CT 12/06/24 13:17 IMPRESSION: 1. Right chest tube is positioned in the major fissure. 2. Small right pneumothorax (10-20%). 3. Moderate centrilobular and paraseptal emphysema. 4. Incidental findings above. COMMENTS: The presence of pulmonary emphysema on CT is an independent risk factor for lung cancer. In the absence of a history or active diagnosis of lung cancer, it is recommended that this patient with emphysema be evaluated for enrollment in a low dose CT lung cancer screening program. Laboratory Results WBC 9.42 10^3/uL (3.29-11.43) 12/06/24 07:41 RBC 5.38 10^6/uL (3.85-5.65) 12/06/24 07:41 Hgb 15.80 g/dL (11.27-16.99) 12/06/24 07:41 Hct 47.2 % (37-53) 12/06/24 07:41 MCV 87.7 fl (82-101) 12/06/24 07:41 MCH 29.4 pg (27-33) 12/06/24 07:41 MCHC 33.5 g/dL (30-55) 12/06/24 07:41 RDW 13.3 % (12.1-15.1) 12/06/24 07:41 Plt Count 208 10^3/cmm (157-399) 12/06/24 07:41 MPV 9.3 fL (7.4-10.4) 12/06/24 07:41 Neut % (Auto) 49.3 % 12/06/24 07:41 Lymph % (Auto) 39.6 % 12/06/24 07:41 [place] % (Auto) 7.3 % 12/06/24 07:41 Eos % (Auto) 2.7 % 12/06/24 07:41 Baso % (Auto) 0.6 % 12/06/24 07:41 Neut # (Auto) 4.64 10^3/uL (1.8-7.7) 12/06/24 07:41 Lymph # (Auto) 3.7 10^3/uL (0.8-4.8) 12/06/24 07:41 [place] # (Auto) 0.7 10^3/uL (0.2-0.9) 12/06/24 07:41 Eos # (Auto) 0.3 10^3/uL (0.0-0.8) 12/06/24 07:41 Baso # (Auto) 0.1 10^3/uL (0.0-0.1) 12/06/24 07:41 Nucleated RBC % (auto) 0 % 12/06/24 07:41 Nucleated RBCs # 0.0 /100WBC 12/06/24 07:41 Sodium 141 mmol/L (136-145) 12/06/24 07:41 Potassium 3.7 mmol/L (3.5-5.1) 12/06/24 07:41 Chloride 104 mmol/L (98-107) 12/06/24 07:41 Carbon Dioxide 22 mmol/L (22-29) 12/06/24 07:41 Anion Gap 18.7 (5-19) 12/06/24 07:41 BUN 20 mg/dL (8-23) 12/06/24 07:41 Creatinine 1.7 mg/dL (0.7-1.2) H 12/06/24 07:41 GFR Calculation Not Reportable 12/06/24 07:41 Glucose 109 mg/dL (65-115) 12/06/24 07:41 Calculated Osmolality 295 mOsm/kg (285-295) 12/06/24 07:41 Calcium 10.0 mg/dL (8.5-10.5) 12/06/24 07:41 Total Bilirubin 0.4 mg/dL (0.15-1.2) 12/06/24 07:41 AST 20 U/L (0-40) 12/06/24 07:41 ALT 17 U/L (0-41) 12/06/24 07:41 Alkaline Phosphatase 85 U/L (40-130) 12/06/24 07:41 Creatine Kinase 221 U/L (39-308) 12/06/24 07:41 C-Reactive Protein 6.8 mg/L (0.0-4.9) H 12/06/24 07:41 NT-Pro-B Natriuret Pep 455 pg/mL (0-450) H 12/06/24 07:41 Total Protein 7.9 g/dL (6.6-8.7) 12/06/24 07:41 Albumin 4.6 g/dL (3.5-5.2) 12/06/24 07:41 Globulin 3.3 g/dL (1.3-4.6) 12/06/24 07:41 Procalcitonin 0.07 ng/mL (0-0.5) 12/06/24 07:41 Influenza A (PCR) Negative (Negative) 12/06/24 07:47 Influenza Type B (PCR) Negative (Negative) 12/06/24 07:47 RSV (PCR) Negative (Negative) 12/06/24 07:47 SARS-CoV-2 (PCR) Negative (Negative) 12/06/24 07:47 All radiology interpretation(s) finalized by discharge EKG Data EKG 1: Interpretation: EKG December 06, 2024 7:35 AM sinus rhythm rate of 84 TX interval 152 QTc 419. Old septal injury, Q waves noted in V1 and 2. Borderline criteria for LVH. EKG compared to 08/24/2023 Computer generated interpretation: Chest X-Ray 12/06/24 07:59 IMPRESSION: As above. Chest CT 12/06/24 13:17 IMPRESSION: 1. Right chest tube is positioned in the major fissure. 2. Small right pneumothorax (10-20%). 3. Moderate centrilobular and paraseptal emphysema. 4. Incidental findings above. COMMENTS: The presence of pulmonary emphysema on CT is an independent risk factor for lung cancer. In the absence of a history or active diagnosis of lung cancer, it is recommended that this patient with emphysema be evaluated for enrollment in a low dose CT lung cancer screening program. Discharge Plan Discharge Patient Disposition: Admitted As Inpatient Admit Provider: Fuentes Hernandez Clinical Impression: Spontaneous pneumothorax, COPD (chronic obstructive pulmonary disease), Pulmonary fibrosis Condition: Stable Coding Level of Care Code ED Directory Assistance Operator for Keyur Recinos
--- NOTE | 2024-12-06 07:42 | XRR_ITS ---
PROCEDURE INFORMATION: Exam: XR Chest Exam date and time: 12/06/2024 7:49 AM Age: 73 years old Clinical indication: Shortness of breath; Prior surgery; Surgery date: 6+ months; Surgery type: Cardiac stents; Additional info: Dyspnea/cough TECHNIQUE: Imaging protocol: Radiologic exam of the chest. Views: 1 view. COMPARISON: CR XR chest 1V portable [id number] 08/24/2023 12:16 PM FINDINGS: Lungs: Unremarkable. No consolidation. Pleural spaces: Moderate to large right-sided pneumothorax measuring approximately 5.8 cm from the apex and 5.3 cm from the right lateral pleural surface. Heart/Mediastinum: There is mediastinal shift to the left. Bones/joints: Unremarkable. XR/XR chest 1V portable [id number] IMPRESSION: Moderate to large right-sided pneumothorax with mediastinal shift to the left.
[2024-12-06 07:48] LABS: Hematocrit 47.2 % (37-53); Hemoglobin 15.80 g/dL (11.27-16.99); Mean Corpuscular HGB Conc 33.5 g/dL (30-55); Mean Corpuscular Hemoglobin 29.4 pg (27-33); Mean Corpuscular Volume 87.7 fl (82-101); Nucleated Red Blood Cells % 0 %; Platelet Count 208 10^3/cmm (157-399); Red Blood Count 5.38 10^6/uL (3.85-5.65); White Blood Count 9.42 10^3/uL (3.29-11.43)
--- NOTE | 2024-12-06 07:59 | XRR_ITS ---
PROCEDURE INFORMATION: Exam: XR Chest Exam date and time: 12/06/2024 8:15 AM Age: 73 years old Clinical indication: Device placement; Chest tube; Post RT thoravent insertion TECHNIQUE: Imaging protocol: Radiologic exam of the chest. Views: 1 view. COMPARISON: CR (CHEST, ) 12/06/2024 7:49 AM FINDINGS: Tubes, catheters and devices: Interval placement of right-sided chest tube. Lungs: Interstitial prominence of the lungs bilaterally likely due to under inflation. The lungs are otherwise clear. Pleural spaces: Expansion of the right lung with trace pneumothorax remaining. No sizable pneumothorax. Heart/Mediastinum: No cardiomegaly. Bones/joints: Unremarkable. Soft tissues: Subcutaneous emphysema overlying the right lateral chest wall from recent chest tube insertion. XR/XR chest 1V portable [id number] IMPRESSION: As above.
[2024-12-06 08:05] LABS: Alanine Aminotransferase 17 U/L (0-41); Albumin Level 4.6 g/dL (3.5-5.2); Alkaline Phosphatase 85 U/L (40-130); Anion Gap 18.7 (5-19); Aspartate Amino Transferase 20 U/L (0-40); Blood Urea Nitrogen 20 mg/dL (8-23); Calcium 10.0 mg/dL (8.5-10.5); Carbon Dioxide 22 mmol/L (22-29); Chloride 104 mmol/L (98-107); Globulin 3.3 g/dL (1.3-4.6); Glucose 109 mg/dL (65-115); Osmolality Calculated 295 mOsm/kg (285-295); Potassium 3.7 mmol/L (3.5-5.1); Sodium 141 mmol/L (136-145); Total Protein 7.9 g/dL (6.6-8.7)
[2024-12-06 08:12] LABS: Creatinine Clr Calc Pharmacy 43.9957
[2024-12-06 08:33] LABS: Respiratory Syncytial Virus Ce NEGATIVE (Negative); SARS-CoV-2 PCR NEGATIVE (Negative)
[2024-12-06] MEDS: fentaNYL 50 mcg/mL INJ 2mL 100 MCG IVP (08:38)
[2024-12-06] MEDS: midazolam 1 mg/mL INJ 2 mL 4 MG IVP (08:39)
--- NOTE | 2024-12-06 08:39 | PC.NURSE ---
Addendum entered by Tracie Brown RN 12/06/24 08:54: @0822: 25mcg Fentanyl administered post-procedure for pain control; per Dr. Reinoso Original Note: Conscious Sedation/Chest Tube Insertion: informed consent signed prior to procedure intubation box, adult ambu bag, x2 suction available at bedside oxygen 4L via Simple Mask; hemodynamic/cardiac applied to pt prior to procedure x2 bilat large bore IVs patent START: @804 STOP: @827 @0805: time out performed @0807: 4mg Versed & 50mcg Fentanyl administered @0815: 25mcg Fentanyl administered @0816: insertion of 28F Trocar Catheter inserted via Dr. Reinoso @0820: confirmation x-ray obtained, Dr. Reinoso at bedside @0822: chest tube connected to Pleur-Evac, connected to continuous 20mmHg wall suction per Dr. Reinoso @0822: continuous bubbling noted to suction control chamber, intermittent bubbling/tidaling noted to water seal chamber; appropriate for patient at this time. see MAR/pyxis for wasted medication; total given: 100mcg Fentanyl; 4mg Versed.
--- NOTE | 2024-12-06 09:12 | PC.PHAR ---
Pt states he just got 2 new puffers a couple weeks ago but does not know what they are. [facility].
--- NOTE | 2024-12-06 09:17 | PC.NURSE ---
Patient arrived to ICU 3 via stretcher from ER . Chest tube clamped, immediately unclamped by PHYSICAL THERAPY ATTENDANT. Patient transferred self to bed, placed chest tube system to suction at 20 per verbal from ER nurse Tracie Medina. Patient on 4L NC. Patient reporting back pain 3/10 in area of chest tube insertion. No other wounds noted on head to toe assessment. AOX4. is at bedside.
[2024-12-06 09:56] LABS: NT Pro B Type Natriuretic Pept 455 pg/mL (0-450); Procalcitonin 0.07 ng/mL (0-0.5)
[2024-12-06] MEDS: pantoprazole 40 mg SDV IVP (10:02)
[2024-12-06] MEDS: morphine 4 mg/mL SDV 1 mL 2 MG IVP (11:01)
--- NOTE | 2024-12-06 12:35 | PM.HP ---
Providers/Chief Complaint Admitting Physician: Fuentes Hernandez MD Primary Care Provider: Jean Marie Spear DO Chief Complaint: chest congestion, trouble breathing History of Present Illness Jerrell Love is a 73 year old male with a past medical history of COPD, CHF, stop smoking 4 years ago, abdominal aortic, Carotid Artery Stenosis, Who Presents [facility] for Shortness of Breath. Patient Reports Chronic History of Cough, Shortness of Breath Associated with His Chronic COPD. However over the Last Few Days, He Has Had Episodes of Chest Pain and Shortness of Breath, Patient Tells Me He Denies Any Fevers, No Chills, Does Have a Nonproductive Cough, No Lightheadedness, No Dizziness, No Trauma, No Injuries, No Recent Falls, No Car Accidents, Denies a Prior History of Pneumothorax, in the Emergency Room He Was Found to Be 80% on Room Air, Improved to the Mid 80s on 2 L, Upper 80s on 4 L Review of Systems Const: Reports: fatigue and malaise; Denies: fever(s) or chills Card: Denies: chest pain Resp: Reports: dyspnea GI: Denies: abdominal pain : Denies: flank pain Medications/Allergies Home Medications ?Medication ?Instructions ?Recorded ?Confirmed ?Last Taken ?Type cholecalciferol (vitamin D3) 50 50 mcg PO DAILY unknown 10/15/20 12/06/24 12/05/24 History mcg (2,000 unit) tablet aspirin 81 mg tablet,delayed 162 mg PO BID 08/24/23 12/06/24 12/05/24 History release omeprazole 40 mg capsule,delayed 40 mg PO DAILY PRN Heartburn 08/24/23 12/06/24 Unknown History release triamcinolone acetonide 0.1 % 1 applic topical PRN PRN Skin 08/24/23 12/06/24 Unknown History topical cream Irritation rosuvastatin 40 mg tablet 40 mg PO DAILY #90 tabs 03/05/24 12/06/24 12/05/24 Rx fluticasone 250 mcg-salmeterol 50 1 inh inhalation BID 12/06/24 12/06/24 12/05/24 History mcg/dose blistr powdr for inhalation (Wixela Inhub) ipratropium bromide 17 2 puff inhalation QID 12/06/24 12/06/24 12/05/24 History mcg/actuation HFA aerosol inhaler prasugrel HCl 10 mg tablet 10 mg PO DAILY 12/06/24 12/06/24 12/05/24 History Allergies Allergy/AdvReac Type Severity Reaction Status Date / Time clopidogrel AdvReac Intermediate ADR-Gastrointestinal Verified 09/11/24 13:28 Upset PFSH Acute PFSH: Medical History Chronic shortness of breath Abdominal bloating GERD (gastroesophageal reflux disease) ASHD (arteriosclerotic heart disease) PAD (peripheral artery disease) COPD (chronic obstructive pulmonary disease) AAA (abdominal aortic aneurysm) Myocardial infarction Dyslipidemia Carotid stenosis, bilateral Surgical History Presence of internal carotid stent History of coronary artery stent placement H/O carotid endarterectomy History of colonoscopy History of esophagogastroduodenoscopy (06/08/21) S/P angioplasty with stent Family History Father Congestive heart failure (CHF) Social History Smoking and tobacco/nicotine status: former use of tobacco/nicotine (quit 4+ years) Quit status (tobacco/nicotine): has quit using Year quit tobacco: Apr 19, 2020 [id number] Second hand smoke exposure: No Alcohol intake: current Alcohol intake frequency: holidays/special occasions only Substance/Drug Use: never Lives independently: Yes Household members: spouse Marital status: service: Yes Current occupational status: retired 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 Pets and animals: Yes Do you think of yourself as: Straight/Heterosexual Current gender identity: Male Vitals/I&O/Wt Last Vital Signs Temp 98.1 F 12/06/24 07:32 Pulse 63 12/06/24 10:19 Resp 18 12/06/24 10:19 BP 127/82 12/06/24 09:26 Pulse Ox 94 12/06/24 10:19 O2 Del Method Nasal Cannula 12/06/24 10:19 O2 Flow Rate 3 12/06/24 10:19 12/05/24 12/06/24 12/06/24 22:59 06:59 14:59 Intake Total 0 / 0 Balance 0 / 0 Weight last 48 hrs Weight 90.718 kg Physical Exam Const: COMMON NORMALS: no acute distress and patient oriented x3 Eye: COMMON NORMALS: Equal, round and reactive pupils present Resp: COMMON NORMALS: normal respiratory effort, No retractions, No use of accessory muscles and clear to auscultation bilaterally AUSCULTATION: clear to auscultation bilaterally Cardio: COMMON NORMALS: no JVD, regular rate, regular rhythm, S1 normal heart sound present and S2 normal heart sound present RATE: regular rate RHYTHM: regular rhythm HEART SOUNDS: S1 normal heart sound present and S2 normal heart sound present GI: COMMON NORMALS: Normal to inspection, nondistended, normoactive bowel sounds present, Soft to palpation and non-tender Extremity: COMMON NORMALS: no pedal edema Neuro: COMMON NORMALS: patient oriented x3, CN's II-XII intact bilaterally and moves all extremities Psych: COMMON NORMALS: mental status grossly normal Data 12/06/24 07:41 12/06/24 07:41 A&P Assessment and plan 1. Pulmonary emphysema with fibrosis of lun. Chronic shortness of breath: 3. Ex-smoker: 4. Pneumothorax on right: 5. S/P chest tube placement: 6. Acute hypoxic respiratory failure: Plan: Moderate to large right-sided pneumothorax with mediastinal shift to the left - Status post right chest tube placement, -Repeat chest x-ray shows subcutaneous emphysema over the right lateral chest wall Plan - Monitor in the ICU - Follow repeat chest x-ray - Will order CT of the chest on suction - DuoNeb - Budesonide - Prednisone, azithromycin - Chest tube currently on suction keep on suction throughout the night -Morphine as needed for pain control - Will consider placing to waterseal in the morning - Pulmonary on consult - Full code - Lovenox for DVT prophylaxis History of CAD, continue aspirin, Effient PDMP PDMP Reviewed: Not Reviewed Attestations Medical Necessity Statement*: Patient requires hospitalization, inpatient, greater than 2 midnights, for right pneumothorax Coding Level of Care Code Critical Care >/= 30 minutes Critical care time (in minutes): 35 The high probability of a clinically significant, sudden or life threatening deterioration, as referenced in this documentation, required my full and direct attention, intervention and personal management. The critical care time shown is in addition to time spent performing any reported separately billable procedures and includes the following: [x] Data and vital sign review and interpretation [x] Patient assessment, examination and intervention [x] Medication orders and management [x] Patient/Family updates as able [x] Care Coordination and Documentation. Diagnoses Pulmonary emphysema with fibrosis of lung J43.9; J84.10 Chronic shortness of breath R06.02 Ex-smoker Z87.891 Pneumothorax on right J93.9 S/P chest tube placement Z93.8 Acute hypoxic respiratory failure J96.01
--- NOTE | 2024-12-06 13:17 | CTR_ITS ---
PROCEDURE INFORMATION: Exam: CT Chest Without Contrast; Diagnostic Exam date and time: 12/06/2024 2:41 PM Age: 73 years old Clinical indication: Shortness of breath; Chest tube; Additional info: while suction TECHNIQUE: Imaging protocol: Diagnostic computed tomography of the chest without contrast. Radiation optimization: All CT scans at this facility use at least one of these dose optimization techniques: automated exposure control; mA and/or kV adjustment per patient size (includes targeted exams where dose is matched to clinical indication); or iterative reconstruction. COMPARISON: CT chest wo con [id number] 11/22/2022 12:26 PM RADIATION DOSE METRICS: Total DLP (mGy-cm): 793.7 FINDINGS: Tubes, catheters and devices: Right-sided large bore chest tube enters the major fissure laterally and extends posterior superiorly to the posterior margin of the major fissure. Lungs: There is moderate upper lung predominant centrilobular emphysema. There is moderate paraseptal emphysema in the upper lungs. There is dependent atelectasis in right lower lobe. Bronchiolitis in the right upper lung visible on 11/22/2022 is no longer present. There is minimal consolidation in the right upper lobe adjacent to the chest tube, likely minimal parenchymal bleeding. Trachea and bronchi are normal. Pleural spaces: Small right anterior pneumothorax (roughly 10-20%). Heart: Heart size is normal. There is no pericardial effusion. Coronary arteries: There is moderate coronary artery calcification. Lymph nodes: There are numerous small upper mediastinal lymph nodes. No enlarged mediastinal or hilar lymph nodes. There are small calcified left hilar lymph nodes. Vasculature: There is moderate aortic atherosclerotic disease. There is a stent at the origin of the left common carotid artery. Intraperitoneal space: Visible structures in the upper abdomen are unremarkable. Bones/joints: Bones are unremarkable. Soft tissues: There is a small volume of soft tissue gas in the right chest wall. No hematoma or fluid collection in the chest wall. CT/CT chest wo con [id number] IMPRESSION: 1. Right chest tube is positioned in the major fissure. 2. Small right pneumothorax (10-20%). 3. Moderate centrilobular and paraseptal emphysema. 4. Incidental findings above. COMMENTS: The presence of pulmonary emphysema on CT is an independent risk factor for lung cancer. In the absence of a history or active diagnosis of lung cancer, it is recommended that this patient with emphysema be evaluated for enrollment in a low dose CT lung cancer screening program.
--- NOTE | 2024-12-06 13:47 | PM.CONSULT ---
Providers/Reason For Consult Consulting Physician/Specialty*: Emergency/internal medicine Reason for Consult*: Secondary pneumothorax Requesting Physician: Dr. Fuentes Hernandez Attending Physician: Fuentes Hernandez MD Primary Care Provider: Jean Marie Spear DO History of Present Illness History of Present Illness Jerrell Love is a 73-year-old male with a past medical history significant for COPD (remote smoking history, quit in 2019), CUCA, chronic respiratory failure on nocturnal oxygen, coronary artery disease, grade 1 diastolic heart failure, abdominal aortic aneurysm, and carotid artery stenosis status post intervention, presented to the ED with worsening shortness of breath. The patient reports a chronic history of dyspnea related to his underlying COPD. However, over the past few days, he experienced episodes of cough, sneezing and increased shortness of breath. Two days prior to presentation, he developed symptoms consistent with a mild upper respiratory tract infection, including sneezing and cough. That night, he noticed worsening breathing and shortness of breath, prompting his visit to the emergency department. In the ED, he was found to have a large right-sided pneumothorax, for which a surgical chest tube was placed by the emergency team. He denies any history of recent trauma, fever, or chills. At home, the patient uses supplemental oxygen during sleep and occasionally with exertion. He reports some activity, including walking on a treadmill, but feels his respiratory status has not been optimal over the past several months. He was recently prescribed Wixela and has an inhalation device (presumably a nebulizer), though he admits to inconsistent use. He denies recent hospital admissions or COPD exacerbations. Review of Systems General: Reports: 10 or more systems reviewed and unremarkable except in HPI and below Resp: Reports: dyspnea, change in phlegm color and chest congestion Medications/Allergies Home Medications ?Medication ?Instructions ?Recorded ?Confirmed ?Last Taken ?Type cholecalciferol (vitamin D3) 50 50 mcg PO DAILY unknown 10/15/20 12/06/24 12/05/24 History mcg (2,000 unit) tablet aspirin 81 mg tablet,delayed 162 mg PO BID 08/24/23 12/06/24 12/05/24 History release omeprazole 40 mg capsule,delayed 40 mg PO DAILY PRN Heartburn 08/24/23 12/06/24 Unknown History release triamcinolone acetonide 0.1 % 1 applic topical PRN PRN Skin 08/24/23 12/06/24 Unknown History topical cream Irritation rosuvastatin 40 mg tablet 40 mg PO DAILY #90 tabs 03/05/24 12/06/24 12/05/24 Rx fluticasone 250 mcg-salmeterol 50 1 inh inhalation BID 12/06/24 12/06/24 12/05/24 History mcg/dose blistr powdr for inhalation (Wixela Inhub) ipratropium bromide 17 2 puff inhalation QID 12/06/24 12/06/24 12/05/24 History mcg/actuation HFA aerosol inhaler prasugrel HCl 10 mg tablet 10 mg PO DAILY 12/06/24 12/06/24 12/05/24 History Allergies Allergy/AdvReac Type Severity Reaction Status Date / Time clopidogrel AdvReac Intermediate ADR-Gastrointestinal Verified 09/11/24 13:28 Upset Current Medications Generic Name Dose Route Start Last Admin Trade Name Freq PRN Reason Stop Dose Admin Atorvastatin Calcium 80 mg 12/06/24 09:30 12/06/24 10:01 Atorvastatin 40 Mg Tablet PO 80 mg DAILY HAYDEN Administration Sodium Chloride 1,000 mls @ 75 mls/hr 12/06/24 09:17 12/06/24 10:03 Sodium Chloride 0.9% IV 12/06/24 22:36 75 mls/hr .[id number] HAYDEN Administration Morphine Sulfate 2 mg 12/06/24 09:17 12/06/24 11:01 Morphine 4 Mg/Ml Sdv 1 Ml IVP 2 mg Q4H PRN Administration SEVERE PAIN Pantoprazole Sodium 40 mg 12/06/24 09:30 12/06/24 10:02 Pantoprazole 40 Mg Sdv IVP 40 mg Q24H HAYDEN Administration PFSH Acute PFSH: Medical History (Updated 12/06/24 @ 13:57 by Navin Kim MD) Chronic shortness of breath Abdominal bloating GERD (gastroesophageal reflux disease) ASHD (arteriosclerotic heart disease) PAD (peripheral artery disease) COPD (chronic obstructive pulmonary disease) AAA (abdominal aortic aneurysm) Myocardial infarction Dyslipidemia Carotid stenosis, bilateral Surgical History (Updated 12/06/24 @ 12:37 by Fuentes Hernandez MD) Presence of internal carotid stent History of coronary artery stent placement H/O carotid endarterectomy History of colonoscopy History of esophagogastroduodenoscopy (06/08/21) S/P angioplasty with stent Family History Father Congestive heart failure (CHF) Social History Smoking and tobacco/nicotine status: former use of tobacco/nicotine (quit 4+ years) Quit status (tobacco/nicotine): has quit using Year quit tobacco: Apr 19, 2020 [id number] Second hand smoke exposure: No Alcohol intake: current Alcohol intake frequency: holidays/special occasions only Substance/Drug Use: never Lives independently: Yes Household members: spouse Marital status: service: Yes Current occupational status: retired 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 Pets and animals: Yes Do you think of yourself as: Straight/Heterosexual Current gender identity: Male Vitals/I&O/Wt Last Vital Signs Temp 98.1 F 12/06/24 07:32 Pulse 65 12/06/24 13:05 Resp 17 12/06/24 13:05 BP 115/79 12/06/24 13:05 Pulse Ox 94 12/06/24 13:05 O2 Del Method Nasal Cannula 12/06/24 13:05 O2 Flow Rate 3 12/06/24 10:19 12/05/24 12/06/24 12/06/24 22:59 06:59 14:59 Intake Total 0 / 0 Balance 0 / 0 Weight last 48 hrs Weight 200 lb Physical Exam Narrative: General: Alert and oriented to person, place, and time, in mild respiratory distress but no acute distress otherwise Head and Neck: Normocephalic and atraumatic, no jugular venous distension, trachea midline, no cervical lymphadenopathy Eyes: Pupils equal, round, reactive to light and accommodation Ears/Nose/Throat: Moist mucous membranes, no oropharyngeal erythema or lesions, no nasal flaring Cardiovascular: Regular rate and rhythm, normal S1 and S2, no murmurs, rubs, or gallops, peripheral pulses 2+ and symmetric, no peripheral edema Respiratory: Mild tachypnea, decreased breath sounds bilaterally more pronounced on the right, no wheezing or rales, right-sided surgical chest tube in place connected to drainage system with evidence of grade 2?3 bubbling on water seal chamber, no subcutaneous emphysema Abdomen: Soft, non-tender, non-distended, normoactive bowel sounds, no hepatosplenomegaly Musculoskeletal: Normal range of motion, no joint swelling or deformity Skin: Warm and dry, no rashes or lesions, chest tube site clean with intact dressing Neurological: Alert and oriented ?3, cranial nerves II?XII grossly intact, strength 5/5 throughout, sensation intact to light touch Psychiatric: Appropriate affect and cooperative behavior, no signs of agitation or confusion Data 12/06/24 07:41 12/06/24 07:41 A&P Assessment and plan 1. Secondary spontaneous pneumothorax: 2. Acute hypoxemic respiratory failure: 3. COPD (chronic obstructive pulmonary disease): 4. Ex-smoker: 5. S/P chest tube placement: 6. Pulmonary emphysema with fibrosis of lun. COPD exacerbation: Plan: 73-year-old male with a history of COPD, CUCA, chronic respiratory failure on nocturnal oxygen, and mild pulmonary fibrosis presented with worsening shortness of breath and chest pain following mild upper respiratory symptoms. He was found to have a large right pneumothorax requiring surgical chest tube placement. The patient denied any chest trauma or recent falls. Given his underlying lung disease, this is consistent with a secondary spontaneous pneumothorax. He has no prior history of pneumothorax. Currently, there is evidence of an ongoing air leak. Recommendations (discussed with Dr. Hernandez): ? Obtain a CT chest without contrast while on suction to evaluate lung parenchyma and identify the potential source of the air leak ? Optimize COPD management: start Duoneb every 6 hours and Budesonide 0.5 mg BID ? Treat for possible COPD exacerbation with a 5-day course of prednisone and azithromycin ? Continue supplemental oxygen and keep chest tube on suction ? If chest X-ray tomorrow is favorable, initiate water seal trial ? If air leak persists, consider evaluation for endobronchial valve placement vs. pleurodesis (though currently too early, plan is conservative management for now) ? Long-term plan includes pulmonary function testing to assess candidacy for bronchoscopic lung volume reduction, given his smoking cessation since 2019 ? Continue with overall management plan in coordination with Dr. David Kim MD, FACP Interventional Pulmoanry PDMP PDMP Reviewed: Not Reviewed Coding Level of Care Code Acute Code for Chg Fwd Diagnoses Secondary spontaneous pneumothorax J93.12 Acute hypoxemic respiratory failure J96.01 COPD (chronic obstructive pulmonary disease) J44.9 Ex-smoker Z87.891 S/P chest tube placement Z93.8 Pulmonary emphysema with fibrosis of lung J43.9; J84.10 COPD exacerbation J44.1
[2024-12-06] MEDS: HYDROmorphone 0.5 MG/0.5 ML INJ 1 MG IVP ×2 (13:54→22:44)
--- NOTE | 2024-12-06 15:43 | PC.NURSE ---
Notified Dr. Hernandez that patients oxygen requirements have increased from 3L NC to 4LNC and saturations have been 88-89% since returning from CT. Dr. Hernandez instructed to continue monitoring.
--- NOTE | 2024-12-06 16:52 | ECG_ITS ---
[facility] 2024[facility] Pat Name: Jerrell Love Department: Room: [facility] Gender: Male Choker Setter: : 1950 Requested By: Fuentes Hernandez Order Number: [id number] Nery MD: Gene Amin M.D. Measurements Intervals [place] Rate: 67 P: 51 NE: 171 QRS: -14 QRSD: 113 T: 77 QT: 412 QTc: 435 Interpretive Statements SINUS RHYTHM MODERATE INTRAVENTRICULAR CONDUCTION DELAY [110+ ms QRS DURATION] NONSPECIFIC T-WAVE ABNORMALITY Compared to ECG 12/06/2024 07:35:31 Intraventricular conduction delay now present T-wave abnormality now present Myocardial infarct finding no longer present Electronically Signed On 12-10-2024 00:34:08 CDT by Gene Amin M.D. [email or web address]
--- NOTE | 2024-12-06 20:39 | PC.NURSE ---
Lovenox Patient stated he did not want lovenox. Education provided on purpose of lovenox. Patient still refused; SCDs on. Dr. Devi notified.
[2024-12-07] VITALS (52 sets, daily range): BP systolic 127–207; BP diastolic 63–158; PULSE 63–121; RESP 12–26; TEMP 36.4–36.7; O2SAT 88–98
[2024-12-07 04:32] LABS: Hematocrit 45.4 % (37-53); Hemoglobin 14.90 g/dL (11.27-16.99); Mean Corpuscular HGB Conc 32.8 g/dL (30-55); Mean Corpuscular Hemoglobin 29.3 pg (27-33); Mean Corpuscular Volume 89.4 fl (82-101); Nucleated Red Blood Cells % 0 %; Platelet Count 191 10^3/cmm (157-399); Red Blood Count 5.08 10^6/uL (3.85-5.65); White Blood Count 9.32 10^3/uL (3.29-11.43)
[2024-12-07 04:51] LABS: Alanine Aminotransferase 15 U/L (0-41); Albumin Level 4.2 g/dL (3.5-5.2); Alkaline Phosphatase 76 U/L (40-130); Anion Gap 20.4 (5-19); Aspartate Amino Transferase 20 U/L (0-40); Blood Urea Nitrogen 16 mg/dL (8-23); Calcium 9.4 mg/dL (8.5-10.5); Carbon Dioxide 19 mmol/L (22-29); Chloride 101 mmol/L (98-107); Creatinine Clr Calc Pharmacy 55.8950; Globulin 3.3 g/dL (1.3-4.6); Glucose 168 mg/dL (65-115); Osmolality Calculated 287 mOsm/kg (285-295); Potassium 4.4 mmol/L (3.5-5.1); Sodium 136 mmol/L (136-145); Total Protein 7.5 g/dL (6.6-8.7)
--- NOTE | 2024-12-07 06:00 | XRR_ITS ---
PROCEDURE INFORMATION: Exam: XR Chest Exam date and time: 12/07/2024 6:04 AM Age: 73 years old Clinical indication: Shortness of breath; Chest tube; Additional info: SOB TECHNIQUE: Imaging protocol: Radiologic exam of the chest. Views: 1 view. COMPARISON: CT chest con [id number] 12/06/2024 2:41 PM FINDINGS: Tubes, catheters and devices: Right-sided chest tube is seen. Lungs: Pulmonary vessels are within normal limits. Left lung is clear. Pleural spaces: Persistent but smaller right apical 5-10% pneumothorax. Heart/Mediastinum: Cardiomediastinal silhouette is within normal limits. Bones/joints: Unremarkable. Soft tissues: Right chest wall subcutaneous emphysema. XR/XR chest 1V portable [id number] IMPRESSION: Persistent but smaller right apical 5-10% pneumothorax.
[2024-12-07] MEDS: pantoprazole 40 mg SDV IVP (08:41)
--- NOTE | 2024-12-07 10:04 | PC.NURSE ---
Dr. Hernandez on phone with Dr. Kim. Chest tube placed to water seal as ordered. No distress noted, no air leak noted.
--- NOTE | 2024-12-07 12:00 | XRR_ITS ---
PROCEDURE INFORMATION: Exam: XR Chest Exam date and time: 12/07/2024 11:59 AM Age: 73 years old Clinical indication: Device placement; Chest tube; Eval RT pneumothorax; CT to water seal TECHNIQUE: Imaging protocol: Radiologic exam of the chest. Views: 1 view. COMPARISON: CR (CHEST, ) 12/07/2024 6:04 AM FINDINGS: Tubes, catheters and devices: Right-sided chest tube is in position. No significant change of right apical 5-10% pneumothorax. Lungs: Pulmonary vessels are within normal limits. Pleural spaces: See Tubes, catheters and devices finding. Heart/Mediastinum: Cardiomediastinal silhouette is within normal limits. Bones/joints: Unremarkable. Soft tissues: Right chest wall subcutaneous emphysema XR/XR chest 1V portable [id number] IMPRESSION: Right-sided chest tube is in position. No significant change of right apical 5-10% pneumothorax.
[2024-12-07] MEDS: HYDROmorphone 0.5 MG/0.5 ML INJ 1 MG IVP ×3 (12:35→20:28)
--- NOTE | 2024-12-07 12:38 | PC.NURSE ---
Sudden severe right chest pain and change in voice noted. Slight increase in crepetis noted to right upper chest area and neck. Notified Dr. Hernandez, order given to place back to suction. 1mg Dilaudid given IVP.
--- NOTE | 2024-12-07 13:45 | P.PN_ITS ---
Subjective 2 Subjective: Patient was seen this morning, currently alert oriented x 3, following all commands, denies any fevers, chills, has a cough, no shortness of breath -Chest x-ray reviewed this morning right apical 5 to 10% pneumothorax - Discussed with patient, pulmonary, te jackson for today Place chest tube to waterseal - Will repeat chest x-ray at noon - If patient has sudden onset shortness of breath or worsening shortness of breath will place him back to suction - At roughly 12:30 PM, patient's had adis den onset shortness of breath, just before his chest x-ray had been done, he was placed immediately back to suction - Examined he does have subcutaneous emp hysema along the right neck, right chest, - He looks much more comfortable accordi ng to nursing staff he looks more comfortable to me, has a respiratory rate at 15, good breath sounds in bilateral lung proctor, no tracheal deviation, able to speak full sentences - Discussed with patient and son plan is to keep him on suction for the next 24 hours -Discussed with patient and son that we might try placing him back to waterseal Sunday night or even Sunday -Discussed the possibility of needing en dobronchial valves if his airleak persist versus pleurodesis, discussed risk and benefits, he voiced understanding, all questions answered - Will repeat chest x-ray at 4 PM - Spoke to pulmonary Vitals/I&O/Wt Last Vital Signs Temp 98.0 F 12/07/24 12:00 Pulse 108 H 12/07/24 12:00 Resp 26 H 12/07/24 12:00 BP 194/91 12/07/24 12:00 Pulse Ox 95 12/07/24 12:00 O2 Del Method Nasal Cannula 12/07/24 12:00 O2 Flow Rate 5 12/07/24 12:00 12/06/24 12/07/24 12/07/24 22:59 06:59 14:59 Intake Total 1163.75 / 1163.75 600 / 600 Output Total 123 / 123 562 / 685 Balance 1040.75 / 1040.75 -562 / 478.75 600 / 600 Weight last 48 hrs Weight 86.5 kg Weight 84.822 kg Weight 90.718 kg Physical Exam 2 Const: COMMON NORMALS: no acute distress and patient oriented x3 Resp: COMMON NORMALS: normal respiratory effort, No retractions, No use of accessory muscles and clear to auscultation bilaterally AUSCULTATION: clear to auscultation bilaterally Cardio: COMMON NORMALS: regular rate, regular rhythm, S1 normal heart sound present and S2 normal heart sound present RATE: regular rate RHYTHM: r egular rhythm HEART SOUNDS: S1 normal heart sound present and S2 normal heart sound present GI: COMMON NORMALS: Normal to inspection, nondistended, normoactive bowel sounds present and non-tender Extremity: COMMON NORMALS: no pedal edema Neuro: COMMON NORMALS: patient oriented x3 Psych: COMMON NORMALS: mental status grossly normal Data 12/07/24 03:36 12/07/24 03:36 A&P Assessment and plan 1. Pulmonary emphysema with fibrosis of lun. Chronic shortness of breath: 3. Ex-smoker: 4. Pneumothorax on right: 5. S/P chest tube placement: 6. Acute hypoxic respiratory failure: Plan: Moderate to large right-sided pneumothorax with mediastinal shift to the left - Status post right chest tube placement, -Repeat chest x-ray shows subcutaneous emphysema over the right lateral chest wall CT chest CT/CT chest wo con [id number] IMPRESSION: 1. Right chest tube is positioned in the major fissure. 2. Small right pneumothorax (10-20%). 3. Moderate centrilobular and paraseptal emphysema. 4. Incidental findings above. Plan - Monitor in the ICU - Follow repeat chest x-ray at 4 PM - DuoNeb - Budesonide - Prednisone, azithromycin - Failed waterseal trial 12/07/2024 -Placed back to suction for the next 24 hours - Loaded as needed for pain control - Will consider placing to waterseal Sunday evening or Sunday based on clinical progress -Discussed the possibility of endobronchial valves versus pleurodesis - Pulmonary on consult - Full code - Lovenox for DVT prophylaxis History of CAD, continue aspirin, Effient PDMP PDMP Reviewed: Not Reviewed Attestations 2 Medical Necessity Statement*: Patient requires hospitalization for pneumothorax Coding Level of Care Code Critical Care >/= 30 minutes Critical care time (in minutes): 40 The high probability of a clinically significant, sudden or life threatening deterioration, as referenced in this documentation, required my full and direct attention, intervention and personal management. The critical care time shown is in addition to time spent performing any reported separately billable procedures and includes the following: [x] Data and vital sign review and interpretation [x ] Patient assessment, examination and intervention [x] Medication orders and management [x] Patient/Family updates as able [x] Care Coordination and Documentation. Diagnoses Pulmonary emphysema with fibrosis of lung J43.9; J84.10 Chronic shortness of breath R06.02 Ex-smoker Z87.891 Pneumothorax on right J93.9 S/P chest tube placement Z93.8 Acute hypoxic respiratory failure J96.01
--- NOTE | 2024-12-07 14:25 | PC.NURSE ---
called out and is reporting feeling hot, beads of sweat noted on forehead. HR 120-130. No reports of pain or shortness of breath. He had just taken a breathing treatment and drank a cup of coffee. Reports that the treatments had never done that to him before. Notified Dr. Hernandez, states to just watch him for now and if heart rate remains high will check an EKG.
--- NOTE | 2024-12-07 16:00 | XRR_ITS ---
PROCEDURE INFORMATION: Exam: XR Chest Exam date and time: 12/07/2024 4:03 PM Age: 73 years old Clinical indication: Device placement; Right chest tube eval; Additional info: Suspected pneumothorax, 1600 TECHNIQUE: Imaging protocol: Radiologic exam of the chest. Views: 1 view. COMPARISON: CR (CHEST, ) 12/07/2024 11:59 AM FINDINGS: Tubes, catheters and devices: There is a large bore right chest tube with the tip projecting over the lateral right thorax. Lungs: No pulmonary consolidation. Pleural spaces: Trace right apical pneumothorax with 18 mm pleural displacement from the apical chest wall, decreased from 28 mm on the prior radiograph today. Heart/Mediastinum: There is questionable pneumomediastinum versus gas in the anterior chest wall. There is mild cardiac enlargement. Bones/joints: Bones are unremarkable. Soft tissues: There is extensive soft tissue gas in the right chest wall and lower neck. XR/XR chest 1V portable [id number] IMPRESSION: 1. Decreased right pneumothorax since the prior radiograph today. 2. Right chest tube tip is positioned in the lateral right thorax, retracted slightly since the prior radiograph. 3. Subcutaneous emphysema in the chest wall is increased. 4. There is new gas projecting over the upper mediastinum which may represent gas in the anterior chest wall or in the mediastinum.
--- NOTE | 2024-12-07 16:49 | PC.NURSE ---
Increased crepitis noted to right arm and right chest and face. No increased work of breathing and O2 saturations remain stable. Notified Dr. Hernandez of patient changes and that chest x-ray had just been done. No new orders given, states I will look at the x-ray.
--- NOTE | 2024-12-07 17:45 | PC.NURSE ---
Dr. Kim to patients bedside. Chest x-ray reviewed and reports that chest tube has been pulled back some and needs to be secured and remain in place. Dressing removed per Dr. Sandoval Vasoline gauze and new dressing applied per MD. Family at bedside and updated per Dr. Sandoval
--- NOTE | 2024-12-07 22:18 | P.PN_ITS ---
Subjective 2 Subjective: Patient reported doing well for the past 24 hours but he continues to have baseline shortness of breath. Remained hemodynamic stable and afebrile. We tried waterseal trial this morning and unfortunately he failed after 2 hours and he developed subcutaneous emphysema chest tube was placed back to suction. Vitals/I&O/Wt Last Vital Signs Temp 97.6 F 12/07/24 20:00 Pulse 110 H 12/07/24 21:15 Resp 18 12/07/24 21:15 BP 170/77 12/07/24 21:00 Pulse Ox 98 12/07/24 21:15 O2 Del Method Nasal Cannula 12/07/24 21:15 O2 Flow Rate 5 12/07/24 21:15 12/07/24 12/07/24 12/07/24 06:59 14:59 22:59 Intake Total 600 / 600 340 / 940 Output Total 562 / 685 750 / 750 Balance -562 / 478.75 600 / 600 -410 / 190 Weight last 48 hrs Weight 190 lb 11.198 oz Weight 187 lb Weight 200 lb Physical Exam 2 Narrative: General: Alert and oriented to perso n, place, and time , in mild respirat ory distress but n o acute distress o therwise Head and Neck: Normocephali c and atraumatic, no jugular venous distension, trache a midline, no cerv ical lymphadenopat hy Eyes: Pupils eq ual, round, reacti ve to light and ac commodation Ears/N ose/Throat: Moist mucous membranes, no oropharyngeal e rythema or lesions , no nasal flaring Cardiovascular: R egular rate and rh ythm, normal S1 an d S2, no murmurs, rubs, or gallops, peripheral pulses 2+ and symmetric, no peripheral hemalatha a Respiratory: Mil d tachypnea, decre ased breath sounds bilaterally more pronounced on the right, no wheezing or rales, right-s ided surgical ches t tube in place co nnected to drainag e system with evid ence of grade 2?3 bubbling on water seal chamber, ther e is evidence of s ubcutaneous emphys chelle involving righ t shoulder, right neck and right arm . Abdomen: Soft, n on-tender, non-dis tended, normoactiv e bowel sounds, no hepatosplenomegal y Musculoskeletal: Normal range of m otion, no joint sw elling or deformit y Skin: Warm and d ry, no rashes or l esions, chest tube site clean with i ntact dressing Shannon rological: Alert a nd oriented ?3, cr anial nerves II?XI I grossly intact, strength 5/5 throu ghout, sensation i ntact to light lolis ch Psychiatric: Ap propriate affect a nd cooperative beh avior, no signs of agitation or conf usion Data 12/07/24 03:36 12/07/24 03:36 CXR: My impression: Chest x-ray was reviewed which showed minimal residual pneumothorax with evidence of subcutaneous emphysema. Chest tube seems to change position. A&P Assessment and plan 1. COPD (chronic obstructive pulmonary disease): 2. Ex-smoker: 3. Pulmonary emphysema with fibrosis of lun. S/P chest tube placement: 5. Secondary spontaneous pneumothorax: 6. Acute hypoxemic respiratory failure: 7. COPD exacerbation: Plan: Patient continues to have evidence of air leak while on suction. Waterseal trial today failed and he required to be on continuous suction. I changed the suction to a continuous lower pressure hoping to help the hole in the lung to heal up. CT scan was reviewed and it is very difficult to pinpoint the exact airway contributing to that but I think it is coming from the right upper lobe. I discussed with Dr. Mao and the patient that we will continue with aggressive conservative measures including treating for COPD exacerbation, boosting his nutrition and staying active as possible while on continuous suction. We will try waterseal again in 36-48 hours. I discussed with the patient and his family that if he failed again we would need to consider endobronchial valve placement. I spent over 25 minutes talking to the patient and his family and explaining the current clinical status and possible intervention in the future. Navin Kim MD, FACP Interventional Pulmonary PDMP PDMP Reviewed: Not Reviewed Attestations 2 Medical Necessity Statement*: Patient with continuous air leak requiring continuous suction and he would need to be admitted for that. Coding Level of Care Code Acute Code for g Fwd Diagnoses COPD (chronic obstructive pulmonary disease) J44.9 Ex-smoker Z87.891 Pulmonary emphysema with fibrosis of lung J43.9; J84.10 S/P chest tube placement Z93.8 Secondary spontaneous pneumothorax J93.12 Acute hypoxemic respiratory failure J96.01 COPD exacerbation J44.1
--- NOTE | 2024-12-07 23:34 | PC.NURSE ---
Back pain: patient began complaining of back pain and seemed more SOB, patient stated this happened earlier in the day when his subcutaneous emphysema had worsened and the placement of the chest tube was called into question. This nurse contacted Dr. Larry who advised me to contact Dr. Kim. Dr. Kim advised me to only contact the hospitalist for orders. Patient at this time was given PRN pain medication which proved to be effective. Air leak still present in water seal chamber, chest tube remains to suction per MD, subcutaneous emphysema does not show to be worsening.
[2024-12-08] VITALS (39 sets, daily range): BP systolic 130–195; BP diastolic 66–116; PULSE 59–127; RESP 12–25; TEMP 36.2–36.8; O2SAT 90–96; BMI 25.9
[2024-12-08 05:10] LABS: Hematocrit 46.6 % (37-53); Hemoglobin 15.40 g/dL (11.27-16.99); Mean Corpuscular HGB Conc 33.0 g/dL (30-55); Mean Corpuscular Hemoglobin 29.5 pg (27-33); Mean Corpuscular Volume 89.3 fl (82-101); Nucleated Red Blood Cells % 0 %; Platelet Count 226 10^3/cmm (157-399); Red Blood Count 5.22 10^6/uL (3.85-5.65); White Blood Count 14.84 10^3/uL (3.29-11.43)
[2024-12-08 05:29] LABS: Alanine Aminotransferase 14 U/L (0-41); Albumin Level 4.2 g/dL (3.5-5.2); Alkaline Phosphatase 82 U/L (40-130); Anion Gap 18.5 (5-19); Aspartate Amino Transferase 18 U/L (0-40); Blood Urea Nitrogen 20 mg/dL (8-23); Calcium 9.0 mg/dL (8.5-10.5); Carbon Dioxide 21 mmol/L (22-29); Chloride 100 mmol/L (98-107); Creatinine Clr Calc Pharmacy 65.5838; Globulin 3.4 g/dL (1.3-4.6); Glucose 158 mg/dL (65-115); Osmolality Calculated 286 mOsm/kg (285-295); Potassium 4.5 mmol/L (3.5-5.1); Sodium 135 mmol/L (136-145); Total Protein 7.6 g/dL (6.6-8.7)
[2024-12-08] MEDS: labetalol 5 mg/mL SDV 20mL 10 MG IVP (05:48)
--- NOTE | 2024-12-08 07:00 | XR_ITS ---
WS: [id number] XR chest 1V portable [id number] REASON FOR EXAM: sob FINDINGS: A right chest tube is in place. There is extensive subcutaneous emphysema in the soft tissues of the right chest wall and in the base of the neck bilaterally. There is also extensive pneumomediastinum. The right lung appears fully inflated. Left hemithorax demonstrates no acute abnormality. The chest is stable compared to the previous day. XR/XR chest 1V portable [id number] IMPRESSION: Stable abnormal chest as above.
[2024-12-08] MEDS: HYDROmorphone 0.5 MG/0.5 ML INJ 1 MG IVP ×2 (07:23→20:38)
[2024-12-08] MEDS: pantoprazole 40 mg SDV IVP (08:36)
[2024-12-08] MEDS: polyethylene glycol 3350 Pkt 17 gm PO (10:02)
--- NOTE | 2024-12-08 10:27 | PC.NURSE ---
0900 -- Dr. Hernandez to bedside, order given for miralax. 1000 -- Dr. Mcknight to bedside, chest tube assessed. Order given for IS and flutter valve. 1015 -- Up to chair at bedside, tolerated well.
--- NOTE | 2024-12-08 15:18 | P.PN_ITS ---
Subjective 2 Subjective: No acute events overnight. Patient failed waterseal trial yesterday and he was placed back into suction as he did developed subcutaneous emphysema. Patient remained hemodynamically stable and afebrile. He reported that his breathing is at baseline. He continues to complain of right chest pain at the chest tube insertion. Chest tube continues to have an air leak about grade 2. Patient is able to ambulate and has room. Medications: Reviewed: Yes Medication Review Details: Current Medications L Acetaminophen (Acetaminophen 325 Mg Tablet) 650 mg PO Q6H PRN PRN Reason: Mild/Mod Pain Or Temp >/= 101 Albuterol/Ipratropium (Ipratropium-Albuterol 3 Ml Neb) 3 ml INHALATION Q4H PRN PRN Reason: SHORTNESS OF BREATH Albuterol/Ipratropium (Ipratropium-Albuterol 3 Ml Neb) 3 ml INHALATION Q6H.RESP [facility]DEN Last Admin: 12/08/24 14:26 Dose: 3 ml Aspirin (Aspirin 81 Mg Ec Tablet) 162 mg PO BID [facility] Last Admin: 12/08/24 08:33 Dose: 162 mg Atorvastatin Calcium (Atorvastatin 40 Mg Tablet) 80 mg PO DAILY [facility] Last Admin: 12/08/24 08:33 Dose: 80 mg Azithromycin (Azithromycin 250 Mg Tablet) 500 mg PO DAILY HAYDEN; Protocol Last Admin: 12/08/24 08:33 Dose: 500 mg Budesonide (Budesonide 0.5 Mg/2 Ml Neb) 0.5 mg INHALATION BID.RESPIRATORY [facility]AYDEN Last Admin: 12/08/24 08:40 Dose: 0.5 mg Enoxaparin Sodium (Enoxaparin 40 Mg/0.4 Ml Syringe) 40 mg SUBCUT Q24H [facility] Last Admin: 12/07/24 20:26 Dose: 40 mg Hydromorphone HCl (Hydromorphone 0.5 Mg/0.5 Ml Inj) 1 mg IVP Q4H PRN PRN Reason: PAIN Last Admin: 12/08/24 07:23 Dose: 1 mg Labetalol HCl (Labetalol 5 Mg/Ml Sdv 20ml) 10 mg IVP Q4H PRN PRN Reason: hypertension Last Admin: 12/08/24 05:48 Dose: 10 mg Naloxone HCl (Naloxone 0.4 Mg/Ml Sdv) 0.1 mg IVP Q2M PRN PRN Reason: OPIATERV Ondansetron HCl (Ondansetron 2 Mg/Ml Sdv 2 Ml) 4 mg IVP Q6H PRN PRN Reason: NAUSEA AND VOMITING Pantoprazole Sodium (Pantoprazole 40 Mg Sdv) 40 mg IVP Q24H [facility] Last Admin: 12/08/24 08:36 Dose: 40 mg Polyethylene Glycol (Polyethylene Glycol 3350 Pkt 17 Gm) 17 gm PO DAILY [facility] Last Admin: 12/08/24 10:02 Dose: 17 gm Prasugrel (Prasugrel 10 Mg Tablet) 10 mg PO DAILY [facility] Last Admin: 12/08/24 08:33 Dose: 10 mg Prednisone (Prednisone 20 Mg Tablet) 40 mg PO DAILY [facility] Last Admin: 12/08/24 08:33 Dose: 40 mg Vitals/I&O/Wt Last Vital Signs Temp 98.2 F 12/08/24 12:00 Pulse 85 12/08/24 14:32 Resp 16 12/08/24 14:26 BP 152/85 12/08/24 14:00 Pulse Ox 95 12/08/24 14:26 O2 Del Method Nasal Cannula 12/08/24 14:26 O2 Flow Rate 5 12/08/24 14:26 12/08/24 12/08/24 12/08/24 06:59 14:59 22:59 Intake Total 800 / 800 Output Total 725 / 1475 750 / 750 Balance -725 / -535 50 / 50 Weight last 48 hrs Weight 191 lb 12.835 oz Weight 190 lb 11.198 oz Weight 187 lb Physical Exam 2 Narrative: General?no acute distress. Patient alert oriented x 3. Patient appears to be comfortable Cardiac?regular rate and rhythm, normal S1-S2 Pulmonary?fair air entry bilaterally. No wheezes. Right chest tube in place with dressing in place. Evidence of grade 2 airleak Abdomen?soft lax and nontender Neuro?no focal deficit Psychiatric?good mood with appropriate affect Lower extremity?no significant edema or cyanosis Skin?no active rashes Data 12/08/24 03:58 12/08/24 03:58 CXR: My impression: Radiology Impressions Chest CT 12/06/24 13:17 IMPRESSION: 1. Right chest tube is positioned in the major fissure. 2. Small right pneumothorax (10-20%). 3. Moderate centrilobular and paraseptal emphysema. 4. Incidental findings above. COMMENTS: The presence of pulmonary emphysema on CT is an independent risk factor for lung cancer. In the absence of a history or active diagnosis of lung cancer, it is recommended that this patient with emphysema be evaluated for enrollment in a low dose CT lung cancer screening program. Chest X-Ray 12/08/24 07:00 IMPRESSION: Stable abnormal chest as above. A&P Assessment and plan 1. COPD (chronic obstructive pulmonary disease): 2. COPD exacerbation: 3. Secondary spontaneous pneumothorax: 4. Acute hypoxemic respiratory failure: 5. S/P chest tube placement: 6. Shortness of breath: Plan: Patient continues to improve from respiratory standpoint but unfortunately he continues to have an air leak. Chest x-ray from today looks stable and it showed that chest tube might came out little but overall much change since last night. No significant residual pneumothorax. There is evidence of subcutaneous emphysema. Patient failed waterseal trial yesterday afternoon and for that reason we will hold off putting him on waterseal again today to give it more time for the potential hole in his lung to heal. Patient does have significant amount of apical cystic changes/blebs. Given his underlying lung disease I explained to the patient to the family that the chances for this to heal on its own are low but possible. Patient is tolerating his nebulizer well and he reported improvement in his breathing status and he believes he is back to his baseline. Plan: ? Continue with current nebulizer DuoNebs every 6 hours and budesonide twice a day ? Continue with prednisone and azithromycin ? Activity and physical therapy as tolerated I encouraged the patient to be as active as possible ? Incentive spirometry ? We will try waterseal again tomorrow morning and if he passes we will consider placing a Heimlich valve, if he feels I explained to the patient we would need to evaluate for bronchoscopy and possible endobronchial valve and patient is in agreement. I already arranged with the hospital administration and and the vendor to try to have the valves onsite in case we need them. I discussed the plan with Dr. Hernandez and patient's family and all in agreement. PDMP PDMP Reviewed: Not Reviewed Attestations 2 Medical Necessity Statement*: Patient continues to have an active air leak and he needing continuous suction and for the reason he needs to stay inpatient and he cannot be discharged at this point Coding Level of Care Code Acute Code for [facility] Fwd Diagnoses COPD (chronic obstructive pulmonary disease) J44.9 COPD exacerbation J44.1 Secondary spontaneous pneumothorax J93.12 Acute hypoxemic respiratory failure J96.01 S/P chest tube placement Z93.8 Shortness of breath R06.02
--- NOTE | 2024-12-08 16:05 | PC.SOCIAL ---
IMM updated IMM dated and initialed, Copy placed in chart and copy given to patient
--- NOTE | 2024-12-08 16:12 | P.PN_ITS ---
Subjective 2 Subjective: Patient was seen this morning, currently alert oriented x 3, following all commands, sitting up beside the bed enjoying his breakfast, he is currently on suction, no shortness of breath, does have subcutaneous emphysema in the neck,, right chest, down his right arm, he tells me does not particularly bother him, patient failed waterseal trial yesterday, remains hemodynamically stable, afebrile Vitals/I&O/Wt Last Vital Signs Temp 98.2 F 12/08/24 12:00 Pulse 85 12/08/24 14:32 Resp 16 12/08/24 14:26 BP 152/85 12/08/24 14:00 Pulse Ox 95 12/08/24 14:26 O2 Del Method Nasal Cannula 12/08/24 14:26 O2 Flow Rate 5 12/08/24 14:26 12/08/24 12/08/24 12/08/24 06:59 14:59 22:59 Intake Total 800 / 800 Output Total 725 / 1475 750 / 750 Balance -725 / -535 50 / 50 Weight last 48 hrs Weight 87 kg Weight 86.5 kg Weight 84.822 kg Physical Exam 2 Const: COMMON NORMALS: no acute distress and patient oriented x3 Resp: COMMON NORMALS: normal respiratory effort, No retractions and No use of accessory muscles AUSCULTATION: wheezes Cardio: COMMON NORMALS: regular rate, regular rhythm, S1 normal heart sound present and S2 normal heart sound present RATE: regular rate RHYTHM: r egular rhythm HEART SOUNDS: S1 normal heart sound present and S2 normal heart sound present GI: COMMON NORMALS: Normal to inspection, nondistended, normoactive bowel sounds present and non-tender Extremity: COMMON NORMALS: no pedal edema Neuro: COMMON NORMALS: patient oriented x3 Psych: COMMON NORMALS: mental status grossly normal Data 12/08/24 03:58 12/08/24 03:58 A&P Assessment and plan 1. Pulmonary emphysema with fibrosis of lun. Chronic shortness of breath: 3. Ex-smoker: 4. Pneumothorax on right: 5. S/P chest tube placement: 6. Acute hypoxic respiratory failure: 7. Pneumomediastinum: 8. Subcutaneous emphysema: Plan: Moderate to large right-sided pneumothorax with mediastinal shift to the left - Status post right chest tube placement, CT chest CT/CT chest wo con [id number] IMPRESSION: 1. Right chest tube is positioned in the major fissure. 2. Small right pneumothorax (10-20%). 3. Moderate centrilobular and paraseptal emphysema. 4. Incidental findings above. - Failed waterseal trial 12/07/2024 placed back to suction -Continues to have recurrent leak concerns -Chest x-ray this morning shows no significant residual pneumothorax, but does have evidence of subcutaneous emphysema Plan - Monitor in the ICU -Pulmonary on consult - Repeat chest check in the morning, - DuoNeb - Budesonide - Prednisone, azithromycin - Failed waterseal trial 12/07/2024 -Placed back to suction for the next 24 hours - Loaded as needed for pain control - Will consider placing to waterseal Sunday evening or Sunday based on clinical progress -Discussed the possibility of endobronchial valves versus pleurodesis - Pulmonary on consult - Full code - Lovenox for DVT prophylaxis History of CAD, continue aspirin, Effient PDMP PDMP Reviewed: Not Reviewed Attestations 2 Medical Necessity Statement*: Patient requires hospitalization for pneumothorax, subcutaneous emphysema, Diagnoses Pulmonary emphysema with fibrosis of lung J43.9; J84.10 Chronic shortness of breath R06.02 Ex-smoker Z87.891 Pneumothorax on right J93.9 S/P chest tube placement Z93.8 Acute hypoxic respiratory failure J96.01 Pneumomediastinum J98.2 Subcutaneous emphysema T79.7XXA
--- NOTE | 2024-12-08 17:29 | USCV_ITS ---
Jerrell Love Age: 74 Gender: M : 1950 Exam Date: 12/08/2024 21:27 Ordering Phys: Fuentes Hernandez MD Technologist: HITESH Exam Location: [facility] [place] Indication: pre-op BP: 152 / 85 HR: 80 Rhythm: Sinus Technical Quality: Technically difficult study due to chest tube, pectus excavatum, and COPD MEASUREMENTS (Male / Female) Normal Values 2D ECHO LV Diastolic Diameter PLAX 4.1 cm 4.2 - 5.9 / 3.9 - 5.3 cm IVS Diastolic Thickness 2.1 cm 0.6 - 1.0 / 0.6 - 0.9 cm IVS Systolic Thickness 2.5 cm LVPW Diastolic Thickness 1.7 cm 0.6 - 1.0 / 0.6 - 0.9 cm LVPW Systolic Thickness 1.9 cm LVOT Diameter 1.8 cm LV Ejection Fraction 2D Teich 69.3 % LV Ejection Fraction MOD 4C 48.7 % LV Ejection Fraction MOD 2C 70.9 % LV Ejection Fraction 2C AL 71.5 % LA Diameter 2.8 cm Aorta at Sinotubular Diameter 2.9 cm M-MODE LA Ao Ratio MM 1.1 AV Cusp Separation MM 1.8 cm DOPPLER AV Peak Velocity 127.0 cm/s LVOT Peak Velocity 89.0 cm/s AV Area Cont Eq vti 2.3 cm squared AV Area Cont Eq pk 1.8 cm squared MV Peak Velocity 131.0 cm/s MV Area PHT 2.6 cm squared Mitral E to A Ratio 0.5 TV Peak E Velocity 76.0 cm/s FINDINGS Left Ventricle Normal left ventricular size and systolic function, EF 69%. Moderate left ventricular hypertrophy. No regional wall motion abnormalities. Grade I/IV diastolic dysfunction (abnormal relaxation filling pattern), normal to mildly elevated filling pressures. Right Ventricle The right ventricle is normal in size and function. Right Atrium Normal right atrial size. Left Atrium Appears to be of normal size Mitral Valve Mild mitral annular calcification. Aortic Valve Thickened aortic valve. Tricuspid Valve No gross abnormalities noted Pulmonic Valve Pulmonic valve not well visualized. Pericardium Normal pericardium without effusion. Aorta Normal aortic annulus size. IVC Inferior vena cava not visualized. CONCLUSIONS Normal left ventricular size and systolic function, EF 69%. Moderate left ventricular hypertrophy. No regional wall motion abnormalities. Grade I/IV diastolic dysfunction (abnormal relaxation filling pattern), normal to mildly elevated filling pressures. Mild mitral annular calcification. Thickened aortic valve. There is no pericardial effusion. There are no intracardiac masses. Compared to the study from 04/02/2023, there may not be a significant change Dr Gene Amin MD [facility] (Electronically Signed) Final Date: 09 December 2024 06:52 S
--- NOTE | 2024-12-08 20:51 | XRR_ITS ---
PROCEDURE INFORMATION: Exam: XR Chest Exam date and time: 12/08/2024 9:10 PM Age: 74 years old Clinical indication: Device placement; Chest tube; Additional info: Worsening chest tube leak TECHNIQUE: Imaging protocol: Radiologic exam of the chest. Views: 1 view. COMPARISON: 1. CR XR chest 1V portable [id number] 12/08/2024 7:01 AM 2. CR (CHEST, ) 12/07/2024 4:03 PM FINDINGS: Tubes, catheters and devices: Mild interval retraction of right chest tube. Lungs: Mild bibasilar atelectasis versus scarring. No consolidation. Pleural spaces: Stable small right apical pneumothorax. No pleural effusion. Heart/Mediastinum: Borderline cardiomegaly, stable. Decreased linear lucencies projecting over the right upper mediastinum. Vasculature: Aortic arch atherosclerotic calcification. Bones/joints: Unremarkable. Soft tissues: Stable extensive right chest wall and imaged bilateral lower neck soft tissue emphysema. XR/XR chest 1V portable [id number] IMPRESSION: 1. Mild interval retraction of right chest tube. 2. Stable small right apical pneumothorax. 3. Decreased pneumomediastinum. 4. Stable extensive right chest wall and bilateral lower neck soft tissue emphysema.
--- NOTE | 2024-12-08 22:45 | PC.NURSE ---
Chest Xray Patient complaining of severe right chest pain, an intermittent grade 5 air leak noted in chest tube chamber. PRN dilaudid administered. Dr. Ivey contacted; dressing status and pain discussed. Order received for stat chest x ray and insertion site dressing changed. Dr. Ivey notified of xray results. Order received to notify Dr. Kim in the morning of results.
[2024-12-09] VITALS (31 sets, daily range): BP systolic 125–191; BP diastolic 68–114; PULSE 65–121; RESP 12–26; TEMP 36.2–36.9; O2SAT 84–99
--- NOTE | 2024-12-09 02:34 | PC.NURSE ---
Increased Crepitus Upon initial assessment of patient, crepitus noted to be present in right sided neck, chest, and arm. At approximately 0130, crepitus noted to be in left sided neck and upper chest as well. All vital signs stable, patient denies increased shortness of breath. Patient states he did have a sharp right sided chest pain that dissipated quickly. Dr. Ivey notified of crepitus and pain. Order received to increase h20 suction to 25 cm, milk the tube Q2H, and contact pulmonology if crepitus increases further.
[2024-12-09 05:02] LABS: Hematocrit 43.4 % (37-53); Hemoglobin 14.60 g/dL (11.27-16.99); Mean Corpuscular HGB Conc 33.6 g/dL (30-55); Mean Corpuscular Hemoglobin 29.6 pg (27-33); Mean Corpuscular Volume 87.9 fl (82-101); Nucleated Red Blood Cells % 0 %; Platelet Count 236 10^3/cmm (157-399); Red Blood Count 4.94 10^6/uL (3.85-5.65); White Blood Count 12.87 10^3/uL (3.29-11.43)
[2024-12-09 05:36] LABS: Alanine Aminotransferase 16 U/L (0-41); Albumin Level 4.1 g/dL (3.5-5.2); Alkaline Phosphatase 76 U/L (40-130); Aspartate Amino Transferase 19 U/L (0-40); Blood Urea Nitrogen 24 mg/dL (8-23); Calcium 9.5 mg/dL (8.5-10.5); Carbon Dioxide 24 mmol/L (22-29); Chloride 100 mmol/L (98-107); Creatinine Clr Calc Pharmacy 60.2667; Globulin 3.1 g/dL (1.3-4.6); Glucose 124 mg/dL (65-115); Osmolality Calculated 289 mOsm/kg (285-295); Sodium 137 mmol/L (136-145); Total Protein 7.2 g/dL (6.6-8.7)
[2024-12-09 05:37] LABS: Anion Gap 17.9 (5-19); Potassium 4.9 mmol/L (3.5-5.1)
--- NOTE | 2024-12-09 05:37 | PC.NURSE ---
Physician Communication Dr. Kim updated on patient's pain, air leak changes, crepitus and interventions performed per Dr. Ivey's orders throughout shift. Order received to obtain followup chest xray at 0800.
--- NOTE | 2024-12-09 08:00 | XR_ITS ---
WS: [id number] XR chest 1V portable [id number] REASON FOR EXAM: sob FINDINGS: There is a small pneumothorax over the right lung apex with extension laterally to the level of fourth and fifth rib. This appears relatively unchanged compared to the examination of 9:11 p.m. 12/08/2024. There appears to be increased lucency over the lower right hemithorax which is seen on the previous examination as well. Potentially this is subpulmonic and/or anterior right pleural air. The subcutaneous emphysema and mediastinal emphysema are not significantly changed. No other interval change or new finding. XR/XR chest 1V portable [id number] IMPRESSION: Presumed stable small right apical pneumothorax. Question additional air in the subpulmonic/anterior right pleural space. Precarious right chest tube position.
[2024-12-09] MEDS: pantoprazole 40 mg SDV IVP (08:51)
[2024-12-09] MEDS: polyethylene glycol 3350 Pkt 17 gm PO (08:56)
--- NOTE | 2024-12-09 10:03 | PC.NURSE ---
Addendum entered by Hector Gordon RN 12/09/24 11:08: Assisted patient up to a chair. Transfer was uneventful. Reference point was marked on the chest tube and skin, chest tube has not migrated based on external measurements. Intermittent grade 1 air leak is still present and unchanged. This leak was present on shift change this morning, assistant editor is aware of this leak which re-emerged overnight (leak was as high as grade 5 overnight). Original Note: Chest Tube has been migrating per serial x-rays. Most recent X-ray the notes from radiologise state Precarious right chest tube position . Nurse expressed concerns to Dr whatley about chest tube coming out, particularly with ambulation. Recieved instruction from Dr whatley to provide additional reinforcement to tubing to get patient up to a chair. Nurse reinforced dressing. Provided additional support to the tube by wrapping tape, leidy crossed around tube and attached tape above insertion site to prevent further outward migration.
--- NOTE | 2024-12-09 17:53 | P.PN_ITS ---
Subjective 2 Subjective: Patient shortness of breath episode overnight and he was put on a higher suction as he was noted to have worsening subcutaneous emphysema. Otherwise patient remained hemodynamic stable and no significant change in his oxygenation status. Patient continue with significant air leak through the right chest tube. Medications: Medication Review Details: Current Medications Acetaminophen (Acetaminophen 325 Mg Tablet) 650 mg PO Q6H PRN PRN Reason: Mild/Mod Pain Or Temp >/= 101 Albuterol/Ipratropium (Ipratropium-Albuterol 3 Ml Neb) 3 ml INHALATION Q4H PRN PRN Reason: SHORTNESS OF BREATH Albuterol/Ipratropium (Ipratropium-Albuterol 3 Ml Neb) 3 ml INHALATION Q6H.RESP HAYDEN Last Admin: 12/09/24 14:40 Dose: 3 ml Amlodipine Besylate (Amlodipine 10 Mg Tablet) 10 mg PO DAILY [facility] Last Admin: 12/09/24 09:20 Dose: 10 mg Aspirin (Aspirin 81 Mg Ec Tablet) 162 mg PO BID [facility] On Hold: 12/09/24 13:28 Last Admin: 12/09/24 08:50 Dose: 162 mg Atorvastatin Calcium (Atorvastatin 40 Mg Tablet) 80 mg PO DAILY [facility] Last Admin: 12/09/24 08:50 Dose: 80 mg Azithromycin (Azithromycin 250 Mg Tablet) 500 mg PO DAILY HAYDEN; Protocol Last Admin: 12/09/24 08:50 Dose: 500 mg Budesonide (Budesonide 0.5 Mg/2 Ml Neb) 0.5 mg INHALATION BID.RESPIRATORY HAYDEN Last Admin: 12/09/24 09:27 Dose: 0.5 mg Enoxaparin Sodium (Enoxaparin 40 Mg/0.4 Ml Syringe) 40 mg SUBCUT Q24H [facility] On Hold: 12/09/24 15:09 Last Admin: 12/08/24 22:41 Dose: 40 mg Hydromorphone HCl (Hydromorphone 0.5 Mg/0.5 Ml Inj) 1 mg IVP Q4H PRN PRN Reason: PAIN Last Admin: 12/08/24 20:38 Dose: 1 mg Labetalol HCl (Labetalol 5 Mg/Ml Sdv 20ml) 10 mg IVP Q4H PRN PRN Reason: hypertension Last Admin: 12/08/24 05:48 Dose: 10 mg Naloxone HCl (Naloxone 0.4 Mg/Ml Sdv) 0.1 mg IVP Q2M PRN PRN Reason: OPIATERV Ondansetron HCl (Ondansetron 2 Mg/Ml Sdv 2 Ml) 4 mg IVP Q6H PRN PRN Reason: NAUSEA AND VOMITING Pantoprazole Sodium (Pantoprazole 40 Mg Sdv) 40 mg IVP Q24H [facility] Last Admin: 12/09/24 08:51 Dose: 40 mg Polyethylene Glycol (Polyethylene Glycol 3350 Pkt 17 Gm) 17 gm PO DAILY [facility] Last Admin: 12/09/24 08:56 Dose: 17 gm Prasugrel (Prasugrel 10 Mg Tablet) 10 mg PO DAILY [facility] On Hold: 12/09/24 13:28 Last Admin: 12/09/24 08:51 Dose: 10 mg Prednisone (Prednisone 20 Mg Tablet) 40 mg PO DAILY [facility] Last Admin: 12/09/24 08:50 Dose: 40 mg Sodium Chloride (Saline Nasal Bapchule 44ml Btl) 1 spray NASAL PRN PRN PRN Reason: DRYNESS Vitals/I&O/Wt Last Vital Signs Temp 97.1 F L 12/09/24 12:00 Pulse 107 H 12/09/24 14:47 Resp 17 12/09/24 14:35 BP 161/75 12/09/24 14:00 Pulse Ox 96 12/09/24 14:35 O2 Del Method Nasal Cannula 12/09/24 14:35 O2 Flow Rate 5 12/09/24 14:35 12/09/24 12/09/24 12/09/24 06:59 14:59 22:59 Intake Total 300 / 300 Output Total 400 / 1700 4 / 4 800 / 804 Balance -400 / -650 296 / 296 -800 / -504 Weight last 48 hrs Weight 191 lb 12.835 oz Weight 191 lb 12.835 oz Physical Exam 2 Narrative: General?no acute distress. Patient alert oriented x 3. Patient appears to be comfortable Cardiac?regular rate and rhythm, normal S1-S2 Pulmonary?fair air entry bilaterally. No wheezes. Right chest tube in place with dressing in place. Evidence of grade 2 airleak Abdomen?soft lax and nontender Neuro?no focal deficit Psychiatric?good mood with appropriate affect Lower extremity?no significant edema or cyanosis Skin?no active rashes Data 12/09/24 04:20 12/09/24 04:20 CT Chest: Radiologist's impression: Chest CT 12/06/24 13:17 IMPRESSION: 1. Right chest tube is positioned in the major fissure. 2. Small right pneumothorax (10-20%). 3. Moderate centrilobular and paraseptal emphysema. 4. Incidental findings above. COMMENTS: The presence of pulmonary emphysema on CT is an independent risk factor for lung cancer. In the absence of a history or active diagnosis of lung cancer, it is recommended that this patient with emphysema be evaluated for enrollment in a low dose CT lung cancer screening program. A&P Assessment and plan 1. COPD (chronic obstructive pulmonary disease): 2. Secondary spontaneous pneumothorax: 3. Persistent air leak: 4. Acute hypoxemic respiratory failure: 5. COPD exacerbation: Plan: The patient remains stable from a respiratory standpoint but continues to have a persistent air leak with no improvement. Notably, he now has worsening subcutaneous emphysema. Today's chest X-ray appears stable, though it suggests the chest tube may have slightly migrated. Overall, there has been minimal change since last night. Given the progression of subcutaneous emphysema and episodes of oxygen desaturation overnight requiring higher suction settings, the patient is not a candidate for a water seal trial at this time. He previously failed a water seal trial on 12/08/2024. Imaging and clinical findings suggest significant apical cystic changes and blebs, consistent with underlying lung disease. I explained to the patient and his family that although spontaneous resolution remains possible, the likelihood of the air leak resolving without intervention is low. The patient voiced that he is physically and emotionally fatigued from the prolonged ICU stay and continuous high suction, and would prefer to move forward with a more definitive intervention to facilitate healing and expedite discharge. The patient is currently on dual antiplatelet therapy (aspirin and prasugrel), which increases the bleeding risk associated with bronchoscopy and valve placement. However, he understands the risks and feels that remaining in the ICU on high suction poses a greater burden than the potential bleeding complications. I emphasized that since the procedure does not involve tissue biopsy, the overall bleeding risk remains low, though elevated compared to patients not on antiplatelet therapy. After thorough discussion, the patient consented to proceed with bronchoscopy and endobronchial valve placement tomorrow morning. His daughter was also involved via phone and fully supports his decision. L Plan: * NPO after midnight for planned OR bronchoscopy with endobronchial valve placement * Hold aspirin and prasugrel for now * Continue DuoNeb every 6 hours and budesonide BID * Continue prednisone and azithromycin as previously prescribed * Encourage activity and physical therapy as tolerated * Encourage use of incentive spirometry I discussed the plan with Dr. Hernandez and the patient?s family; all are in agreement. PDMP PDMP Reviewed: Not Reviewed Attestations 2 Medical Necessity Statement*: Patient continues to have an active air leak and he needing continuous suction and for the reason he needs to stay inpatient and he cannot be discharged at this point Coding Level of Care Code Acute Code for [facility] Fwd Diagnoses COPD (chronic obstructive pulmonary disease) J44.9 Secondary spontaneous pneumothorax J93.12 Persistent air leak Acute hypoxemic respiratory failure J96.01 COPD exacerbation J44.1
--- NOTE | 2024-12-09 17:59 | P.PN_ITS ---
Subjective 2 Subjective: Patient was seen this morning, currently alert oriented x 3, follow commands, denies any fevers, no chills, no lightheaded, dizziness, no chest discomfort Vitals/I&O/Wt Last Vital Signs Temp 97.1 F L 12/09/24 12:00 Pulse 107 H 12/09/24 14:47 Resp 17 12/09/24 14:35 BP 161/75 12/09/24 14:00 Pulse Ox 96 12/09/24 14:35 O2 Del Method Nasal Cannula 12/09/24 14:35 O2 Flow Rate 5 12/09/24 14:35 12/09/24 12/09/24 12/09/24 06:59 14:59 22:59 Intake Total 300 / 300 Output Total 400 / 1700 / 800 / 804 Balance -400 / -650 296 / 296 -800 / -504 Weight last 48 hrs Weight 87 kg Weight 87 kg Physical Exam 2 Const: COMMON NORMALS: no acute distress and patient oriented x3 Resp: COMMON NORMALS: normal respiratory effort, No retractions, No use of accessory muscles and clear to auscultation bilaterally AUSCULTATION: clear to auscultation bilaterally OTHER: Chest tube in position, bandage on top, Cardio: COMMON NORMALS: regular rate, regular rhythm, S1 normal heart sound present and S2 normal heart sound present RATE: regular rate RHYTHM: r egular rhythm HEART SOUNDS: S1 normal heart sound present and S2 normal heart sound present GI: COMMON NORMALS: Normal to inspection, nondistended, normoactive bowel sounds present and non-tender Extremity: COMMON NORMALS: no pedal edema Neuro: COMMON NORMALS: patient oriented x3 Skin: NARRATIVE SKIN EXAM: Subcutaneous emphysema, right neck, right chest Data 12/09/24 04:20 12/09/24 04:20 A&P Assessment and plan 1. Pulmonary emphysema with fibrosis of lun. Chronic shortness of breath: 3. Ex-smoker: 4. Pneumothorax on right: 5. S/P chest tube placement: 6. Acute hypoxic respiratory failure: 7. Pneumomediastinum: 8. Subcutaneous emphysema: Plan: Moderate to large right-sided pneumothorax with mediastinal shift to the left - Status post right chest tube placement, CT chest CT/CT chest wo con [id number] IMPRESSION: 1. Right chest tube is positioned in the major fissure. 2. Small right pneumothorax (10-20%). 3. Moderate centrilobular and paraseptal emphysema. 4. Incidental findings above. - Failed waterseal trial 12/07/2024 placed back to suction -Continues to have recurrent leak concerns -Chest x-ray this morning shows no significant residual pneumothorax, but does have evidence of subcutaneous emphysema Plan - Monitor in the ICU -Pulmonary on consult - Repeat chest check in the morning, - DuoNeb - Budesonide - Prednisone, azithromycin - Failed waterseal trial 12/07/2024 -Placed back to suction for the next 24 hours - Loaded as needed for pain control - Plan on endobronchial valve placement tomorrow, n.p.o. midnight - Aspirin, Effient on hold - Pulmonary on consult - Full code - Lovenox for DVT prophylaxis History of CAD, continue aspirin, Effient on hold PDMP PDMP Reviewed: Not Reviewed Attestations 2 Medical Necessity Statement*: Patient requires hospitalization for right pneumothorax, plan for endobronchial valve placement tomorrow Diagnoses Pulmonary emphysema with fibrosis of lung J43.9; J84.10 Chronic shortness of breath R06.02 Ex-smoker Z87.891 Pneumothorax on right J93.9 S/P chest tube placement Z93.8 Acute hypoxic respiratory failure J96.01 Pneumomediastinum J98.2 Subcutaneous emphysema T79.7XXA
[2024-12-09] MEDS: saline nasal spray 44mL Btl 1 SPRAY NASAL (18:23)
--- NOTE | 2024-12-09 18:28 | PC.NURSE ---
Shift Summary: Uneventful shift. Up to chair for most of the day. Started on amlodipine and lisinopril. Intermittent Grade 2 air leak (expiration only), into column 1 with regular breathing, into column 2 with a cough. 6mL of serous drainage Plan for Endobronchial valve tommorow around 7am. Procedure consent signed and in chart. NPO after midnight.
--- NOTE | 2024-12-09 21:19 | PC.NURSE ---
Chest tube: Intermittent grade 1 air leak present. Patient report having a non productive cough intermittently. Patient reports mild back pain when moving but eases up at rest. Crepitous noted in right anterior chest into right posterior chest and right neck, left anterior chest has slight crepitous. Chest tube insertion site intact, no drainage noted around site.
--- NOTE | 2024-12-09 21:54 | ANES.PREANE2 ---
Pre-Anesthetic Assessment Height/Weight: Height 6 ft Weight 191 lb 12.835 oz Temp Pulse Resp BP Pulse Ox O2 Del Method O2 Flow Rate 98.5 F 98 15 160/80 99 Nasal Cannula 5 12/09/24 20:00 12/09/24 21:38 12/09/24 21:05 12/09/24 21:00 12/09/24 21:05 12/09/24 21:05 12/09/24 21:05 Preop Diagnosis: Spontaneous pneumothorax Operation Date: 12/10/24 07:00 Proposed Procedures p Bronchoscopy with Insertion Valve Bronch(Not Applicable) - Navin Kim MD Was Beta Kin taken within 24 hours: N/A Was Clonidine taken within 24 hours: N/A Social No alcohol and No tobacco Exam alert and oriented x 3 Airway Submandibular: within normal limits Cervical ROM: within normal limits Mallampati: Class II Comments: Comments: Edentulous Anesthetic Plan ASA status: 4 Anesthesia: General Other: Patient initially admitted 12/06/24 for Respiratory distress and was found to have a spontaneous pneumothorax Chest tube in place current and set to high suction No prior issues with anesthesia NPO since yesterday evening Irene has a Hx of pulmonary fibrosis GERD Quit smoking 4 years ago. 2 L O2 at baseline S/P PCI in Jun 2022 S/P carotid endartectomy 5 years ago Echo 12/08/2024 showing EF 69% with AV area of 1.8cm Patient is on aspirin and prasugrel(last taken 12/09 at 0800) type and screen performed labs reviewed and acceptable for surgery Plan for GETA Medications/Allergies Home Medications ?Medication ?Instructions ?Recorded ?Confirmed ?Last Taken ?Type cholecalciferol (vitamin D3) 50 50 mcg PO DAILY unknown 10/15/20 12/06/24 12/05/24 History mcg (2,000 unit) tablet aspirin 81 mg tablet,delayed 81 mg PO BID 08/24/23 12/06/24 12/05/24 History release omeprazole 40 mg capsule,delayed 40 mg PO DAILY PRN Heartburn 08/24/23 12/06/24 Unknown History release triamcinolone acetonide 0.1 % 1 applic topical PRN PRN Skin 08/24/23 12/06/24 Unknown History topical cream Irritation rosuvastatin 40 mg tablet 40 mg PO DAILY #90 tabs 10/02/1812/06/24 12/05/24 Rx fluticasone 250 mcg-salmeterol 50 1 inh inhalation BID 12/06/24 12/06/24 12/05/24 History mcg/dose blistr powdr for inhalation (Wixela Inhub) ipratropium bromide 17 2 puff inhalation QID 12/06/24 12/06/24 12/05/24 History mcg/actuation HFA aerosol inhaler prasugrel HCl 10 mg tablet 10 mg PO DAILY 12/06/24 12/06/24 12/05/24 History Allergies Allergy/AdvReac Type Severity Reaction Status Date / Time clopidogrel AdvReac Intermediate ADR-Gastrointestinal Verified 09/11/24 13:28 Upset Current Medications Generic Name Dose Route Start Last Admin Trade Name Freq PRN Reason Stop Dose Admin Albuterol/Ipratropium 3 ml 12/06/24 14:00 12/09/24 21:05 Ipratropium-Albuterol 3 Ml Neb INHALATION 3 ml Q6H.RESP HAYDEN Administration Amlodipine Besylate 10 mg 12/09/24 09:15 12/09/24 09:20 Amlodipine 10 Mg Tablet PO 10 mg DAILY HAYDEN Administration Aspirin 162 mg 12/06/24 18:00 12/09/24 08:50 Aspirin 81 Mg Ec Tablet PO 162 mg On Hold: 12/09/24 13:28 BID HAYDEN Administration Atorvastatin Calcium 80 mg 12/06/24 09:30 12/09/24 08:50 Atorvastatin 40 Mg Tablet PO 80 mg DAILY HAYDEN Administration Azithromycin 500 mg 12/06/24 13:20 12/09/24 08:50 Azithromycin 250 Mg Tablet PO 500 mg DAILY HAYDEN Administration Protocol Budesonide 0.5 mg 12/06/24 20:00 12/09/24 21:05 Budesonide 0.5 Mg/2 Ml Neb INHALATION 0.5 mg BID.RESPIRATORY HAYDEN Administration Enoxaparin Sodium 40 mg 12/06/24 21:00 12/08/24 22:41 Enoxaparin 40 Mg/0.4 Ml Syringe SUBCUT 40 mg On Hold: 12/09/24 15:09 Q24H HAYDEN Administration Hydromorphone HCl 1 mg 12/06/24 13:47 12/08/24 20:38 Hydromorphone 0.5 Mg/0.5 Ml Inj IVP 1 mg Q4H PRN Administration PAIN Labetalol HCl 10 mg 12/07/24 18:08 12/08/24 05:48 Labetalol 5 Mg/Ml Sdv 20ml IVP 10 mg Q4H PRN Administration hypertension Lisinopril 10 mg 12/09/24 18:00 12/09/24 18:22 Lisinopril 10 Mg Tablet PO 10 mg BID HAYDEN Administration Pantoprazole Sodium 40 mg 12/06/24 09:30 12/09/24 08:51 Pantoprazole 40 Mg Sdv IVP 40 mg Q24H HAYDEN Administration Polyethylene Glycol 17 gm 12/08/24 10:00 12/09/24 08:56 Polyethylene Glycol 3350 Pkt 17 Gm PO 17 gm DAILY HAYDEN Administration Prasugrel 10 mg 12/07/24 09:00 12/09/24 08:51 Prasugrel 10 Mg Tablet PO 10 mg On Hold: 12/09/24 13:28 DAILY HAYDEN Administration Prednisone 40 mg 12/06/24 13:20 12/09/24 08:50 Prednisone 20 Mg Tablet PO 40 mg DAILY HAYDEN Administration Sodium Chloride 1 spray 12/09/24 17:13 12/09/24 18:23 Saline Nasal [place] 44ml Btl NASAL 1 spray PRN PRN Administration DRYNESS Additional Medication Information Current Medications Acetaminophen (Acetaminophen 325 Mg Tablet) 650 mg PO Q6H PRN PRN Reason: Mild/Mod Pain Or Temp >/= 101 Albuterol/Ipratropium (Ipratropium-Albuterol 3 Ml Neb) 3 ml INHALATION Q4H PRN PRN Reason: SHORTNESS OF BREATH Albuterol/Ipratropium (Ipratropium-Albuterol 3 Ml Neb) 3 ml INHALATION Q6H.RESP HAYDEN Last Admin: 12/09/24 14:40 Dose: 3 ml Amlodipine Besylate (Amlodipine 10 Mg Tablet) 10 mg PO DAILY HAYDEN Last Admin: 12/09/24 09:20 Dose: 10 mg Aspirin (Aspirin 81 Mg Ec Tablet) 162 mg PO BID HAYDEN On Hold: 12/09/24 13:28 Last Admin: 12/09/24 08:50 Dose: 162 mg Atorvastatin Calcium (Atorvastatin 40 Mg Tablet) 80 mg PO DAILY HAYDEN Last Admin: 12/09/24 08:50 Dose: 80 mg Azithromycin (Azithromycin 250 Mg Tablet) 500 mg PO DAILY [facility]; Protocol Last Admin: 12/09/24 08:50 Dose: 500 mg Budesonide (Budesonide 0.5 Mg/2 Ml Neb) 0.5 mg INHALATION BID.RESPIRATORY HAYDEN Last Admin: 12/09/24 09:27 Dose: 0.5 mg Enoxaparin Sodium (Enoxaparin 40 Mg/0.4 Ml Syringe) 40 mg SUBCUT Q24H HAYDEN On Hold: 12/09/24 15:09 Last Admin: 12/08/24 22:41 Dose: 40 mg Hydromorphone HCl (Hydromorphone 0.5 Mg/0.5 Ml Inj) 1 mg IVP Q4H PRN PRN Reason: PAIN Last Admin: 12/08/24 20:38 Dose: 1 mg Labetalol HCl (Labetalol 5 Mg/Ml Sdv 20ml) 10 mg IVP Q4H PRN PRN Reason: hypertension Last Admin: 12/08/24 05:48 Dose: 10 mg Naloxone HCl (Naloxone 0.4 Mg/Ml Sdv) 0.1 mg IVP Q2M PRN PRN Reason: OPIATERV Ondansetron HCl (Ondansetron 2 Mg/Ml Sdv 2 Ml) 4 mg IVP Q6H PRN PRN Reason: NAUSEA AND VOMITING Pantoprazole Sodium (Pantoprazole 40 Mg Sdv) 40 mg IVP Q24H HAYDEN Last Admin: 12/09/24 08:51 Dose: 40 mg Polyethylene Glycol (Polyethylene Glycol 3350 Pkt 17 Gm) 17 gm PO DAILY HAYDEN Last Admin: 12/09/24 08:56 Dose: 17 gm Prasugrel (Prasugrel 10 Mg Tablet) 10 mg PO DAILY HAYDEN On Hold: 12/09/24 13:28 Last Admin: 12/09/24 08:51 Dose: 10 mg Prednisone (Prednisone 20 Mg Tablet) 40 mg PO DAILY HAYDEN Last Admin: 12/09/24 08:50 Dose: 40 mg Sodium Chloride (Saline Nasal [place] 44ml Btl) 1 spray NASAL PRN PRN PRN Reason: DRYNESS PFSH Anesthesia Medical History (Updated 12/09/24 @ 17:56 by Navin Kim MD) Chronic shortness of breath Abdominal bloating GERD (gastroesophageal reflux disease) ASHD (arteriosclerotic heart disease) PAD (peripheral artery disease) COPD (chronic obstructive pulmonary disease) AAA (abdominal aortic aneurysm) Myocardial infarction Dyslipidemia Carotid stenosis, bilateral Surgical History (Updated 12/06/24 @ 12:37 by Fuentes Hernandez MD) Presence of internal carotid stent History of coronary artery stent placement H/O carotid endarterectomy History of colonoscopy History of esophagogastroduodenoscopy (06/08/21) S/P angioplasty with stent Family History Father Congestive heart failure (CHF) Social History Smoking and tobacco/nicotine status: former use of tobacco/nicotine (quit 4+ years) Quit status (tobacco/nicotine): has quit using Year quit tobacco: Apr 19, 2020 [id number] Second hand smoke exposure: No Alcohol intake: current Alcohol intake frequency: holidays/special occasions only Substance/Drug Use: never Lives independently: Yes Household members: spouse Marital status: service: Yes Current occupational status: retired 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 Pets and animals: Yes Do you think of yourself as: Straight/Heterosexual Current gender identity: Male Data Anesthesia 12/10/24 04:00 12/10/24 04:00 Short CBC 12/08/24 12/09/24 Range/Units 03:58 04:20 WBC 14.84 H 12.87 H (3.29-11.43) 10^3/uL Hgb 15.40 14.60 (11.27-16.99) g/dL Hct 46.6 43.4 (37-53) % MCV 89.3 87.9 (82-101) fl Plt Count 226 236 (157-399) 10^3/cmm Neut % (Auto) 88.2 81.1 % Neut # (Auto) 13.09 H 10.42 H (1.8-7.7) 10^3/uL BMP 12/08/24 12/09/24 03:58 04:20 Sodium 135 L 137 Potassium 4.5 4.9 Chloride 100 100 Carbon Dioxide 21 L 24 BUN 20 24 H Creatinine 1.1 1.2 Glucose 158 H 124 H Calcium 9.0 9.5 Liver Function 12/08/24 12/09/24 Range/Units 03:58 04:20 Total Bilirubin 0.3 0.2 (0.15-1.2) mg/dL AST 18 19 (0-40) U/L ALT 14 16 (0-41) U/L Alkaline Phosphatase 82 76 (40-130) U/L Albumin 4.2 4.1 (3.5-5.2) g/dL Blood Bank 12/09/24 13:46 Blood Type O Positive Rho(D) Type Rh positive Antibody Screen Negative Cardiac Studies: Echocardiogram 12/08/24 Sestamibi Stress Test (Cardiology) 06/02/22 Stress Echocardiogram 11/02/20
[2024-12-10] VITALS (33 sets, daily range): BP systolic 99–154; BP diastolic 50–85; PULSE 65–100; RESP 11–22; TEMP 36.3–36.9; O2SAT 90–100
--- NOTE | 2024-12-10 03:54 | PC.NURSE ---
Chest tube: No air leak noted at this time. Tidaling noted in water seal chamber. Insertion site patent and intact.
[2024-12-10 05:42] LABS: Hematocrit 45.2 % (37-53); Hemoglobin 14.90 g/dL (11.27-16.99); Mean Corpuscular HGB Conc 33.0 g/dL (30-55); Mean Corpuscular Hemoglobin 29.2 pg (27-33); Mean Corpuscular Volume 88.5 fl (82-101); Nucleated Red Blood Cells % 0 %; Platelet Count 257 10^3/cmm (157-399); Red Blood Count 5.11 10^6/uL (3.85-5.65); White Blood Count 11.81 10^3/uL (3.29-11.43)
--- NOTE | 2024-12-10 06:00 | XRR_ITS ---
PROCEDURE INFORMATION: Exam: XR Chest Exam date and time: 12/10/2024 5:50 AM Age: 74 years old Clinical indication: Other: F/u chest tube; RT sided chest tube; Additional info: Shortness of breath TECHNIQUE: Imaging protocol: Radiologic exam of the chest. Views: 1 view. COMPARISON: CR XR chest 1V portable [id number] 12/09/2024 7:44 AM FINDINGS: Tubes, catheters and devices: There is a right chest tube again noted. Lungs: Unremarkable. No consolidation. Pleural spaces: There is a small right apical pneumothorax without change. Heart/Mediastinum: Unremarkable. No cardiomegaly. Bones/joints: Unremarkable. Soft tissues: There is extensive subcutaneous emphysema again noted. XR/XR chest 1V portable [id number] IMPRESSION: Small right apical pneumothorax without change.
[2024-12-10 06:08] LABS: Alanine Aminotransferase 13 U/L (0-41); Albumin Level 3.8 g/dL (3.5-5.2); Alkaline Phosphatase 79 U/L (40-130); Anion Gap 17.8 (5-19); Aspartate Amino Transferase 15 U/L (0-40); Blood Urea Nitrogen 29 mg/dL (8-23); Calcium 9.4 mg/dL (8.5-10.5); Carbon Dioxide 24 mmol/L (22-29); Chloride 101 mmol/L (98-107); Creatinine Clr Calc Pharmacy 60.2667; Globulin 2.9 g/dL (1.3-4.6); Glucose 112 mg/dL (65-115); Osmolality Calculated 293 mOsm/kg (285-295); Potassium 4.8 mmol/L (3.5-5.1); Sodium 138 mmol/L (136-145); Total Protein 6.7 g/dL (6.6-8.7)
[2024-12-10] MEDS: lidocaine 2% INJ 20 mL XX (07:31)
--- NOTE | 2024-12-10 08:05 | XR_ITS ---
WS: [id number] XR chest 1V portable [id number] REASON FOR EXAM: POST VALVE PLACEMENT/BRONCHOSCOPY. IN ICU3 FINDINGS: Chest tube position unchanged. Increased lung expansion compared to the examination of 12/10/2024 at 5:51 a.m. The subcutaneous emphysema and mediastinal emphysema continue to resolve. Presumed small apical pneumothorax unchanged. Endobronchial occluders now identified overlying the right hilum. XR/XR chest 1V portable [id number] IMPRESSION: As above.
--- NOTE | 2024-12-10 08:12 | PC.NURSE ---
ENDOBRONCHIAL VALVES PLACED IN RUL. RB1-2 5.5LP. RB3A 4.O. RB3B 4.0
--- NOTE | 2024-12-10 08:15 | W.PM.BPON ---
Pre-Op diagnosis: A leak syndrome Postop diagnosis: same Calibration Tester: Cornelio Barry NP Findings: Normal airway without evidence of endobronchial disease but there was evidence of moderate amount of thick mucoid secretion that required therapeutic suctioning. Intervention: Deployment of 3 endobronchial valve to the right upper lobe (Zullinger valves) Postop orders: Chest x-ray Disposition: Patient is going back to his hospital bed in the ICU Procedures codes:99103, 19912, 93556 Family was updated. Navin Kim MD, FACP Interventional Pulmonary
--- NOTE | 2024-12-10 08:27 | ANE.PACU2 ---
Inpatient post-anesthesia follow up: Airway intact: Yes Vital signs: Temperature 98.2 F Pulse Rate 88 Respiratory Rate 21 Blood Pressure 118/82 Pulse Oximetry 97 Oxygen Delivery Me thod Nasal Cannula Oxygen Flow Rate 4 Fraction of Inspir ed Oxygen Hydration adequate: Yes Nausea and vomiting: No Pain level: 1 Mental status: Baseline
--- NOTE | 2024-12-10 09:01 | PC.NURSE ---
0715 - To OR via bed, OR and GI lab team at bedside. 4609 -- Return to ICU room 3 via bed, v/s stable, no distress noted. Right pleural chest tube placed to wall suction with intermittent air leak noted. 6085 -- Family at bedside, repositioned patient for comfort. Stent card given to patients .
[2024-12-10] MEDS: polyethylene glycol 3350 Pkt 17 gm PO (09:25)
[2024-12-10] MEDS: pantoprazole 40 mg SDV IVP (09:25)
--- NOTE | 2024-12-10 09:57 | P.OP_ITS ---
Operative Report Date of procedure: December 10, 2024 Pre-op diagnosis: Pulmonary air leak syndrome Secondary spontaneous pneumothorax Post-op diagnosis: Same Post-op findings: Same Procedure done: Bronchoscopy with endobronchial valve placement Implants: Endobronchial valves Specimens removed/disposition: None Surgeon: Navin Kim MD Reporting Analyst: Estrella Barry NP Complications: None Findings: Time out was performed. A thorough airway examination was performed following passage of the bronchoscope. A therapeutic bronchoscope was advanced through the endotracheal tube. A total of 14 cc of 2% topical lidocaine was used for airway local anesthesia. The trachea appeared anatomically normal. The right bronchial tree was normal, with no endobronchial lesions. The left bronchial tree was also anatomically normal without endobronchial lesions. A moderate amount of thick, mucoid secretions was noted bilaterally and required therapeutic aspiration (CPT 77472). Prior to intubation, the patient demonstrated a continuous air leak on the Pleur-evac. However, after intubation?despite high tidal volumes and elevated PEEP?the air leak became intermittent and infrequent. A Alex balloon catheter was used to occlude various segments of the right lung, including (CPT 96433): * Right upper lobe * RUL subsegments * Right middle lobe * Right lower lobe Balloon occlusion of the right upper lobe appeared to eliminate the air leak, though interpretation was limited by the infrequent nature of the leak while the patient was intubated. Based on the CT scan findings and balloon occlusion results, the right upper lobe was determined to be the most likely source of the persistent air leak. It was also noted to be the most diseased portion of the lung. Endobronchial Valve (EBV) Placement (40338): Endobronchial valves were successfully placed in the right upper lobe: * Apical + posterior segments: 5.5 LB [place] valve * Anterior segment: 4.0 regular [place] valve * Anterior-posterior subsegment: 4.0 regular [place] valve Following valve placement, each occluded segment was irrigated gently with saline. No bubbling was noted, suggesting resolution of the air leak. Hemostasis was confirmed. The bronchoscope was withdrawn, and the procedure was concluded without complication. Procedures Performed: * 49266 ? Therapeutic aspiration of secretions * 67055 ? Balloon occlusion with assessment of air leak * 47929 ? Endobronchial valve placement for air leak (first lobe)
--- NOTE | 2024-12-10 12:15 | PC.NURSE ---
Tomi NAIL ASSEMBLY MACHINE OPERATOR to bedside, right chest tube taken off of suction, heimilich valve placed to chest tube using sterile technique. Patient tolerated well. Chest x-ray ordered on [address] Christopher owens.
--- NOTE | 2024-12-10 14:15 | XRR_ITS ---
PROCEDURE INFORMATION: Exam: XR Chest Exam date and time: 12/10/2024 2:17 PM Age: 74 years old Clinical indication: Device placement; Chest tube; Additional info: Chest tube taken off suction/himlic valve in place TECHNIQUE: Imaging protocol: Radiologic exam of the chest. Views: 1 view. COMPARISON: CR XR chest 1V portable [id number] 12/10/2024 8:59 AM FINDINGS: Tubes, catheters and devices: Unchanged right-sided chest tube which is positioned laterally in the hemithorax. Lungs: Reduced lung inflation, resulting in a mild increase in interstitial markings since the prior exam. Focal infiltrate is not identified. Pleural spaces: Right apical pneumothorax measures 2.3 cm in thickness, previously 16 mm. Mild right lateral pleural thickening is unchanged. No other evidence for effusion. Heart/Mediastinum: Heart size is normal. Mediastinal size is normal. Pneumomediastinum persists. Bones/joints: Unremarkable. Soft tissues: Moderate soft tissue emphysema in the neck and chest wall is unchanged. XR/XR chest 1V portable [id number] IMPRESSION: 1. Slight increase in size of small right apical pneumothorax. The appearance could relate to underinflation of the lungs. 2. No other interval changes.
--- NOTE | 2024-12-10 14:41 | PC.NURSE ---
Chest x-ray done, reviewed by . Up to chair at bedside, tolerated well.
--- NOTE | 2024-12-10 14:49 | PC.SOCIAL ---
IMM updated IMM dated and initialed, copy given to patient and copy placed in chart.
--- NOTE | 2024-12-10 16:33 | P.PN_ITS ---
Subjective 2 Subjective: Patient was seen in ICU status post endobronchial valve placement, denies any fevers, no chills, no cough, currently on 4 L he is resting comfortably, chest tube in place on suction Vitals/I&O/Wt Last Vital Signs Temp 97.4 F L 12/10/24 16:00 Pulse 74 12/10/24 16:00 Resp 15 12/10/24 16:00 BP 100/51 12/10/24 16:00 Pulse Ox 94 12/10/24 16:00 O2 Del Method Nasal Cannula 12/10/24 16:00 O2 Flow Rate 3 12/10/24 16:00 12/10/24 12/10/24 12/10/24 06:59 14:59 22:59 Intake Total 650 / 650 Output Total 750 / 1554 550 / 550 Balance -750 / -854 100 / 100 Weight last 48 hrs Weight 88.813 kg Weight 87 kg Physical Exam 2 Const: COMMON NORMALS: no acute distress and patient oriented x3 Resp: COMMON NORMALS: normal respiratory effort, No retractions, No use of accessory muscles and clear to auscultation bilaterally AUSCULTATION: clear to auscultation bilaterally OTHER: Right chest tube in place, on suction Cardio: COMMON NORMALS: regular rate, regular rhythm, S1 normal heart sound present and S2 normal heart sound present RATE: regular rate RHYTHM: r egular rhythm HEART SOUNDS: S1 normal heart sound present and S2 normal heart sound present GI: COMMON NORMALS: Normal to inspection, nondistended, normoactive bowel sounds present, Soft to palpation and non-tender PALPATION: Yes Soft to palpation Extremity: COMMON NORMALS: no pedal edema Neuro: COMMON NORMALS: patient oriented x3, CN's II-XII intact bilaterally and moves all extremities Psych: COMMON NORMALS: mental status grossly normal Data 12/10/24 04:00 12/10/24 04:00 A&P Assessment and plan 1. Pulmonary emphysema with fibrosis of lun. Chronic shortness of breath: 3. Ex-smoker: 4. Pneumothorax on right: 5. S/P chest tube placement: 6. Acute hypoxic respiratory failure: 7. Pneumomediastinum: 8. Subcutaneous emphysema: Plan: Moderate to large right-sided pneumothorax with mediastinal shift to the left - Status post right chest tube placement, CT chest CT/CT chest wo con [id number] IMPRESSION: 1. Right chest tube is positioned in the major fissure. 2. Small right pneumothorax (10-20%). 3. Moderate centrilobular and paraseptal emphysema. 4. Incidental findings above. - Failed waterseal trial 12/07/2024 placed back to suction -Continues to have recurrent leak concerns -Chest x-ray this morning shows no significant residual pneumothorax, but does have evidence of subcutaneous emphysema Plan - Monitor in the ICU -Pulmonary on consult - Repeat chest check in the morning, - DuoNeb - Budesonide - Prednisone, azithromycin total 5 days - Failed waterseal trial 12/07/2024 -Status post bronchoscopy with endobronchial valve placement 12/10/2024 successfully -Placed back to suction, with plans on placing to waterseal after repeat chest x-ray - Allowed for pain control - Aspirin, Effient on hold - Pulmonary on consult - Full code - Lovenox for DVT prophylaxis currently on hold History of CAD, continue aspirin, Effient on hold PDMP PDMP Reviewed: Not Reviewed Attestations 2 Medical Necessity Statement*: Patient requires hospitalization for pneumothorax with endobronchial valve placement Diagnoses Pulmonary emphysema with fibrosis of lung J43.9; J84.10 Chronic shortness of breath R06.02 Ex-smoker Z87.891 Pneumothorax on right J93.9 S/P chest tube placement Z93.8 Acute hypoxic respiratory failure J96.01 Pneumomediastinum J98.2 Subcutaneous emphysema T79.7XXA
--- NOTE | 2024-12-10 17:54 | PC.NURSE ---
Walked 2 laps around nurses station. O2 at 3L NC - O2 saturations remained 89-95%. No distress noted.
--- NOTE | 2024-12-10 20:23 | PC.NURSE ---
Chest tube: Heimlich valve in place, tube is patent and intact, no drainage noted at insertion site, no drainage noted in heimlich valve.
--- NOTE | 2024-12-10 20:58 | PM.PN ---
Subjective Subjective: No acute events overnight patient remained hemodynamic stable. Respiratory status remained stable. Patient underwent bronchoscopy this morning with endobronchial valve placement which resulted in significant decrease in the airleak that made it possible to transition to waterseal which was not possible before but valves Medications: Reviewed: Yes Medication Review Details: Current Medications Acetaminophen (Acetaminophen 325 Mg Tablet) 650 mg PO Q6H PRN PRN Reason: Mild/Mod Pain Or Temp >/= 101 Albuterol/Ipratropium (Ipratropium-Albuterol 3 Ml Neb) 3 ml INHALATION Q4H PRN PRN Reason: SHORTNESS OF BREATH Albuterol/Ipratropium (Ipratropium-Albuterol 3 Ml Neb) 3 ml INHALATION Q6H.RESP [facility] Last Admin: 12/10/24 19:42 Dose: 3 ml Amlodipine Besylate (Amlodipine 10 Mg Tablet) 10 mg PO DAILY [facility] Last Admin: 12/10/24 09:24 Dose: 10 mg Aspirin (Aspirin 81 Mg Ec Tablet) 162 mg PO BID [facility] On Hold: 12/09/24 13:28 Last Admin: 12/09/24 08:50 Dose: 162 mg Atorvastatin Calcium (Atorvastatin 40 Mg Tablet) 80 mg PO DAILY [facility] Last Admin: 12/10/24 09:24 Dose: 80 mg Azithromycin (Azithromycin 250 Mg Tablet) 250 mg PO Q24H [facility]; Protocol Budesonide (Budesonide 0.5 Mg/2 Ml Neb) 0.5 mg INHALATION BID.RESPIRATORY [facility] Last Admin: 12/10/24 19:42 Dose: 0.5 mg Enoxaparin Sodium (Enoxaparin 40 Mg/0.4 Ml Syringe) 40 mg SUBCUT Q24H [facility] Last Admin: 12/08/24 22:41 Dose: 40 mg Hydromorphone HCl (Hydromorphone 0.5 Mg/0.5 Ml Inj) 1 mg IVP Q4H PRN PRN Reason: PAIN Last Admin: 12/08/24 20:38 Dose: 1 mg Epinephrine HCl 1 mg/ Sodium (Chloride) 20 mls @ 0 mls/hr XX INTRAOP PRN PRN Reason: PROCEDURE Lactated Ringer's (Lactated Ringers) 1,000 mls @ 30 mls/hr IV .Q24H ONE Stop: 12/11/24 06:30 Last Admin: 12/10/24 09:20 Dose: Not Given Labetalol HCl (Labetalol 5 Mg/Ml Sdv 20ml) 10 mg IVP Q4H PRN PRN Reason: hypertension Last Admin: 12/08/24 05:48 Dose: 10 mg Lisinopril (Lisinopril 10 Mg Tablet) 10 mg PO BID [facility] Last Admin: 12/10/24 17:59 Dose: Not Given Naloxone HCl (Naloxone 0.4 Mg/Ml Sdv) 0.1 mg IVP Q2M PRN PRN Reason: OPIATERV Ondansetron HCl (Ondansetron 2 Mg/Ml Sdv 2 Ml) 4 mg IVP Q6H PRN PRN Reason: NAUSEA AND VOMITING Pantoprazole Sodium (Pantoprazole 40 Mg Sdv) 40 mg IVP Q24H [facility] Last Admin: 12/10/24 09:25 Dose: 40 mg Polyethylene Glycol (Polyethylene Glycol 3350 Pkt 17 Gm) 17 gm PO DAILY [facility] Last Admin: 12/10/24 09:25 Dose: 17 gm Prasugrel (Prasugrel 10 Mg Tablet) 10 mg PO DAILY [facility] On Hold: 12/09/24 13:28 Last Admin: 12/09/24 08:51 Dose: 10 mg Prednisone (Prednisone 20 Mg Tablet) 40 mg PO DAILY [facility] Stop: 12/11/24 13:19 Last Admin: 12/10/24 09:24 Dose: 40 mg Sodium Chloride (Saline Nasal [place] 44ml Btl) 1 spray NASAL PRN PRN PRN Reason: DRYNESS Last Admin: 12/09/24 18:23 Dose: 1 spray Vitals/I&O/Wt Last Vital Signs Temp 98.5 F 12/10/24 19:51 Pulse 82 12/10/24 19:42 Resp 16 12/10/24 19:42 BP 127/60 12/10/24 20:00 Pulse Ox 96 12/10/24 19:42 O2 Del Method Nasal Cannula 12/10/24 19:42 O2 Flow Rate 3 12/10/24 19:42 12/10/24 12/10/24 12/10/24 06:59 14:59 22:59 Intake Total 650 / 650 400 / 1050 Output Total 750 / 1554 550 / 550 Balance -750 / -854 100 / 100 400 / 500 Weight last 48 hrs Weight 195 lb 12.8 oz Weight 191 lb 12.835 oz Physical Exam Narrative: General?no acute distress. Patient alert oriented x 3. Patient appears to be comfortable Cardiac?regular rate and rhythm, normal S1-S2 Pulmonary?fair air entry bilaterally. No wheezes. Right chest tube in place with dressing in place. Evidence of grade 2 airleak prior to placing valves Abdomen?soft lax and nontender Neuro?no focal deficit Psychiatric?good mood with appropriate affect Lower extremity?no significant edema or cyanosis Skin?no active rashes Data 12/10/24 04:00 12/10/24 04:00 A&P Assessment and plan 1. COPD (chronic obstructive pulmonary disease): 2. Ex-smoker: 3. Chronic shortness of breath: 4. Pulmonary emphysema with fibrosis of lun. Acute hypoxic respiratory failure: 6. Persistent air leak: Plan: Patient had persistent air leak that required continuous suction as he failed waterseal trials. Patient was taken to the OR today for bronchoscopy with endobronchial valve placement to the right upper lobe which resulted in significant decrement in the airleak grade from grade 3 to grade 1 which help us to transition him to waterseal and currently he is tolerating Heimlich valve. Patient currently has a surgical chest tube that is not very secure to leave the hospital with. If he continues to be dependent on Heimlich valve we would need to change the surgical tube to take tail tube that is more secure and see if to stay at home. Also discussed the option of doing chemical pleurodesis versus blood patch to help the airleak syndrome since we are able to get the patient off suction. We will reevaluate the status of the airleak tomorrow and determine the next step. PDMP PDMP Reviewed: Not Reviewed Attestations Medical Necessity Statement*: Patient is with air leak syndrome that needing close observation and possible need of continuous suction Coding Level of Care Code Acute Code for [facility] Fwd Diagnoses COPD (chronic obstructive pulmonary disease) J44.9 Ex-smoker Z87.891 Chronic shortness of breath R06.02 Pulmonary emphysema with fibrosis of lung J43.9; J84.10 Acute hypoxic respiratory failure J96.01 Persistent air leak
[2024-12-11] VITALS (34 sets, daily range): BP systolic 105–160; BP diastolic 49–112; PULSE 62–111; RESP 10–25; TEMP 36.1–36.8; O2SAT 91–96
--- NOTE | 2024-12-11 05:00 | XRR_ITS ---
PROCEDURE INFORMATION: Exam: XR Chest Exam date and time: 12/11/2024 5:52 AM Age: 74 years old Clinical indication: Other: F/u; Prior surgery; Surgery date: Post-operative (0-2 days); Surgery type: Post bronch endovalve; Additional info: Follow up endovalve/chest tube TECHNIQUE: Imaging protocol: Radiologic exam of the chest. Views: 1 view. COMPARISON: CR XR chest 1V portable [id number] 12/10/2024 2:17 PM FINDINGS: Lungs: Hypoventilatory changes at the lung bases. Pleural spaces: Small right apical pneumothorax. This is of similar size to what was seen previously. Heart/Mediastinum: Unremarkable. No cardiomegaly. Bones/joints: Unremarkable. Soft tissues: Increasing subcutaneous gas along the right chest wall. XR/XR chest 1V portable [id number] IMPRESSION: Small right apical pneumothorax perhaps slightly larger than yesterday.
[2024-12-11 05:17] LABS: Hematocrit 44.7 % (37-53); Hemoglobin 14.80 g/dL (11.27-16.99); Mean Corpuscular HGB Conc 33.1 g/dL (30-55); Mean Corpuscular Hemoglobin 29.5 pg (27-33); Mean Corpuscular Volume 89.0 fl (82-101); Nucleated Red Blood Cells % 0 %; Platelet Count 276 10^3/cmm (157-399); Red Blood Count 5.02 10^6/uL (3.85-5.65); White Blood Count 14.07 10^3/uL (3.29-11.43)
[2024-12-11 05:38] LABS: Alanine Aminotransferase 16 U/L (0-41); Albumin Level 3.9 g/dL (3.5-5.2); Alkaline Phosphatase 74 U/L (40-130); Anion Gap 15.8 (5-19); Aspartate Amino Transferase 16 U/L (0-40); Blood Urea Nitrogen 39 mg/dL (8-23); Calcium 9.1 mg/dL (8.5-10.5); Carbon Dioxide 23 mmol/L (22-29); Chloride 101 mmol/L (98-107); Creatinine Clr Calc Pharmacy 52.1176; Globulin 3.0 g/dL (1.3-4.6); Glucose 137 mg/dL (65-115); Osmolality Calculated 292 mOsm/kg (285-295); Potassium 4.8 mmol/L (3.5-5.1); Sodium 135 mmol/L (136-145); Total Protein 6.9 g/dL (6.6-8.7)
--- NOTE | 2024-12-11 09:32 | XR_ITS ---
WS: [id number] XR chest 1V portable [id number] REASON FOR EXAM: right sided crackles FINDINGS: Compared to the examination of 5:54 a.m. 12/11/2024 there may be increasing subcutaneous emphysema in the base of the right neck and chest wall and axillary region. There is an apical pneumothorax which extends to the level of the rib interspace T4-T5. Reviewing additional previous chest x-rays would indicate this pneumothorax may be larger than on 12/10/2024. XR/XR chest 1V portable [id number] IMPRESSION: Possible progression of right-sided subcutaneous emphysema and increased right pneumothorax.
[2024-12-11] MEDS: polyethylene glycol 3350 Pkt 17 gm PO (10:09)
[2024-12-11] MEDS: pantoprazole 40 mg SDV IVP (10:09)
--- NOTE | 2024-12-11 11:41 | PM.PN ---
Subjective Subjective: No acute events overnight. The patient remained hemodynamically stable. He continues to have an intermittent air leak. The surgical chest tube appears to be barely in place, and nursing staff have applied a large amount of tape to help secure it. Respiratory status remains stable. Medications: Medication Review Details: Current Medications Acetaminophen (Acetaminophen 325 Mg Tablet) 650 mg PO Q6H PRN PRN Reason: Mild/Mod Pain Or Temp >/= 101 Last Admin: 12/11/24 01:24 Dose: 650 mg Albuterol/Ipratropium (Ipratropium-Albuterol 3 Ml Neb) 3 ml INHALATION Q4H PRN PRN Reason: SHORTNESS OF BREATH Albuterol/Ipratropium (Ipratropium-Albuterol 3 Ml Neb) 3 ml INHALATION Q6H.RESP HAYDEN Last Admin: 12/12/24 08:51 Dose: Not Given Amlodipine Besylate (Amlodipine 10 Mg Tablet) 10 mg PO DAILY [facility] Last Admin: 12/12/24 08:40 Dose: 10 mg Aspirin (Aspirin 81 Mg Ec Tablet) 162 mg PO BID [facility] On Hold: 12/09/24 13:28 Last Admin: 12/09/24 08:50 Dose: 162 mg Atorvastatin Calcium (Atorvastatin 40 Mg Tablet) 80 mg PO DAILY [facility] Last Admin: 12/12/24 08:40 Dose: 80 mg Azithromycin (Azithromycin 250 Mg Tablet) 250 mg PO Q24H [facility]; Protocol Last Admin: 12/11/24 15:01 Dose: 250 mg Bisacodyl (Bisacodyl 5 Mg Tablet) 10 mg PO Q12H [facility] Budesonide (Budesonide 0.5 Mg/2 Ml Neb) 0.5 mg INHALATION BID.RESPIRATORY [facility] Last Admin: 12/12/24 08:51 Dose: Not Given Ceftriaxone Sodium (Ceftriaxone 1,000 Mg Sdv) 1,000 mg IVP Q24H [facility]; Protocol Enoxaparin Sodium (Enoxaparin 40 Mg/0.4 Ml Syringe) 40 mg SUBCUT Q24H [facility] Last Admin: 12/11/24 20:37 Dose: 40 mg Hydromorphone HCl (Hydromorphone 0.5 Mg/0.5 Ml Inj) 1 mg IVP Q4H PRN PRN Reason: PAIN Last Admin: 12/08/24 20:38 Dose: 1 mg Epinephrine HCl 1 mg/ Sodium (Chloride) 20 mls @ 0 mls/hr XX INTRAOP PRN PRN Reason: PROCEDURE Labetalol HCl (Labetalol 5 Mg/Ml Sdv 20ml) 10 mg IVP Q4H PRN PRN Reason: hypertension Last Admin: 12/08/24 05:48 Dose: 10 mg Lactulose (Lactulose Oral Liq 20 Gm/30 Ml Udc) 20 gm PO Q12H PRN PRN Reason: constipation Lisinopril (Lisinopril 10 Mg Tablet) 10 mg PO BID [facility] Last Admin: 12/12/24 08:40 Dose: 10 mg Naloxone HCl (Naloxone 0.4 Mg/Ml Sdv) 0.1 mg IVP Q2M PRN PRN Reason: OPIATERV Ondansetron HCl (Ondansetron 2 Mg/Ml Sdv 2 Ml) 4 mg IVP Q6H PRN PRN Reason: NAUSEA AND VOMITING Pantoprazole Sodium (Pantoprazole 40 Mg Sdv) 40 mg IVP Q24H [facility] Last Admin: 12/12/24 08:40 Dose: 40 mg Polyethylene Glycol (Polyethylene Glycol 3350 Pkt 17 Gm) 17 gm PO Q12H [facility] Prasugrel (Prasugrel 10 Mg Tablet) 10 mg PO DAILY [facility] On Hold: 12/09/24 13:28 Last Admin: 12/09/24 08:51 Dose: 10 mg Senna/Docusate Sodium (Sennosides-Docusate Tablet) 1 tab PO BID [facility] Sodium Chloride (Saline Nasal [place] 44ml Btl) 1 spray NASAL PRN PRN PRN Reason: DRYNESS Last Admin: 12/09/24 18:23 Dose: 1 spray Vitals/I&O/Wt Last Vital Signs Temp 98.5 F 12/12/24 04:49 Pulse 69 12/12/24 08:00 Resp 17 12/12/24 08:00 BP 123/58 12/12/24 08:00 Pulse Ox 96 12/12/24 08:00 O2 Del Method Nasal Cannula 12/12/24 02:00 O2 Flow Rate 3 12/12/24 02:00 12/11/24 12/12/24 12/12/24 22:59 06:59 14:59 Intake Total 250 / 860 200 / 200 Balance 250 / 860 200 / 200 Weight last 48 hrs Weight 191 lb 6.4 oz Weight 192 lb 8 oz Physical Exam Narrative: General?no acute distress. Patient alert oriented x 3. Patient appears to be comfortable Cardiac?regular rate and rhythm, normal S1-S2 Pulmonary?fair air entry bilaterally. No wheezes. Right chest tube in place with dressing in place. Evidence of grade 1 airleak Abdomen?soft lax and nontender Neuro?no focal deficit Psychiatric?good mood with appropriate affect Lower extremity?no significant edema or cyanosis Skin?no active rashes Data 12/12/24 02:26 12/12/24 02:26 A&P Assessment and plan 1. COPD (chronic obstructive pulmonary disease): 2. Chronic shortness of breath: 3. Secondary spontaneous pneumothorax: 4. Acute hypoxic respiratory failure: 5. S/P chest tube placement: 6. COPD exacerbation: 7. Persistent air leak: Plan: The patient continues to have a grade 1 air leak, but is fortunately tolerating the Heimlich valve and being off suction. However, when the valve becomes clogged, he develops subcutaneous emphysema. He remains clinically stable and is ambulating well. I had an extensive discussion with the patient regarding his options. He expressed a strong desire to pursue any necessary interventions to facilitate discharge without a chest tube, if feasible. I explained that once his condition stabilizes, he could potentially be discharged with the chest tube and Heimlich valve, but emphasized that the current surgical chest tube is not adequately secured and is nearly dislodged, necessitating tube exchange. The patient agreed to proceed with exchanging the chest tube, and I plan to replace it with a pigtail catheter today. In addition, we discussed the option of an autologous blood patch, including the risks (notably, infection), and the patient consented to proceed with this intervention as well, in the hope of resolving the air leak and facilitating chest tube removal and discharge. I also discussed the case with the hospitalist team, and we agreed to continue aggressive supportive measures, including physical therapy, in the interim. Time Spent: A total of 50 minutes were spent on the patient?s care today, including reviewing clinical status, coordinating care, and engaging in detailed counseling with the patient and his family. This excludes any procedure time. PDMP PDMP Reviewed: Not Reviewed Attestations Medical Necessity Statement*: Patient is with air leak syndrome that needing close observation and possible need of continuous suction Coding Level of Care Code Acute Code for [facility] Fwd Diagnoses COPD (chronic obstructive pulmonary disease) J44.9 Chronic shortness of breath R06.02 Secondary spontaneous pneumothorax J93.12 Acute hypoxic respiratory failure J96.01 S/P chest tube placement Z93.8 COPD exacerbation J44.1 Persistent air leak
[2024-12-11] MEDS: fentaNYL 50 mcg/mL INJ 2mL 100 MCG IVP (12:24)
[2024-12-11] MEDS: midazolam 1 mg/mL INJ 2 mL 2 MG IVP (12:25)
--- NOTE | 2024-12-11 13:02 | XR_ITS ---
WS: [id number] XR chest 1V portable [id number] REASON FOR EXAM: chest tube FINDINGS: Compared to the examination of 9:43 a.m. 12/11/2024, the large bore right chest tube has been removed and a pigtail smaller bore chest tube placed. Small to moderate apical and right lateral pneumothorax persists. The pneumomediastinum has further resolved. No significant interval change in the subcutaneous emphysema in the right chest wall, axilla, and the base of the neck bilaterally. XR/XR chest 1V portable [id number] IMPRESSION: Interval change as above.
--- NOTE | 2024-12-11 13:18 | P.PCN_ITS ---
Procedure/Consent Time out: Time Out Performed: Yes Consent: Consent for Procedure: Consent obtained from patient Procedure Narrative: Chest Tube Placement Note Procedure: Chest tube placement [CPT 15112] Indication: Migration of old chest tube Sedation/Analgesia: Topical lidocaine (10 cc) and 50 mics of Fentanyl IV Findings: The correct side was identified by review of radiographic studies and on bedside ultrasound. The right lateral chest wall was prepped and draped in sterile fashion and 1% lidocaine was infiltrated into the skin(10 mL). ?The old surgical chest tube was capped but I kept about 5 cm outside so I can sterilely placed a wire since patient does not have enough air or enough fluid. A soft tipped guidewire was inserted through all chest tube into the pleural space without resistance. The surgical chest tube was removed and the wire stayed in the pleural space, then a 14 chest tube was advanced to 25 cm. The wire was removed and the chest tube was connected to a Pleural-evac set at - 20 cmH2O suction. An air leak was noted with each respiratory cycle.. Placement confirmed with successful aspiration of contents as above. The tube was secured with 2.0 silk and the area was cleaned and an occlusive dressing was placed. The patient tolerated the procedure well. A stat portable CXR was ordered immediately following the procedure. Complications: None CXR Results: Pending ? Summary: ?- Placement of 14F pigtail chest Tube ?- Chest tube attached to Heimlich valve Recommendations:? ?- Followup post-placement CXR ?- Continue chest tube to Heimlich valve Nvain Kim MD Interventional Pulmonology Acute Procedures Epistaxis Control: Time out performed: Yes
--- NOTE | 2024-12-11 13:27 | P.PCN_ITS ---
Procedure/Consent Time out: Time Out Performed: Yes Consent: Consent for Procedure: Consent obtained from patient Procedure Narrative: Procedure Note: Autologous Blood Patch via Right Chest Tube Date: 12/11/2024 Finance Consultant: Dr. Navin Kim Indication: Persistent air leak secondary to secondary spontaneous pneumothorax in the setting of emphysematous lung disease, refractory to conservative management and after endobronchial valve placement with residual grade 1 air leak. Procedure: An autologous blood patch was performed at the bedside in a patient with a persistent low-grade air leak (grade 1) despite prior endobronchial valve placement. The patient had a right-sided chest tube in place connected to a water seal system. After informed consent was obtained and time-out was performed, the patient was positioned comfortably in a semi-upright position. The skin over the right upper extremity was prepped and draped in a sterile fashion. Using sterile technique, approximately 100 mL of autologous blood was drawn from a peripheral vein (left antecubital vein) using a large-bore syringe. Immediately, the blood was injected aseptically through the right-sided chest tube using a sterile syringe and port connector without delay to avoid clotting. Care was taken to prevent introduction of air during the process. Following instillation, the chest tube with pleruavac was elevatedf on IV pole for 1 hour to allow for pleural adherence and sealing of the air leak. The patient was kept in supine position with minimal movement for 1 hour. Afterward, the clamp was released and the chest tube was placed back to water seal (no suction unless patient become symptomatic). The patient remained hemodynamically stable and comfortable throughout the procedure. Estimated Blood Volume Instilled: 100 mL Chest Tube Side: Right Post-Procedure Status: Stable Complications: None observed Plan: Monitor for reduction/resolution of air leak. Repeat chest X-ray to assess for pneumothorax or tube position. Continue water seal for now. Consider additional blood patch or surgical consultation if leak persists. CPT code 65310 Acute Procedures Epistaxis Control: Time out performed: Yes
[2024-12-11] MEDS: water for injection-sterile 10 ML 1000 ML (14:12)
[2024-12-11] MEDS: ceFAZolin 2,000 mg SDV 2000 MG IVP (14:12)
--- NOTE | 2024-12-11 14:54 | P.PN_ITS ---
Subjective 2 Subjective: Patient was seen this morning, currently alert oriented x 3, following all commands, denies any chest pain, denies any shortness of breath - Patient does have increased subcutaneo us emphysema along the right chest, right neck, chest x-ray ordered - Spoke to interventional pulmonary - Plan on blood patch via right chest tu be, and exchange to right chest pigtail catheter - Patient is status post blood patch and exchange for right pigtail catheter tolerated procedure well, seen after procedure - On examination he has good breath soun ds bilaterally, subcutaneous emphysema, along right chest right neck has significantly improved Vitals/I&O/Wt Last Vital Signs Temp 97 F L 12/11/24 12:00 Pulse 83 12/11/24 14:35 Resp 18 12/11/24 14:31 BP 117/71 12/11/24 12:00 Pulse Ox 93 12/11/24 14:31 O2 Del Method Nasal Cannula 12/11/24 14:31 O2 Flow Rate 3 12/11/24 14:31 12/10/24 12/11/24 12/11/24 22:59 06:59 14:59 Intake Total 400 / 1050 480 / 1530 250 / 250 Balance 400 / 500 480 / 980 250 / 250 Weight last 48 hrs Weight 87.317 kg Weight 88.813 kg Physical Exam 2 Const: COMMON NORMALS: no acute distress and patient oriented x3 Chest: OTHER: Right chest pigtail catheter in place, heavy like valve Resp: COMMON NORMALS: normal respiratory effort, No retractions, No use of accessory muscles and clear to auscultation bilaterally AUSCULTATION: clear to auscultation bilaterally Cardio: COMMON NORMALS: regular rate, regular rhythm, S1 normal heart sound present and S2 normal heart sound present RATE: regular rate RHYTHM: r egular rhythm HEART SOUNDS: S1 normal heart sound present and S2 normal heart sound present GI: COMMON NORMALS: Normal to inspection, nondistended, normoactive bowel sounds present and non-tender Extremity: COMMON NORMALS: no pedal edema Neuro: COMMON NORMALS: patient oriented x3 Psych: COMMON NORMALS: mental status grossly normal Data 12/11/24 04:19 12/11/24 04:19 A&P Assessment and plan 1. Pulmonary emphysema with fibrosis of lun. Chronic shortness of breath: 3. Ex-smoker: 4. Pneumothorax on right: 5. S/P chest tube placement: 6. Acute hypoxic respiratory failure: 7. Pneumomediastinum: 8. Subcutaneous emphysema: Plan: Moderate to large right-sided pneumothorax with mediastinal shift to the left - Status post right chest tube placement, CT chest CT/CT chest wo con [id number] IMPRESSION: 1. Right chest tube is positioned in the major fissure. 2. Small right pneumothorax (10-20%). 3. Moderate centrilobular and paraseptal emphysema. 4. Incidental findings above. - Failed waterseal trial 12/07/2024 placed back to suction -Status post bronchoscopy with endobronchial valve placement 12/10/2024 successfully -Status post autologous blood patch via right chest tube, -Status post placement of 14 [place] pigtail chest tube, attached to Heimlich valve Plan - Monitor in the ICU -Pulmonary on consult - Repeat chest check in the morning, - DuoNeb - Budesonide - Prednisone, azithromycin total 5 days - Allowed for pain control - Aspirin, Effient on hold - Pulmonary on consult - Full code - Lovenox for DVT prophylaxis currently on hold History of CAD, continue aspirin, Effient on hold PDMP PDMP Reviewed: Not Reviewed Attestations 2 Medical Necessity Statement*: Patient requires hospitalization for right chest tube, right Heimlich valve Diagnoses Pulmonary emphysema with fibrosis of lung J43.9; J84.10 Chronic shortness of breath R06.02 Ex-smoker Z87.891 Pneumothorax on right J93.9 S/P chest tube placement Z93.8 Acute hypoxic respiratory failure J96.01 Pneumomediastinum J98.2 Subcutaneous emphysema T79.7XXA
--- NOTE | 2024-12-11 16:45 | PC.NURSE ---
overall has tolerated change of chest tube to pig tail large bore iv per ann jimenez,, ultrasound and good blood return versed and fentnyl given along with one time antibotic given per order blood inserted per chest tube by doctor , turned every 15 min to supine , side to side ect . also standing ,flushed blood as needed per drain tubing, noted some bleeding at site and after about 3 hours was converted to flutter valve connected to logi trap with gauze in bottom small amt of bloody drainage noted changed gauze at this time, up with portable o2 ambulated around icu two laps then assisted up in chair for evening meal, doctor aware of drainage at dressing and of slight leak at site with expiration
[2024-12-11] MEDS: lactulose oral liq 20 gm/30 mL UDC PO (18:15)
--- NOTE | 2024-12-11 21:00 | XRR_ITS ---
PROCEDURE INFORMATION: Exam: XR Chest Exam date and time: 12/11/2024 8:52 PM Age: 74 years old Clinical indication: Condition or disease; Other: Previous pneumothorax; Additional info: Chest tube TECHNIQUE: Imaging protocol: Radiologic exam of the chest. Views: 1 view. COMPARISON: CR XR chest 1V portable [id number] 12/11/2024 1:09 PM FINDINGS: Lungs: Unremarkable. No consolidation. Pleural spaces: Small residual right apical pneumothorax decreased compared to prior exam with 17 mm of separation between the lung and pleura with a right superiorly directed chest tube. Heart/Mediastinum: Aortic atherosclerotic calcifications. Bones/joints: Unremarkable. Soft tissues: Diffuse subcutaneous emphysema about the chest. XR/XR chest 1V portable [id number] IMPRESSION: 1. Small residual right apical pneumothorax decreased compared to prior exam with 17 mm of separation between the lung and pleura with a right superiorly directed chest tube. 2. Diffuse subcutaneous emphysema about the chest. 3. Aortic atherosclerotic calcifications.
--- NOTE | 2024-12-11 21:33 | PC.NURSE ---
Chest Tube: Patient has chest tube to heimlich valve connected to mucus specimen trap with gauze in bottom to catch drainage. Tube is patent and draining, there is a small amount of serosanguinous drainage in tube and in mucus specimen trap. Dressing is intact with some serosanguinous drainage at the site. There is still some crepitous in Right lateral chest around insertion site. Patient does not complain of any pain or shortness of breath at this time.
[2024-12-12] VITALS (29 sets, daily range): BP systolic 110–155; BP diastolic 55–117; PULSE 61–101; RESP 11–24; TEMP 36.7–36.9; O2SAT 91–98
[2024-12-12 02:47] LABS: Hematocrit 43.0 % (37-53); Hemoglobin 14.20 g/dL (11.27-16.99); Mean Corpuscular HGB Conc 33.0 g/dL (30-55); Mean Corpuscular Hemoglobin 29.4 pg (27-33); Mean Corpuscular Volume 89.0 fl (82-101); Nucleated Red Blood Cells % 0 %; Platelet Count 252 10^3/cmm (157-399); Red Blood Count 4.83 10^6/uL (3.85-5.65); White Blood Count 12.50 10^3/uL (3.29-11.43)
[2024-12-12 03:05] LABS: Alanine Aminotransferase 18 U/L (0-41); Albumin Level 3.7 g/dL (3.5-5.2); Alkaline Phosphatase 86 U/L (40-130); Anion Gap 18.9 (5-19); Aspartate Amino Transferase 17 U/L (0-40); Blood Urea Nitrogen 39 mg/dL (8-23); Calcium 8.9 mg/dL (8.5-10.5); Carbon Dioxide 23 mmol/L (22-29); Chloride 99 mmol/L (98-107); Creatinine Clr Calc Pharmacy 55.7175; Globulin 2.7 g/dL (1.3-4.6); Glucose 154 mg/dL (65-115); Osmolality Calculated 294 mOsm/kg (285-295); Potassium 4.9 mmol/L (3.5-5.1); Sodium 136 mmol/L (136-145); Total Protein 6.4 g/dL (6.6-8.7)
--- NOTE | 2024-12-12 06:00 | XR_ITS ---
WS: [id number] XR chest 1V portable [id number] REASON FOR EXAM: Chest Tube FINDINGS: Right apical and right lateral pneumothorax stable compared to 12/11/2024 at 8:53 p.m. Subcutaneous emphysema unchanged. No other interval change or new finding. XR/XR chest 1V portable [id number] IMPRESSION: Stable abnormal chest.
[2024-12-12] MEDS: pantoprazole 40 mg SDV IVP (08:40)
[2024-12-12] MEDS: polyethylene glycol 3350 Pkt 17 gm PO ×3 (08:40→20:45)
[2024-12-12] MEDS: cefTRIAXone 1,000 mg SDV 1000 MG IVP (09:56)
--- NOTE | 2024-12-12 10:03 | PC.NURSE ---
Tomi SENIOR MORTGAGE LOAN PROCESSOR came to bedside, chest tube dressing changed, Deportation Examiner rounded by telehealth, Dr. Hernandez came to bedside. plan to get patient out of bed more and give bowl regiment per mar
--- NOTE | 2024-12-12 12:49 | XR_ITS ---
WS: [id number] XR KUB portable [id number] REASON FOR EXAM: abd destention/pain FINDINGS: Limited examination from diaphragm to iliac crest. Moderate respiratory motion artifact. Subcutaneous emphysema has extended from the right chest wall into the right abdominal wall laterally and anteriorly. No free air or retroperitoneal air. Moderate stool retention in the right, transverse, and left colon. No small bowel distention noted. XR/XR KUB portable [id number] IMPRESSION: Limited examination as above. Subcutaneous emphysema in the right lateral and anterior abdominal wall. No acute intra-abdominal abnormality.
[2024-12-12] MEDS: lactulose oral liq 20 gm/30 mL UDC PO (12:50)
--- NOTE | 2024-12-12 13:33 | PC.SOCIAL ---
IMM updated IMM dated and initialed, copy placed in chart and copy given to patient
--- NOTE | 2024-12-12 14:04 | P.PN_ITS ---
Subjective 2 Subjective: Patient was seen this morning, currently alert oriented x 3, following all commands, tolerating his pigtail catheter right chest, no pain complaints, his subcutaneous emphysema is improving, denies any shortness of breath, does report feeling constipated Vitals/I&O/Wt Last Vital Signs Temp 98.5 F 12/12/24 04:49 Pulse 79 12/12/24 13:29 Resp 15 12/12/24 13:23 BP 139/117 12/12/24 12:00 Pulse Ox 95 12/12/24 13:23 O2 Del Method Nasal Cannula 12/12/24 13:23 O2 Flow Rate 2 12/12/24 13:23 12/11/24 12/12/24 12/12/24 22:59 06:59 14:59 Intake Total 250 / 860 400 / 400 Balance 250 / 860 400 / 400 Weight last 48 hrs Weight 86.818 kg Weight 87.317 kg Physical Exam 2 Const: COMMON NORMALS: no acute distress and patient oriented x3 Resp: COMMON NORMALS: normal respiratory effort, No retractions, No use of accessory muscles and clear to auscultation bilaterally AUSCULTATION: clear to auscultation bilaterally Cardio: COMMON NORMALS: regular rate, regular rhythm, S1 normal heart sound present and S2 normal heart sound present RATE: regular rate RHYTHM: r egular rhythm HEART SOUNDS: S1 normal heart sound present and S2 normal heart sound present GI: COMMON NORMALS: Normal to inspection, nondistended, normoactive bowel sounds present and non-tender Extremity: COMMON NORMALS: no pedal edema Neuro: COMMON NORMALS: patient oriented x3 Psych: COMMON NORMALS: mental status grossly normal Data 12/12/24 02:26 12/12/24 02:26 A&P Assessment and plan 1. Pulmonary emphysema with fibrosis of lun. Chronic shortness of breath: 3. Ex-smoker: 4. Pneumothorax on right: 5. S/P chest tube placement: 6. Acute hypoxic respiratory failure: 7. Pneumomediastinum: 8. Subcutaneous emphysema: Plan: Moderate to large right-sided pneumothorax with mediastinal shift to the left - Status post right chest tube placement, CT chest CT/CT chest wo con [id number] IMPRESSION: 1. Right chest tube is positioned in the major fissure. 2. Small right pneumothorax (10-20%). 3. Moderate centrilobular and paraseptal emphysema. 4. Incidental findings above. - Failed waterseal trial 12/07/2024 placed back to suction -Status post bronchoscopy with endobronchial valve placement 12/10/2024 successfully -Status post autologous blood patch via right chest tube, -Status post placement of 14 Pashto pigtail chest tube, attached to Heimlich valve -Repeat chest x-ray this morning Plan - Monitor in the ICU -Pulmonary on consult - DuoNeb - Budesonide - IV Rocephin - Allowed for pain control - Aspirin, Effient on hold - Pulmonary on consult - Full code - Lovenox for DVT prophylaxis History of CAD, continue aspirin, Effient on hold Constipation, bowel regimen PDMP PDMP Reviewed: Not Reviewed Attestations 2 Medical Necessity Statement*: Patient requires hospitalization for right-sided pneumothorax Diagnoses Pulmonary emphysema with fibrosis of lung J43.9; J84.10 Chronic shortness of breath R06.02 Ex-smoker Z87.891 Pneumothorax on right J93.9 S/P chest tube placement Z93.8 Acute hypoxic respiratory failure J96.01 Pneumomediastinum J98.2 Subcutaneous emphysema T79.7XXA
--- NOTE | 2024-12-12 16:15 | XRR_ITS ---
PROCEDURE INFORMATION: Exam: XR Chest Exam date and time: 12/12/2024 4:20 PM Age: 74 years old Clinical indication: Other: Post pneumo and chest tube insertion; Additional info: Checking pnumo TECHNIQUE: Imaging protocol: Radiologic exam of the chest. Views: 1 view. COMPARISON: CR XR chest 1V portable [id number] 12/12/2024 6:43 AM FINDINGS: Tubes, catheters and devices: Unchanged right chest tube. Lungs: Grossly unremarkable. No obvious consolidation. Pleural spaces: Evaluation of the right pneumothorax is quite limited due to the persistent and increasing overlying extensive bilateral body wall soft tissue gas. The right pneumothorax is now estimated to measure 2.8 cm at the apex whereas previously it measured 4.3 cm. No pleural effusion. No obvious left pneumothorax. Heart/Mediastinum: Unremarkable. No cardiomegaly. Diaphragm: Unchanged mild elevation of the right hemidiaphragm. Bones/joints: Nothing acute. No change. XR/XR chest 1V portable [id number] IMPRESSION: 1. Evaluation of the right pneumothorax is quite limited due to the persistent and increasing overlying extensive bilateral body wall soft tissue gas. The right pneumothorax is now estimated to measure 2.8 cm at the apex whereas previously it measured 4.3 cm. 2. Unchanged right chest tube. 3. Lungs remain grossly clear.
[2024-12-12] MEDS: HYDROmorphone 0.5 MG/0.5 ML INJ 1 MG IVP (16:56)
--- NOTE | 2024-12-12 17:26 | XRR_ITS ---
PROCEDURE INFORMATION: Exam: XR Chest Exam date and time: 12/12/2024 5:38 PM Age: 74 years old Clinical indication: Device placement; Chest tube; Eval subcutaneous air/rt pneumo after changing atrium; Cxr for comparison done @ 1620 TECHNIQUE: Imaging protocol: Radiologic exam of the chest. Views: 1 view. COMPARISON: CR (CHEST, ) 12/12/2024 4:20 PM FINDINGS: Tubes, catheters and devices: Pigtail pleural catheter is again seen on the right without change in position. Lungs: See Soft tissues finding. Pleural spaces: There may be a very small right apical pneumothorax without appreciable change. Visualization is limited due to extensive subcutaneous gas. Heart/Mediastinum: Unremarkable. No cardiomegaly. Bones/joints: Unremarkable. Soft tissues: Extensive subcutaneous gas or emphysema is seen in the chest and lower neck, [id number]. XR/XR chest 1V portable [id number] IMPRESSION: Suggestion of a very small right apical pneumothorax without appreciable change. Visualization is limited due to extensive subcutaneous gas or emphysema. Right chest tube without appreciable change.
--- NOTE | 2024-12-12 17:28 | PC.NURSE ---
increased sub q emphysema noted right side of face chest and upper arm increased crepetis patient reported increased work of breathing. Dr. Hernandez contacted came to bedside placed on suction with chest tube atrium Stat cxr obtained, Dr. Hernandez contacted Dr. Kim, pulmonology CREDIT RISK REVIEW OFFICER came to bedside. placed on oasis dry seal atrium per order from revenue audit clerk. New order for Stat cxr put in. no increase in O2 demand, no worsening of breathing since initial exam
--- NOTE | 2024-12-12 17:51 | PM.CONSULT ---
Providers/Reason For Consult Consulting Physician/Specialty*: dr lee general surgery Reason for Consult*: massive subcutaneous emphysema Attending Physician: Fuentes Hernandez MD History of Present Illness History of Present Illness Jerrell Love is a 74 year old male s/p bronchoscopy with endobronchial valve placement c/b massive subcutaneous emphysema extending as far as the maxilla. Patient complaining of pain. On 2L NC. Medications/Allergies Home Medications ?Medication ?Instructions ?Recorded ?Confirmed ?Last Taken ?Type cholecalciferol (vitamin D3) 50 50 mcg PO DAILY unknown 10/15/20 12/06/24 12/05/24 History mcg (2,000 unit) tablet aspirin 81 mg tablet,delayed 81 mg PO BID 08/24/23 12/06/24 12/05/24 History release omeprazole 40 mg capsule,delayed 40 mg PO DAILY PRN Heartburn 08/24/23 12/06/24 Unknown History release triamcinolone acetonide 0.1 % 1 applic topical PRN PRN Skin 08/24/23 12/06/24 Unknown History topical cream Irritation rosuvastatin 40 mg tablet 40 mg PO DAILY #90 tabs 03/05/24 12/06/24 12/05/24 Rx fluticasone 250 mcg-salmeterol 50 1 inh inhalation BID 12/06/24 12/06/24 12/05/24 History mcg/dose blistr powdr for inhalation (Wixela Inhub) ipratropium bromide 17 2 puff inhalation QID 12/06/24 12/06/24 12/05/24 History mcg/actuation HFA aerosol inhaler prasugrel HCl 10 mg tablet 10 mg PO DAILY 12/06/24 12/06/24 12/05/24 History Allergies Allergy/AdvReac Type Severity Reaction Status Date / Time clopidogrel AdvReac Intermediate ADR-Gastrointestinal Verified 09/11/24 13:28 Upset Current Medications Generic Name Dose Route Start Last Admin Trade Name Freq PRN Reason Stop Dose Admin Acetaminophen 650 mg 12/06/24 09:17 12/11/24 01:24 Acetaminophen 325 Mg Tablet PO 650 mg Q6H PRN Administration Mild/Mod Pain Or Temp >/= 101 Albuterol/Ipratropium 3 ml 12/06/24 14:00 12/12/24 13:23 Ipratropium-Albuterol 3 Ml Neb INHALATION 3 ml Q6H.RESP HAYDEN Administration Amlodipine Besylate 10 mg 12/09/24 09:15 12/12/24 08:40 Amlodipine 10 Mg Tablet PO 10 mg DAILY HAYDEN Administration Aspirin 162 mg 12/06/24 18:00 12/09/24 08:50 Aspirin 81 Mg Ec Tablet PO 162 mg On Hold: 12/09/24 13:28 BID HAYDEN Administration Atorvastatin Calcium 80 mg 12/06/24 09:30 12/12/24 08:40 Atorvastatin 40 Mg Tablet PO 80 mg DAILY HAYDEN Administration Azithromycin 250 mg 12/11/24 14:00 12/12/24 14:29 Azithromycin 250 Mg Tablet PO 250 mg Q24H HAYDEN Administration Protocol Bisacodyl 10 mg 12/12/24 09:45 12/12/24 09:56 Bisacodyl 5 Mg Tablet PO 10 mg Q12H HAYDEN Administration Budesonide 0.5 mg 12/06/24 20:00 12/12/24 08:51 Budesonide 0.5 Mg/2 Ml Neb INHALATION Not Given BID.RESPIRATORY HAYDEN Ceftriaxone Sodium 1,000 mg 12/12/24 10:00 12/12/24 09:56 Ceftriaxone 1,000 Mg Sdv IVP 1,000 mg Q24H HAYDEN Administration Protocol Enoxaparin Sodium 40 mg 12/06/24 21:00 12/11/24 20:37 Enoxaparin 40 Mg/0.4 Ml Syringe SUBCUT 40 mg Q24H HAYDEN Administration Hydromorphone HCl 1 mg 12/06/24 13:47 12/12/24 16:56 Hydromorphone 0.5 Mg/0.5 Ml Inj IVP 1 mg Q4H PRN Administration PAIN Labetalol HCl 10 mg 12/07/24 18:08 12/08/24 05:48 Labetalol 5 Mg/Ml Sdv 20ml IVP 10 mg Q4H PRN Administration hypertension Lactulose 20 gm 12/12/24 09:35 12/12/24 12:50 Lactulose Oral Liq 20 Gm/30 Ml Udc PO 20 gm Q12H PRN Administration constipation Lisinopril 10 mg 12/09/24 18:00 12/12/24 08:40 Lisinopril 10 Mg Tablet PO 10 mg BID HAYDEN Administration Pantoprazole Sodium 40 mg 12/06/24 09:30 12/12/24 08:40 Pantoprazole 40 Mg Sdv IVP 40 mg Q24H HAYDEN Administration Polyethylene Glycol 17 gm 12/12/24 09:45 12/12/24 09:55 Polyethylene Glycol 3350 Pkt 17 Gm PO 17 gm Q12H HAYDEN Administration Prasugrel 10 mg 12/07/24 09:00 12/09/24 08:51 Prasugrel 10 Mg Tablet PO 10 mg On Hold: 12/09/24 13:28 DAILY HAYDEN Administration Sodium Chloride 1 spray 12/09/24 17:13 12/09/24 18:23 Saline Nasal [place] 44ml Btl NASAL 1 spray PRN PRN Administration DRYNESS PFSH Acute PFSH: Medical History (Updated 12/09/24 @ 17:56 by Navin Kim MD) Chronic shortness of breath Abdominal bloating GERD (gastroesophageal reflux disease) ASHD (arteriosclerotic heart disease) PAD (peripheral artery disease) COPD (chronic obstructive pulmonary disease) AAA (abdominal aortic aneurysm) Myocardial infarction Dyslipidemia Carotid stenosis, bilateral Surgical History (Updated 12/06/24 @ 12:37 by Fuentes Hernandez MD) Presence of internal carotid stent History of coronary artery stent placement H/O carotid endarterectomy History of colonoscopy History of esophagogastroduodenoscopy (06/08/21) S/P angioplasty with stent Family History Father Congestive heart failure (CHF) Social History Smoking and tobacco/nicotine status: former use of tobacco/nicotine (quit 4+ years) Quit status (tobacco/nicotine): has quit using Year quit tobacco: Apr 19, 2020 [id number] Second hand smoke exposure: No Alcohol intake: current Alcohol intake frequency: holidays/special occasions only Substance/Drug Use: never Lives independently: Yes Household members: spouse Marital status: service: Yes Current occupational status: retired 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 Pets and animals: Yes Do you think of yourself as: Straight/Heterosexual Current gender identity: Male Vitals/I&O/Wt Last Vital Signs Temp 98.5 F 12/12/24 04:49 Pulse 69 12/12/24 15:00 Resp 12 12/12/24 15:00 BP 118/58 12/12/24 15:00 Pulse Ox 95 12/12/24 15:00 O2 Del Method Nasal Cannula 12/12/24 13:23 O2 Flow Rate 2 12/12/24 13:23 12/12/24 12/12/24 12/12/24 06:59 14:59 22:59 Intake Total 400 / 400 Balance 400 / 400 Weight last 48 hrs Weight 191 lb 6.4 oz Weight 192 lb 8 oz Physical Exam Narrative: Massive subcutaneous emphysema extending from the chest towards the maxilla tachycardic Tachypneic on 2L NC Data 12/12/24 02:26 12/12/24 02:26 A&P Assessment and plan 1. Subcutaneous emphysema: Plan: 74yo male s/p endobronchial valve placement by pulmonology complicated by massive subcutaneous emphysema extending to the face. Discussed risks and benefits and patient agreed to proceed with subcutaneous emphysema evacuation. PDMP PDMP Reviewed: Not Reviewed Coding Level of Care Code 86311 Diagnoses Subcutaneous emphysema T79.7XXA
--- NOTE | 2024-12-12 17:58 | PM.ACPR ---
Procedure/Consent Time out: Time Out Performed: Yes Consent: Consent for Procedure: Consent obtained from patient Procedure Narrative: Consent obtained from patient. Discussed risks and benefits and patient agreed to proceed with subcutaneous emphysema evacuation. The right chest was prepped with chlorhexidine. Local infiltration carried out using 10cc of 1% lidoacaine. A 10 blade was used to create a 3cm incision down to subcutaneous tissues. A gush of air was obtained. Emphysema was evacuated by applying pressure towards the incision. The patient reported immediate relief. A dry gauze dressing was applied. Ok to change dressings q8hrs. Acute Procedures Epistaxis Control: Time out performed: Yes
--- NOTE | 2024-12-12 17:59 | PC.NURSE ---
Dr. Bernabe came to bedside to perform carrasquillo procedure to allow sub q air to escape. incision to anterior Right chest, covered with gauze. decrease in crepitis noted
--- NOTE | 2024-12-12 18:16 | P.PNCC_ITS ---
Critical Care Event Note The high probability of a clinically significant, sudden or life threatening deterioration of the patient's [] system(s) required my full and direct attention, intervention and personal management. The critical care time is as shown. This time is in addition to time spent performing any reported procedures but includes the following: [x] Data and vital sign review and interpretation [x] Patient assessment, examination and intervention [x] Documentation [x] Medication orders and management Critical Care Time Code activated: No Critical Care Time (min): 60 Additional information about critical care time: - Patient was examined this afternoon multiple times throughout the afternoon into the evening -In the afternoon patient was noted to have increased subcutaneous emphysema right chest right arm right face right neck -He had complaints of increased shortness of breath but was resting comfortably on 3 to 4 L no evidence of respiratory distress no nasal flaring no intercostal retraction no suprasternal retractions, no nasal flaring -Chest x-ray ordered right pneumothorax is measuring at about 2.8 cm at the apex, - Patient visibly has increased subcutaneous emphysema - Patient's pigtail catheter was flushed, - Pigtail catheter was remain hooked to suction - Airleak present - Spoke to pulmonary, recommended to change out chamber, repeat chest x-ray, continue to suction, continue flushing catheter every 6 hours, -Reexamined, patient is much more comfortable chest x-ray reviewed, continues to have subcutaneous emphysema on the right side right face, right chest -Discussed with mycologist, my concerns, concerns for tension pneumothorax or tension or developing as a subcutaneous emphysema increases, although he is comfortable - Professor Of Forest Planning spoke to nurse practitioner, - Professor Of Forest Planning discussed with me about talking with general surgery about performing gills procedure to relieve subcutaneous emphysema - Spoke to general surgery, Dr. Bernabe, who will come to the hospital and assessed patient - With general surgery at bedside discussed gills procedure with patient's family - Discussed with family the risk and benefits of details of procedure, they voiced understanding, all questions answered, shared decision making, discussed with patient, he agrees to proceed - Dr. Bernabe spoke with nurse practitioner, spoke with pulmonary - Dr. Bernabe performed gills procedure - Patient was seen after Campuzano's procedure, on the right side, remains alert orient x 3, following commands on 3 L as comfortable, his subcutaneous emphysema has visibly improved - Discussed with family we will continue to monitor, he might require repeat procedure depending on his subcutaneous emphysema but he is visibly more comfortable - Discussed the possibility of transfer to tertiary level center as we do not have CT surgery backup, but pulmonary is on-call but not physically here in the hospital - Patient's family voiced understanding, all questions answered, agreed to proceed - Discussed with nursing staff to flush pigtail catheter every 6 hours, sterile technique using 10 cc towards patient, 10 cc away for patient, to ensure pigtail catheter remains patent - Discussed with the nursing staff Coding Level of Care Code Acute Code for Chg Fwd
[2024-12-12] MEDS: sennosides-docusate Tablet 1 TAB PO (18:20)
--- NOTE | 2024-12-12 19:08 | PC.NURSE ---
chest tube flushed per order
--- NOTE | 2024-12-12 21:00 | XRR_ITS ---
PROCEDURE INFORMATION: Exam: XR Chest Exam date and time: 12/12/2024 8:45 PM Age: 74 years old Clinical indication: Other: Re-evaluate subcutaneous air/ right pneumo; Prior surgery; Surgery date: 3-7 days post-operative; Surgery type: Bronch valve / chest tube; Additional info: SOB TECHNIQUE: Imaging protocol: Radiologic exam of the chest. Views: 1 view. COMPARISON: CR (CHEST, ) 12/12/2024 5:38 PM FINDINGS: Tubes, catheters and devices: Right pigtail pleural catheter at the right mid lung field. Lungs: No consolidation. Pleural spaces: Probable small right apical pneumothorax, not well evaluated secondary to diffuse subcutaneous emphysema. Heart/Mediastinum: Mild cardiomegaly. Vasculature: Stent projecting from the aortic knob. Bones/joints: Degenerative change. Soft tissues: Diffuse subcutaneous emphysema throughout the chest and base of neck. XR/XR chest 1V portable [id number] IMPRESSION: 1. Stable right pigtail pleural catheter of the mid lung field. 2. Probable small right apical pneumothorax, not well evaluated secondary to diffuse subcutaneous emphysema.
[2024-12-13] VITALS (23 sets, daily range): BP systolic 71–163; BP diastolic 58–99; PULSE 62–96; RESP 12–23; TEMP 36.6–36.7; O2SAT 90–98
--- NOTE | 2024-12-13 01:10 | PM.CCNAC ---
Critical Care Event Note The high probability of a clinically significant, sudden or life threatening deterioration of the patient's [respiratory] system(s) required my full and direct attention, intervention and personal management. The critical care time is as shown. This time is in addition to time spent performing any reported procedures but includes the following: [x] Data and vital sign review and interpretation [x] Patient assessment, examination and intervention [x] Documentation [x] Medication orders and management Critical Care Time Code activated: No Critical Care Time (min): 15 Additional information about critical care time: Air leak with improvement to grade 1 compared to earlier tonight, however, subcutaneous emphysema with recurrence noted over back, chest, right arm despite evacuation procedure. Reviewed documentation from day provider and surgery. Reviewed vitals, blood counts, chemistry, chest x-ray which appears without worsening of pneumothorax. Vitals without worsening. Discussed with nursing. Discussed with patient recurrence of emphysema and discussed transfer, however, he declines at current time and requests to wait until about 8:00 in the morning before initiating anything so that discussion can be had both with him and his . In case of transfer he would prefer to be nearby, [facility] would be his preference. Discussed with him in case of worsening considering transfer sooner due to risk of deterioration, although he states still would prefer to wait. Continue to reassess we may have to revisit depending on his condition. Coding Level of Care Code Critical Care Other Coding Information Other care Time Spent (min) 20
[2024-12-13] MEDS: HYDROmorphone 0.5 MG/0.5 ML INJ 1 MG IVP ×2 (01:29→09:45)
--- NOTE | 2024-12-13 02:36 | PM.MISC ---
Miscellaneous Note Note: Called by Dr. Erickson about worsening subcutaneous emphysema, grade 1 air leak. No respiratory distress, 2L NC like yesterday. Dr. Yarbrough requesting a surgical chest tube to be placed. Patient's primary disease is emphysema and had endobronchial valves placed by Dr. Yarbrough. Explained to Dr. Erickson and Dr. Yarbrough that I am concerned a surgical chest tube may cause parenchymal injury and worsen his air leak. This is a complex patient and my recommendation is to transfer immediately for evaluation by thoracic surgery/interventional pulmonology. If he develops respiratory distress, I have recommended he be intubated. Had a discussion with both Dr. Erickson and Dr. Yarbrough about these recommendations.
--- NOTE | 2024-12-13 05:10 | PC.NURSE ---
Patient with increased subcutaneous air noted since mid night - back /chest / right arm down to hand and face. Chest tube flushing done per Dr. Kim instructions. Patient continues to have continuous air leak in chest tube suction chamber. Dressing remains intact. Lungs clear. Dr. Ivey into see patient due to swelling - vital stable at this time. Instructed to anticipate transfer - Dr. Ivey working on accepting facility and md. Family updated into see patient/left- to call them with transfer status when info obtained.
[2024-12-13 05:21] LABS: Hematocrit 44.3 % (37-53); Hemoglobin 14.40 g/dL (11.27-16.99); Mean Corpuscular HGB Conc 32.5 g/dL (30-55); Mean Corpuscular Hemoglobin 29.4 pg (27-33); Mean Corpuscular Volume 90.6 fl (82-101); Nucleated Red Blood Cells % 0 %; Platelet Count 220 10^3/cmm (157-399); Red Blood Count 4.89 10^6/uL (3.85-5.65); White Blood Count 10.14 10^3/uL (3.29-11.43)
[2024-12-13 05:40] LABS: Alanine Aminotransferase 19 U/L (0-41); Albumin Level 3.7 g/dL (3.5-5.2); Alkaline Phosphatase 80 U/L (40-130); Anion Gap 18.8 (5-19); Aspartate Amino Transferase 21 U/L (0-40); Blood Urea Nitrogen 37 mg/dL (8-23); Calcium 8.8 mg/dL (8.5-10.5); Carbon Dioxide 23 mmol/L (22-29); Chloride 99 mmol/L (98-107); Creatinine Clr Calc Pharmacy 60.2127; Globulin 2.6 g/dL (1.3-4.6); Glucose 99 mg/dL (65-115); Magnesium 2.6 mg/dL (1.7-2.3); Osmolality Calculated 291 mOsm/kg (285-295); Potassium 4.8 mmol/L (3.5-5.1); Sodium 136 mmol/L (136-145); Total Protein 6.3 g/dL (6.6-8.7)
--- NOTE | 2024-12-13 07:00 | XRR_ITS ---
PROCEDURE INFORMATION: Exam: XR Chest Exam date and time: 12/13/2024 7:27 AM Age: 74 years old Clinical indication: Device placement; Chest tube; Additional info: SOB TECHNIQUE: Imaging protocol: Radiologic exam of the chest. Views: 1 view. COMPARISON: CR (CHEST, ) 12/12/2024 8:45 PM FINDINGS: Tubes, catheters and devices: Right pigtail pleural catheter at the right mid lung field. Lungs: No consolidation. Pleural spaces: Prominent right apical pneumothorax measuring 3.4 cm on this exam extending laterally. Of note, in retrospect this is grossly stable from recent prior which measured 3.1 cm. Heart/Mediastinum: Mild cardiomegaly. Vasculature: Stent projecting from the aortic knob. Bones/joints: Degenerative change. Soft tissues: Diffuse subcutaneous emphysema throughout the chest and base of neck. XR/XR chest 1V portable [id number] IMPRESSION: 1. Right apicolateral pneumothorax with air gap measuring 3.4 cm, previously measuring 3.1 cm. 2. Stable right pigtail pleural catheter of the mid lung field.
[2024-12-13] MEDS: sennosides-docusate Tablet 1 TAB PO (08:41)
[2024-12-13] MEDS: pantoprazole 40 mg SDV IVP (08:41)
[2024-12-13] MEDS: polyethylene glycol 3350 Pkt 17 gm PO (08:42)
[2024-12-13] MEDS: cefTRIAXone 1,000 mg SDV 1000 MG IVP (09:31)
--- NOTE | 2024-12-13 12:51 | P.PN_ITS ---
Subjective 2 Subjective: Diffuse subcutaneous emphysema now extending to back face 1 column air leak 2L NC unlabored breathing Pending transfer Vitals/I&O/Wt Last Vital Signs Temp 98 F 12/13/24 04:00 Pulse 76 12/13/24 12:00 Resp 14 12/13/24 10:00 BP 119/58 12/13/24 11:00 Pulse Ox 94 12/13/24 12:00 O2 Del Method Nasal Cannula 12/13/24 07:49 O2 Flow Rate 3 12/13/24 07:49 12/12/24 12/13/24 12/13/24 22:59 06:59 14:59 Intake Total 90 / 490 200 / 690 480 / 480 Output Total 90 / 90 600 / 690 Balance 0 / 400 -400 / 0 480 / 480 Weight last 48 hrs Weight 191 lb Weight 191 lb 6.4 oz Physical Exam 2 Narrative: 2L NC eupneic RRR Diffuse subcutaneous emphysema despite decompression 12/13 Data 12/13/24 03:57 12/13/24 03:57 A&P Assessment and plan 1. Subcutaneous emphysema: 2. Persistent air leak: Plan: 74yo male s/p multiple endobronchial valve placement whom surgery was consulted for diffuse subcutaneous emphysema. S/p Gills procedure 12/12 and emphysema is worsening. Consider ETT and mechanical intubation for respiratory distress. Transfer for evaluation by thoracic surgery pending. PDMP PDMP Reviewed: Not Reviewed Attestations 2 Medical Necessity Statement*: NA Coding Level of Care Code 58577 Diagnoses Subcutaneous emphysema T79.7XXA Persistent air leak
[2024-12-13] MEDS: lactulose oral liq 20 gm/30 mL UDC PO (14:22)
--- NOTE | 2024-12-13 16:09 | P.PN_ITS ---
Subjective 2 Subjective: - Patient was examined earlier this morn ing, alert oriented x 3, following all commands on 3 L, has good breath sounds bilateral lung proctor, chest x-ray reviewed, right apical pneumothorax measuring 3.4 cm, observed subcutaneous emphysema, along the chest has improved compared to yesterday, but it is more in the right shoulder, the back, in his neck, bilateral facial cheeks, he denies any chest pain, no palpitations, he is able to have full conversation with me without feeling short of breath, not evidence of respiratory distress, discussed and reviewed overnight events, discussed transfer to [facility], he is in agreement - Patient's pigtail catheter observed, n o visible clot - Reviewed patient's atrium, during conv ersations he coughs for me, I cannot discern a air leak, have him take a deep breath in no air leak present, suction set at -40, site of gills procedure, dressing on top, no bleeding - Patient was reexamined, family members are at bedside -He is up in a chair, smiling joking wit h family members - This time during examination, I cannot discern a air leak upon coughing, and when patient takes a deep breath in, nursing staff have been flushing his pigtail catheter every 6 hours, however no continuous airleak is seen, however patient is not in respiratory distress, I would say that after the gills procedure his chest emphysema has significant improved but notes in the right shoulder, right back, neck -Discussed overnight events, discussed w as with pulmonary, discussions with general surgery - Discussed overnight events with danish t's family, patient's , patient - Discussed risk of benefits of transfer , patient and family voiced understanding, all questions answered, shared decision making, family and patient wants to proceed with transfer to [facility] as pulmonary will be physically available to see him, as currently pulmonary is on-call via phone but not physically present to see him, and he wants consultation from CT surgery which is not available here at [facility] - Patient has a bed at [facility], awaiting transportation, whether is an issue as patient prefers Air-Evac, does not want to go via ground as he is worried about insurance coverage - Discussed with him that insurance shou ld cover as his transfer is medically necessary as the services that he needs are not available here at [facility] Vitals/I&O/Wt Last Vital Signs Temp 98 F 12/13/24 04:00 Pulse 85 12/13/24 16:00 Resp 16 12/13/24 16:00 BP 141/70 12/13/24 16:00 Pulse Ox 94 12/13/24 16:00 O2 Del Method Nasal Cannula 12/13/24 13:05 O2 Flow Rate 2 12/13/24 13:05 12/13/24 12/13/24 12/13/24 06:59 14:59 22:59 Intake Total 200 / 690 480 / 480 Output Total 600 / 690 Balance -400 / 0 480 / 480 Weight last 48 hrs Weight 86.636 kg Weight 86.818 kg Physical Exam 2 Const: COMMON NORMALS: no acute distress and patient oriented x3 Chest: OTHER: Bilateral chest, subcutaneous emphysema, significantly improved Subcutaneous emphysema right shoulder, right back Gills procedure site right chest, dressing on top Right chest pigtail catheter in place Resp: COMMON NORMALS: normal respiratory effort, No retractions, No use of accessory muscles and clear to auscultation bilaterally AUSCULTATION: clear to auscultation bilaterally Cardio: COMMON NORMALS: regular rate, regular rhythm, S1 normal heart sound present and S2 normal heart sound present RATE: regular rate RHYTHM: r egular rhythm HEART SOUNDS: S1 normal heart sound present and S2 normal heart sound present GI: COMMON NORMALS: Normal to inspection, nondistended, normoactive bowel sounds present and non-tender Extremity: COMMON NORMALS: no pedal edema Neuro: COMMON NORMALS: patient oriented x3 Psych: COMMON NORMALS: mental status grossly normal Data 12/13/24 03:57 12/13/24 03:57 A&P Assessment and plan 1. Pulmonary emphysema with fibrosis of lun. Chronic shortness of breath: 3. Ex-smoker: 4. Pneumothorax on right: 5. S/P chest tube placement: 6. Acute hypoxic respiratory failure: 7. Pneumomediastinum: 8. Subcutaneous emphysema: Plan: Moderate to large right-sided pneumothorax with mediastinal shift to the left - Status post right chest tube placement, status post removal 12/11/[address]/CT chest wo con [id number] IMPRESSION: 1. Right chest tube is positioned in the major fissure. 2. Small right pneumothorax (10-20%). 3. Moderate centrilobular and paraseptal emphysema. 4. Incidental findings above. - Failed waterseal trial 12/07/2024 placed back to suction -Status post bronchoscopy with endobronchial valve placement 12/10/2024 -Status post autologous blood patch via right chest tube 12/11/2024, -Status post placement of 14 [place]orean pigtail chest tube, attached to Heimlich valve 12/11/2024, currently hooked to suction -Requiring gills procedure right chest for subcutaneous emphysema -With subcutaneous emphysema of chest, neck, right shoulder, back, face -Repeat chest x-ray this morning shows right apical lateral pneumothorax with air Measuring 3.4 cm, right pigtail pleural catheter of mid lung field -Has evidence of air leak this morning, not continuous, upon coughing, taking a deep breath -His pigtail catheter is hooked to suction, canister is set at -40 -He is receiving sterile flushes/sterile fashion every 6 hours of pigtail catheter -Currently not in respiratory distress Plan - Monitor in the ICU - DuoNeb - Budesonide - IV Rocephin - Allowed for pain control - Aspirin, Effient on hold in case patient needs surgical intervention/procedure - Full code - Lovenox for DVT prophylaxis - [facility], continue aspirin, Effient on hold Constipation, bowel regimen PDMP PDMP Reviewed: Not Reviewed Attestations 2 Medical Necessity Statement*: Patient requires hospitalization for persistent air leak, requiring transfer to tertiary level center, Coding Level of Care Code Critical Care >/= 30 minutes Critical care time (in minutes): 35 The high probability of a clinically significant, sudden or life threatening deterioration, as referenced in this documentation, required my full and direct attention, intervention and personal management. The critical care time shown is in addition to time spent performing any reported separately billable procedures and includes the following: [x] Data and vital sign review and interpretation [x ] Patient assessment, examination and intervention [x] Medication orders and management [x] Patient/Family updates as able [x] Care Coordination and Documentation. Diagnoses Pulmonary emphysema with fibrosis of lung J43.9; J84.10 Chronic shortness of breath R06.02 Ex-smoker Z87.891 Pneumothorax on right J93.9 S/P chest tube placement Z93.8 Acute hypoxic respiratory failure J96.01 Pneumomediastinum J98.2 Subcutaneous emphysema T79.7XXA
--- NOTE | 2024-12-13 17:08 | PC.NURSE ---
patient out of facility with air evac heading to [facility] in [place] room 696A. Family at bedside, called and updated
--- NOTE | 2024-12-13 17:15 | PM.TDS ---
Transfer Summary Providers Date of Admission: 12/06/24 08:36 Date of Discharge/Transfer: 12/17/24 Attending Provider at Admission: Fuentes Hernandez MD Attending Provider at Transfer: Fuentes Hernandez MD Transfer Plans: Anticipated date of transfer: 12/17/24. Diagnoses at Discharge Discharge Diagnosis 1. Pulmonary emphysema with fibrosis of lun. Chronic shortness of breath: 3. Ex-smoker: 4. Pneumothorax on right: 5. S/P chest tube placement: 6. Acute hypoxic respiratory failure: 7. Pneumomediastinum: 8. Subcutaneous emphysema: Reason for Visit Reason for Visit chest congestion, trouble breathing Hospital Course Hospital Course Jerrell Love is a 73 year old male with a past medical history of COPD, CHF, stop smoking 4 years ago, abdominal aortic, Carotid Artery Stenosis, Who Presents [facility] for Shortness of Breath. Patient Reports Chronic History of Cough, Shortness of Breath Associated with His Chronic COPD. However over the Last Few Days, He Has Had Episodes of Chest Pain and Shortness of Breath, Patient Tells Me He Denies Any Fevers, No Chills, Does Have a Nonproductive Cough, No Lightheadedness, No Dizziness, No Trauma, No Injuries, No Recent Falls, No Car Accidents, Denies a Prior History of Pneumothorax, in the Emergency Room He Was Found to Be 80% on Room Air, Improved to the Mid 80s on 2 L Patient was admitted to [facility] for Moderate to large right-sided pneumothorax with mediastinal shift to the left -Was monitored in the ICU, pulmonary was consulted - Status post right chest tube placemen CT chest CT/CT chest wo con [id number] IMPRESSION: 1. Right chest tube is positioned in the major fissure. 2. Small right pneumothorax (10-20%). 3. Moderate centrilobular and paraseptal emphysema. 4. Incidental findings above. - Failed waterseal trial 12/07/2024 placed back to suction -Due to persistent air leak and failing of waterseal trial, development of subcutaneous emphysema -Status post bronchoscopy with endobronchial valve placement 12/10/2024 -Due to persistent air leak, persistent of subcutaneous emphysema -Status post autologous blood patch via right chest tube 12/11/2024, -Due to persistent air leak, persistent subcutaneous emphysema -status post removal 12/11/2024 of right chest tube, and status post placement of 14 [place] pigtail chest tube, attached to Heimlich valve 12/11/2024, currently hooked to suction -Due to persistent air leak, worsening subcutaneous of edema, pigtail catheter was hooked back up to chest tube system, on suction at -40 -Due to persistent and worsening subcutaneous emphysema to see if his edema General Surgery was consulted -Requiring gills procedure right chest for subcutaneous emphysema 12/12/2024 -With subcutaneous emphysema of chest, neck, right shoulder, back, face -Repeat chest x-ray 12/13/2024 this morning shows right apical lateral pneumothorax with air Measuring 3.4 cm, right pigtail pleural catheter of mid lung field -Has evidence of air leak this morning, not continuous, upon coughing, taking a deep breath -His pigtail catheter is hooked to suction, canister is set at -40 -He is receiving sterile flushes/sterile fashion every 6 hours of pigtail catheter -Currently not in respiratory distress, able to speak full sentences, continues to have subcutaneous emphysema right shoulder, right back, bilateral facial cheeks - Patient was transferred to tertiary level center for the need for inpatient pulmonary evaluation, and CT surgery evaluation - Transfered to [facility] Physical Exam Const: COMMON NORMALS: no acute distress and patient oriented x3 Resp: COMMON NORMALS: normal respiratory effort, No retractions, No use of accessory muscles and clear to auscultation bilaterally AUSCULTATION: clear to auscultation bilaterally Cardio: COMMON NORMALS: regular rate, regular rhythm, S1 normal heart sound present and S2 normal heart sound present RATE: regular rate RHYTHM: regular rhythm HEART SOUNDS: S1 normal heart sound present and S2 normal heart sound present GI: COMMON NORMALS: Normal to inspection, nondistended, normoactive bowel sounds present and non-tender Extremity: COMMON NORMALS: no pedal edema Neuro: COMMON NORMALS: patient oriented x3 Psych: COMMON NORMALS: mental status grossly normal Skin: NARRATIVE SKIN EXAM: Right pigtail catheter in place Hooked up to chest tube system, air leak present Subcutaneous emphysema right shoulder, right back, bilateral facial cheeks TS Data Studies Completed and Pending Pending at discharge Category Date Time Status Complete Blood Count w/Auto AM LABS Lab 12/14/24 04:00 Ordered Complete Blood Count w/Auto AM LABS Lab 12/15/24 04:00 Ordered Comprehensive Metabolic Panel AM LABS Lab 12/14/24 04:00 Ordered Comprehensive Metabolic Panel AM LABS Lab 12/15/24 04:00 Ordered Magnesium AM LABS Lab 12/14/24 04:00 Ordered Magnesium AM LABS Lab 12/15/24 04:00 Ordered Phosphorus AM LABS Lab 12/14/24 04:00 Ordered Phosphorus AM LABS Lab 12/15/24 04:00 Ordered Completed Studies During Hospitalization Category Date Time Status CT chest wo con [id number] Stat Cat Scan 12/06/24 13:17 Completed CXRP [XR chest 1V portable [id number]] Routine Exams 12/10/24 08:05 Completed CXRP [XR chest 1V portable 58893] Stat Exams 12/11/24 13:02 Completed CXRP [XR chest 1V portable 75312] Stat Exams 12/12/24 16:15 Completed CXRP [XR chest 1V portable 94016] Stat Exams 12/12/24 17:26 Completed XR KUB portable 13101 Routine Exams 12/12/24 12:49 Completed XR chest 1V portable 18949 QAM Exams 12/07/24 06:00 Completed XR chest 1V portable 26533 QAM Exams 12/10/24 06:00 Completed XR chest 1V portable 56429 Routine Exams 12/07/24 12:00 Completed XR chest 1V portable 56370 Routine Exams 12/07/24 16:00 Completed XR chest 1V portable 47849 Routine Exams 12/08/24 07:00 Completed XR chest 1V portable 45450 Routine Exams 12/09/24 08:00 Completed XR chest 1V portable [id number] Routine Exams 12/11/24 05:00 Completed XR chest 1V portable 51385 Routine Exams 12/11/24 21:00 Completed XR chest 1V portable [id number] Routine Exams 12/12/24 06:00 Completed XR chest 1V portable 58015 Routine Exams 12/12/24 21:00 Completed XR chest 1V portable [id number] Routine Exams 12/13/24 07:00 Completed XR chest 1V portable 10695 Stat Exams 12/06/24 07:42 Completed XR chest 1V portable 57126 Stat Exams 12/06/24 07:59 Completed XR chest 1V portable 49718 Stat Exams 12/08/24 20:51 Completed XR chest 1V portable 38891 Stat Exams 12/11/24 09:32 Completed XR chest 1V portable 47420 Urgent Exams 12/10/24 14:15 Completed CV. echo complete* [id number] Routine Ultrasound 12/08/24 17:29 Completed Laboratory Last Values WBC 10.14 10^3/uL (3.29-11.43) 12/13/24 03:57 RBC 4.89 10^6/uL (3.85-5.65) 12/13/24 03:57 Hgb 14.40 g/dL (11.27-16.99) 12/13/24 03:57 Hct 44.3 % (37-53) 12/13/24 03:57 MCV 90.6 fl (82-101) 12/13/24 03:57 MCH 29.4 pg (27-33) 12/13/24 03:57 MCHC 32.5 g/dL (30-55) 12/13/24 03:57 RDW 13.5 % (12.1-15.1) 12/13/24 03:57 Plt Count 220 10^3/cmm (157-399) 12/13/24 03:57 MPV 9.2 fL (7.4-10.4) 12/13/24 03:57 Neut % (Auto) 71.8 % 12/13/24 03:57 Lymph % (Auto) 16.4 % 12/13/24 03:57 [place] % (Auto) 6.6 % 12/13/24 03:57 Eos % (Auto) 1.8 % 12/13/24 03:57 Baso % (Auto) 0.5 % 12/13/24 03:57 Neut # (Auto) 7.29 10^3/uL (1.8-7.7) 12/13/24 03:57 Lymph # (Auto) 1.7 10^3/uL (0.8-4.8) 12/13/24 03:57 [place] # (Auto) 0.7 10^3/uL (0.2-0.9) 12/13/24 03:57 Eos # (Auto) 0.2 10^3/uL (0.0-0.8) 12/13/24 03:57 Baso # (Auto) 0.1 10^3/uL (0.0-0.1) 12/13/24 03:57 Nucleated RBC % (auto) 0 % 12/13/24 03:57 Nucleated RBCs # 0.0 /100WBC 12/13/24 03:57 Sodium 136 mmol/L (136-145) 12/13/24 03:57 Potassium 4.8 mmol/L (3.5-5.1) 12/13/24 03:57 Chloride 99 mmol/L (98-107) 12/13/24 03:57 Carbon Dioxide 23 mmol/L (22-29) 12/13/24 03:57 Anion Gap 18.8 (5-19) 12/13/24 03:57 BUN 37 mg/dL (8-23) H 12/13/24 03:57 Creatinine 1.2 mg/dL (0.7-1.2) 12/13/24 03:57 GFR Calculation Not Reportable 12/13/24 03:57 Glucose 99 mg/dL (65-115) 12/13/24 03:57 POC Glucose 127 mg/dL (70-110) H 12/11/24 11:37 Calculated Osmolality 291 mOsm/kg (285-295) 12/13/24 03:57 Calcium 8.8 mg/dL (8.5-10.5) 12/13/24 03:57 Phosphorus 3.5 mg/dL (2.5-4.5) 12/13/24 03:57 Magnesium 2.6 mg/dL (1.7-2.3) H 12/13/24 03:57 Total Bilirubin 0.4 mg/dL (0.15-1.2) 12/13/24 03:57 AST 21 U/L (0-40) 12/13/24 03:57 ALT 19 U/L (0-41) 12/13/24 03:57 Alkaline Phosphatase 80 U/L (40-130) 12/13/24 03:57 Creatine Kinase 221 U/L (39-308) 12/06/24 07:41 C-Reactive Protein 6.8 mg/L (0.0-4.9) H 12/06/24 07:41 NT-Pro-B Natriuret Pep 455 pg/mL (0-450) H 12/06/24 07:41 Total Protein 6.3 g/dL (6.6-8.7) L 12/13/24 03:57 Albumin 3.7 g/dL (3.5-5.2) 12/13/24 03:57 Globulin 2.6 g/dL (1.3-4.6) 12/13/24 03:57 Procalcitonin 0.07 ng/mL (0-0.5) 12/06/24 07:41 Influenza A (PCR) Negative (Negative) 12/06/24 07:47 Influenza Type B (PCR) Negative (Negative) 12/06/24 07:47 RSV (PCR) Negative (Negative) 12/06/24 07:47 SARS-CoV-2 (PCR) Negative (Negative) 12/06/24 07:47 Blood Type O Positive 12/09/24 13:46 Rho(D) Type Rh positive 12/09/24 13:46 Antibody Screen Negative 12/09/24 13:[address] 12/06/24 13:17 IMPRESSION: 1. Right chest tube is positioned in the major fissure. 2. Small right pneumothorax (10-20%). 3. Moderate centrilobular and paraseptal emphysema. 4. Incidental findings above. COMMENTS: The presence of pulmonary emphysema on CT is an independent risk factor for lung cancer. In the absence of a history or active diagnosis of lung cancer, it is recommended that this patient with emphysema be evaluated for enrollment in a low dose CT lung cancer screening program. KUB X-Ray 12/12/24 12:49 IMPRESSION: Limited examination as above. Subcutaneous emphysema in the right lateral and anterior abdominal wall. No acute intra-abdominal abnormality. Chest X-Ray 12/13/24 07:00 IMPRESSION: 1. Right apicolateral pneumothorax with air gap measuring 3.4 cm, previously measuring 3.1 cm. 2. Stable right pigtail pleural catheter of the mid lung field. Recent Clincial Data Last Vital Signs Temp 98 F 12/13/24 04:00 Pulse 85 12/13/24 16:00 Resp 16 12/13/24 16:00 BP 141/70 12/13/24 16:00 Pulse Ox 94 12/13/24 16:00 O2 Del Method Nasal Cannula 12/13/24 13:05 O2 Flow Rate 2 12/13/24 13:05 Vital Signs Pulse Resp BP Pulse Ox O2 Del Method O2 Flow Rate 12/13/24 16:00 85 16 141/70 94 12/13/24 15:00 89 18 94 12/13/24 14:52 96 12/13/24 14:00 92 22 H 71/61 90 12/13/24 13:07 78 12/13/24 13:05 77 16 95 Nasal Cannula 2 12/13/24 13:00 78 140/79 93 12/13/24 12:00 76 94 12/13/24 11:00 92 119/58 12/13/24 10:00 82 14 95 12/13/24 09:00 135/59 12/13/24 08:00 86 23 H 133/73 93 12/13/24 07:49 75 16 96 Nasal Cannula 3 12/13/24 07:00 62 123/68 93 12/13/24 06:00 66 13 129/60 92 12/13/24 05:41 66 Intake & Output/Weight 12/11/24 12/12/24 12/13/24 12/14/24 06:59 06:59 06:59 06:59 Intake Total 1530 / 1530 860 / 860 690 / 690 480 / 480 Output Total 550 / 550 690 / 690 Balance 980 / 980 860 / 860 0 / 0 480 / 480 Weight 87.317 kg 86.818 kg 86.636 kg Vitals Last Vital Signs Temp 98 F 12/13/24 04:00 Pulse 85 12/13/24 16:00 Resp 16 12/13/24 16:00 BP 141/70 12/13/24 16:00 Pulse Ox 94 12/13/24 16:00 O2 Del Method Nasal Cannula 12/13/24 13:05 O2 Flow Rate 2 12/13/24 13:05 TS Medications Medications Acetaminophen (Acetaminophen 325 Mg Tablet) 650 mg PO Q6H PRN PRN Reason: Mild/Mod Pain Or Temp >/= 101 Last Admin: 12/11/24 01:24 Dose: 650 mg Albuterol/Ipratropium (Ipratropium-Albuterol 3 Ml Neb) 3 ml INHALATION Q4H PRN PRN Reason: SHORTNESS OF BREATH Albuterol/Ipratropium (Ipratropium-Albuterol 3 Ml Neb) 3 ml INHALATION Q6H.RESP [facility] Last Admin: 12/13/24 13:03 Dose: 3 ml Amlodipine Besylate (Amlodipine 10 Mg Tablet) 10 mg PO DAILY [facility] Last Admin: 12/13/24 08:41 Dose: 10 mg Aspirin (Aspirin 81 Mg Ec Tablet) 162 mg PO BID [facility] On Hold: 12/09/24 13:28 Last Admin: 12/09/24 08:50 Dose: 162 mg Atorvastatin Calcium (Atorvastatin 40 Mg Tablet) 80 mg PO DAILY [facility] Last Admin: 12/13/24 08:41 Dose: 80 mg Bisacodyl (Bisacodyl 5 Mg Tablet) 10 mg PO Q12H [facility] Last Admin: 12/13/24 08:41 Dose: 10 mg Budesonide (Budesonide 0.5 Mg/2 Ml Neb) 0.5 mg INHALATION BID.RESPIRATORY [facility] Last Admin: 12/13/24 07:47 Dose: 0.5 mg Ceftriaxone Sodium (Ceftriaxone 1,000 Mg Sdv) 1,000 mg IVP Q24H [facility]; Protocol Last Admin: 12/13/24 09:31 Dose: 1,000 mg Enoxaparin Sodium (Enoxaparin 40 Mg/0.4 Ml Syringe) 40 mg SUBCUT Q24H [facility] Last Admin: 12/12/24 20:32 Dose: 40 mg Hydromorphone HCl (Hydromorphone 0.5 Mg/0.5 Ml Inj) 1 mg IVP Q4H PRN PRN Reason: PAIN Last Admin: 12/13/24 09:45 Dose: 1 mg Epinephrine HCl 1 mg/ Sodium (Chloride) 20 mls @ 0 mls/hr XX INTRAOP PRN PRN Reason: PROCEDURE Labetalol HCl (Labetalol 5 Mg/Ml Sdv 20ml) 10 mg IVP Q4H PRN PRN Reason: hypertension Last Admin: 12/08/24 05:48 Dose: 10 mg Lactulose (Lactulose Oral Liq 20 Gm/30 Ml Udc) 20 gm PO Q12H [facility] Last Admin: 12/13/24 14:22 Dose: 20 gm Lisinopril (Lisinopril 10 Mg Tablet) 10 mg PO BID [facility] Last Admin: 12/13/24 08:41 Dose: 10 mg Naloxone HCl (Naloxone 0.4 Mg/Ml Sdv) 0.1 mg IVP Q2M PRN PRN Reason: OPIATERV Ondansetron HCl (Ondansetron 2 Mg/Ml Sdv 2 Ml) 4 mg IVP Q6H PRN PRN Reason: NAUSEA AND VOMITING Pantoprazole Sodium (Pantoprazole 40 Mg Sdv) 40 mg IVP Q24H [facility] Last Admin: 12/13/24 08:41 Dose: 40 mg Polyethylene Glycol (Polyethylene Glycol 3350 Pkt 17 Gm) 17 gm PO Q12H [facility] Last Admin: 12/13/24 08:42 Dose: 17 gm Prasugrel (Prasugrel 10 Mg Tablet) 10 mg PO DAILY [facility] On Hold: 12/09/24 13:28 Last Admin: 12/09/24 08:51 Dose: 10 mg Senna/Docusate Sodium (Sennosides-Docusate Tablet) 1 tab PO BID [facility] Last Admin: 12/13/24 08:41 Dose: 1 tab Sodium Chloride (Saline Nasal [place] 44ml Btl) 1 spray NASAL PRN PRN PRN Reason: DRYNESS Last Admin: 12/09/24 18:23 Dose: 1 spray Discontinued Medications Azithromycin (Azithromycin 250 Mg Tablet) 500 mg PO DAILY [facility]; Protocol Last Admin: 12/10/24 09:24 Dose: 500 mg Azithromycin (Azithromycin 250 Mg Tablet) 250 mg PO Q24H [facility]; Protocol Last Admin: 12/12/24 14:29 Dose: 250 mg Cefazolin Sodium (Cefazolin 2,000 Mg Sdv) 2,000 mg IVP ONCE ONE; Protocol Stop: 12/11/24 12:33 Last Admin: 12/11/24 14:12 Dose: 2,000 mg Dexamethasone (Dexamethasone 4 Mg/Ml Inj) Confirm Administered Dose 8 mg .ROUTE .STK-MED ONE Stop: 12/10/24 07:56 Docusate Sodium (Docusate Sodium 100 Mg Capsule) 100 mg PO BID [facility] Ephedrine Sulfate (Ephedrine 50 Mg/Ml Inj) Confirm Administered Dose 50 mg .ROUTE .STK-MED ONE Stop: 12/10/24 07:42 Epinephrine HCl (Epinephrine 1 Mg/Ml Inj) Confirm Administered Dose 1 mg .ROUTE .STK-MED ONE Stop: 12/10/24 06:38 Last Admin: 12/10/24 09:21 Dose: Not Given Fentanyl (Fentanyl 50 Mcg/Ml Inj 2ml) 100 mcg IVP ONCE ONE Stop: 12/06/24 07:59 Last Admin: 12/06/24 08:38 Dose: 100 mcg Fentanyl (Fentanyl 50 Mcg/Ml Inj 2ml) Confirm Administered Dose 100 mcg .ROUTE .STK-MED ONE Stop: 12/10/24 06:56 Fentanyl (Fentanyl 50 Mcg/Ml Inj 2ml) 100 mcg IVP ONCE ONE Stop: 12/11/24 10:52 Last Admin: 12/11/24 12:24 Dose: 100 mcg Hydromorphone HCl (Hydromorphone 0.5 Mg/0.5 Ml Inj) 1 mg IVP ONCE ONE Stop: 12/07/24 12:54 Last Admin: 12/07/24 12:56 Dose: 1 mg Sodium Chloride (Sodium Chloride 0.9%) 1,000 mls @ 75 mls/hr IV .[id number] [facility] Stop: 12/06/24 22:36 Last Infusion: 12/06/24 17:34 Dose: 0 mls/hr Epinephrine HCl 1 mg/ Sodium (Chloride) 20 mls @ 0 mls/hr XX INTRAOP PRN PRN Reason: PROCEDURE Lactated Ringer's (Lactated Ringers) 1,000 mls @ 30 mls/hr IV .Q24H ONE Stop: 12/11/24 06:30 Last Admin: 12/10/24 09:20 Dose: Not Given Sterile Water (Water) Confirm Administered Dose 10 mls @ as directed .ROUTE .STK-MED ONE Stop: 12/11/24 12:38 Last Infusion: 12/11/24 14:56 Dose: Infused Lidocaine HCl (Xylocaine) Confirm Administered Dose 10 mls @ as directed .ROUTE .STK-MED ONE Stop: 12/12/24 17:45 Last Admin: 12/12/24 18:29 Dose: 1 mls/hr Lactulose (Lactulose Oral Liq 20 Gm/30 Ml Udc) 20 gm PO ONCE ONE Stop: 12/11/24 18:12 Last Admin: 12/11/24 18:15 Dose: 20 gm Lactulose (Lactulose Oral Liq 20 Gm/30 Ml Udc) 20 gm PO Q12H PRN PRN Reason: constipation Last Admin: 12/12/24 12:50 Dose: 20 gm Lidocaine HCl (Lidocaine 2% Inj 20 Ml) 20 ml XX ONCE ONE Stop: 12/10/24 06:16 Last Admin: 12/10/24 07:31 Dose: 6 ml Lidocaine HCl (Lidocaine 2% Inj 20 Ml) Confirm Administered Dose 40 ml .ROUTE .STK-MED ONE Stop: 12/10/24 06:38 Last Admin: 12/10/24 09:21 Dose: Not Given Lidocaine HCl (Lidocaine 2% Inj 20 Ml) Confirm Administered Dose 20 ml .ROUTE .STK-MED ONE Stop: 12/10/24 06:57 Lidocaine HCl (Lidocaine 1% 10 Ml Inj) 10 ml XX ONCE ONE Stop: 12/11/24 11:16 Last Admin: 12/11/24 12:24 Dose: 10 ml Midazolam HCl (Midazolam 1 Mg/Ml Inj 2 Ml) 6 mg IVP ONCE ONE Stop: 12/06/24 07:59 Last Admin: 12/06/24 08:38 Dose: Not Given Midazolam HCl (Midazolam 1 Mg/Ml Inj 2 Ml) 4 mg IVP ONCE ONE Stop: 12/06/24 08:39 Last Admin: 12/06/24 08:39 Dose: 4 mg Midazolam HCl (Midazolam 1 Mg/Ml Inj 2 Ml) 2 mg IVP ONCE ONE Stop: 12/11/24 10:52 Last Admin: 12/11/24 12:25 Dose: 2 mg Mineral Oil (Mineral Oil Enema 133 Ml) 133 ml NE ONCE ONE Stop: 12/12/24 09:36 Last Admin: 12/12/24 09:56 Dose: 133 ml Morphine Sulfate (Morphine 4 Mg/Ml Sdv 1 Ml) 2 mg IVP Q4H PRN PRN Reason: SEVERE PAIN Last Admin: 12/06/24 11:01 Dose: 2 mg Ondansetron HCl (Ondansetron 2 Mg/Ml Sdv 2 Ml) Confirm Administered Dose 4 mg .ROUTE .STK-MED ONE Stop: 12/10/24 07:56 Polyethylene Glycol (Polyethylene Glycol 3350 Pkt 17 Gm) 17 gm PO DAILY [facility] Last Admin: 12/12/24 08:40 Dose: 17 gm Prednisone (Prednisone 20 Mg Tablet) 40 mg PO DAILY [facility] Stop: 12/11/24 13:19 Last Admin: 12/11/24 10:06 Dose: 40 mg Propofol (Propofol 10 Mg/Ml Sdv 20 Ml) Confirm Administered Dose 200 mg .ROUTE .STK-MED ONE Stop: 12/10/24 06:56 Rocuronium [place] (Rocuronium 10 Mg/Ml Inj 5ml) Confirm Administered Dose 50 mg .ROUTE .STK-MED ONE Stop: 12/10/24 06:56 Senna/Docusate Sodium (Sennosides-Docusate Tablet) 1 tab PO BID [facility] Sodium Phosphate (Fleet Enema 133 Ml Enema) 133 ml NE ONCE ONE Stop: 12/12/24 10:01 Sugammadex Sodium (Sugammadex 200 Mg/2 Ml Sdv) Confirm Administered Dose 200 mg .ROUTE .STK-MED ONE Stop: 12/10/24 07:55 Allergies clopidogrel Adverse Reaction (Intermediate, Verified 09/11/24 13:28) ADR-Gastrointestinal Upset Home Medications cholecalciferol (vitamin D3) 50 mcg (2,000 unit) tablet 50 mcg PO DAILY unknown 10/15/20 [History Confirmed 12/06/24] aspirin 81 mg tablet,delayed release 81 mg PO BID 08/24/23 [History Confirmed 12/06/24] omeprazole 40 mg capsule,delayed release 40 mg PO DAILY PRN Heartburn 08/24/23 [History Confirmed 12/06/24] triamcinolone acetonide 0.1 % topical cream 1 applic topical PRN PRN Skin Irritation 08/24/23 [History Confirmed 12/06/24] rosuvastatin 40 mg tablet 40 mg PO DAILY #90 tabs 03/05/24 [Rx Confirmed 12/06/24] fluticasone 250 mcg-salmeterol 50 mcg/dose blistr powdr for inhalation (Wixela Inhub) 1 inh inhalation BID 12/06/24 [History Confirmed 12/06/24] ipratropium bromide 17 mcg/actuation HFA aerosol inhaler 2 puff inhalation QID 12/06/24 [History Confirmed 12/06/24] prasugrel HCl 10 mg tablet 10 mg PO DAILY 12/06/24 [History Confirmed 12/06/24] Discharge Plan Discharge Patient Disposition: Xfer Short-Term Hosp Condition: Stable Prescriptions: No Action rosuvastatin 40 mg tablet 40 mg PO DAILY Qty: 90 3RF cholecalciferol (vitamin D3) 50 mcg (2,000 unit) Tablet 50 mcg PO DAILY omeprazole 40 mg Capsule,Delayed Release(Dr/Ec) 40 mg PO DAILY PRN (Reason: Heartburn) triamcinolone acetonide 0.1 % Cream 1 applic topical PRN PRN (Reason: Skin Irritation) aspirin 81 mg tablet,delayed release (DR/EC) 81 mg PO BID fluticasone propion-salmeterol [Wixela Inhub] 250-50 mcg/dose Blister With Device 1 inh INHALATION BID ipratropium bromide 17 mcg/actuation Hfa Aerosol Inhaler 2 puff INHALATION QID prasugrel HCl 10 mg Tablet 10 mg PO DAILY Discharge Order = DC NOW: Discharge Order (Routine); Ordered 12/13/24 Ordered By: Fuentes Hernandez Transfer Out of Facility (Order); Ordered 12/13/24 Ordered By: Fuentes Hernandez Referrals: Jean Marie Spear DO [Emergency Department, Emergency Medicine] Patient Instructions: Post Anesthesia Care, Pulmonology Procedures & Bronchoscopy Discharge Instructions Transfer Attestations Time Spent in Transfer Care: critical care time Critical Care Time (min): 40 Quality Metrics Clinical Quality Measures [ No reported AMI, CVA or VTE this stay] Coding Level of Care Code Acute Code for Chg Fwd Diagnoses Pulmonary emphysema with fibrosis of lung J43.9; J84.10 Chronic shortness of breath R06.02 Ex-smoker Z87.891 Pneumothorax on right J93.9 S/P chest tube placement Z93.8 Acute hypoxic respiratory failure J96.01 Pneumomediastinum J98.2 Subcutaneous emphysema T79.7XXA
== END 2024-12-13 17:30 | disposition short-term general hospital (02) | DRG 163 ==
LOC: ER 07:48 → ICU 08:46
PROVIDERS: Internal Medicine; Admitting Provider Family Medicine; Emergency Provider Family Medicine; Visit Provider Family Medicine
PROC: 0BH Respiratory System, Insertion (ICD-10-PCS; CPT 31647; principal; 2024-12-10 07:00)
DX: J93.83 Other pneumothorax (principal); J96.21 Acute and chronic respiratory failure with hypoxia; T79.7XXA Traumatic subcutaneous emphysema, initial encounter; J44.1 Chronic obstructive pulmonary disease with (acute) exacerbation; J43.9 Emphysema, unspecified; J84.10 Pulmonary fibrosis, unspecified; Z87.891 Personal history of nicotine dependence; X58.XXXA Exposure to other specified factors, initial encounter; Z79.82 Long term (current) use of aspirin; K21.9 Gastro-esophageal reflux disease without esophagitis; I25.10 Atherosclerotic heart disease of native coronary artery without angina pectoris; Z95.5 Presence of coronary angioplasty implant and graft; I73.9 Peripheral vascular disease, unspecified; Z95.820 Peripheral vascular angioplasty status with implants and grafts; I71.40 Abdominal aortic aneurysm, without rupture, unspecified; I25.2 Old myocardial infarction; E78.5 Hyperlipidemia, unspecified; G47.33 Obstructive sleep apnea (adult) (pediatric); Z99.81 Dependence on supplemental oxygen
CPT/HCPCS: 36415; 36416; 71045; 71250; 74018; 80053; 82550; 82962; 83735; 83880; 84100; 84145; 85025; 86140; 86850; 86900; 87637; 93005; 93306; 94640; 94664; 94799; 96372; 96374; 96376; 99285; 99291; J0690; J0696; J1100; J1171; J1650; J2250; J2270; J2405; J2470; J2704; J3010; J3490; J7030; J7512; J7626; J9999; Q0144

== ENCOUNTER 2025-01-21 08:32 | Outpatient (CLI) | payer OTHER, SELFPAY ==
--- NOTE | 2025-01-21 08:37 | US_ITS ---
WS: [id number] RENAL ULTRASOUND HISTORY: STAGE 3A CHRONIC KIDNEY DZ COMPARISON: 12/04/2022 TECHNIQUE: 2-D and color Doppler imaging of the kidney submitted. Right kidney: 10.5 cm x 5.3 cm x 5.6 cm. Cortex: 1.3 cm Normal echogenicity with no hydronephrosis or mass. Left kidney: 10.4 cm x 4.2 cm x 5.1 cm. Cortex: 1.2 cm Normal size kidney. Normal cortex. No obstruction or mass. Aorta: Tortuous ectatic abdominal aorta. Maximum diameter 3.3 cm. Urinary Bladder: Minimally distended. US/US renal BI* [id number] IMPRESSION: 1. Normal renal ultrasound. No atrophy or obstruction. 2. Abdominal aortic aneurysm, 3.3 cm.
== END 2025-01-21 08:33 | disposition home or self-care (01) ==
LOC: RAD 08:33
PROVIDERS: PCP Family Medicine; Visit Provider Internal Medicine Nephrology
DX: N18.31 Chronic kidney disease, stage 3a (principal); I71.40 Abdominal aortic aneurysm, without rupture, unspecified
CPT/HCPCS: 76770

== ENCOUNTER 2025-02-05 16:52 | Inpatient (IN) | payer OTHER, SELFPAY ==
[2025-02-05] VITALS (65 sets, daily range): BP systolic 101–160; BP diastolic 43–91; PULSE 56–86; RESP 12–26; TEMP 36.1–36.6; O2SAT 87–99; BMI 27.1
--- NOTE | 2025-02-05 16:52 | ECG_ITS ---
[facility] Test Date: 2025-02-05 Pat Name: Jerrell Love Department: Room: Gender: Male Lead Printer: : [id number] Requested By: Rosa Leija Order Number: [id number] Nery MD: KESHA CASON Measurements Intervals [place] Rate: 81 P: 57 [place]: 171 QRS: -2 QRSD: 110 T: 79 QT: 380 QTc: 442 Interpretive Statements SINUS RHYTHM WITH SINUS ARRHYTHMIA NONSPECIFIC T-WAVE ABNORMALITY Compared to ECG 12/06/2024 13:36:44 Intraventricular conduction delay no longer present T-wave abnormality still present Electronically Signed On 02-06-2025 20:12:55 CDT by KESHA CASON [email or web address]
--- NOTE | 2025-02-05 16:56 | CTR_ITS ---
PROCEDURE INFORMATION: Exam: CT Head Without Contrast Exam date and time: 02/05/2025 5:00 PM Age: 74 years old Clinical indication: Stroke-like symptoms; Generalized weakness; Additional info: Symptoms of acute stroke TECHNIQUE: Imaging protocol: Computed tomography of the head without contrast. Radiation optimization: All CT scans at this facility use at least one of these dose optimization techniques: automated exposure control; mA and/or kV adjustment per patient size (includes targeted exams where dose is matched to clinical indication); or iterative reconstruction. Other technique: STROKE PROTOCOL was implemented. COMPARISON: CT head wo con* [id number] 08/24/2023 12:27 PM RADIATION DOSE METRICS: Total DLP (mGy-cm): 1094.78 FINDINGS: Brain: There is moderate cortical atrophy. Low-density changes in the white matter are consistent with nonspecific small vessel chronic ischemic change. There is no intracranial mass, hemorrhage or edema. There is small chronic lacunar infarct in the head of the left caudate nucleus. Cerebral ventricles: No ventriculomegaly. Paranasal sinuses: Visualized sinuses are unremarkable. No fluid levels. Mastoid air cells: Visualized mastoid air cells are well aerated. Bones: Unremarkable. No acute fracture. Soft tissues: Unremarkable. CT/CT head thrombolytic [id number] IMPRESSION: No acute intracranial finding. ASSESSMENT: ASPECTS ([place] Stroke Program Early CT Score) is 10.
--- OUTSIDE RECORDS SUMMARY | 2025-02-05 17:00 | XMS_ITS | Encounter Summary ---
Author Organization [facility], [facility] Address [address] [facility] [address] [place] [address] Phone Care Team Providers Care Medical Transport Specialist Name Role Phone Leatha Lindsey MD Primary Care Provider [phone] Encounter Details Date Type Department Care Team (Late st Contact Info) Description 05/07/2024 Orders Only [facility] [address] [facility] [address] [place] [address] Chronic kidney disease, not otherwise specified Social History Tobacco Use Types Packs/Day Years Used Date Smoking Tobacco: Never Assessed Sex and Gender Information Value Date Recorded Sex Assigned at Not on file Legal Sex Male 12:39 PM EST Gender Identity Not on file Sexual Orientation Not on file documented as of this encounter Plan of Treatment Upcoming Encounters Date Type Department Care Team (Late st Contact Info) Description 07/09/2025 11:00 AM CAR REPAIRER HELPER Office Visit [facility] [employer], [facility] [address] [place] [address] Ritika Nichols, INTELLECTUAL PROPERTY MANAGER [address] [facility] [address] [place] [address] documented as of this encounter Visit Diagnoses Diagnosis Chronic kidney disease, not otherwise specified documented in this encounter Care Teams Medical Transport Specialist Relationship Specialty Start Date End Date Leatha Lindsey MD [address] [place] [address] PCP - General Family Medicine 01/06/25 documented as of this encounter
--- OUTSIDE RECORDS SUMMARY | 2025-02-05 17:00 | XMS_ITS | Clinical Summary ---
Author Organization [facility] Address [address] [place] [address] Phone Care Team Providers Care Supervisor Food Checkers And Cashiers Name Role Phone Jean Marie Spear MD Primary Care Provider [phone] Allergies Active Allergy Reactions Criticality Noted Date [...] Encounters Date Type Department Care Team Description 01/27/2025 External Device Data STL ABSTRACTION Provider, Abstract 12/10/2024 External Device Data [facility] ABSTRACTION Provider, Abstract 12/09/2024 External Device Data [facility] ABSTRACTION Provider, Abstract 11/25/2024 External Device Data [facility] ABSTRACTION Provider, [...] on file Legal Sex Male 8:47 PM API DEVELOPER Gender Identity Not on file Sexual Orientation Not on file Last Filed Vital Signs Vital Sign Reading Time Taken Comments Blood Pressure 136/76 08/07/2024 1:04 PM CDT Pulse 58 08/07/2024 1:04 PM CDT Temperature 36.2 C (97.2 F) 05/31/2020 9:36 AM API DEVELOPER Respiratory Rate 18 08/07/2024 1:04 PM CDT Oxygen Saturation 97% 08/07/2024 1:04 PM CDT Inhaled Oxygen Concentration - - Weight 92.5 kg (204 lb) 08/07/2024 1:04 PM CDT Height 182.9 cm (6') 08/07/2024 1:04 PM CDT Body Mass Index 27.67 08/07/2024 1:04 PM CDT Plan of Treatment Health Maintenance Due Date Last Done Comments RSV VACCINE (60+ or ) (1 - 1-dose 75+ series) 12/09/2023 INFLUENZA VACCINE (#1) 2024 , 02/28/2023, 03/10/2022, Additional history exists COVID-19 Vaccine (2023-2 5 season) 2025 04/30/2024, 05/01/2023, 05/03/2022, Additional history exists DTAP/TDAP/TD VACCINES (3 - T d or Tdap) 04/30/2034 04/30/2024, 06/19/2012 PNEUMOCOCCAL VACCINE 50+ YEARS Completed 1 06/21/2019, 11/08/2016, 05/10/2015, Additional history exists ZOSTER VACCINE Completed 07/27/2023, 05/01/2023 Medical Devices Implanted Type Area Hand Launderer Device Identifier Shelf Expiration Date Model / Serial / Lot Closure Perclose Proglide [id number] - [id number] Implanted:Qt y: 1 on 05/31/2020 by Carlos Bryant MD Closure Device Left: Groin IRAHETA- VASC DEVICE 02/24/2022 [id number] / / [id number] Hemostatic Surgiflo 8ml W/Thrombin 2994 - [id number] Implanted:Qt y: 1 on 04/20/2020 by Carlos Bryant MD Hemostatic Left: Neck J&J- [employer] INC [id number] 05/27/2021 [id number] / / [id number] Stent Viabahn Vbx [id number] - [id number] Implanted:Qt y: 1 on 04/20/2020 by Carlos Bryant MD Stent Left: Neck [employer] 10/28/2022 [id number] / / [id number] Stent Omnlnk 8x39mm [id number] - [id number] Implanted:Qt y: 1 on 05/31/2020 by Carlos Bryant MD Stent Left: Arterial IRAHETA- VASC DEVICE 05/27/2023 [id number] / / [id number] Patch Vascu-Guard [id number] - [id number] Implanted:Qt y: 1 on 04/20/2020 by Carlos Bryant MD Tissue Left: Neck [employer]IS- BIO[employer]ULAR [employer] [id number] 12/09/2024 [id number] / / [id number] Insurance MEDICARE PART A HOSPITAL ONLY * Guarantor: OLD 2020 [facility] C AND D (C) Account Type Relation to Patient Date of Phone Billing Address Corporate Other DEFAULT ADDRESS [address] [place] * Guarantor: [employer] [facility] C (C) Account Type Relation to Patient Date of Phone Billing Address [facility] Other DEFAULT ADDRESS [address] [place] * Guarantor: [employer] [facility] C (C) Account Type Relation to Patient Date of Phone B[facility] DEFAULT ADDRESS [address] [place] Care Teams Supervisor Food Checkers And Cashiers Relationship Specialty Start Date End Date Jean Marie Spear MD PCP - General 09/01/20
--- OUTSIDE RECORDS SUMMARY | 2025-02-05 17:00 | XMS_ITS | Clinical Summary ---
Author Organization [facility] Address [address] [place] [address] Phone Care Team Providers Care Bleach Liquor Maker Name Role Phone Jean Marie Spear MD Primary Care Provider Allergies Active Allergy Reactions Criticality Noted Date [...] Comments Blood Pressure 110/64 07/21/2020 11:44 AM PARAMEDIC INSTRUCTOR Pulse 70 07/21/2020 11:44 AM PARAMEDIC INSTRUCTOR Temperature 36.2 C (97.2 F) 05/31/2020 9:36 AM PARAMEDIC INSTRUCTOR Respiratory Rate 20 05/31/2020 9:36 AM PARAMEDIC INSTRUCTOR Oxygen Saturation 96% 07/21/2020 11:44 AM PARAMEDIC INSTRUCTOR Inhaled Oxygen Concentration - - Weight 90.3 kg (199 lb) 07/21/2020 11:44 AM PARAMEDIC INSTRUCTOR Height 182.9 cm (6') 05/31/2020 9:36 AM PARAMEDIC INSTRUCTOR Body Mass Index 26.99 05/31/2020 9:36 AM PARAMEDIC INSTRUCTOR Plan of Treatment Health Maintenance Due Date Last Done Comments ZOSTER VACCINE (1 of 2) 1998 DTAP/TDAP/TD VACCINES (2 - T d or Tdap) 06/19/2022 06/19/2012 RSV VACCINE (60+ or ) (1 - 1-dose 75+ series) 12/09/2023 INFLUENZA VACCINE (#1) 2024 04/21/2020 PNEUMOCOCCAL VACCINE 50+ YEARS Completed 1 06/21/2019, 11/08/2016, 05/10/2015 Medical Devices Implanted Type Area Environmental Remediation Consultant Device Identifier Shelf Expiration Date Model / Serial / Lot Closure Perclose Proglide [id number] - [id number] Implanted:Qty : 1 on 05/31/2020 by Carlos Bryant MD at [facility] Closure Device Left: Groin IRAHETA- VASC DEVICE 02/24/2022 [id number] / / [id number] Hemostatic Surgiflo 8ml W/Thrombin 2994 - [id number] Implanted:Qty : 1 on 04/20/2020 by Carlos Bryant MD at [facility] Hemostatic Left: Neck J&J[employer] [id number] 05/27/2021 [id number] / / [id number] Stent Viabahn Vbx [id number] - [id number] Implanted:Qty : 1 on 04/20/2020 by Carlos Bryant MD at [facility] Stent Left: Neck [employer] 10/28/2022 [id number] / / [id number] Stent Omnlnk 8x39mm [id number] - [id number] Implanted:Qty : 1 on 05/31/2020 by Carlos Bryant MD at [facility] Stent Left: Arterial IRAHETA- VASC DEVICE 05/27/2023 [id number] / / [id number] Patch Vascu-Guard [id number] - [id number] Implanted:Qty : 1 on 04/20/2020 by Carlos Bryant MD at [facility] Tissue Left: Neck [employer]IS[employer] B[employer] [id number] 12/09/2024 [id number] / / [id number] Insurance Member Subscriber Plan / Payer (Ef fective 2009-Present) Name:Jerrell Love Relation to Subscriber:Self Name:Jerrell Love Payer ID:Not on file Group ID:Not on file Type:Government Insurance Address: [address] [address] Advance Directives For more information, please contact: [phone] * Full Code (Latest Code Status on File) Date Activated Date Inactivated Comments 04/20/2020 5:47 PM 04/21/2020 12:17 PM * Full Code Date Activated Date Inactivated Comments 04/20/2020 10:32 AM 04/20/2020 5:47 PM Care Teams Bleach Liquor Maker Relationship Specialty Start Date End Date Jean Marie Spear MD PCP - General Emergency Medicine 05/06/20
--- OUTSIDE RECORDS SUMMARY | 2025-02-05 17:00 | XMS_ITS | Clinical Summary ---
Author Organization [facility] Address [address] [place] [address] Phone Care Team Providers Care Saturator Tender Name Role Phone Leatha Lindsey MD Primary Care Provider [phone] Allergies Active Allergy Reactions Criticality Noted Date Comments Aspirin Nausea And Vomiting Low 01/29/2014 Clopidogrel Nausea And Vomiting Low 03/04/2020 Medications acetaminophen-c odeine (TYLENOL with CODEINE #3) 300-30 MG per tablet Take 1 tablet by mouth every 30 minutes as needed 1 Active Docusate Sodium (DSS) 100 MG capsule Take 100 mg by mouth in the morning and 100 mg in the evening. 1 Active albuterol HFA (PROVENTIL HFA;VENTOLIN HFA) 108 (90 Base) MCG/ACT inhaler Inhale 2 puffs every 6 (six) hours if needed for wheezing Active fluticasone (FLONASE) 50 MCG/ACT nasal spray Administer 1 spray into each nostril if needed for rhinitis Active rosuvastatin (CRESTOR) 40 MG tablet Take 40 mg by mouth every night Active omeprazole (PriLOSEC) [address] capsule Take 40 mg by mouth 1 (one) time each day Do not crush or chew. Active Active Problems No known active problems Encounters Date Type Department Care Team Description 01/23/2025 Documentation Only [facility] [address] [place] [address] Delmis Ward MD 01/23/2025 Documentation Only [facility] [address] [place] [address] Delmis Ward MD 01/06/2025 10:40 AM CDT Office Visit [facility], [address] [address] Delmis Ward MD Stage 3a chronic kidney disease (HCC) (Primary Dx); Hypertensive chronic kidney disease with stage 1 through stage 4 chronic kidney disease, or unspecified chronic kidney disease 12/30/2024 Telephone [facility], [facility] [address] [facility] [address] [place] [address] Kathi Macias MA from Last 3 Months Immunizations Immunization Administration Dates Next Due Influenza, Unspecified 04/21/2020 Pneumococcal Conjugate 13-Valent 04/21/2020 Family History Medical History Relation Comments Diabetes Father Heart disease Father Relation Status Comments Father Mother Social History Tobacco Use Types Packs/Day Years Used Date Smoking Tobacco: Former Cigarettes Smokeless Tobacco: Never Tobacco Cessation:Counseling Given: Not Answered Alcohol Use Standard Drinks/Week Comments Yes 0 (1 standard drink = 0.6 oz pur e alcohol) monthly Sex and Gender Information Value Date Recorded Sex Assigned at Not on file Legal Sex Male 12:39 PM EST Gender Identity Not on file Sexual Orientation Not on file Last Filed Vital Signs Vital Sign Reading Time Taken Comments Blood Pressure 100/54 01/06/2025 11:01 AM CDT Pulse 68 01/06/2025 11:01 AM CDT Temperature - - Respiratory Rate - - Oxygen Saturation - - Inhaled Oxygen Concentration - - Weight 86.3 kg (190 lb 3.2 oz) 01/06/2025 11:01 AM CDT Height 182.9 cm (6') 01/06/2025 11:01 AM CDT Body Mass Index 25.8 01/06/2025 11:01 AM CDT Plan of Treatment Upcoming Encounters Date Type Department Care Team (Late st Contact Info) Description 07/09/2025 11:00 AM EMERGENCY DISPATCH OPERATOR Office Visit [facility], [address] [address] Ritika Nichols, RADHAMES [address] [facility] [address] [facility] [address] [place] [address] Health Maintenance Due Date Last Done Comments Pneumococcal Vaccine: 50+ Ye ars (2 of 2 - PPSV23, PCV20, or PCV21) 06/16/2020 04/21/2020 Influenza Vaccine (#1) 2025 04/21/2020 Hepatitis B Vaccine Aged Out No longe r eligible based on patient's age to complete this topic Insurance [facility] [employer] 1,2,3 (VACCN) Care Teams Saturator Tender Relationship Specialty Start Date End Date Leatha Lindsey MD [address] [place], [place] [id number] PCP - General Family Medicine 01/06/25
--- OUTSIDE RECORDS SUMMARY | 2025-02-05 17:00 | XMS_ITS | Encounter Summary ---
Author Organization [facility] Address [address] [place] [address] Care Team Providers Care Frankfurter Inspector Name Role Phone Jean Marie Spear MD Primary Care Provider [phone] Reason for Referral * Radiology Services (Routine) - Closed Specialty Diagnoses / Procedures Referred By Nicole partida Referred To Contact Diagnoses Carotid artery disease, unspecified laterality, unspecified type Procedures IR FLUORO OR OTHER Carlos Bryant MD Phone: tel: fax: Referral ID Status Reason Start Date Expiration Date Visits Re quested Visits Authorized [id number] Closed 04/20/2020 05/21/2021 1 1 ILLMENT SPECIALIST Encounter Details Date Type Department Care Team (Late st Contact Info) Description 04/20/2020 Ancillary Orders [facility] Interventional Radiology OR [address] [place] [id number] Carlos Bryant MD [address] [facility] [address] [place] [address] Carotid artery disease, unspecified laterality, unspecified type [...] COVID-19? No / Unsure 04/20/2020 10:57 AM FULFILLMENT SPECIALIST documented as of this encounter Plan of Treatment Not on file documented as of this encounter Results * IR FLUORO OR OTHER (04/20/2020 3:53 PM FULFILLMENT SPECIALIST) Narrative 04/20/2020 3:53 PM FULFILLMENT SPECIALIST Order Auto Finalized. Please see associated Operative Report/Progress Note from the same date. Carlos Bryant MD IR ORDERABLES Fin al Result documented in this encounter Visit Diagnoses Diagnosis Carotid artery disease, unspecified laterality, unspecified type Carotid artery disease, unspecified laterality, unspecified type documented in this encounter Care Teams Frankfurter Inspector Relationship Specialty Start Date End Date Jean Marie Spear MD PCP - General Emergency Medicine 05/06/20 documented as of this encounter
--- NOTE | 2025-02-05 17:03 | W.ED.NEUROSD ---
HPI - Neuro Symptoms/Deficit General: Chief Complaint: Neuro Symptoms/Deficit Stated Complaint: Possible Stroke Time Seen by Provider: 02/05/25 16:54 History of Present Illness: 74-year-old man with a history of GERD, coronary artery disease, COPD, AAA, hyperlipidemia and carotid stenosis who presents emergency room with strokelike symptoms. They report 45 minutes prior to arrival he acutely developed right arm weakness and difficulty walking. No other abnormalities noted. No altered mental status. No slurred speech. No facial droop. He was admitted to the hospital a month and a half ago for a pneumothorax and had a chest tube that was placed. He had had hypoxemic respiratory failure. Pneumomediastinum. He was discharged on 12/13/2024 Related Data Home Medications ?Medication ?Instructions ?Recorded ?Confirmed cholecalciferol (vitamin D3) 50 50 mcg PO DAILY unknown 10/15/20 12/06/24 mcg (2,000 unit) tablet aspirin 81 mg tablet,delayed 81 mg PO BID 08/24/23 12/06/24 release omeprazole 40 mg capsule,delayed 40 mg PO DAILY PRN Heartburn 08/24/23 12/06/24 release triamcinolone acetonide 0.1 % 1 applic topical PRN PRN Skin 08/24/23 12/06/24 topical cream Irritation fluticasone 250 mcg-salmeterol 50 1 inh inhalation BID 12/06/24 12/06/24 mcg/dose blistr powdr for inhalation (Wixela Inhub) ipratropium bromide 17 2 puff inhalation QID 12/06/24 12/06/24 mcg/actuation HFA aerosol inhaler prasugrel HCl 10 mg tablet 10 mg PO DAILY 12/06/24 12/06/24 Previous Rx's ?Medication ?Instructions ?Recorded rosuvastatin 40 mg tablet 40 mg PO DAILY #90 tabs 03/05/24 Allergies Allergy/AdvReac Type Severity Reaction Status Date / Time clopidogrel AdvReac Intermediate ADR-Gastrointestinal Verified 09/11/24 13:28 Upset Review of Systems Narrative: Constitutional symptoms: Negative except as documented in HPI. Skin symptoms: Negative except as documented in HPI. Eye symptoms: Negative except as documented in HPI. ENMT symptoms: Negative except as documented in HPI. Respiratory symptoms: Negative except as documented in HPI. Cardiovascular symptoms: Negative except as documented in HPI. Gastrointestinal symptoms: Negative except as documented in HPI. Genitourinary symptoms: Negative except as documented in HPI. Musculoskeletal symptoms: Negative except as documented in HPI. Neurologic symptoms: Negative except as documented in HPI. Psychiatric symptoms: Negative except as documented in HPI. Endocrine symptoms: Negative except as documented in HPI. PFSH ED PFSH: Medical History (Updated 02/05/25 @ 19:23 by Liss Joshua MD) Chronic shortness of breath Abdominal bloating GERD (gastroesophageal reflux disease) ASHD (arteriosclerotic heart disease) PAD (peripheral artery disease) COPD (chronic obstructive pulmonary disease) AAA (abdominal aortic aneurysm) Myocardial infarction Dyslipidemia Carotid stenosis, bilateral Surgical History (Updated 12/06/24 @ 12:37 by Fuentes Hernandez MD) Presence of internal carotid stent History of coronary artery stent placement H/O carotid endarterectomy History of colonoscopy History of esophagogastroduodenoscopy (06/08/21) S/P angioplasty with stent Family History Father Congestive heart failure (CHF) Social History Smoking and tobacco/nicotine status: former use of tobacco/nicotine (quit 4+ years) Quit status (tobacco/nicotine): has quit using Year quit tobacco: Apr 19, 2020 [id number] Second hand smoke exposure: No Alcohol intake: current Alcohol intake frequency: holidays/special occasions only Substance/Drug Use: never Lives independently: Yes Household members: spouse Marital status: service: Yes Current occupational status: retired 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 Skin: Warm, dry. Head: Normocephalic, atraumatic. Neck: Supple, trachea midline. Eye: Extraocular movements are intact. Ears, nose, mouth and throat: mucosa moist. Cardiovascular: Regular, Normal peripheral perfusion. Respiratory: Lungs are clear to auscultation, respirations are non-labored, breath sounds are equal, Symmetrical chest wall expansion. Gastrointestinal: Soft, Nontender, Non distended Musculoskeletal: Normal ROM, no deformity. Neurological: Alert and oriented, follows commands. Right arm some effort but cannot lift off the bed. Right leg heel lifts with no drift but says he is having some trouble walking and off balance. No facial asymmetry. No slurred speech. Psychiatric: Cooperative, appropriate mood & affect. Course Vital Signs: Vital signs: Vital Signs Temperature 97.8 F 02/05/25 16:57 Pulse Rate 65 02/05/25 18:45 Respiratory Rate 18 02/05/25 18:45 Blood Pressure 147/68 02/05/25 18:15 Pulse Oximetry 97 02/05/25 18:15 Oxygen Delivery Me thod Room Air 02/05/25 16:57 MDM - Neuro Symptoms/Deficit Medical Decision Making Medical decision making: Differential diagnosis for patient with focal neurologic deficit(s) includes but not limited to and based on the above HPI, review of systems and physical exam: ischemic stroke, hemorrhagic stroke and embolic stroke secondary to atrial fibrillation), TIA, Martinez's palsey, metabolic encephalopathy with previous stroke. Orders placed to evaluate differential diagnosis based on the above differential, HPI and physical exam 1600 Last known well time 1655: I performed exam. Patient has right-sided weakness. [address] Joshua and patient is going to CT scanner and tenecteplase is being ordered 1716: Tenecteplase was given. NIH Stroke Scale/Score (NIHSS) from [email or web address] on 02/05/2025 All calculations should be rechecked by clinician prior to use RESULT SUMMARY: 2 points NIH Stroke Scale Still using NIHSS for all strokes? Don't miss a posterior one without HINTS! INPUTS: 1A: Level of consciousness ?> 0 = Alert; keenly responsive 1B: Ask month and age ?> 0 = Both questions right 1C: 'Blink eyes' & 'squeeze hands' ?> 0 = Performs both tasks 2: Horizontal extraocular movements ?> 0 = Normal 3: Visual proctor ?> 0 = No visual loss 4: Facial palsy ?> 0 = Normal symmetry 5A: Left arm motor drift ?> 0 = No drift for 10 seconds 5B: Right arm motor drift ?> 2 = Some effort against gravity 6A: Left leg motor drift ?> 0 = No drift for 5 seconds 6B: Right leg motor drift ?> 0 = No drift for 5 seconds 7: Limb Ataxia ?> 0 = No ataxia 8: Sensation ?> 0 = Normal; no sensory loss 9: Language/aphasia ?> 0 = Normal; no aphasia 10: Dysarthria ?> 0 = Normal 11: Extinction/inattention ?> 0 = No abnormality EKG: Time 1652. Rate 81. Normal sinus rhythm, No ST-T changes, no ectopy, normal DC & QRS intervals, This was reviewed and interpreted by myself the ER physician at 1658 CT head: No acute intracranial process. no intracranial hemorrhage, no evidence of infarct. no evidence of acute fracture.This was reviewed and interpreted by myself the ER physician. Consultation: I spoke with Dr. Joshua who evaluated the patient the emergency room and directed administration of tenecteplase. Recommends admission. Lab Review: Laboratory results were reviewed and interpreted by myself the emergency room physician. No leukocytosis. No anemia. Renal insufficiency with a BUN/creatinine of 23 and 1.4. Patient has chronic renal insufficiency and this is at the top end of his baseline. I reviewed the patient's medical record. 74-year-old man with a history of GERD, coronary artery disease, COPD, AAA, hyperlipidemia and carotid stenosis. He was admitted to the hospital a month and a half ago for a pneumothorax and had a chest tube that was placed. He had had hypoxemic respiratory failure. Pneumomediastinum. He was discharged on 12/13/2024 Reexamination: Patient has some improvement in the movement of his hand. Strength is not all back but definitely much improved from previous Consultation: I spoke with Dr. Payne who is on-call for the hospitalist service who agrees to admission. Dr. Joshua recommended admission to the ICU. Assessment and plan: Cerebrovascular accident Tenecteplase administration -I discussed the patient with the hospitalist on-call who is admitting the patient. - Discussed findings and plan with patient. Answered any questions. - All laboratory values were reviewed and interpreted personally by myself, the ER physician - All imaging was reviewed and interpreted personally by myself, the ER physician. - Evaluation and treatment of this problem were appropriate in the emergency setting Lab Data 02/05/25 17:10 02/05/25 17:[address] 02/05/25 16:56 IMPRESSION: No acute intracranial finding. ASSESSMENT: ASPECTS ([place] Stroke Program Early CT Score) is 10. ADDENDUM: 02/05/25 1718 Addendum: THIS REPORT CONTAINS FINDINGS THAT MAY BE CRITICAL TO PATIENT CARE. The findings were verbally communicated via telephone conference with GUILLERMO PATEL at 5:17 PM CDT on 02/05/2025. The findings were acknowledged and understood. Laboratory Results WBC 6.39 10^3/uL (3.29-11.43) 02/05/25 17:10 RBC 4.98 10^6/uL (3.85-5.65) 02/05/25 17:10 Hgb 14.80 g/dL (11.27-16.99) 02/05/25 17:10 Hct 43.0 % (37-53) 02/05/25 17:10 MCV 86.3 fl (82-101) 02/05/25 17:10 MCH 29.7 pg (27-33) 02/05/25 17:10 MCHC 34.4 g/dL (30-55) 02/05/25 17:10 RDW 12.8 % (12.1-15.1) 02/05/25 17:10 Plt Count 213 10^3/cmm (157-399) 02/05/25 17:10 MPV 9.0 fL (7.4-10.4) 02/05/25 17:10 Neut % (Auto) 48.1 % 02/05/25 17:10 Lymph % (Auto) 36.9 % 02/05/25 17:10 Ocean % (Auto) 9.2 % 02/05/25 17:10 Eos % (Auto) 4.2 % 02/05/25 17:10 Baso % (Auto) 0.8 % 02/05/25 17:10 Neut # (Auto) 3.07 10^3/uL (1.8-7.7) 02/05/25 17:10 Lymph # (Auto) 2.4 10^3/uL (0.8-4.8) 02/05/25 17:10 Ocean # (Auto) 0.6 10^3/uL (0.2-0.9) 02/05/25 17:10 Eos # (Auto) 0.3 10^3/uL (0.0-0.8) 02/05/25 17:10 Baso # (Auto) 0.1 10^3/uL (0.0-0.1) 02/05/25 17:10 Nucleated RBC % (auto) 0 % 02/05/25 17:10 Nucleated RBCs # 0.0 /100WBC 02/05/25 17:10 PT 12.70 SECONDS (12.1-14.9) 02/05/25 17:10 INR 0.89 (0.8-1.2) 02/05/25 17:10 APTT 26.9 SECONDS (23.9-36.7) 02/05/25 17:10 Sodium 141 mmol/L (136-145) 02/05/25 17:10 Potassium 3.6 mmol/L (3.5-5.1) 02/05/25 17:10 Chloride 103 mmol/L (98-107) 02/05/25 17:10 Carbon Dioxide 23 mmol/L (22-29) 02/05/25 17:10 Anion Gap 18.6 (5-19) 02/05/25 17:10 BUN 23 mg/dL (8-23) 02/05/25 17:10 Creatinine 1.4 mg/dL (0.7-1.2) H 02/05/25 17:10 GFR Calculation Not Reportable 02/05/25 17:10 Glucose 124 mg/dL (65-115) H 02/05/25 17:10 POC Glucose 101 mg/dL (70-110) 02/05/25 16:57 Calculated Osmolality 297 mOsm/kg (285-295) H 02/05/25 17:10 Calcium 10.0 mg/dL (8.5-10.5) 02/05/25 17:10 Total Bilirubin 0.3 mg/dL (0.15-1.2) 02/05/25 17:10 AST 21 U/L (0-40) 02/05/25 17:10 ALT 17 U/L (0-41) 02/05/25 17:10 Alkaline Phosphatase 91 U/L (40-130) 02/05/25 17:10 Total Protein 7.4 g/dL (6.6-8.7) 02/05/25 17:10 Albumin 4.5 g/dL (3.5-5.2) 02/05/25 17:10 Globulin 2.9 g/dL (1.3-4.6) 02/05/25 17:10 Urine Color Yellow (Yellow) 02/05/25 18:40 Urine Appearance Clear (CLEAR) 02/05/25 18:40 Urine pH 6.5 (5-7) 02/05/25 18:40 Ur Specific Sebastian 1.022 (1.005-1.030) 02/05/25 18:40 Urine Protein Negative (Negative) 02/05/25 18:40 Urine Glucose (UA) Negative (Normal) 02/05/25 18:40 Urine Ketones Trace (Negative) 02/05/25 18:40 Urine Blood Negative (Negative) 02/05/25 18:40 Urine Nitrate Negative (Negative) 02/05/25 18:40 Urine Bilirubin Negative (Negative) 02/05/25 18:40 Urine Urobilinogen 1.0 mg/dL (Negative) 02/05/25 18:40 Ur Leukocyte Esterase Negative (Negative) 02/05/25 18:40 Urine RBC 0-2 /hpf (0-2) 02/05/25 18:40 Urine WBC 0-5 /hpf (0-5) 02/05/25 18:40 Ur Squamous Epith Cells 0-5 /hpf (0-5) 02/05/25 18:40 Amorphous Sediment Not Reportable 02/05/25 18:40 Urine Bacteria None seen /hpf (NONE) 02/05/25 18:40 Hyaline Casts 2.05 /lpf 02/05/25 18:40 Urine Opiates Screen Negative ng/mL (Negative) 02/05/25 18:40 Ur Barbiturates Screen Negative ng/mL (Negative) 02/05/25 18:40 Ur Phencyclidine Scrn Negative ng/mL (Negative) 02/05/25 18:40 Ur Amphetamines Screen Negative ng/mL (Negative) 02/05/25 18:40 U Benzodiazepines Scrn Negative ng/mL (Negative) 02/05/25 18:40 Urine Cocaine Screen Negative ng/mL (Negative) 02/05/25 18:40 U Marijuana (THC) Screen Negative ng/mL (Negative) 02/05/25 18:40 All radiology interpretation(s) finalized by discharge Discharge Plan Discharge Patient Disposition: Admitted As Inpatient Clinical Impression: Cerebrovascular accident, History of thrombolytic therapy Condition: Stable Coding Level of Care Code 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
[2025-02-05] MEDS: tenecteplase 50mg Kit (STROKE) 23 MG IVP (17:16)
[2025-02-05 17:21] LABS: Hematocrit 43.0 % (37-53); Hemoglobin 14.80 g/dL (11.27-16.99); Mean Corpuscular HGB Conc 34.4 g/dL (30-55); Mean Corpuscular Hemoglobin 29.7 pg (27-33); Mean Corpuscular Volume 86.3 fl (82-101); Nucleated Red Blood Cells % 0 %; Platelet Count 213 10^3/cmm (157-399); Red Blood Count 4.98 10^6/uL (3.85-5.65); White Blood Count 6.39 10^3/uL (3.29-11.43)
[2025-02-05 17:32] LABS: INR 0.89 (0.8-1.2); Partial Thromboplastin Time 26.9 SECONDS (23.9-36.7); Prothrombin Time 12.70 SECONDS (12.1-14.9)
[2025-02-05 17:37] LABS: Alanine Aminotransferase 17 U/L (0-41); Albumin Level 4.5 g/dL (3.5-5.2); Alkaline Phosphatase 91 U/L (40-130); Anion Gap 18.6 (5-19); Aspartate Amino Transferase 21 U/L (0-40); Blood Urea Nitrogen 23 mg/dL (8-23); Calcium 10.0 mg/dL (8.5-10.5); Carbon Dioxide 23 mmol/L (22-29); Chloride 103 mmol/L (98-107); Creatinine Clr Calc Pharmacy 52.6014; Globulin 2.9 g/dL (1.3-4.6); Glucose 124 mg/dL (65-115); Osmolality Calculated 297 mOsm/kg (285-295); Potassium 3.6 mmol/L (3.5-5.1); Sodium 141 mmol/L (136-145); Total Protein 7.4 g/dL (6.6-8.7)
--- NOTE | 2025-02-05 17:43 | PC.NURSE ---
pt handed urinal, educated on need for urine sample. offered pt blanket, denies any further needs at this time.
--- NOTE | 2025-02-05 18:35 | PC.NURSE ---
pt changed into gown, provided with x2 warm blankets
[2025-02-05 18:54] LABS: Glucose Urine UA Negative (Normal); Nitrate Urine Negative (Negative); Specific Gravity, Urine 1.022 (1.005-1.030)
[2025-02-05 18:59] LABS: Add Urine Microscopic? YES
[2025-02-05 19:01] LABS: PCP Screen Urine Negative (Negative)
--- NOTE | 2025-02-05 19:11 | P.PNCC_ITS ---
Stroke Alert Activation ED Arrival Date: 02/05/25 ED Arrival Time: 16:55 ED Physican at Bedside: 16:54 Last Known Normal/at Baseline: < 1 hour ago Other Last Known Well Infomation: He was sitting in front of the TV when suddenly he could not move his right arm. He tried to walk and he was unsteady. His and daughter brought him to the emergency department where he was immediately identified as having a stroke. Last known well was identified at 1635. Stroke Alert Activated by: Triage Stroke Alert Activation Time: 16:54 Stroke MD @ Bedside Time: 17:05 NIH Stroke Scale Time: 17:05 NIH stroke score NIHSS: Level Of Consciousness - 1a: 0 Level Of Consciousness Questions - 1b: Both Correct Level Of Consciousness Commands - 1c: Both Correct Best Gaze - 2: Normal Visual Jeffrey - 3: No Visual Loss Facial Palsy - 4: Normal Motor Arm Right - 5: Effort Against [place] Motor Arm Left - 5: No Drift Motor Leg Right - 6: No Drift Motor Leg Left - 6: No Drift Limb Ataxia - 7: Present In One Limb Sensory - 8: Normal Best Language - 9: No Aphasia Dysarthia - 10: Normal Extinction And Inattention - 11: 0 Score: Total Score: 3 Stroke Alert Data/Treatment Time to CT of Head: 16:56 CT Results Time: 17:14 CT Impression: Multiple old lacunar infarcts left caudate, internal capsule on the left Stroke Risk Factors: coronary artery disease, hypertension and smoker (Former smoker he quit) tPA Started Time: tPA Started - Time: 17:16 tPA Admin Prior to Arrival: No Patient & Family Educated on: Cause of Stroke, Treament Plan, Prognosis, Stroke Education Booklet and tPA Risks/Benefits Standardized Stroke Orders Used: Yes Other Information: He will need to stay in ICU and get a CT head in the morning to rule out hemorrhage. PT, OT and rehabilitation as needed. I took time to answer questions for his , daughter and for the patient Critical Care Time Critical Care Time: 30 - 74 mins A&P Assessment and plan 1. Dysarthria-clumsy hand syndrome: 74-year-old man who presents with typical lacunar stroke with profoundly weak and useless right hand. He does not have so much dysarthria although he acknowledges that he is a little hoarse and he is a dentulous but he sounds a little bit dysarthric. In any case he has had multiple old Lukens and I think this is an acute lacunar stroke. He received TNK after giving informed consent. He will be admitted to the ICU. I went over the stroke book with the patient, his and daughter. He already stopped smoking at the time of his left carotid endarterectomy in 2019. His blood pressure was under control. 2. Lacunar stroke, acute: 3. ASHD (arteriosclerotic heart disease): 4. COPD (chronic obstructive pulmonary disease): 5. S/P chest tube placement: He just had pleurodesis for a treatment resistant pneumothorax on the right. He says it was very painful. He will need continued rehab. Plan: He already stopped smoking. Caution with blood pressures since the patient received TNK. CT angiogram would be a good idea and might be done in the morning. He does not have a stroke scale score that would warrant embolect erika. PDMP PDMP Reviewed: Not Reviewed Coding Level of Care Code Acute Code for [facility] Diagnoses Dysarthria-clumsy hand syndrome G46.7 Lacunar stroke, acute I63.81 ASHD (arteriosclerotic heart disease) I25.10 COPD (chronic obstructive pulmonary disease) J44.9 S/P chest tube placement Z93.8
--- NOTE | 2025-02-05 21:11 | PM.HP ---
Providers/Chief Complaint Admitting Physician: MAGAN PAYNE--DO--patient seen and evaluated in the emergency room before midnight Primary Care Provider: Leatha Lindsey MD Chief Complaint: Possible Stroke History of Present Illness Jerrell Love is a 74 year old male with medical history significant for 3 to 4 packs of cigarette smoking on a daily basis since as a teenager until 5 years ago when the patient stopped smoking, history of hyperlipidemia, peripheral vascular disease, COPD, spontaneous right pneumothorax just 1 month ago, myocardial infarction with no history of diabetes. Patient presented to the emergency room because of a sudden right-sided upper and lower extremity weakness with clumsiness and some change in mental status slurred speech that all started instantly while working at home in his garage. His stepdaughter brought him into the emergency room for evaluation. Patient was evaluated ,neurologist Dr. Joshua was consulted by the ED doctor and patient was assessed to be a candidate for tenecteplase administration. The right-sided weakness of the body is now recovering patient is having full range of motion using that affected side of the body without trouble. Patient has been seen and evaluated by me and orders written patient is going to ICU post tenecteplase administration with a protocol to be followed. Daughter at the bedside commented that the patient is not lucid able to relate but before the thrombolytics, he was not able to per the family at the bedside Neurology Dr. Joshua did not think we need to do MRI tomorrow. Follow-up CT of course is a must Review of Systems Narrative: System review upon 10 organ review we are significant for right sided hemiparesis at presentation that is now resolving. Slow speech resolved. Medications/Allergies Home Medications ?Medication ?Instructions ?Recorded ?Confirmed ?Last Taken ?Type cholecalciferol (vitamin D3) 50 50 mcg PO DAILY unknown 10/15/20 12/06/24 12/05/24 History mcg (2,000 unit) tablet aspirin 81 mg tablet,delayed 81 mg PO BID 08/24/23 12/06/24 12/05/24 History release omeprazole 40 mg capsule,delayed 40 mg PO DAILY PRN Heartburn 08/24/23 12/06/24 Unknown History release triamcinolone acetonide 0.1 % 1 applic topical PRN PRN Skin 08/24/23 12/06/24 Unknown History topical cream Irritation rosuvastatin 40 mg tablet 40 mg PO DAILY #90 tabs 03/05/24 12/06/24 12/05/24 Rx fluticasone 250 mcg-salmeterol 50 1 inh inhalation BID 12/06/24 12/06/24 12/05/24 History mcg/dose blistr powdr for inhalation (Wixela Inhub) ipratropium bromide 17 2 puff inhalation QID 12/06/24 12/06/24 12/05/24 History mcg/actuation HFA aerosol inhaler prasugrel HCl 10 mg tablet 10 mg PO DAILY 12/06/24 12/06/24 12/05/24 History Allergies Allergy/AdvReac Type Severity Reaction Status Date / Time clopidogrel AdvReac Intermediate ADR-Gastrointestinal Verified 09/11/24 13:28 Upset PFSH Acute PFSH: Medical History Chronic shortness of breath Abdominal bloating GERD (gastroesophageal reflux disease) ASHD (arteriosclerotic heart disease) PAD (peripheral artery disease) COPD (chronic obstructive pulmonary disease) AAA (abdominal aortic aneurysm) Myocardial infarction Dyslipidemia Carotid stenosis, bilateral Surgical History Presence of internal carotid stent History of coronary artery stent placement H/O carotid endarterectomy History of colonoscopy History of esophagogastroduodenoscopy (06/08/21) S/P angioplasty with stent Family History Father Congestive heart failure (CHF) Social History Smoking and tobacco/nicotine status: former use of tobacco/nicotine (quit 4+ years) Quit status (tobacco/nicotine): has quit using Year quit tobacco: Apr 19, 2020 [id number] Second hand smoke exposure: No Alcohol intake: current Alcohol intake frequency: holidays/special occasions only Substance/Drug Use: never Lives independently: Yes Household members: spouse Marital status: service: Yes Current occupational status: retired 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 Hospitalist called after thrombolytics administration for care HEENT normocephalic/atraumatic noted nosebleed slight trickle. Neck neck is supple Cardiovascular heart rate is regular in the 70s Lungs are clear Abdomen is soft nontender nondistended unremarkable Extremities are intact no edema able to move with equal strength in both upper and lower extremities especially on the affected right side Neurology pupils are equal at 3 mm pupil gauge, react to light neurology no focality post tenecteplase administration Data 02/05/25 17:10 02/05/25 17:10 A&P Assessment and plan 1. Lacunar stroke, acute: 2. Dysarthria-clumsy hand syndrome: 3. History of thrombolytic therapy: 4. Cerebrovascular accident: 5. COPD (chronic obstructive pulmonary disease): 6. Pulmonary fibrosis: 7. Dehydration: Plan: #1 Acute left-sided CVA with right-sided hemiparesis - Status post tenecteplase administration in the ED with resolution of right sided hemiparesis and slurred speech at this time - Proceed to admit patient to ICU with post thrombolytic protocol per order - Will initiate gentle hydration with normal saline at 75 cc an hour for volume status - No heparin no needlesticks within the next 24 hours of thrombolytics - Repeat CT as ordered for tomorrow - Patient is back to the baseline mental status will monitor closely for any change - Speech/physical therapy/ordered and to follow up - Continue to monitor - Monitor slight nosebleed. Notes patient did have history of nosebleed as a young person - Advised patient not to blow nose. - Blood pressure be lower for the parameter written per order labetalol drip ordered if needed - GI and DVT prophylaxis in place-SCD May apply, avoid heparin at this time, continue PPI per order - Follow-up with echocardiogram - Dr. Joshua on consult for neurology and did not think MRI is necessary for follow-up, CT of brain in the morning #2 Prerenal azotemia secondary to dehydration -Gentle hydration with normal saline at 75 cc/h -Follow-up with electrolytes and optimize accordingly #3 All chronic medical problem such as: Peripheral vascular disease/hyperlipidemia/GERD/atherosclerotic heart disease, CAD delivery to continue with home medication once patient is cleared by speech to swallow medicine all being cleared for any bedside assessment for swallow PDMP PDMP Reviewed: Not Reviewed Attestations Medical Necessity Statement*: Patient with acute evolving stroke and status post tenecteplase need at least 2 midnights for care patient is inpatient and route to ICU from the ED for care Coding Level of Care Code 58076 Diagnoses Lacunar stroke, acute I63.81 Dysarthria-clumsy hand syndrome G46.7 History of thrombolytic therapy Z92.89 Cerebrovascular accident I63.9 COPD (chronic obstructive pulmonary disease) J44.9 Pulmonary fibrosis J84.10 Dehydration E86.0 Time Spent (min) 70
[2025-02-06] VITALS (85 sets, daily range): BP systolic 98–162; BP diastolic 52–108; PULSE 53–77; RESP 4–26; TEMP 36.1–36.8; O2SAT 89–98
[2025-02-06 00:42] LABS: Cholesterol 179 mg/dL (0-200); HDL Cholesterol 34 mg/dL (60-100); Triglycerides 199 mg/dL (0-150)
[2025-02-06 01:40] LABS: Estmated Average Glucose 117; Hemoglobin A1C 5.7 % (4.0-6.0)
--- NOTE | 2025-02-06 09:00 | CT_ITS ---
WS: [id number] CT HEAD TECHNIQUE: Noncontrast CT of the head obtained from the skullbase to the vertex. CLINICAL INFORMATION: acute stroke COMPARISON: 02/05/2025 DLP: 1066.[address] scans at [facility] use at least one of these dose optimization techniques: automated exposure control; mA and/or kV adjustment per patient size (includes targeted exams where dose is matched to clinical indication); or iterative reconstruction. FINDINGS: No evidence of intracranial hemorrhage or mass effect. Ventricular system and basal cisterns are patent. Moderate small vessel changes with moderate parenchymal volume loss. No extra-axial fluid collections. No evidence of mass or mass effect. Vascular calcification tiny chronic lacunar infarct LEFT ca udate. Paranasal sinuses and mastoid air cells are well aerated. .Normal visualized soft tissues. CT/CT head wo con* [id number] IMPRESSION: 1. No evidence of intracranial hemorrhage or mass effect. 2. No acute intracranial findings.
--- NOTE | 2025-02-06 09:08 | PC.PHAR ---
RI Estiven Chavarria states pt has Metoprolol Succinate er 25mg-12.5mg bid but last fill was April 2024. Pt has active refills.
--- NOTE | 2025-02-06 09:22 | PC.NURSE ---
admitting coordinator rounds at 0900- gave patient stroke education book and went over it together.
--- NOTE | 2025-02-06 12:05 | P.PN_ITS ---
Subjective 2 Subjective: Patient and reports that he is back to baseline. He has no complaints Vitals/I&O/Wt Last Vital Signs Temp 97.6 F 02/06/25 07:30 Pulse 60 02/06/25 11:30 Resp 22 H 02/06/25 11:30 BP 145/56 02/06/25 11:30 Pulse Ox 96 02/06/25 11:30 O2 Del Method Room Air 02/06/25 11:30 Weight last 48 hrs Weight 85 kg Weight 85 kg Weight 90.718 kg Physical Exam 2 Narrative: Alert and oriented no acute distress Neurologic: NIH 0 Heart regular normal S1-S2 without murmurs clicks gallops or rub Lungs clear to auscultation without wheezes rales or rhonchi Abdomen soft nontender nondistended positive bowel sounds Extremities no clubbing cyanosis or edema Data 02/05/25 17:10 02/05/25 17:10 A&P Assessment and plan 1. Lacunar stroke, acute: 2. Dysarthria-clumsy hand syndrome: 3. Cerebrovascular accident: 4. COPD (chronic obstructive pulmonary disease): 5. Pulmonary fibrosis: 6. Dehydration: 7. History of thrombolytic therapy: Plan: #1 Acute left lacunar stroke. - Status post tenecteplase administration in the ED with resolution of right sided hemiparesis and slurred speech at this time - Continue post thrombolytic protocol per order - CT scan of head ordered and showed no hemorrhage and an old stroke. This was done less than 24 hours after stroke will order MRI at the 24-hour stephani which is approximately 4 or 5 PM today - Patient is back to the baseline mental status will monitor closely for any change - Speech/physical therapy/ordered and to follow up - Aspirin Plavix and statin will be ordered - Blood pressure be lower for the parameter written per order labetalol drip ordered if needed - GI and DVT prophylaxis in place-SCD May apply, avoid heparin at this time, continue PPI per order - Recent echo on 12/08/2024 shows: Normal LV size and systolic function with an EF of 69%. Moderate left ventricular hypertrophy. No regional wall motion abnormalities. Grade 1 out of 4 diastolic dysfunction. Right and left atrium of normal size - Needs ultrasound of carotid arteries -Stroke education - Dr. Joshua consulted for tPA #2 Prerenal azotemia secondary to dehydration -Gentle hydration with normal saline at 75 cc/h -Follow-up with electrolytes and optimize accordingly #3 chronic medical problems -following expectantly PDMP PDMP Reviewed: Not Reviewed Attestations 2 Medical Necessity Statement*: Patient presents with acute ischemic lacunar's stroke status post TkN. Continue hospitalization required to monitor for complications. Coding Level of Care Code Acute Code for Chg Fwd Diagnoses Lacunar stroke, acute I63.81 Dysarthria-clumsy hand syndrome G46.7 Cerebrovascular accident I63.9 COPD (chronic obstructive pulmonary disease) J44.9 Pulmonary fibrosis J84.10 Dehydration E86.0 History of thrombolytic therapy Z92.89
--- NOTE | 2025-02-06 12:13 | USR_ITS ---
PROCEDURE INFORMATION: Exam: US Duplex Bilateral Extracranial Arteries; Complete; Carotid Arteries Exam date and time: 02/06/2025 3:37 PM Age: 74 years old Clinical indication: Other: Stroke; Prior surgery; Surgery date: 6+ months; Surgery type: Unsure of dates but patient said he had surgery on his left carotid ( cleaned out ) TECHNIQUE: Imaging protocol: Real-time duplex ultrasound scan of the bilateral extracranial arteries combining bach scale, color Doppler and spectral waveform analysis with image documentation. Complete exam. Exam focused on the carotid arteries. COMPARISON: CT angio neck [id number] 11/19/2019 1:38 PM FINDINGS: Right common carotid artery: Unremarkable. No occlusion or stenosis. Waveforms are normal. Right internal carotid artery: Unremarkable. No occlusion or stenosis. Waveforms are normal. Right ICA/CCA ratio: Within normal limits. Right external carotid artery: No stenosis in the origin. Right vertebral artery: Unremarkable. Antegrade flow. Left common carotid artery: Unremarkable. No occlusion or stenosis. Waveforms are normal. Left internal carotid artery: Unremarkable. No occlusion or stenosis. Waveforms are normal. Left ICA/CCA ratio: Within normal limits. Left external carotid artery: No stenosis in the origin. Left vertebral artery: Unremarkable. Antegrade flow. US/CV carotid duplex BI* [id number] IMPRESSION: No carotid arterial stenosis. REFERENCES: SRU CRITERIA. The degree of internal carotid artery stenosis is based on criteria defined by the Society of Radiologists in Ultrasound (SRU). Normal is no stenosis. Mild is less than 50% stenosis. Moderate is 50-69% stenosis. Severe is greater than 69% stenosis to near occlusion. Near occlusion is a markedly narrowed lumen. Total occlusion is no detectable patent lumen. Beatrice Anderson, et al. Carotid Artery Stenosis: Bach-Scale and Doppler US Diagnosis-Society of Radiologists in Ultrasound Consensus Conference. Radiology 2003; 229:340-346.
--- NOTE | 2025-02-06 16:00 | MRR_ITS ---
PROCEDURE INFORMATION: Exam: MR Head Without Contrast Exam date and time: 02/06/2025 4:09 PM Age: 74 years old Clinical indication: Weakness, extremity; Additional info: Stroke rule out TECHNIQUE: Imaging protocol: Magnetic resonance imaging of the head without contrast. COMPARISON: CT head wo con* [id number] 02/06/2025 9:18 AM FINDINGS: Brain: Scattered foci of infarcts in the left frontal and left occipital lobes. Given the geographic location of the these infarcts findings are concerning for embolic phenomena. There is no mass effect or midline shift. No acute intracranial hemorrhage. Underlying age-related brain parenchymal atrophy. Sequela of chronic micro periventricular and subcortical white matter. Cerebral ventricles: There is mild prominence of the lateral ventricular system due to underlying brain parenchymal atrophy. Bones: Unremarkable. Paranasal sinuses: Normal as visualized. No acute sinusitis. Mastoid air cells: Normal as visualized. No mastoid effusion. Orbital cavities: Unremarkable. Soft tissues: Unremarkable. MR/MR head wo/w con [id number] IMPRESSION: Scattered foci of acute infarcts in the left frontal and left occipital lobe. Since these do not follow a singular large vascular distribution there is concerns for embolic phenomena to these infarcts.
--- NOTE | 2025-02-06 16:09 | PC.SOCIAL ---
*IMM* Patient received Important Message from Medicare, Pt Received a copy. Initialed and dated in the chart.
[2025-02-06] MEDS: gadobenate dimeglumine 20 mL vial IV (16:19)
--- NOTE | 2025-02-06 22:13 | USCV_ITS ---
Jerrell Love Age: 74 Gender: M : 1950 Exam Date: 02/06/2025 03:58 Ordering Phys: Shabana Payne MD Technologist: HITESH Exam Location: [facility] Indication: acute stroke long-term smoker, HL, PVC< COPD, RIGHT hemiparesis BP: 149 / 81 HR: 61 Rhythm: Sinus Technical Quality: Adequate MEASUREMENTS (Male / Female) Normal Values 2D ECHO LV Diastolic Diameter PLAX 4.1 cm 4.2 - 5.9 / 3.9 - 5.3 cm IVS Diastolic Thickness 1.9 cm 0.6 - 1.0 / 0.6 - 0.9 cm IVS Systolic Thickness 2.4 cm LVPW Diastolic Thickness 1.3 cm 0.6 - 1.0 / 0.6 - 0.9 cm LVPW Systolic Thickness 2.1 cm LVOT Diameter 2.2 cm LV Ejection Fraction 2D Teich 60.6 % LV Ejection Fraction MOD 4C 49.1 % LV Ejection Fraction MOD 2C 60.9 % LV Ejection Fraction 2C AL 62.3 % LA Diameter 4.2 cm Aorta at Sinotubular Diameter 3.0 cm IVC Diameter 1.6 cm M-MODE LA Ao Ratio MM 1.4 AV Cusp Separation MM 2.2 cm DOPPLER AV Peak Velocity 118.0 cm/s LVOT Peak Velocity 61.0 cm/s AV Area Cont Eq vti 1.9 cm squared AV Area Cont Eq pk 2.0 cm squared MV Peak Velocity 104.0 cm/s MV Area PHT 2.0 cm squared Mitral E to A Ratio 0.6 TR Peak Velocity 261.0 cm/s TR Peak Gradient 27.2 mmHg TV Peak E Velocity 39.0 cm/s PV Peak Velocity 85.0 cm/s FINDINGS Left Ventricle Left ventricle is normal in size. LV systolic function is normal with EF of 55-60%. No regional wall motion abnormalities are seen. Moderate left-ventricular hypertrophy. Grade 1 diastolic dysfunction Right Ventricle Normal in size and function Right Atrium Normal in size Left Atrium Normal in size Mitral Valve Structurally normal heart valve. Mild mitral regurgitation Aortic Valve Aortic valve is thickened. No significant stenosis or regurgitation Tricuspid Valve Mild tricuspid regurgitation. Pulmonary artery systolic pressure is normal Pulmonic Valve Mild pulmonic regurgitation Pericardium Normal Aorta Normal in size IVC Appears to be normal CONCLUSIONS LV systolic function is normal with EF of 55-60%. Moderate LVH Grade 1 diastolic dysfunction Mild mitral regurgitation Mild tricuspid regurgitation. Mild pulmonic regurgitation Michael Mohamud MD (Electronically Signed) Final Date: 06 February 2025 14:44 S
[2025-02-07] VITALS (22 sets, daily range): BP systolic 115–167; BP diastolic 50–79; PULSE 53–78; RESP 15–28; TEMP 36.8–37; O2SAT 88–96
--- NOTE | 2025-02-07 10:20 | P.DS_ITS ---
Discharge Providers Date of Admission: 02/05/25 21:47 Date of Discharge: February 07, 2025 Attending Provider at Admission: Shabana Payne MD Attending Provider at Discharge: Josh Maurice DO Primary Care Provider: Leatha Lindsey MD Diagnoses at Discharge Discharge Diagnosis 1. Cerebrovascular accident (CVA) due to embolism of left carotid artery: 2. History of thrombolytic therapy: 3. Dysarthria-clumsy hand syndrome: 4. Chronic obstructive pulmonary disease, unspecified COPD type: 5. Pulmonary fibrosis: 6. Dehydration: Reason for Visit Reason for Visit: Possible Stroke Brief History: Patient presented to the emergency room with right hand clumsiness and weakness with some altered mental status and slurred speech. He was diagnosed with acute stroke and given TNK. Hospital Course Hospital Course Patient was admitted to the ICU for acute stroke care status post TNK. His symptoms completely resolved. He states that he has had right arm numbness ever since his left carotid endarterectomy. MRI done 24 hours after presentation showed embolic strokes over the left hemisphere. Carotid ultrasound showed minimal plaque in the left carotid artery. Note patient has had a left CEA. Echo was negative for wall motion abnormalities or left atrial enlargement. It is suspected that the patient had a plaque rupture embolization to the left hemisphere. Prasugrel is contraindicated in any bleeding TIA or stroke. Thus this will be discontinued. Up-to-date recommends the combination of aspirin and dipyridamole. This is brand-name Aggrenox 1 p.o. twice daily. This is equivalent to aspirin and Plavix. Patient is allergic to Plavix with GI upset. Other risk modifications include dietary changes and initiation of exercise if the patient can tolerate it status post pneumothorax. He is very deconditioned. He should consider outpatient physical therapy. Physical Exam Narrative: Alert and oriented no acute distress Neurologic: NIH 0 Heart regular normal S1-S2 without murmurs clicks gallops or rub Lungs clear to auscultation without wheezes rales or rhonchi Abdomen soft nontender nondistended positive bowel sounds Extremities no clubbing cyanosis or edema Discharge Data Studies Completed and Pending Completed Studies During Hospitalization Category Date Time Status CT head thrombolytic [id number] Stat Cat Scan 02/05/25 16:[address] head wo con* [id number] Routine Cat Scan 02/06/25 09:00 Completed MR head wo/w con [id number] Routine MRI 02/06/25 16:00 Completed CV. echo complete* [id number] Routine Ultrasound 02/06/25 22:13 Completed US carotid duplex bilateral [CV carotid duplex BI* Ultrasound 02/06/25 12:13 Completed [id number]] Routine Radiology Impressions Head CT 02/06/25 09:00 IMPRESSION: 1. No evidence of intracranial hemorrhage or mass effect. 2. No acute intracranial findings. Carotid Doppler Study 02/06/25 12:13 IMPRESSION: No carotid arterial stenosis. REFERENCES: SRU CRITERIA. The degree of internal carotid artery stenosis is based on criteria defined by the Society of Radiologists in Ultrasound (SRU). Normal is no stenosis. Mild is less than 50% stenosis. Moderate is 50-69% stenosis. Severe is greater than 69% stenosis to near occlusion. Near occlusion is a markedly narrowed lumen. Total occlusion is no detectable patent lumen. Justin, E. G, et al. Carotid Artery Stenosis: Bach-Scale and Doppler US Diagnosis-Society of Radiologists in Ultrasound Consensus Conference. Radiology 2003; 229:340-346. ADDENDUM: 02/06/25 1820 IMPRESSION: 1. No hemodynamically significant carotid arterial stenosis. 2. Nonvisualization of the left external carotid artery and left carotid bulb. REFERENCES: SRU CRITERIA. The degree of internal carotid artery stenosis is based on criteria defined by the Society of Radiologists in Ultrasound (SRU). Normal is no stenosis. Mild is less than 50% stenosis. Moderate is 50-69% stenosis. Severe is greater than 69% stenosis to near occlusion. Near occlusion is a markedly narrowed lumen. Total occlusion is no detectable patent lumen. Justin, E. G, et al. Carotid Artery Stenosis: Bach-Scale and Doppler US Diagnosis-Society of Radiologists in Ultrasound Consensus Conference. Radiology 2003; 229:340-346. Head MRI 02/06/25 16:00 IMPRESSION: Scattered foci of acute infarcts in the left frontal and left occipital lobe. Since these do not follow a singular large vascular distribution there is concerns for embolic phenomena to these infarcts. ADDENDUM: 02/06/25 1710 THIS REPORT CONTAINS FINDINGS THAT MAY BE CRITICAL TO PATIENT CARE. The findings were verbally communicated via telephone conference with JOSH MAURICE at 5:09 PM CDT on 02/06/2025. The findings were acknowledged and understood. Laboratory Results WBC 6.39 10^3/uL (3.29-11.43) 02/05/25 17:10 RBC 4.98 10^6/uL (3.85-5.65) 02/05/25 17:10 Hgb 14.80 g/dL (11.27-16.99) 02/05/25 17:10 Hct 43.0 % (37-53) 02/05/25 17:10 MCV 86.3 fl (82-101) 02/05/25 17:10 MCH 29.7 pg (27-33) 02/05/25 17:10 MCHC 34.4 g/dL (30-55) 02/05/25 17:10 RDW 12.8 % (12.1-15.1) 02/05/25 17:10 Plt Count 213 10^3/cmm (157-399) 02/05/25 17:10 MPV 9.0 fL (7.4-10.4) 02/05/25 17:10 Neut % (Auto) 48.1 % 02/05/25 17:10 Lymph % (Auto) 36.9 % 02/05/25 17:10 [place] % (Auto) 9.2 % 02/05/25 17:10 Eos % (Auto) 4.2 % 02/05/25 17:10 Baso % (Auto) 0.8 % 02/05/25 17:10 Neut # (Auto) 3.07 10^3/uL (1.8-7.7) 02/05/25 17:10 Lymph # (Auto) 2.4 10^3/uL (0.8-4.8) 02/05/25 17:10 [place] # (Auto) 0.6 10^3/uL (0.2-0.9) 02/05/25 17:10 Eos # (Auto) 0.3 10^3/uL (0.0-0.8) 02/05/25 17:10 Baso # (Auto) 0.1 10^3/uL (0.0-0.1) 02/05/25 17:10 Nucleated RBC % (auto) 0 % 02/05/25 17:10 Nucleated RBCs # 0.0 /100WBC 02/05/25 17:10 PT 12.70 SECONDS (12.1-14.9) 02/05/25 17:10 INR 0.89 (0.8-1.2) 02/05/25 17:10 APTT 26.9 SECONDS (23.9-36.7) 02/05/25 17:10 Sodium 141 mmol/L (136-145) 02/05/25 17:10 Potassium 3.6 mmol/L (3.5-5.1) 02/05/25 17:10 Chloride 103 mmol/L (98-107) 02/05/25 17:10 Carbon Dioxide 23 mmol/L (22-29) 02/05/25 17:10 Anion Gap 18.6 (5-19) 02/05/25 17:10 BUN 23 mg/dL (8-23) 02/05/25 17:10 Creatinine 1.4 mg/dL (0.7-1.2) H 02/05/25 17:10 GFR Calculation Not Reportable 02/05/25 17:10 Glucose 124 mg/dL (65-115) H 02/05/25 17:10 POC Glucose 101 mg/dL (70-110) 02/05/25 16:57 Estimat Average Glucose 117 02/05/25 17:10 Hemoglobin A1c 5.7 % (4.0-6.0) 02/05/25 17:10 Calculated Osmolality 297 mOsm/kg (285-295) H 02/05/25 17:10 Calcium 10.0 mg/dL (8.5-10.5) 02/05/25 17:10 Total Bilirubin 0.3 mg/dL (0.15-1.2) 02/05/25 17:10 AST 21 U/L (0-40) 02/05/25 17:10 ALT 17 U/L (0-41) 02/05/25 17:10 Alkaline Phosphatase 91 U/L (40-130) 02/05/25 17:10 Total Protein 7.4 g/dL (6.6-8.7) 02/05/25 17:10 Albumin 4.5 g/dL (3.5-5.2) 02/05/25 17:10 Globulin 2.9 g/dL (1.3-4.6) 02/05/25 17:10 Triglycerides 199 mg/dL (0-150) H 02/05/25 17:10 Cholesterol 179 mg/dL (0-200) 02/05/25 17:10 LDL Cholesterol, Calc 105 mg/dL (50-129) 02/05/25 17:10 HDL Cholesterol 34 mg/dL (60-100) L 02/05/25 17:10 LDL/HDL Ratio 3.09 RATIO (0.00-3.22) 02/05/25 17:10 Cholesterol/HDL Ratio 5.26 mg/dL (1.0-5.00) H 02/05/25 17:10 Urine Color Yellow (Yellow) 02/05/25 18:40 Urine Appearance Clear (CLEAR) 02/05/25 18:40 Urine pH 6.5 (5-7) 02/05/25 18:40 Ur Specific [place] 1.022 (1.005-1.030) 02/05/25 18:40 Urine Protein Negative (Negative) 02/05/25 18:40 Urine Glucose (UA) Negative (Normal) 02/05/25 18:40 Urine Ketones Trace (Negative) 02/05/25 18:40 Urine Blood Negative (Negative) 02/05/25 18:40 Urine Nitrate Negative (Negative) 02/05/25 18:40 Urine Bilirubin Negative (Negative) 02/05/25 18:40 Urine Urobilinogen 1.0 mg/dL (Negative) 02/05/25 18:40 Ur Leukocyte Esterase Negative (Negative) 02/05/25 18:40 Urine RBC 0-2 /hpf (0-2) 02/05/25 18:40 Urine WBC 0-5 /hpf (0-5) 02/05/25 18:40 Ur Squamous Epith Cells 0-5 /hpf (0-5) 02/05/25 18:40 Amorphous Sediment Not Reportable 02/05/25 18:40 Urine Bacteria None seen /hpf (NONE) 02/05/25 18:40 Hyaline Casts 2.05 /lpf 02/05/25 18:40 Urine Opiates Screen Negative ng/mL (Negative) 02/05/25 18:40 Ur Barbiturates Screen Negative ng/mL (Negative) 02/05/25 18:40 Ur Phencyclidine Scrn Negative ng/mL (Negative) 02/05/25 18:40 Ur Amphetamines Screen Negative ng/mL (Negative) 02/05/25 18:40 U Benzodiazepines Scrn Negative ng/mL (Negative) 02/05/25 18:40 Urine Cocaine Screen Negative ng/mL (Negative) 02/05/25 18:40 U Marijuana (THC) Screen Negative ng/mL (Negative) 02/05/25 18:40 Vitals Last Vital Signs Temp 98.6 F 02/07/25 05:00 Pulse 60 02/07/25 08:14 Resp 15 02/07/25 08:14 BP 119/55 02/07/25 06:00 Pulse Ox 96 02/07/25 08:14 O2 Del Method Room Air 02/07/25 08:14 O2 Flow Rate 2 02/06/25 19:50 Discharge Plan Discharge Patient Disposition: Home Condition: Stable Prescriptions: New aspirin-dipyridamole 25-200 mg capsule, ER multiphase 12 hr 1 cap PO BID Qty: 60 0RF Continued cholecalciferol (vitamin D3) 50 mcg (2,000 unit) Tablet 50 mcg PO DAILY fluticasone propion-salmeterol [Wixela Inhub] 250-50 mcg/dose Blister With Device 1 inh INHALATION BID ipratropium bromide 17 mcg/actuation Hfa Aerosol Inhaler 2 puff INHALATION QID Discontinued rosuvastatin 40 mg tablet 40 mg PO DAILY Qty: 90 3RF chlorthalidone 50 mg Tablet 50 mg PO DAILY aspirin 81 mg tablet,delayed release (DR/EC) 81 mg PO BID prasugrel HCl 10 mg Tablet 10 mg PO DAILY Discharge Order = DC NOW: Discharge Order (Routine); Ordered 02/07/25 Ordered By: Josh Maurice Referrals: Leatha Lindsey MD [Primary Care Provider, Family Practice] Discharge Diet: Cardiac and Low Cholesterol Discharge Activity: Increase activity as tolerated Patient Instructions: Aspirin/Dipyridamole (By mouth), Heart Healthy Diet (DC), Cholesterol and Your Health (GEN), Ischemic Stroke (GEN), Mediterranean Diet (GEN), Patient Portal & [facility] Instructions Activity Restrictions/Additional Instructions: Your medication Prasugrel is CONTRAINDICATED in a person with a history of a stroke. This needs to be discontinued! You will also stop aspirin. To replace both these medications you will receive a drug called Aggrenox or combination of aspirin and dipyridamole. That will be taken twice a day. Please take rosuvastatin at bedtime. Please start to exercise anywhere from 5 to 10 minutes a day then you can start adding an additional time of day and eventually more minutes every week. Follow a strict diet. As you been educated on from the stroke educator in the paperwork. Please call Sunday to schedule a follow-up with your primary care provider. Discharge Attestations Time Spent in Discharge Care*: greater than 30 min Quality Metrics Clinical Quality Measures [ Cerebrovascular Accident { Contraindication to Antithrombotic: None; antithrombotic prescribed; Contraindication to Anticoagulation: Medical contraindication; Contraindication to Statin: None; Statin prescribed; Contraindication to antithrombotic day 2: None; Antithrombotic given day 2; Contraindication to tPA: None; TPA given; Onset of Symptoms Date: 02/05/25; Onset of Symptoms Time: 16:35; Symptom Onset Unknown: Yes; Reason stroke educa tion not provided: Stroke education provided to patient; Rehab services assessed: Physical therapy, Occupational therapy, Speech therapy; Reason rehab assessment not done: Rehab assessment done}] Coding Level of Care Code Acute Code for [facility] Diagnoses Cerebrovascular accident (CVA) due to embolism of left carotid artery I63.132 Laterality of affected vessel: left History of thrombolytic therapy Z92.89 Dysarthria-clumsy hand syndrome G46.7 Chronic obstructive pulmonary disease, unspecified COPD type J44.9 COPD type: unspecified COPD Pulmonary fibrosis J84.10 Dehydration E86.0
--- OUTSIDE RECORDS SUMMARY | 2025-02-19 19:00 | XMS_ITS | Clinical Summary ---
Author Organization Unknown Care Team Providers Care Quarter Backer Name Role Phone RONNIE VASQUEZ, YAMILA Unavailable Unavailable DAR [employer], BEV Unavailable Unavailable Payers Payer Name Policy Type Policy Number Effective Date Expira tion Date [facility] [employer] PROGRAM - PDGM Problems Condition Name Condition Details Condition Category Status Onset Date Resolution Date Last Treatment Date Treating Clinician Comments PNEUMOTHORAX , UNSPECIFIED Active 12-23 00:00: 00 CENTRILOBULA R EMPHYSEMA Active 05-28 00:00: 00 PERIPHERAL VASCULAR DISEASE, UNSPECIFIED Active 05-28 00:00: 00 HEART FAILURE, UNSPECIFIED Active 05-28 00:00: 00 ABDOMINAL AORTIC ANEURYSM, WITHOUT RUPTURE, UNSPECIFIED Active 05-28 00:00: 00 PULMONARY FIBROSIS, UNSPECIFIED Active 05-28 00:00: 00 ACUTE RESPIRATORY FAILURE WITH HYPOXIA Active 05-28 00:00: 00 ATHSCL HEART DISEASE OF [place] CORONARY ARTERY W/O ANG PCTRS Active 05-28 00:00: 00 GASTRO-ESOPH AGEAL REFLUX DISEASE WITHOUT ESOPHAGITIS Active 05-28 00:00: 00 HYPERLIPIDEM IA, UNSPECIFIED Active 05-28 00:00: 00 OLD MYOCARDIAL INFARCTION Active 05-28 00:00: 00 DEPENDENCE ON SUPPLEMENTAL OXYGEN Active 05-28 00:00: 00 HALFWAY (CURRENT) USE OF ASPIRIN Active 05-28 00:00: 00 BALLOON DIPPER (CURRENT) USE OF INHALED STEROIDS Active 05-28 00:00: 00 PRESENCE OF AORTOCORONAR Y BYPASS GRAFT Active 05-28 00:00: 00 PRESENCE OF CORONARY ANGIOPLASTY IMPLANT AND GRAFT Active 05-28 00:00: 00 PERSONAL HISTORY OF NICOTINE DEPENDENCE Active 05-28 00:00: 00 Allergies, Adverse Reactions, Alerts Allergy Name Allergy Type Status Severity Reaction(s) Onset Date Inactive Date Treating Clinician Comments PLAVIX Propensity to adverse reactions Active 2024-11 13:53:0 1 Medications Ordered Medication Name Filled Medication Name Start Date Stop Date Current Medication? Ordering Clinician Indication Dosage Frequency Signature (SIG) Comments Components albuterol sulfate 0.63 mg/3 mL solution for nebulizatio n 12-23 00:00: 00 Yes [id number] 3 mL 4 TIMES DAILY 3 mL 4 TIMES DAILY (route: inhalation ) Med Classific ation: Respirato ry Therapy Agents aspirin 81 mg tablet,yoli yed release 12-23 00:00: 00 Yes [id number] 2 tablet 2 TIMES DAILY 2 tablet 2 TIMES DAILY (route: oral) Med Classific ation: Hematolog ical Agents Atrovent HFA 17 mcg/actuati on aerosol inhaler 12-23 00:00: 00 Yes [id number] 1 puff 4 TIMES DAILY 1 puff 4 TIMES DAILY (route: inhalation ) Med Classific ation: Respirato ry Therapy Agents cholecalcif marilee (vitamin D3) 250 mcg (10,000 unit) tablet 12-23 00:00: 00 Yes [id number] 1 tablet DAILY 1 tablet DAILY (route: oral) Med Classific ation: Electroly te Balance-N utritiona l Products hydrocodone 5 mg-acetamin ophen 325 mg tablet 12-23 00:00: 00 Yes [id number] 1 tablet EVERY 4 HOURS 1 tablet EVERY 4 HOURS (route: oral) Med Classific ation: Analgesic , Anti-infl ammatory or Antipyret ic pantoprazol e 40 mg tablet,yoli yed release 12-23 00:00: 00 Yes [id number] 1 tablet DAILY 1 tablet DAILY (route: oral) Med Classific ation: Gastroint estinal Therapy Agents prasugrel HCl 10 mg tablet 12-23 00:00: 00 Yes [id number] 1 tablet DAILY 1 tablet DAILY (route: oral) Med Classific ation: Hematolog ical Agents rosuvastati n 40 mg tablet 12-23 00:00: 00 Yes [id number] 1 tablet DAILY 1 tablet DAILY (route: oral) Med Classific ation: Cardiovas cular Therapy Agents Wixela Inhub 250 mcg-50 mcg/dose powder for inhalation 12-23 00:00: 00 Yes [id number] 1 inhalat ion DAILY 1 inhalation DAILY (route: inhalation ) Med Classific ation: Respirato ry Therapy Agents oxygen gas for inhalation 12-25 00:00: 00 Yes [id number] 4 Liter O2 - CONTINUOUS 4 Liter O2 - CONTINUOUS (route: inhalation ) Med Classific ation: Medical Supplies and Durable Medical Equipment (DME) Vital Signs Vital Name Observation Time Observation Value Commen ts Temperature 2025-01-29 16:00:00.000 97.3 [degF] Temperature 2025-01-20 11:25:00.000 97.4 [degF] Temperature 2025-01-14 09:58:00.000 97.2 [degF] Temperature 2025-01-07 10:18:00.000 97.4 [degF] Temperature 2024-12-31 10:55:00.000 97.5 [degF] Temperature 2024-12-23 13:55:00.000 97.4 [degF] BMI (%) 2024-12-23 13:55:00.000 26 kg/m2 Height 2024-12-23 13:55:00.000 72 [in_us] Pulse 2025-01-29 16:00:00.000 70 /min Pulse 2025-01-20 11:25:00.000 64 /min Pulse 2025-01-14 09:58:00.000 88 /min Pulse 2025-01-07 10:18:00.000 70 /min Pulse 2024-12-31 10:55:00.000 70 /min Pulse 2024-12-23 13:55:00.000 67 /min O2 Saturation (%) 2025-01-29 16:00:00.000 96 % O2 Saturation (%) 2025-01-20 11:25:00.000 96 % O2 Saturation (%) 2025-01-14 09:58:00.000 98 % O2 Saturation (%) 2025-01-07 10:18:00.000 98 % O2 Saturation (%) 2024-12-31 10:55:00.000 98 % O2 Saturation (%) 2024-12-23 13:55:00.000 98 % Respirations 2025-01-29 16:00:00.000 17 /min Respirations 2025-01-20 11:25:00.000 18 /min Respirations 2025-01-14 09:58:00.000 18 /min Respirations 2025-01-07 10:18:00.000 18 /min Respirations 2024-12-31 10:55:00.000 18 /min Respirations 2024-12-23 13:55:00.000 18 /min Weight (lbs) 2024-12-31 11:00:00.000 185 [lb_av] Weight (lbs) 2024-12-23 13:55:00.000 193 [lb_av] Systolic Blood Pressure 2025-01-29 16:00:00.000 118 mm [Hg] Systolic Blood Pressure 2025-01-20 11:25:00.000 106 mm [Hg] Systolic Blood Pressure 2025-01-14 09:58:00.000 118 mm [Hg] Systolic Blood Pressure 2025-01-07 10:18:00.000 130 mm [Hg] Systolic Blood Pressure 2024-12-31 10:55:00.000 112 mm [Hg] Systolic Blood Pressure 2024-12-23 13:55:00.000 118 mm [Hg] Diastolic Blood Pressure 2025-01-29 16:00:00.000 70 mm [Hg] Diastolic Blood Pressure 2025-01-20 11:25:00.000 59 mm [Hg] Diastolic Blood Pressure 2025-01-14 09:58:00.000 62 mm [Hg] Diastolic Blood Pressure 2025-01-07 10:18:00.000 65 mm [Hg] Diastolic Blood Pressure 2024-12-31 10:55:00.000 76 mm [Hg] Diastolic Blood Pressure 2024-12-23 13:55:00.000 67 mm [Hg] Plan of Treatment Planned Activity Planned Date Details Comments Future Scheduled Test SKILLED NU RSE TO EVALUATE PATIENT, IDENTIFY PRIMARY AND CO-MORBID CONDITIONS CODED PER CODING GUIDELINES INCLUDING PNEUMOTHORAX, UNSPECIFIED, CENTRILOBULAR EMPHYSEMA, PERIPHERAL VASCULAR DISEASE, UNSPECIFIED, HEART FAILURE, UNSPECIFIED, ABDOMINAL AORTIC ANEURYSM, WITHOUT RUPTURE, UNSPECIFIED, PULMONARY FIBROSIS, UNSPECIFIED, AND DEVELOP PATIENT SPECIFIC PLAN OF CARE THAT INCLUDES PATIENT GOAL FOR HOME HEALTH. [code = SKILLED NURSE TO EVALUATE PATIENT, IDENTIFY PRIMARY AND CO-MORBID CONDITIONS CODED PER CODING GUIDELINES INCLUDING PNEUMOTHORAX, UNSPECIFIED, CENTRILOBULAR EMPHYSEMA, PERIPHERAL VASCULAR DISEASE, UNSPECIFIED, HEART FAILURE, UNSPECIFIED, ABDOMINAL AORTIC ANEURYSM, WITHOUT RUPTURE, UNSPECIFIED, PULMONARY FIBROSIS, UNSPECIFIED, AND DEVELOP PATIENT SPECIFIC PLAN OF CARE THAT INCLUDES PATIENT GOAL FOR HOME HEALTH.] Future Scheduled Test [facility] MAY ACCEPT ORDERS FROM THE FOLLOWING PHYSICIANS: ALL PROVIDERS INVOLVED IN CARE [code = HOME HEALTH AGENCY MAY ACCEPT ORDERS FROM THE FOLLOWING PHYSICIANS: ALL PROVIDERS INVOLVED IN CARE] Future Scheduled Test OXYGEN VIA NASAL CANNULA @ 4 LITERS CONTINUOUS. SKILLED NURSE FOR O/A AND SKILLED TEACHING OF SAFE OXYGEN USE IN THE HOME. [code = OXYGEN VIA NASAL CANNULA @ 4 LITERS CONTINUOUS. SKILLED NURSE FOR O/A AND SKILLED TEACHING OF SAFE OXYGEN USE IN THE HOME.] Future Scheduled Test SKILLED NU RSE FOR O/A OF PNEUMOTHORAX TO IDENTIFY CHANGES ASSOCIATED WITH EXACERBATION AND TO PROVIDE SKILLED TEACHING ON MANAGEMENT OF RESPIRATORY DISEASE PROCESS. [code = SKILLED NURSE FOR O/A OF PNEUMOTHORAX TO IDENTIFY CHANGES ASSOCIATED WITH EXACERBATION AND TO PROVIDE SKILLED TEACHING ON MANAGEMENT OF RESPIRATORY DISEASE PROCESS.] Future Scheduled Test SKILLED NU RSE TO INSTRUCT PATIENT/CAREGIVER ON COPD TO INCLUDE TEACHING AND SELF-MANAGEMENT RELATED TO COPD DISEASE PROCESS, SIGNS AND SYMPTOMS, AND COMPLICATIONS. [code = SKILLED NURSE TO INSTRUCT PATIENT/CAREGIVER ON COPD TO INCLUDE TEACHING AND SELF-MANAGEMENT RELATED TO COPD DISEASE PROCESS, SIGNS AND SYMPTOMS, AND COMPLICATIONS.] Future Scheduled Test VIRTUAL SIT FREQUENCY: 12 PRN VIRTUAL VISITS MAY BE PERFORMED UTILIZING TELECOMMUNICATIONS SYSTEM TO OPTIMIZE SKILLED SERVICES FURNISHED ON THE PLAN OF CARE. SKILLED NURSE TO ESTABLISH SUPPORT MEASURES TO MINIMIZE RISK OF REHOSPITALIZATION, AND INSTRUCT PATIENT/CAREGIVER ON METHODS TO REDUCE AVOIDABLE HOSPITALIZATION. [code = VIRTUAL VISIT FREQUENCY: 12 PRN VIRTUAL VISITS MAY BE PERFORMED UTILIZING TELECOMMUNICATIONS SYSTEM TO OPTIMIZE SKILLED SERVICES FURNISHED ON THE PLAN OF CARE. SKILLED NURSE TO ESTABLISH SUPPORT MEASURES TO MINIMIZE RISK OF REHOSPITALIZATION, AND INSTRUCT PATIENT/CAREGIVER ON METHODS TO REDUCE AVOIDABLE HOSPITALIZATION.] Future Scheduled Test PATIENT RANKIN S A RISK OF HOSPITALIZATION AND ED USE. SKILLED NURSE TO ESTABLISH SUPPORT MEASURES TO MINIMIZE RISK OF HOSPITALIZATION AND ED USE, AND INSTRUCT PATIENT/CAREGIVER ON METHODS TO REDUCE AVOIDABLE HOSPITALIZATION AND ED USE. [code = PATIENT HAS A RISK OF HOSPITALIZATION AND ED USE. SKILLED NURSE TO ESTABLISH SUPPORT MEASURES TO MINIMIZE RISK OF HOSPITALIZATION AND ED USE, AND INSTRUCT PATIENT/CAREGIVER ON METHODS TO REDUCE AVOIDABLE HOSPITALIZATION AND ED USE.] Future Scheduled Test SKILLED NU RSE TO PROVIDE INSTRUCTION TO PATIENT/CAREGIVER RELATED TO DISCHARGE PLANNING. [code = SKILLED NURSE TO PROVIDE INSTRUCTION TO PATIENT/CAREGIVER RELATED TO DISCHARGE PLANNING.] Future Scheduled Test SKILLED NU RSE TO PERFORM ENVIRONMENTAL SAFETY RISK ASSESSMENT AND FALL RISK ASSESSMENT AND PROVIDE INSTRUCTION TO IMPLEMENT ENVIRONMENTAL SAFETY AND FALL PREVENTION STRATEGIES THROUGHOUT THE CERTIFICATION PERIOD. SKILLED NURSE WILL MAINTAIN SITUATIONAL AWARENESS AND WILL NOTIFY CLINICAL PHONE OPERATOR AND PHYSICIAN/PROVIDER WITH ANY CHANGE IN CONDITION. [code = SKILLED NURSE TO PERFORM ENVIRONMENTAL SAFETY RISK ASSESSMENT AND FALL RISK ASSESSMENT AND PROVIDE INSTRUCTION TO IMPLEMENT ENVIRONMENTAL SAFETY AND FALL PREVENTION STRATEGIES THROUGHOUT THE CERTIFICATION PERIOD. SKILLED NURSE WILL MAINTAIN SITUATIONAL AWARENESS AND WILL NOTIFY CLINICAL PHONE OPERATOR AND PHYSICIAN/PROVIDER WITH ANY CHANGE IN CONDITION.] Future Scheduled Test SKILLED NU RSE FOR OBSERVATION AND ASSESSMENT OF PATIENT S PAIN LEVEL AND EFFECTIVENESS OF PAIN MANAGEMENT REGIMEN. SKILLED NURSE TO INSTRUCT PATIENT/CAREGIVER REGARDING PHARMACOLOGIC AND NON-PHARMACOLOGIC PAIN CONTROL MEASURES. SKILLED NURSE TO REPORT TO PHYSICIAN IF PAIN LEVEL IS OUTSIDE OF ESTABLISHED PARAMETERS. [code = SKILLED NURSE FOR OBSERVATION AND ASSESSMENT OF PATIENT S PAIN LEVEL AND EFFECTIVENESS OF PAIN MANAGEMENT REGIMEN. SKILLED NURSE TO INSTRUCT PATIENT/CAREGIVER REGARDING PHARMACOLOGIC AND NON-PHARMACOLOGIC PAIN CONTROL MEASURES. SKILLED NURSE TO REPORT TO PHYSICIAN IF PAIN LEVEL IS OUTSIDE OF ESTABLISHED PARAMETERS.] Future Scheduled Test SKILLED NU RSE TO ASSESS PATIENT'S SKIN INTEGRITY AND INSTRUCT PATIENT/CAREGIVER ON MEASURES TO PREVENT PRESSURE ULCERS. [code = SKILLED NURSE TO ASSESS PATIENT'S SKIN INTEGRITY AND INSTRUCT PATIENT/CAREGIVER ON MEASURES TO PREVENT PRESSURE ULCERS.] Future Scheduled Test SN TO INST RUCT PATIENT/CAREGIVER ON COPD MANAGEMENT UTILIZING THE BREATHING WITH CARE SPECIALTY PROGRAM. [code = SN TO INSTRUCT PATIENT/CAREGIVER ON COPD MANAGEMENT UTILIZING THE BREATHING WITH CARE SPECIALTY PROGRAM.] Future Scheduled Test SKILLED NU RSE TO REVIEW PATIENT MEDICATIONS (PRESCRIPTION/OTC). INSTRUCT PATIENT/CAREGIVER ON ALL MEDICATIONS INCLUDING PURPOSE, WHEN TO TAKE, IMPORTANCE OF MEDICATION ADHERENCE, MONITORING OF EFFECTIVENESS, ADVERSE DRUG REACTIONS, POSSIBLE SIDE EFFECTS, AND WHEN TO NOTIFY AGENCY OR PHYSICIAN/PROVIDER OF ANY CONCERNS. [code = SKILLED NURSE TO REVIEW PATIENT MEDICATIONS (PRESCRIPTION/OTC). INSTRUCT PATIENT/CAREGIVER ON ALL MEDICATIONS INCLUDING PURPOSE, WHEN TO TAKE, IMPORTANCE OF MEDICATION ADHERENCE, MONITORING OF EFFECTIVENESS, ADVERSE DRUG REACTIONS, POSSIBLE SIDE EFFECTS, AND WHEN TO NOTIFY AGENCY OR PHYSICIAN/PROVIDER OF ANY CONCERNS.] Goal Patient Goal - AVOID HOSPITA LIZATION Goal Provider Goal - A PLAN OF CARE WILL BE ESTABLISHED THAT MEETS PATIENT'S [facility] NEEDS AND INCLUDES PATIENT GOAL FOR HOME HEALTH. Goal Provider Goal - ADDITIONAL ORDERS WILL BE RECEIVED FROM ALTERNATE PHYSICIAN IN A TIMELY MANNER THROUGHOUT THE CERTIFICATION PERIOD. Goal Provider Goal - PATIENT/CAREGIVER WILL VERBALIZE/DEMONSTRATE UNDERSTANDING OF SAFE OXYGEN USE IN THE HOME THROUGHOUT THE EPISODE. Goal Provider Goal - PATIENT/CAREGIVER WILL VERBALIZE/DEMONSTRATE MANAGEMENT OF PNEUMOTHORAX PROCESS. CHANGES IN RESPIRATORY STATUS WILL BE IDENTIFIED AND REPORTED TO PHYSICIAN FOR PROMPT INTERVENTION THROUGHOUT THE CERTIFICATION PERIOD. Goal Provider Goal - PATIENT/CAREGIVER WILL VERBALIZE/DEMONSTRATE KNOWLEDGE AND MANAGEMENT OF COPD BY END OF EPISODE. Goal Provider Goal - PATIENT/CAREGIVER WILL UTILIZE VIRTUAL VISITS TO ACHIEVE GOALS OUTLINED ON THE PLAN OF CARE. PATIENT WILL HAVE SUPPORT MEASURES ESTABLISHED TO PREVENT HOSPITALIZATION AND PATIENT/CAREGIVER WILL VERBALIZE/DEMONSTRATE METHODS TO REDUCE AVOIDABLE HOSPITALIZATION THROUGHOUT THE CERTIFICATION PERIOD. Goal Provider Goal - PATIENT WILL HAVE SUPPORT MEASURES ESTABLISHED TO PREVENT HOSPITALIZATION AND ED USE AND PATIENT/CAREGIVER WILL VERBALIZE/DEMONSTRATE METHODS TO REDUCE AVOIDABLE HOSPITALIZATION AND ED USE BY END OF EPISODE. Goal Provider Goal - PATIENT/CAREGIVER WILL VERBALIZE UNDERSTANDING OF DISCHARGE PLANNING INSTRUCTIONS BY DATE OF DISCHARGE. Goal Provider Goal - PATIENT/CAREGIVER WILL VERBALIZE/DEMONSTRATE EFFECTIVE ENVIRONMENTAL SAFETY AND FALL PREVENTION STRATEGIES, WILL REMAIN SAFE IN THE COMMUNITY, AND WILL BE FREE OF DANGER TO SELF AND OTHERS THROUGHOUT THE CERTIFICATION PERIOD. Goal Provider Goal - PATIENT/CAREGIVER WILL DEMONSTRATE UNDERSTANDING OF PHARMACOLOGIC AND NONPHARMACOLOGIC PAIN CONTROL MEASURES AND PATIENT WILL HAVE IMPROVEMENT IN PAIN INTERFERING WITH ACTIVITY EVIDENCED BY PAIN AT A LEVEL THAT IS ACCEPTABLE TO THE PATIENT AND PAIN LEVEL WITHIN ESTABLISHED PARAMETERS BY END OF CERTIFICATION PERIOD. Goal Provider Goal - PATIENT/CAREGIVER WILL VERBALIZE UNDERSTANDING OF PRESSURE ULCER PREVENTION BY END OF THE EPISODE. Goal Provider Goal - PATIENT/CAREGIVER WILL DEMONSTRATE MANAGEMENT OF COPD A RESULT OF PARTICIPATION IN BREATHING WITH CARE SPECIALTY PROGRAM. Goal Provider Goal - PATIENT/CAREGIVER WILL VERBALIZE UNDERSTANDING OF EDUCATION PROVIDED ON MEDICATIONS BY THE END OF THE CERTIFICATION PERIOD. Encounters Start Date/Time End Date/Time Encounter Type Admission Type Attending [facility] Care Facility Care Department Encounter ID Discharge Date Discharge Status Discharge Condition Discharge Reason Percent Goals Met 2024-12-23 00:00:00 2025-02-20 00:00:00 Outpatient NEW ADMISSION FOR[facility] [id number]
== END 2025-02-07 11:48 | disposition home or self-care (01) | DRG 62 ==
LOC: ER 20:17 → ICU 21:48
PROVIDERS: Admitting Provider Internal Medicine; Emergency Provider Emergency Medicine; PCP Family Medicine; Visit Provider Internal Medicine
DX: I63.232 Cerebral infarction due to unspecified occlusion or stenosis of left carotid arteries (principal); G81.91 Hemiplegia, unspecified affecting right dominant side; R47.1 Dysarthria and anarthria; J44.9 Chronic obstructive pulmonary disease, unspecified; J84.10 Pulmonary fibrosis, unspecified; E86.0 Dehydration; K21.9 Gastro-esophageal reflux disease without esophagitis; I25.10 Atherosclerotic heart disease of native coronary artery without angina pectoris; I71.40 Abdominal aortic aneurysm, without rupture, unspecified; E78.5 Hyperlipidemia, unspecified; I73.9 Peripheral vascular disease, unspecified; Z95.820 Peripheral vascular angioplasty status with implants and grafts; I25.2 Old myocardial infarction; Z79.82 Long term (current) use of aspirin; Z88.8 Allergy status to other drugs, medicaments and biological substances; Z95.5 Presence of coronary angioplasty implant and graft; Z86.73 Personal history of transient ischemic attack (TIA), and cerebral infarction without residual deficits; Z87.891 Personal history of nicotine dependence
CPT/HCPCS: 36415; 36416; 70450; 70553; 80053; 80061; 80306; 81001; 82962; 83036; 85025; 85610; 85730; 92523; 92610; 93005; 93306; 93880; 94640; 94660; 96374; 97116; 97161; 97165; 99291; J3101; J7030; J7644; J9999

== ENCOUNTER → 2025-02-24 14:21 | Outpatient (BNVA) | payer OTHER, SELFPAY | PROVIDERS: PCP Family Medicine; Visit Provider Internal Medicine | DX: J43.9 Emphysema, unspecified (principal); J93.83 Other pneumothorax; Z99.81 Dependence on supplemental oxygen; Z87.891 Personal history of nicotine dependence | CPT/HCPCS: 99203; 99213 ==

== ENCOUNTER → 2025-03-12 13:34 | Outpatient (BNVA) | payer OTHER, SELFPAY | PROVIDERS: PCP Family Medicine; Visit Provider Internal Medicine | DX: I65.29 Occlusion and stenosis of unspecified carotid artery (principal); I73.9 Peripheral vascular disease, unspecified; J43.2 Centrilobular emphysema; E78.5 Hyperlipidemia, unspecified; I25.2 Old myocardial infarction; Z86.73 Personal history of transient ischemic attack (TIA), and cerebral infarction without residual deficits; Z87.891 Personal history of nicotine dependence | CPT/HCPCS: 99214 ==

== ENCOUNTER 2025-03-24 06:58 | Outpatient (CLI) | payer OTHER, SELFPAY ==
[2025-03-24 07:35] VITALS: PULSE 67; RESP 18; O2SAT 98
== END 2025-03-24 06:59 | disposition home or self-care (01) ==
LOC: RT 06:59
PROVIDERS: PCP Family Medicine; Visit Provider Internal Medicine
DX: J44.1 Chronic obstructive pulmonary disease with (acute) exacerbation (principal); R06.02 Shortness of breath
CPT/HCPCS: 94060; 94726; 94729; J7613

== ENCOUNTER → 2025-04-17 10:56 | Outpatient (BNVA) | payer OTHER, SELFPAY | PROVIDERS: PCP Family Medicine; Visit Provider Internal Medicine | DX: J43.9 Emphysema, unspecified (principal); Z99.81 Dependence on supplemental oxygen; Z87.891 Personal history of nicotine dependence; J44.9 Chronic obstructive pulmonary disease, unspecified | CPT/HCPCS: 99215; Q3014 ==